=== PATIENT | male | born 1995 | race Caucasian/White ===

== ENCOUNTER 2021-09-09 18:20 | Outpatient (CLI) | payer MEDICAID, SELFPAY | END 2021-09-09 23:59 | disposition short-term general hospital (02) | PROVIDERS: PCP Family Medicine; Visit Provider Family Medicine | DX: U07.1 COVID-19 (principal) | CPT/HCPCS: 87635; U0003; U0005 ==

== ENCOUNTER → 2024-09-19 | Outpatient (CLI) | payer OTHER, SELFPAY | END | disposition home or self-care (01) | PROVIDERS: PCP Nurse Practitioner Family; Visit Provider Nurse Practitioner Family | DX: N39.0 Urinary tract infection, site not specified (principal) | CPT/HCPCS: 87086 ==

== ENCOUNTER 2024-09-24 14:42 | Inpatient (IN) | payer OTHER, SELFPAY ==
[2024-09-24 14:43] VITALS: BP 153/104; PULSE 92; RESP 16; TEMP 36.6; O2SAT 100; BMI 43.0
--- NOTE | 2024-09-24 15:44 | EDS_ITS ---
HPI History of Present Illness Chief Complaint: General Illness [facility] Medical History (Updated 09/24/24 @ 14:54 by Ani Coleman) UTI (urinary tract infection) Home Medications ?Medication ?Instructions ?Recorded ?Last Taken ?Type ciprofloxacin HCl 500 mg tablet 500 mg PO BID 09/24/24 Unknown History Allergy/AdvReac Type Severity Reaction Status Date / Time ciprofloxacin (From Cipro) Allergy hepatitis Verified 09/24/24 20:56 Social History (Updated 09/24/24 @ 14:54 by Ani Coleman) household members: family housing: house Smoking Status: Never smoker EXAM Physical Exam Const Vital Signs: 09/24/24 14:43 09/24/24 14:54 09/24/24 16:42 Temperature 97.8 F Temperature Source Oral Pulse Rate 92 78 Respiratory Rate 16 Respiratory Effort Normal Non-Labored Respiratory Pattern Normal Blood Pressure 153/104 H 135/93 H Blood Pressure Mean 120 107 Pulse Ox 100 96 Oxygen Delivery Method Room Air 09/24/24 18:00 09/24/24 20:00 Temperature Temperature Source Pulse Rate 87 82 Respiratory Rate Respiratory Effort Respiratory Pattern Blood Pressure 138/89 H 152/85 H Blood Pressure Mean 105 107 Pulse Ox 96 97 Oxygen Delivery Method MDM MDM MDM Narrative Medical decision making narrative: HISTORY OF PRESENT ILLNESS: 29-year-old male presents concern for discoloration of the skin. Family concern patient appears jaundiced. First noticed 2 days ago. Mother's concern is related to starting ciprofloxacin several days ago for urinary tract infection. No history of alcohol use or abuse. Denies taking Tylenol recently. Notes he is taken ibuprofen for his UTI discomfort. Denies trauma. Denies history of gallstones. Denies history of abdominal surgery. REVIEW OF SYSTEMS: Pertinent positives: Jaundice Pertinent negatives: Vomiting PHYSICAL EXAM: Nursing triage notes reviewed, Vital signs reviewed Constitutional: please see mdm HENT: MMM Eyes: Pupils equal round and reactive to light, Extraocular muscles intact Neck: No stridor, no JVD, full neck ROM Lungs: Clear to auscultation, No wheezing or rales. No increased work of breathing, no conversational dyspnea, no accessory muscle use, no nasal flaring. No respiratory distress noted Heart: Regular rate and rhythm, No murmurs, No rubs and No gallops, 2+ distal pulses (radial, femoral, posterior tibial) in all extremities Abdomen: Soft, there is no tenderness, rigidity, rebound or guarding, no obvious peritoneal signs, no palpable pulsatile abdominal masses, no auscultated abdominal bruit : No CVAT Extremities: No edema Neuro: No new focal neurological deficits, cranial nerves II through XII intact, 5/5 strength in all present extremities. Intact sensation to light touch in all present extremities, 2+ reflexes bilateral patella tendons. Skin: No rash or lesions noted MEDICAL DECISION MAKING: Chief Complaint: Jaundice External records reviewed: Reviewed prior labs, no recent CMP's note. Reviewed prior imaging. No recent advanced imaging of the abdomen Factors affecting care: UTI Social determinants of health: denies alcohol use History obtained from others: Mom Consults: none [facility] Narrative: Patient was initially hemodynamically stable, afebrile and nontoxic-appearing. Exam without abdominal tenderness. Negative Wilson sign I considered the following differential diagnosis: Obstructive hepatobiliary pathology, viral hepatitis C, Tylenol overdose, alcohol induced cirrhosis, other (drug-induced hepatitis, autoimmune hepatitis, Ferdinand's disease, PSC) I obtained a broad lab and imaging workup to further elucidate etiology of the patient's complaints ALL IMAGES (IF OBTAINED) HAVE BEEN PERSONALLY REVIEWED AND INTERPRETED BY MYSELF. CT scan of the abdomen pelvis did not show evidence of acute cholecystitis or hepatobiliary mass CBC with no leukocytosis, no anemia, noted thrombocytopenia No coagulopathy BMP without evidence of significant electrolyte abnormalities, no anion gap, no acute kidney injury. LFTs concerning for elevated bilirubin, elevated liver enzymes consistent with liver inflammation Lipase is wnl indicating no pancreatic inflammation. Serum Tylenol negative Discussed the case with GI doctor on-call (Dr. Kaur). He noted this is likely drug-induced hepatitis related to recent ciprofloxacin medication. He states the patient does need a workup including autoimmune, primary source of cholangitis, additional workup. Recommend to give the patient 1 g of Solu- Medrol. Recommended admitting the patient to receive an MRCP. Request the patient be n.p.o. at midnight tonight (09/24/2024). Discussed with Dr. Greene who accepted the patient's case. The patient and/or family, caregivers express understanding. The patient and/or family, caregivers agrees with the plan. Shared decision making: I will have a discussion with the patient and or visitors regarding risk/benefits of further testing or admission. They will be made aware of of the risk/benefits inherent in this decision they will be given the opportunity to voice understanding. Total critical care time today provided was at least 0 minutes. This excludes separately billable procedures. Critical care time (if documented) is secondary to the patient having high probability of clinically significant/life threatening deterioration in the patient's condition which required my urgent intervention. Impression: 1. Jaundice 2. Hyperbilirubinemia 3. Thrombocytopenia Dispo: Admit This note was generated with [employer] dictation software. It may contain incorrect words, spelling, and punctuation that were not noted in review of the chart prior to signing. Lab Data Labs: Laboratory Results - last 24 hr 09/24/24 09/24/24 09/24/24 14:53 18:26 18:55 WBC 4.6 RBC 5.14 Hgb 15.7 Hct 45.1 MCV 87.7 MCH 30.5 MCHC 34.8 RDW Std Deviation 39.3 RDW Coeff of Lopez 12.1 Plt Count 124 L MPV 14.5 H Immature Gran % (Auto) 0.400 Neut % (Auto) 62.4 Lymph % (Auto) 26.9 Parmer % (Auto) 7.7 Eos % (Auto) 1.5 Baso % (Auto) 1.1 H Absolute Neuts (auto) 2.9 Absolute Lymphs (auto) 1.23 Nucleated RBC % 0 PT 12.4 INR 0.9 APTT 25.6 Sodium 138 Potassium 3.6 Chloride 101 Carbon Dioxide 28.0 Anion Gap 9 BUN 13 Creatinine 1.22 Estim Creat Clear Calc 120.35 Est GFR (MDRD) Af Amer 90 Est GFR (MDRD) Non-Af 74 BUN/Creatinine Ratio 10.7 Glucose 119 H Calcium 9.5 Total Bilirubin 6.40 H Direct Bilirubin 4.99 H AST 378 H ALT 680 H Alkaline Phosphatase 268 H Total Protein 6.9 Albumin 3.2 Globulin 3.7 Lipase 41 L Acetaminophen < 2.0 L Radiography Diagnostic Testing: Clinical Impression(s) from Imaging Studies Abdomen/Pelvis CT 09/24/24 16:04 IMPRESSION: 1. No acute abdominopelvic finding. 2. Nonobstructing right renal calculus. 3. Layering sludge within the gallbladder without evidence of acute cholecystitis. One or more dose reduction techniques were used (e.g., Automated exposure control, adjustment of the mA and/or kV according to patient size, use of iterative reconstruction technique). Reading Location: [facility] Discharge Plan Triage Chief Complaint: General Illness ED Provider: Prem Vogel Dx/Rx/DC Orders Prescriptions: No Action ciprofloxacin HCl 500 mg tablet 500 mg PO BID Primary Care Provider: Zunilda Mar Referrals: Zunilda Mar, [employer] [Primary Care Provider] - Print Language: French
--- NOTE | 2024-09-24 16:04 | CT_ITS ---
PROCEDURE: ABDOMEN/PELVIS W IV CONT ONLY REASON FOR EXAM: 29-year-old male, painless jaundice. Currently taking Cipro for urinary tract infection. TECHNIQUE: Abdomen and pelvis CT with intravenous contrast. IV CONTRAST: Administered. COMPARISON: None. FINDINGS: Lung bases: Unremarkable. Liver: The liver is normal in size without focal hepatic mass. The major portal veins are patent. No biliary ductal dilation. Gallbladder: Layering sludge within the gallbladder without gallbladder wall thickening or pericholecystic fluid. Spleen: Unremarkable. Pancreas: Unremarkable. Adrenals: Unremarkable. Kidneys: Punctate nonobstructing right upper pole renal calculus. Left renal cyst. No hydronephrosis. Bladder: Mildly distended and unremarkable. Reproductive Organs: Unremarkable. Bowel: The bowel loops are normal in caliber. No ascites or pneumoperitoneum. Normal appendix. Lymph nodes: No suspicious lymph node enlargement. Vasculature: Major vascular structures are unremarkable. Bones: Mild thoracolumbar spondylosis. CT/Abdomen/Pelvis W IV Cont ONLY IMPRESSION: 1. No acute abdominopelvic finding. 2. Nonobstructing right renal calculus. 3. Layering sludge within the gallbladder without evidence of acute cholecystit is. One or more dose reduction techniques were used (e.g., Automated exposure contr ol, adjustment of the mA and/or kV according to patient size, use of iterative reconstruction technique). Reading Location: [id number]
[2024-09-24 16:42] VITALS: BP 135/93; PULSE 78; O2SAT 96
[2024-09-24 16:48] LABS: Absolute Lymphocyte Count 1.23 X10^3/uL (0.83-4.51); Absolute Neutrophil Count 2.9 X10^3/uL (2.0-7.7); Basophil# 0.05 X10^3/uL; Basophil% 1.1 % (0-1); Eosinophil# 0.07 X10^3/uL; Eosinophils% 1.5 % (0-5); Hematocrit 45.1 % (40-54); Hemoglobin 15.7 g/dL (13.0-16.5); Lymphocyte # 1.23 X10^3/ul (0.83-4.51); Lymphocyte % 26.9 % (19-41); Mean Corp Hgb Conc 34.8 g/dL (32-36); Mean Corpuscular Hgb 30.5 pg (27.0-32.0); Mean Corpuscular Volume 87.7 fL (80-94); Mean Platelet Vol. 14.5 fl (6.2-12.0); Monocyte# 0.35 X10^3/uL; Monocyte% 7.7 % (0-10); NRBC Flagged by Analyzer 0 % (0-5); Neutrophil # 2.85 X10^3/uL (2.7-7.7); Neutrophil % 62.4 % (47-70); Platelet Count 124 K/mm3 (150-450); RBC Distribution Width CV 12.1 % (11.6-14.6); RBC Distribution Width SD 39.3 fl (35.1-43.9); Red Blood Count 5.14 M/mm3 (4.6-6.2); White Blood Count 4.6 K/mm3 (4.4-11.0)
[2024-09-24 17:08] LABS: AST(SGOT) 378 U/L (15-37); Alanine Aminotransfer ALT/SGPT 680 U/L (16-61); Albumin, Serum 3.2 g/dL (3.2-5.0); Alkaline Phosphatase 268 U/L (45-117); Anion Gap 9 (5-15); BUN 13 mg/dL (7-18); BUN/Creat Ratio 10.7 RATIO (10-20); Bilirubin, Direct 4.99 mg/dL (0.00-0.30); Calcium,Total 9.5 mg/dL (8.5-10.1); Chloride 101 mmol/L (98-107); Creatinine, Serum 1.22 mg/dL (0.70-1.30); EST Glomerular Filtration Rate 74 mL/min (>60); Est Glom Filt Rate - Afr Amer 90 mL/min (>60); Estimated Creatinine Clearance 120.35 ml/min; Globulin 3.7 g/dL (2.2-4.2); Glucose 119 mg/dL (74-106); Lipase 41 U/L (73-393); Potassium 3.6 mmol/L (3.5-5.1); Protein, Total 6.9 g/dL (6.4-8.2); Sodium Level 138 mmol/L (136-145)
[2024-09-24 18:00] VITALS: BP 138/89; PULSE 87; O2SAT 96
[2024-09-24 18:48] LABS: International Normalized Ratio 0.9; Prothrombin Time (Protime)PT. 12.4 SECONDS (11.7-14.9)
[2024-09-24 18:49] LABS: Partial Thromboplast Time 25.6 Seconds (24.1-36.2)
[2024-09-24 19:46] LABS: Acetaminophen (Tylenol) Level < 2.0 ug/mL (10.0-30.0)
[2024-09-24 20:00] VITALS: BP 152/85; PULSE 82; O2SAT 97
[2024-09-24] MEDS: MethylPREDNISolone 1,000 MG in 0.9% Normal Saline (100mL Bag) 100 ML 100 MG IV (20:44)
[2024-09-24 20:46] VITALS: BP 137/89; PULSE 89; RESP 19; TEMP 36.7; O2SAT 98
--- NOTE | 2024-09-24 20:47 | ED.RN ---
med rec completed to best of pt ability
--- NOTE | 2024-09-24 20:53 | HP.PCM.HOS_ITS ---
[facility] - General General Date of Admission: 09/24/24 Date of Service: 09/24/24 Chief Complaint: Painless Jaundice after Cipro for UTI. HPI Narrative JOJO BARRETT, is a 29 M with a past medical history of morbid obesity; with BMI of 43 this admission and recently diagnosed UTI; that was subsequently treated with oral ciprofloxacin who presents to [facility] ER complaining of painless jaundice after ciprofloxacin for treatment of a UTI. Mr. Gonzalez reports his symptoms began approximately 5 days ago when he was diagnosed with a UTI and then started on oral ciprofloxacin with subsequent severe pain in his abdomen and back he initially attributed to the UTI and the pain resolved he began to notice yellowing of his skin. His mother was concerned he was having an allergic reaction to his recently started ciprofloxacin so he stopped taking it today and they then decided to come in for further evaluation and treatment. He admits to intermittent ibuprofen use but he denies acetaminophen use, EtOH abuse, history of gallstones, history of abdominal surgery or similar previous episodes. There was no report of fever, chills, nausea, vomiting, diarrhea, constipation, chest pain, SOB or headache. In the ER he was noted to have markedly abnormal LFT's consisting of: Hyperbilirubinemia of 6.4 mg/dL, Direct Bilirubin 4.99 mg/dL, AST 378 U/L, ALT 680 U/L and Alkaline Phosphatase of 268 U/L present on admission with CT of the abdomen and pelvis revealing no acute abdominal finding with a non-obstructing Right renal calculus and layering sludge in the gallbladder without acute cholecystitis and he was then diagnosed with Acute Drug-induced Hepatitis due to Adverse Drug Reaction to recently started Ciprofloxacin causing Jaundice with sponsorship coordinator recommending patient be treated with Solu-Medrol 1g IV once in addition to ERCP with possible biopsy planned for tomorrow causing patient to be made strict NPO to prepare for procedure. He was then admitted to the general medical floor for ongoing care for a stay that is expected to extend beyond 2 midnights. [facility] Medical History UTI (urinary tract infection) Home Medications ?Medication ?Instructions ?Recorded ?Last Taken ?Type ciprofloxacin HCl 500 mg tablet 500 mg PO BID UTI 09/1309/23/24 History Allergy/AdvReac Type Severity Reaction Status Date / Time ciprofloxacin (From Cipro) Allergy hepatitis Verified 09/24/24 20:56 Social History household members: family housing: house Smoking Status: Never smoker ROS ROS Narrative Review of Systems: Constitutional: Patient denies fever or chills. Eyes: Patient denies changes in vision or discharge from eyes. ENT: Patient denies runny nose, sore throat or ear pain. Resp: Patient denies SOB or cough. CV: Patient denies chest pain, palpitations, heart racing or lower extremity edema. GI: Patient initially had severe abdominal pain but he currently denies abdominal pain, nausea, vomiting, diarrhea or constipation. : Patient denies dysuria, hematuria or urinary frequency. MSK: Patient had back pain after initially starting the ciprofloxacin but he currently denies arthralgias or myalgias. Skin: Patient admits to progressively jaundice. Psych: Patient denies symptoms of uncontrolled depression or anxiety. Allergy: Patient denies lip swelling, tongue swelling or urticaria. Hematology: Patient denies easy bleeding or easy bruisability. Endocrinology: Patient denies polyuria, polydipsia or polyphagia. 14 point ROS otherwise negative except for positives noted above in HPI. Vital Signs Vital Signs Vital Signs: 09/24/24 14:43 09/24/24 14:54 09/24/24 16:42 Temperature 97.8 F Temperature Source Oral Pulse Rate 92 78 Respiratory Rate 16 Respiratory Effort Normal Non-Labored Respiratory Pattern Normal Blood Pressure 153/104 H 135/93 H Blood Pressure Mean 120 107 Pulse Ox 100 96 Oxygen Delivery Method Room Air 09/24/24 18:00 09/24/24 20:00 09/24/24 20:46 Temperature 98.1 F Temperature Source Pulse Rate 87 82 89 Respiratory Rate 19 H Respiratory Effort Respiratory Pattern Blood Pressure 138/89 H 152/85 H 137/89 H Blood Pressure Mean 105 107 105 Pulse Ox 96 97 98 Oxygen Delivery Method Weight Weight: 291 lb 2 oz Body Mass Index (BMI) 43.0 Results Medical Records Data Attestation: I reviewed the patient's medical records Lab / Micro Data Attestation: I reviewed the patient's lab results. 09/24/24 14:53 09/24/24 14:53 Labs: Laboratory Results - last 24 hr 09/24/24 14:53: WBC 4.6, RBC 5.14, Hgb 15.7, Hct 45.1, MCV 87.7, MCH 30.5, MCHC 34.8, RDW Std Deviation 39.3, RDW Coeff of Lopez 12.1, Plt Count 124 L, MPV 14.5 H , Immature Gran % (Auto) 0.400, Neut % (Auto) 62.4, Lymph % (Auto) 26.9, Davison % (Auto) 7.7, Eos % (Auto) 1.5, Baso % (Auto) 1.1 H, Absolute Neuts (auto) 2.9, Absolute Lymphs (auto) 1.23, Nucleated RBC % 0, Sodium 138, Potassium 3.6, Chloride 101, Carbon Dioxide 28.0, Anion Gap 9, BUN 13, Creatinine 1.22, Estim Creat Clear Calc 120.35, Est GFR (MDRD) Af Amer 90, Est GFR (MDRD) Non-Af 74, BUN/Creatinine Ratio 10.7, Glucose 119 H, Calcium 9.5, Total Bilirubin 6.40 H, D irect Bilirubin 4.99 H, AST 378 H, ALT 680 H, Alkaline Phosphatase 268 H, Total Protein 6.9, Albumin 3.2, Globulin 3.7, Lipase 41 L 09/24/24 18:26: PT 12.4, INR 0.9, APTT 25.6 09/24/24 18:55: Acetaminophen < 2.0 L Imaging Radiology Impression Abdomen/Pelvis CT 09/24/24 16:04 IMPRESSION: 1. No acute abdominopelvic finding. 2. Nonobstructing right renal calculus. 3. Layering sludge within the gallbladder without evidence of acute cholecystitis. One or more dose reduction techniques were used (e.g., Automated exposure control, adjustment of the mA and/or kV according to patient size, use of iterative reconstruction technique). Reading Location: [facility] Assessment & Plan Assessment/Plan (1) Drug-induced hepatitis: (2) Hyperbilirubinemia: (3) Transaminitis: (4) Adverse drug reaction: QUALIFIERS: Encounter type: initial encounter Qualified Code(s): T50.905A - Adverse effect of unspecified drugs, medicaments and biological substances, initial encounter (5) Morbid obesity with BMI of 40.0-44.9, adult: (6) Abdominal obesity and metabolic syndrome: (7) Acute cystitis without hematuria: PLAN: Plan 1. Acute Drug-induced Hepatitis with markedly abnormal LFT's consisting of: Hyperbilirubinemia of 6.4 mg/dL, Direct Bilirubin 4.99 mg/dL, AST 378 U/L, ALT 680 U/L and Alkaline Phosphatase of 268 U/L present on admission with CT of the abdomen and pelvis revealing no acute abdominal finding with a non-obstructing Right renal calculus and layering sludge in the gallbladder without acute cholecystitis - Admit to general medical floor. Proceed with Solu-Medrol 1g IV once recommended by gastroenterology. Patient to be strict NPO for ERCP in AM. Start pantoprazole IV for GI prophylaxis. Give ondansetron prn for nausea and vomiting. We will avoid acetaminophen or other potentially hepatotoxic agents. Give low-dose ibuprofen prn for [id number] (level 1-5/10) pain or fever. Give morphine IV prn for severe (level 6-10/10) pain. Finally, gastroenterology help is greatly appreciated. 2. Adverse Drug Reaction to recently started Ciprofloxacin causing Jaundice directly causing #1 - Add ciprofloxacin to list of allergies to minimize risk of similar issues in the future. 3. Recently diagnosed UTI; that was subsequently treated with oral ciprofloxacin complicating #1 & #2 - Rechecked UA this admission with evidence of ongoing Acute Cystitis; without hematuria with patient then ordered IV ceftriaxone with culture and sensitivity data pending at this time. 4. Morbid Obesity; with BMI of 43 this admission adding to the burden of disease outlined from #1 - #3 - Weight loss will be recommended. Check TSH. Check HgbA1c with elevated blood glucose noted on admission to screen for underlying DM-2. Check Lipid Profile to screen for dyslipidemia with suspected underlying metabolic syndrome. This complicates his case and may hamper recovery. 5. DVT/GI prophylaxis - SCD's only with impending ERCP. Start pantoprazole 40 mg IV daily. Total time: Approximately (but not less than) 75 minutes. Charges/Coding Visit Charges Inpatient E&M: 97483 Init Hosp L3
[2024-09-24 21:37] VITALS: BMI 39.6
[2024-09-24 21:55] VITALS: BP 133/92; PULSE 71; RESP 16; TEMP 37.2; O2SAT 98
[2024-09-24] MEDS: Pantoprazole Sodium 40 MG in 0.9% Normal Saline (100mL MB+) 100 ML 330 MG IV (22:24)
[2024-09-24] MEDS: 0.9% Normal Saline (1000mL) 1,000 ML 150 ML IV (22:24)
[2024-09-24 22:37] LABS: Alcohol, Blood (Medical)-Serum < 3.0 mg/dL
[2024-09-24 22:46] LABS: Cholesterol 203 mg/dL (200); High Density Lipoprotein 30 mg/dL; Thyroid Stim Hormone (TSH) 0.735 uIU/mL (0.358-3.740); Triglycerides 146 mg/dL; Very Low Density Lipoprotein 29 mg/dL (5-40)
[2024-09-24 23:54] LABS: Squamous Epithelial Cells - UA 0 SEEN /hpf (0-5)
[2024-09-24 23:58] LABS: Color, Urine Yellow (Yellow); Glucose, Dipstick Normal (Normal); Ketone-Dipstick Negative (Negative); Leukocyte Esterase-Dipstick 25 /ul (Negative); Nitrite-Dipstick Negative (Negative); Occult Blood-Urine Negative /ul (Negative); Protein-Dipstick 15 mg/dl (Negative); Specific Gravity, Urine 1.015 (1.002-1.030); Urine Clarity Clear (Clear); Urine Urobilinogen 1 mg/dl (Normal); Urine pH 6.5 (5.0 - 8.0)
[2024-09-25] VITALS (17 sets, daily range): BP systolic 104–165; BP diastolic 58–92; PULSE 70–103; RESP 14–24; TEMP 36.6–37.2; O2SAT 93–98; BMI 39.6
--- NOTE | 2024-09-25 | LIVB_PTH ---
PATIENT: JOJO BARRETT LOC: [facility] U#:[id number] AGE/SX: 29/M ROOM: [facility] RE09/24/[address]: Dr. Mani Emanuel MD : 1995 BED: 1 DIS: 09/27/2024 SPEC #: [id number] RECD: 09/25/24 14:44 STATUS: MACIE SUE #: [id number] NELLY: 09/25/24 00:[address]: Mani Emanuel DEPT: SURGICAL PATHOLOGY RECD BY: Jessi Banuelos ENTERED: 09/26/24 08:21 SP TYPE: LIVER BX OTHR DR: Dr. Karson Agudelo, DO Zunilda Mar, [employer] Tissues: Liver, NOS Procedures: PAS with Diastase (control) Trichrome (control) Special Stain Group I PAS Stain (control) Surgery Specimen Level V Retic (control) Iron Stain (control) HEADER OPERATION: Liver biopsy PRE-OP DIAGNOSIS: Liver failure TISSUE SUBMITTED: 18 gauge x 4 cores MICROSCOPIC DIAGNOSIS Liver, CT guided core biopsy: Liver parenchymal tissue with macro- and microvesicular steatosis. Increased portal, periportal fibrosis and focal bridging fibrosis. Mild portal chronic inflammation. See microscopic description and comment. 09/29/2024 COMMENT Correlation with clinical, laboratory, radiologic findings and appropriate follow-up are necessary. This case has been reviewed in consultation with Dr. House who concurs with the above diagnosis. IDC:PW MICROSCOPIC DESCRIPTION Slides are reviewed. The specimen shows liver parenchymal tissue with preserved lobular architecture. Hepatocytes show mild to moderate atypia and focal bile stasis. Significant lobular inflammation is not seen. Portal areas show mild chronic inflammation. Interface inflammation is not seen. Iron stain shows absent iron. Reticulin stain shows preserved lobular architecture. Trichrome stain shows increased portal, periportal fibrosis and focal bridging fibrosis. Obvious cirrhosis is not seen. PAS stain with and without diastase do not show any abnormal accumulation of protein. All stains are performed with appropriate matched controls. GROSS DESCRIPTION Received is one container labeled with the patient's name and not further designated. The specimen consists of multiple elongated fragments of pantoja soft tissue that in aggregate measure 2 x 0.5 x 0.1 cm. The specimen is totally submitted in one cassette. 09/26/2024 TC:5 CPT:74697,85841w2
[2024-09-25 00:11] LABS: Urine Bilirubin Dipstick 1 mg/dL (Negative)
[2024-09-25 00:15] LABS: Amphetamine Urine NEGATIVE (<1000 ng/mL); Barbiturate Urine VISTA NEGATIVE (< 200 ng/mL); Benzodiazepine Urine VISTA NEGATIVE (< 200 ng/mL); Cocaine Urine VISTA NEGATIVE (< 300 ng/mL); Ecstacy Urine VISTA NEGATIVE (< 500 ng/mL); Methadone Urine VISTA NEGATIVE (< 300 ng/mL); Opiates Urine NEGATIVE (< 300 ng/mL); PCP Urine NEGATIVE (< 25 ng/mL); THC Urine VISTA NEGATIVE (< 50 ng/mL); Vista UDS pH Range 5
[2024-09-25 00:24] LABS: Red Blood Cells-Urine 0 SEEN /hpf (0-5)
[2024-09-25 00:25] LABS: Amorphous Sediment 1+; Bacteria 2+ /hpf (None Seen); Mucous, Urine RARE /hpf (<or=2+); White Blood Cells 10-25 SEEN /hpf (0-5)
[2024-09-25] MEDS: 0.9% Normal Saline (1000mL) 1,000 ML 150 ML IV (05:02)
[2024-09-25] MEDS: Ceftriaxone 1 GM/50 ML BAG IV (05:59)
[2024-09-25 07:26] LABS: Absolute Lymphocyte Count 0.47 X10^3/uL (0.83-4.51); Absolute Neutrophil Count 2.9 X10^3/uL (2.0-7.7); Basophil# 0.01 X10^3/uL; Basophil% 0.3 % (0-1); Eosinophil# 0.01 X10^3/uL; Eosinophils% 0.3 % (0-5); Hematocrit 45.1 % (40-54); Hemoglobin 15.9 g/dL (13.0-16.5); Lymphocyte # 0.47 X10^3/ul (0.83-4.51); Lymphocyte % 13.7 % (19-41); Mean Corp Hgb Conc 35.3 g/dL (32-36); Mean Corpuscular Hgb 30.9 pg (27.0-32.0); Mean Corpuscular Volume 87.7 fL (80-94); Monocyte# 0.02 X10^3/uL; Monocyte% 0.6 % (0-10); NRBC Flagged by Analyzer 0 % (0-5); Neutrophil # 2.92 X10^3/uL (2.7-7.7); Neutrophil % 84.8 % (47-70); POSITIVE DIFFERENTIAL YES; Platelet Count 122 K/mm3 (150-450); RBC Distribution Width CV 12.1 % (11.6-14.6); RBC Distribution Width SD 39.1 fl (35.1-43.9); Red Blood Count 5.14 M/mm3 (4.6-6.2); White Blood Count 3.4 K/mm3 (4.4-11.0)
--- NOTE | 2024-09-25 07:28 | CT_ITS ---
EXAM: BIOPSY/INJ OR NEEDLE PLACEMENT CLINICAL HISTORY: Acute liver failure. COMPARISON: None. TECHNIQUE: The procedure as well as the benefits and possible complications including bleeding and infection were explained to the patient and the patient's mother. Informed consent was obtained. Under CT guidance, an appropriate biopsy site in the right lobe of the liver was obtained. The overlying skin was prepped and draped in the usual sterile fashion. Conscious sedation was performed. The patient received 2 mg of Versed and 50 mcg of fentanyl intravenously. Conscious sedation was started at 2:18 p.m. and terminated at 2:33 p.m.. The patient was independently monitored by the department nurse. For core biopsies utilizing an 18 gauge core biopsy needle system was performed of the right lobe of the liver. No immediate complication occurred. The patient tolerated the procedure well FINDINGS: Successful 18 gauge core biopsies of the right lobe of the liver. CT/Biopsy/Inj or Needle Placement IMPRESSION: Successful 418 gauge core biopsies of the right lobe of the liver performed. The patient tolerated the procedure well. Conscious sedation was performed. Reading Location: [place] [id number]
--- NOTE | 2024-09-25 07:50 | MRI_ITS ---
EXAM: MRCP ABDOMEN WITHOUT CONTRAST CLINICAL HISTORY: Jaundice elevated liver enzymes COMPARISON: 09/24/2024. TECHNIQUE: MRI of the abdomen was performed without intravenous contrast. MRCP images were obtained with 3D reconstruction. FINDINGS: Lung bases: Unremarkable. Liver: Unremarkable. Gallbladder and bile ducts: There is a 2-3 mm stone in the distal common bile duct. The common bile duct is mildly dilated measuring 7.3 mm. The gallbladder is partially distended. The gallbladder wall is mildly thickened measuring 3.8 mm. Numerous tiny gallstones are present in the gallbladder lumen. A small filling defect may also be present in the cystic duct, seen on image 10 of series 12 Spleen: The spleen is mildly enlarged measuring 16.8 cm.. Pancreas: Unremarkable. Adrenals: Unremarkable. Kidneys and ureters: Unremarkable. Bowel: Unremarkable. Lymph nodes: Unremarkable. Peritoneum: Unremarkable. Vessels: Unremarkable. Retroperitoneum: Unremarkable. Abdominal wall: Unremarkable. Bones: Mild multilevel degenerative changes are present in the visualized spine. MRI/MRCP Abdomen without Contrast IMPRESSION: 1. 2-3 mm stone in the distal common bile duct with mild dilatation of the comm on bile duct measuring 7.3 mm suggesting possible obstructive cholangiopathy. 2. Cholelithiasis with a partially distended and thick-walled gallbladder. The re is a questionable stone in the cystic duct. Acute cholecystitis is possible. 3. Splenomegaly. Reading [facility]
[2024-09-25 08:28] LABS: ALB/GLOB Ratio 0.8 RATIO (0.9-2.4); AST(SGOT) 366 U/L (15-37); Alanine Aminotransfer ALT/SGPT 710 U/L (16-61); Albumin, Serum 3.1 g/dL (3.2-5.0); Alkaline Phosphatase 260 U/L (45-117); Anion Gap 7 (5-15); BUN 11 mg/dL (7-18); BUN/Creat Ratio 10.4 RATIO (10-20); Calcium,Total 9.3 mg/dL (8.5-10.1); Chloride 107 mmol/L (98-107); Creatinine, Serum 1.06 mg/dL (0.70-1.30); EST Glomerular Filtration Rate 87 mL/min (>60); Est Glom Filt Rate - Afr Amer 106 mL/min (>60); Estimated Creatinine Clearance 132.61 ml/min; Globulin 3.8 g/dL (2.2-4.2); Glucose 164 mg/dL (74-106); Magnesium 2.5 mg/dL (1.6-2.6); Phosphorus 3.5 mg/dL (2.5-4.9); Potassium 4.2 mmol/L (3.5-5.1); Protein, Total 6.9 g/dL (6.4-8.2); Sodium Level 138 mmol/L (136-145)
--- NOTE | 2024-09-25 09:03 | CON.PCM.GI_ITS ---
HPI Consult Data Date of Consult: 09/25/24 HPI Narrative Reason for Consultation: jaundice HPI Narrative: JOJO BARRETT, is a 29 M who presents to the ED. He was recently diagnosed UTI; that was subsequently treated with oral ciprofloxacin who presents to [facility] ER complaining of painless jaundice after ciprofloxacin for treatment of a UTI. His symptoms began approximately 5 days ago when he was diagnosed with a UTI and then started on oral ciprofloxacin. He did develop severe pain in his abdomen and back he initially attributed to the UTI and the pain resolved he began to notice yellowing of his skin. His mother was concerned he was having an allergic reaction to his recently started ciprofloxacin so he stopped taking it today and they then decided to come in for further evaluation and treatment. He admits to intermittent ibuprofen use but he denies acetaminophen use, EtOH abuse, history of gallstones, history of abdominal surgery or similar previous episodes. There was no report of fever, chills, nausea, vomiting, diarrhea, constipation, chest pain, SOB or headache. In the ER he was noted to have markedly abnormal LFT's consisting of: Hyperbilirubinemia of 6.4 mg/dL, Direct Bilirubin 4.99 mg/dL, AST 378 U/L, ALT 680 U/L and Alkaline Phosphatase of 268 U/L present on admission with CT of the abdomen and pelvis revealing no acute abdominal finding with a non-obstructing Right renal calculus and layering sludge in the gallbladder without acute cholecystitis. I suspected that he had acute Drug-induced Hepatitis due to Adverse Drug Reaction to recently started Ciprofloxacin causing Jaundice with jump roll operator recommending patient be treated with Solu-Medrol 1g IV once in addition to MRCP with possible biopsy. [facility] Medical History UTI (urinary tract infection) Home Medications ?Medication ?Instructions ?Recorded ?Last Taken ?Type ciprofloxacin HCl 500 mg tablet 500 mg PO BID UTI 09/1309/23/24 History Allergy/AdvReac Type Severity Reaction Status Date / Time ciprofloxacin (From Cipro) Allergy hepatitis Verified 09/24/24 20:56 Social History household members: family housing: house Smoking Status: Never smoker ROS Constitutional Constitutional: Denies fatigue, fever(s), poor appetite, weight gain or weight loss Gastrointestinal Gastrointestinal: Denies belching, bloating, change in bowel habits, change in stool character, chewing difficulty, coffee ground emesis, constipation, cramping, diarrhea, dyspepsia, dysphagia, early satiety, excessive flatus, fecal incontinence, heartburn, hematemesis, hematochezia, hemorrhoids, loose stools, melena, nausea, odynophagia, rectal bleeding, tenesmus, vomiting or weight changes Physical Exam Const alert, oriented x3, no apparent distress and healthy appearing General Appearance: cooperative GI normal to inspection, nondistended, normoactive bowel sounds, soft to palpation, non-tender and non-distended Percussion: normal to percussion Rectal Exam: deferred Lab / Micro Data 09/25/24 07:07 09/25/24 07:07 Labs: Laboratory Results - last 24 hr 09/24/24 14:53: WBC 4.6, RBC 5.14, Hgb 15.7, Hct 45.1, MCV 87.7, MCH 30.5, MCHC 34.8, RDW Std Deviation 39.3, RDW Coeff of Lopez 12.1, Plt Count 124 L, MPV 14.5 H , Immature Gran % (Auto) 0.400, Neut % (Auto) 62.4, Lymph % (Auto) 26.9, [place] % (Auto) 7.7, Eos % (Auto) 1.5, Baso % (Auto) 1.1 H, Absolute Neuts (auto) 2.9, Absolute Lymphs (auto) 1.23, Nucleated RBC % 0, Sodium 138, Potassium 3.6, Chloride 101, Carbon Dioxide 28.0, Anion Gap 9, BUN 13, Creatinine 1.22, Estim Creat Clear Calc 120.35, Est GFR (MDRD) Af Amer 90, Est GFR (MDRD) Non-Af 74, BUN/Creatinine Ratio 10.7, Glucose 119 H, Hemoglobin A1c 5.0, Calcium 9.5, Total Bilirubin 6.40 H, Direct Bilirubin 4.99 H, AST 378 H, ALT 680 H, Alkaline Phosphatase 268 H, Total Protein 6.9, Albumin 3.2, Globulin 3.7, Triglycerides 146, Cholesterol 203 H, LDL Cholesterol 144 H, VLDL Cholesterol 29, HDL Cholesterol 30 L, Lipase 41 L, TSH 0.735 09/24/24 18:26: PT 12.4, INR 0.9, APTT 25.6 09/24/24 18:55: Acetaminophen < 2.0 L, Ethyl Alcohol < 3.0 09/24/24 23:47: Urine Color Yellow, Urine Clarity Clear, Urine pH 6.5, Ur Specific [place] 1.015, Urine Protein 15 H, Urine Glucose (UA) Normal, Urine Ketones Negative, Urine Occult Blood Negative, Urine Nitrite Negative, Urine Bilirubin 1 H, Urine Urobilinogen 1 H, Ur Leukocyte Esterase 25 H, Urine RBC 0 SEEN, Urine WBC 10-25 SEEN, Ur Squamous Epith Cells 0 SEEN, Amorphous Sediment 1+, Urine Bacteria 2+, Urine Mucus RARE, Urine Opiates Screen NEGATIVE, Urine Methadone Screen NEGATIVE, Ur Barbiturates Screen NEGATIVE, Ur Phencyclidine Scrn NEGATIVE, Ur Amphetamines Screen NEGATIVE, MDMA (Ecstasy) Screen NEGATIVE, U Benzodiazepines Scrn NEGATIVE, Urine Cocaine Screen NEGATIVE, U Cannabinoids Screen NEGATIVE, Ur Drug Screen Comment 09/25/24 07:07: WBC 3.4 L, RBC 5.14, Hgb 15.9, Hct 45.1, MCV 87.7, MCH 30.9, MCHC 35.3, RDW Std Deviation 39.1, RDW Coeff of Lopez 12.1, Plt Count 122 L, MPV 14.0 H, Immature Gran % (Auto) 0.300, Neut % (Auto) 84.8 H, Lymph % (Auto) 13.7 L, [place] % (Auto) 0.6, Eos % (Auto) 0.3, Baso % (Auto) 0.3, Absolute Neuts (auto) 2.9, Absolute Lymphs (auto) 0.47 L, Nucleated RBC % 0, Sodium 138, Potassium 4.2, Chloride 107, Carbon Dioxide 24.0, Anion Gap 7, BUN 11, Creatinine 1.06, Estim Creat Clear Calc 132.61, Est GFR (MDRD) Af Amer 106, Est GFR (MDRD) Non-Af 87, BUN/Creatinine Ratio 10.4, Glucose 164 H, Calcium 9.3, Phosphorus 3.5, Magnesium 2.5, Total Bilirubin 5.10 H, AST 366 H, ALT 710 H, Alkaline Phosphatase 260 H, Total Protein 6.9, Albumin 3.1 L, Globulin 3.8, A lbumin/Globulin Ratio 0.8 L 09/25/24 07:56: MIGUEL-1 Antibody TNP, SS-A/Ro IgG Antibody TNP, SS-B/La IgG Antibody TNP, Sm (Vela) Antibody TNP, FACTORY HAND Antibody TNP, Antichromatin Antibodies TNP, Centromere B Antibody TNP Imaging Radiology Impression Abdomen/Pelvis CT 09/24/24 16:04 IMPRESSION: 1. No acute abdominopelvic finding. 2. Nonobstructing right renal calculus. 3. Layering sludge within the gallbladder without evidence of acute cholecystitis. One or more dose reduction techniques were used (e.g., Automated exposure control, adjustment of the mA and/or kV according to patient size, use of iterative reconstruction technique). Reading Location: [facility] Assessment & Plan Assessment/Plan (1) Drug-induced hepatitis: (2) Hyperbilirubinemia: (3) Transaminitis: (4) Morbid obesity with BMI of 40.0-44.9, adult: PLAN: Plan Antibiotics are among the most common causes of drug-induced liver injury worldwide. Amoxicillin/clavulanic acid and nitrofurantoin are the most common culprits while tetracyclines are a rare cause of liver injury. Antibiotics are among the most common causes of drug-induced liver injury worldwide. Amoxicillin/clavulanic acid and nitrofurantoin are the most common culprits while tetracyclines are a rare cause of liver injury. This is a relatively healthy 29-year-old with past medical history of obesity medications significant ciprofloxacin for urinary tract infection. After five days of therapy, he developed nausea, vomiting, fatigue, and significant transaminitis consistent with a hepatocellular pattern of liver injury. He will have a thorough workup to rule out other causes such as infection, autoimmune diseases, liver malignancy, and vascular, structural, and metabolic disorders, his liver injury was attributed to ciprofloxacin. I think we will be able to reach a prescription diagnosis a consistent temporal association between the Cipro and liver injury. I suspect that hr will have a completely resolution from DILI very well with Solu-Medrol.. We will wait biopsies along and continue steroid therapy.
[2024-09-25 09:46] LABS: International Normalized Ratio 0.9; Prothrombin Time (Protime)PT. 12.5 SECONDS (11.7-14.9)
[2024-09-25 09:51] LABS: Partial Thromboplast Time 24.1 Seconds (24.1-36.2)
[2024-09-25 10:39] LABS: Ferritin 716 ng/mL (26-388)
[2024-09-25] MEDS: Pantoprazole Sodium 40 MG in 0.9% Normal Saline (100mL MB+) 100 ML 330 MG IV (10:54)
[2024-09-25] MEDS: MethylPREDNISolone 1,000 MG in 0.9% Normal Saline (100mL Bag) 100 ML 100 MG IV (11:22)
--- NOTE | 2024-09-25 12:10 | CASEMGMT ---
RN CM Face to Face with patient for initial transition planning/care coordination assessment. RN CM introduced self and role at [facility]. Patient lying in bed, alert and oriented. Patient willing to participate in assessment and is able to answer all questions appropriately. Care providers, pharmacy, and demographics verified. PCP: Zaid Specialists: none Preferred Pharmacy: [facility] Insurance: [facility] Prescription Benefit: yes Living Will/HPOA: none LNOK: mother, sister Living Arrangements: Patient lives with mother and sister in a bilevel home with 7 steps and railing between levels. Patient is independent and able to ambulate stairs. Transportation: self, family DME/HHC: Patient denies DME in the home. No previous HHC Or SNF Patient wishes to discharge home, denies need for home health at this time. Patient states he has no further needs or concerns at this time. CM to follow for discharge planning needs that may arise. Disposition Plan: Patient to discharge home with family support and follow-up plans in place. Alondra JOE, RN, CM
[2024-09-25] MEDS: Midazolam 2 MG/2 ML Syringe IV (14:18)
[2024-09-25] MEDS: fentaNYL 100 MCG/2 ML Ampul IV (14:18)
[2024-09-25] MEDS: Ketorolac 30 MG/ML Syringe IV (14:51)
[2024-09-25] MEDS: Lidocaine 2% (20 ml mdv) 20 ML Vial INFILT (14:55)
--- NOTE | 2024-09-25 17:36 | PN.HOSP_ITS ---
Subjective Subjective Doing well, no issues overnight, feels a little bit better today Objective Data Objective Data Vital Signs: Vital Signs Temp Pulse Resp BP Pulse Ox O2 Del Method 98.2 F 83 16 111/67 93 Room Air 09/25/24 15:20 09/25/24 15:20 09/25/24 15:20 09/25/24 15:20 09/25/24 15:20 09/25/24 15:20 Oxygen Delivery Method Room Air Weight: 268 lb 11.896 oz Body Mass Index (BMI) 39.6 Intake & Output: Intake and Output for Last 24 Hours 09/24/24 09/25/24 09/26/24 03:59 03:59 03:59 Intake Total 226 / 226 2268.5 / 2268.5 Balance 226 / 226 2268.5 / 2268.5 Lab / Micro Data 09/25/24 07:07 09/25/24 07:07 Labs: Laboratory Results - last 24 hr 09/24/24 14:53: Hemoglobin A1c 5.0, Triglycerides 146, Cholesterol 203 H, LDL Cholesterol 144 H, VLDL Cholesterol 29, HDL Cholesterol 30 L, TSH 0.735 09/24/24 18:26: PT 12.4, INR 0.9, APTT 25.6 09/24/24 18:55: Acetaminophen < 2.0 L, Ethyl Alcohol < 3.0 09/24/24 23:47: Urine Color Yellow, Urine Clarity Clear, Urine pH 6.5, Ur Specific [place] 1.015, Urine Protein 15 H, Urine Glucose (UA) Normal, Urine Ketones Negative, Urine Occult Blood Negative, Urine Nitrite Negative, Urine Bilirubin 1 H, Urine Urobilinogen 1 H, Ur Leukocyte Esterase 25 H, Urine RBC 0 SEEN, Urine WBC 10-25 SEEN, Ur Squamous Epith Cells 0 SEEN, Amorphous Sediment 1+, Urine Bacteria 2+, Urine Mucus RARE, Urine Opiates Screen NEGATIVE, Urine Methadone Screen NEGATIVE, Ur Barbiturates Screen NEGATIVE, Ur Phencyclidine Scrn NEGATIVE, Ur Amphetamines Screen NEGATIVE, MDMA (Ecstasy) Screen NEGATIVE, U Benzodiazepines Scrn NEGATIVE, Urine Cocaine Screen NEGATIVE, U Cannabinoids Screen NEGATIVE, Ur Drug Screen Comment 09/25/24 07:07: WBC 3.4 L, RBC 5.14, Hgb 15.9, Hct 45.1, MCV 87.7, MCH 30.9, MCHC 35.3, RDW Std Deviation 39.1, RDW Coeff of Lopez 12.1, Plt Count 122 L, MPV 14.0 H, Immature Gran % (Auto) 0.300, Neut % (Auto) 84.8 H, Lymph % (Auto) 13.7 L, [place] % (Auto) 0.6, Eos % (Auto) 0.3, Baso % (Auto) 0.3, Absolute Neuts (auto) 2.9, Absolute Lymphs (auto) 0.47 L, Nucleated RBC % 0, Sodium 138, Potassium 4.2, Chloride 107, Carbon Dioxide 24.0, Anion Gap 7, BUN 11, Creatinine 1.06, Estim Creat Clear Calc 132.61, Est GFR (MDRD) Af Amer 106, Est GFR (MDRD) Non-Af 87, BUN/Creatinine Ratio 10.4, Glucose 164 H, Calcium 9.3, Phosphorus 3.5, Magnesium 2.5, Total Bilirubin 5.10 H, AST 366 H, ALT 710 H, Alkaline Phosphatase 260 H, Total Protein 6.9, Albumin 3.1 L, Globulin 3.8, A lbumin/Globulin Ratio 0.8 L 09/25/24 07:56: Ferritin 716 H, MIGUEL-1 Antibody TNP, SS-A/Ro IgG Antibody TNP, SS- B/La IgG Antibody TNP, Sm (Vela) Antibody TNP, CYTOLOGY TEACHER Antibody TNP, Antichromatin Antibodies TNP, Centromere B Antibody TNP 09/25/24 09:02: PT 12.5, INR 0.9, APTT 24.1 Radiography Diagnostic Testing: Radiology Impression Abdomen/Pelvis CT 09/24/24 16:04 IMPRESSION: 1. No acute abdominopelvic finding. 2. Nonobstructing right renal calculus. 3. Layering sludge within the gallbladder without evidence of acute cholecystitis. One or more dose reduction techniques were used (e.g., Automated exposure control, adjustment of the mA and/or kV according to patient size, use of iterative reconstruction technique). Reading Location: [facility] Biopsy CT 09/25/24 07:28 IMPRESSION: Successful 418 gauge core biopsies of the right lobe of the liver performed. The patient tolerated the procedure well. Conscious sedation was performed. Reading Location: [facility] MRCP 09/25/24 07:50 IMPRESSION: 1. 2-3 mm stone in the distal common bile duct with mild dilatation of the common bile duct measuring 7.3 mm suggesting possible obstructive cholangiopathy. 2. Cholelithiasis with a partially distended and thick-walled gallbladder. There is a questionable stone in the cystic duct. Acute cholecystitis is possible. 3. Splenomegaly. Reading Location: [facility] Physical Exam Narrative General: Alert, Oriented x3, Cooperative, No apparent distress HEENT: Atraumatic, PERRLA, EOMI, Normocephalic Oral: Moist Mucosa Neck: Supple, No JVD Lungs: Clear to auscultation, Normal air movement, No rhonchi, No wheeze, No rales Cardiovascular: Regular rate, Regular Rhythm, Normal S1, Normal S2, No murmurs Abdomen: Soft, Non Tender, Non-Distended, No Hepato-splenomegaly Extremities: No edema, Capillary Refill Less than 3 Seconds Skin: Jaundiced Musculoskeletal: No Tenderness to Palpation of Joints or Extremities Neurological: No focal neurological deficits, Motor Exam 5/5 strength throughout, Sensory exam intact to light touch and pain Psych/Mental Status: Normal Affect, Appropriate Assessment & Plan Assessment/Plan (1) Drug-induced hepatitis: (2) Acute cystitis without hematuria: PLAN: Plan 1. Acute drug-induced hepatitis with choledocholithiasis ? He is receiving IV steroids for his drug-induced hepatitis ? MRCP shows choledocholithiasis plan for ERCP tomorrow morning ? Continue with a repeat dose of 1 g of Solu-Medrol tomorrow ? Repeat CMP in the morning ? There is improvement in all of his indices with the steroids 2. UTI ? He had been on approximately 4 days of ciprofloxacin so we will be able to complete treatment with Rocephin while here in the hospital will likely not need anything on discharge, though culture from 09/19/2024 was negative for growth DVT: SCDs Charges/Coding Visit Charges Inpatient E&M: 24717 Subs Hosp L2
--- NOTE | 2024-09-25 17:52 | PN_ITS ---
Progress Note Patient is not have any abdominal pain. He did has a little bit right upper quadrant discomfort but no pain. He went and got his liver biopsy today and underwent MRCP. Physical Exam Const alert, oriented x3, no apparent distress and healthy appearing General Appearance: cooperative GI normal to inspection, nondistended, normoactive bowel sounds, soft to palpation, non-tender and non-distended Percussion: normal to percussion Rectal Exam: deferred Assessment & Plan Assessment/Plan (1) Drug-induced hepatitis: (2) Hyperbilirubinemia: (3) Transaminitis: (4) Morbid obesity with BMI of 40.0-44.9, adult: PLAN: Plan Antibiotics are among the most common causes of drug-induced liver injury worl dwide. Amoxicillin/clavulanic acid and nitrofurantoin are the most common culprits while tetracyclines are a rare cause of liver injury. Antibiotics are among the most common causes of drug-induced liver injury worldwide. Amoxicillin/clavulanic acid and nitrofurantoin are the most common culprits while tetracyclines are a rare cause of liver injury. This is a relatively healthy 29-year-old with past medical history of obesity medications significant ciprofloxacin for urinary tract infection. After five days of therapy, he developed nausea, vomiting, fatigue, and significant transaminitis consistent with a hepatocellular pattern of liver injury. He will have a thorough workup to rule out other causes such as infection, autoimmune diseases, liver malignancy, and vascular, structural, and metabolic disorders, his liver injury was attributed to ciprofloxacin. I think we will be able to reach a prescription diagnosis a consistent temporal association between the Cipro and liver injury. I suspect that hr will have a completely resolution from DILI very well with Solu-Medrol.. We will wait biopsies along and continue steroid therapy. 09/25/2024-he was given another gram of Solu-Medrol today. His INR is normal at 0.9 and his LFTs are decreasing accordingly. However findings from his MRCP revealed: 1. 2-3 mm stone in the distal common bile duct with mild dilatation of the common bile duct measuring 7.3 mm suggesting possible obstructive cholangiopathy. 2. Cholelithiasis with a partially distended and thick-walled gallbladder. There is a questionable stone in the cystic duct. Acute cholecystitis is possible. 3. Splenomegaly. We will schedule him for ERCP tomorrow. Visit Charges Inpatient E&M: 02227 Subs Hosp L3
[2024-09-26] VITALS (15 sets, daily range): BP systolic 112–155; BP diastolic 67–89; PULSE 60–113; RESP 14–18; TEMP 36.4–37.2; O2SAT 94–100; BMI 39.6
--- NOTE | 2024-09-26 05:55 | EKG12_ITS ---
Test Reason : AM EKG Blood Pressure : */* mmHG Vent. Rate : 57 BPM Atrial Rate : 57 BPM P-R Int : 108 ms QRS Dur : 84 ms QT Int : 438 ms P-R-T Axes : 30 24 19 degrees QTcB Int : 426 ms Sinus bradycardia with short [place] Otherwise normal ECG No previous ECGs available Confirmed by CURT BROWN, BURTON ([id number]), image editor ROBBIN CHAVEZ ([id number]) on 09/26/2024 1:08:06 PM Referred By: Confirmed By: BURTON ELIAS MD
[2024-09-26 06:05] LABS: Absolute Lymphocyte Count 0.61 X10^3/uL (0.83-4.51); Absolute Neutrophil Count 5.2 X10^3/uL (2.0-7.7); Hematocrit 44.6 % (40-54); Hemoglobin 14.6 g/dL (13.0-16.5); Lymphocyte # 0.61 X10^3/ul (0.83-4.51); Mean Corp Hgb Conc 32.7 g/dL (32-36); Mean Corpuscular Hgb 29.7 pg (27.0-32.0); Mean Corpuscular Volume 90.7 fL (80-94); Mean Platelet Vol. 14.5 fl (6.2-12.0); Monocyte# 0.26 X10^3/uL; Monocyte% 4.2 % (0-10); NRBC Flagged by Analyzer 0 % (0-5); Neutrophil # 5.23 X10^3/uL (2.7-7.7); Neutrophil % 85.3 % (47-70); Platelet Count 108 K/mm3 (150-450); RBC Distribution Width CV 12.1 % (11.6-14.6); RBC Distribution Width SD 40.5 fl (35.1-43.9); Red Blood Count 4.92 M/mm3 (4.6-6.2); White Blood Count 6.1 K/mm3 (4.4-11.0)
[2024-09-26 06:24] LABS: ALB/GLOB Ratio 0.8 RATIO (0.9-2.4); AST(SGOT) 313 U/L (15-37); Alanine Aminotransfer ALT/SGPT 754 U/L (16-61); Alkaline Phosphatase 215 U/L (45-117); Anion Gap 5 (5-15); BUN 19 mg/dL (7-18); BUN/Creat Ratio 16.5 RATIO (10-20); Calcium,Total 9.1 mg/dL (8.5-10.1); Chloride 108 mmol/L (98-107); Creatinine, Serum 1.15 mg/dL (0.70-1.30); EST Glomerular Filtration Rate 80 mL/min (>60); Est Glom Filt Rate - Afr Amer 96 mL/min (>60); Estimated Creatinine Clearance 122.23 ml/min; Globulin 3.6 g/dL (2.2-4.2); Glucose 160 mg/dL (74-106); Magnesium 2.6 mg/dL (1.6-2.6); Phosphorus 3.7 mg/dL (2.5-4.9); Potassium 4.4 mmol/L (3.5-5.1); Protein, Total 6.6 g/dL (6.4-8.2); Sodium Level 139 mmol/L (136-145)
[2024-09-26] MEDS: Pantoprazole Sodium 40 MG in 0.9% Normal Saline (100mL MB+) 100 ML 330 MG IV (08:57)
[2024-09-26] MEDS: 0.9% Saline Lock 10 ML Syringe IV (08:57)
[2024-09-26] MEDS: Ceftriaxone 1 GM/50 ML BAG IV (09:54)
[2024-09-26 14:08] LABS: Anti-Centromere B Ab <0.2 AI (0.0-0.9); Anti-Chromatin <0.2 AI (0.0-0.9); Anti-Jo <0.2 AI (0.0-0.9); Anti-Mitochondrial AB <20.0 Units (0.0-20.0); Anti-Scleroderma-70 AB <0.2 AI (0.0-0.9); Anti-dsDNA Ab <1 IU/mL (0-9); RNP Ab <0.2 AI (0.0-0.9); SJOGREN'S Anti-SS-A test < 0.2 AI (0.0-0.9); SJOGREN'S Anti-SS-B test < 0.2 AI (0.0-0.9); Smith Ab <0.2 AI (0.0-0.9)
--- NOTE | 2024-09-26 15:52 | PCM.PN.BLA ---
Progress Note Patient is for ERCP. He underwent MRCP and discovered to have multiple stones in his distal common bile duct. Physical Exam Narrative General: Alert, Oriented x3, Cooperative, No apparent distress HEENT: Atraumatic, PERRLA, EOMI, Normocephalic Oral: Moist Mucosa Neck: Supple, No JVD Lungs: Clear to auscultation, Normal air movement, No rhonchi, No wheeze, No rales Cardiovascular: Regular rate, Regular Rhythm, Normal S1, Normal S2, No murmurs Abdomen: Soft, Non Tender, Non-Distended, No Hepato-splenomegaly Extremities: No edema, Capillary Refill Less than 3 Seconds Skin: Jaundiced, improving Musculoskeletal: No Tenderness to Palpation of Joints or Extremities Neurological: No focal neurological deficits, Motor Exam 5/5 strength throughout, Sensory exam intact to light touch and pain Psych/Mental Status: Normal Affect, Appropriate Assessment & Plan Assessment/Plan (1) Drug-induced hepatitis: (2) Acute cystitis without hematuria: PLAN: Plan Acute drug-induced hepatitis with choledocholithiasis ? He is receiving IV steroids for his drug-induced hepatitis ? MRCP shows choledocholithiasis plan for ERCP this evening at around 1630 ? Continue with a repeat dose of 1 g of Solu-Medrol today ? There is improvement in all of his indices with the steroids Visit Charges Inpatient E&M: 35163 Subs Hosp L2
--- NOTE | 2024-09-26 16:09 | PN.HOSP_ITS ---
Subjective Subjective Doing well, no issues overnight Objective Data Objective Data Vital Signs: Vital Signs Temp Pulse Resp BP Pulse Ox O2 Del Method 98.4 F 71 14 128/69 H 95 Room Air 09/26/24 14:35 09/26/24 14:35 09/26/24 14:35 09/26/24 14:35 09/26/24 14:35 09/26/24 14:35 Oxygen Delivery Method Room Air Weight: 268 lb 11.896 oz Body Mass Index (BMI) 39.6 Intake & Output: Intake and Output for Last 24 Hours 09/25/24 09/26/24 09/27/24 03:59 03:59 03:59 Intake Total 226 / 226 2268.5 / 2268.5 160 / 160 Balance 226 / 226 2268.5 / 2268.5 160 / 160 Lab / Micro Data 09/26/24 05:12 09/26/24 05:12 Labs: Laboratory Results - last 24 hr 09/25/24 07:56: MIGUEL-1 Antibody <0.2, SS-A/Ro IgG Antibody < 0.2, SS-B/La IgG Antibody < 0.2, Sm (Vela) Antibody <0.2, BUTTON MAKER Antibody <0.2, Scl-70 Scleroderma Ab <0.2, Double Strand DNA Ab <1, Antichromatin Antibodies <0.2, Centromere B Antibody <0.2, Anti-Mitochondrial Ab <20.0 09/26/24 05:12: WBC 6.1, RBC 4.92, Hgb 14.6, Hct 44.6, MCV 90.7, MCH 29.7, MCHC 32.7 D, RDW Std Deviation 40.5, RDW Coeff of Lopez 12.1, Plt Count 108 L, MPV 14.5 H, Immature Gran % (Auto) 0.500, Neut % (Auto) 85.3 H, Lymph % (Auto) 10.0 L, [place] % (Auto) 4.2, Eos % (Auto) 0.0, Baso % (Auto) 0.0, Absolute Neuts (auto) 5.2, Absolute Lymphs (auto) 0.61 L, Nucleated RBC % 0, Sodium 139, Potassium 4.4, Chloride 108 H, Carbon Dioxide 26.0, Anion Gap 5, BUN 19 H, Creatinine 1.15, Estim Creat Clear Calc 122.23, Est GFR (MDRD) Af Amer 96, Est GFR (MDRD) Non-Af 80, BUN/Creatinine Ratio 16.5, Glucose 160 H, Calcium 9.1, Phosphorus 3.7, Magnesium 2.6, Total Bilirubin 3.10 H, AST 313 H, ALT 754 H, Alkaline Phosphatase 215 H, Total Protein 6.6, Albumin 3.0 L, Globulin 3.6, A lbumin/Globulin Ratio 0.8 L Micro: Microbiology 09/24/24 23:47 Urine, Clean Catch Urine Culture - Preliminary Culture exhibits no growth. Physical Exam Narrative General: Alert, Oriented x3, Cooperative, No apparent distress HEENT: Atraumatic, PERRLA, EOMI, Normocephalic Oral: Moist Mucosa Neck: Supple, No JVD Lungs: Clear to auscultation, Normal air movement, No rhonchi, No wheeze, No rales Cardiovascular: Regular rate, Regular Rhythm, Normal S1, Normal S2, No murmurs Abdomen: Soft, Non Tender, Non-Distended, No Hepato-splenomegaly Extremities: No edema, Capillary Refill Less than 3 Seconds Skin: Jaundiced, improving Musculoskeletal: No Tenderness to Palpation of Joints or Extremities Neurological: No focal neurological deficits, Motor Exam 5/5 strength throughout, Sensory exam intact to light touch and pain Psych/Mental Status: Normal Affect, Appropriate Assessment & Plan Assessment/Plan (1) Drug-induced hepatitis: (2) Acute cystitis without hematuria: PLAN: Plan 1. Acute drug-induced hepatitis with choledocholithiasis ? He is receiving IV steroids for his drug-induced hepatitis ? MRCP shows choledocholithiasis plan for ERCP this evening at around 1630 ? Continue with a repeat dose of 1 g of Solu-Medrol today ? There is improvement in all of his indices with the steroids 2. UTI ? He had been on approximately 4 days of ciprofloxacin so we will be able to complete treatment with Rocephin while here in the hospital will likely not need anything on discharge, though culture from 09/19/2024 was negative for growth DVT: SCDs Charges/Coding Visit Charges Inpatient E&M: 73840 Subs Hosp L2
--- NOTE | 2024-09-26 17:30 | RAD_ITS ---
PROCEDURE: ERCP BILIARY/PANCREAS REASON FOR EXAM: ERCP TECHNIQUE: Multiple intra procedural fluoroscopic spot views obtained. COMPARISON: 09/25/2024 FINDINGS: ERCP images demonstrate cannulation of the common bile duct with contrast injection and a balloon sweep. Multiple filling defects within the common bile duct may represent gas bubbles versus stones. No significant biliary dilatation identified. RAD/ERCP Biliary/Pancreas IMPRESSION: Images obtained for the purpose of intra procedural ERCP. Please reference the ERCP report for additional details. Reading Location: [facility]
--- NOTE | 2024-09-26 17:30 | PCM.PRE.AN2 ---
ASA Classification* ASA Classification ASA Classification: 3 and E Assessment & Plan Anesthesia* Anesthesia Assessment Anesthesia Assessment: Discussed sedation and/or anesthesia options, risks, benefits, and alternatives with patient/parents/legal guardian/POA. Questions invited. The patient/parents/legal guardian/POA seems to understand and agrees to proceed with anesthesia plan. Reviewed the physical assessment, medical history, allergy history and patient home medications list prior to surgery/procedure/anesthetic and documented any changes. Performed airway and anesthesia risk assessments. Anesthesia Type Anesthesia Type: General (Patient will require a GlideScope intubation.) History Source History Obtained from:: Patient and Chart Anesthesia Focused Assessment* Temperature: 98.4 F Pulse Rate: 71 Blood Pressure: 128/69 Respiratory Rate: 14 Pulse Ox: 95 Oxygen Delivery Method: Room Air Airway Assessment Mouth opens: 2 cm Mallampati Score: IV Teeth Condition: Intact Neck Range of motion (ROM): Limited ROM (Slight decreased extension) Focused Labs Anesthesia Preop lab: CBC WBC 6.1 K/mm3 (4.4-11.0) 09/26/24 05:12 09/26/24 RBC 4.92 M/mm3 (4.6-6.2) 09/26/24 05:12 09/26/24 Hgb 14.6 g/dL (13.0-16.5) 09/26/24 05:12 09/26/24 Hct 44.6 % (40-54) 09/26/24 05:12 09/26/24 Plt Count 108 K/mm3 (150-450) L 09/26/24 05:12 09/26/24 CHEMISTRY Potassium 4.4 mmol/L (3.5-5.1) 09/26/24 05:12 09/26/24 Sodium 139 mmol/L (136-145) 09/26/24 05:12 09/26/24 Magnesium 2.6 mg/dL (1.6-2.6) 09/26/24 05:12 09/26/24 Phosphorus 3.7 mg/dL (2.5-4.9) 09/26/24 05:12 09/26/24 BUN 19 mg/dL (7-18) H 09/26/24 05:12 09/26/24 Creatinine 1.15 mg/dL (0.70-1.30) 09/26/24 05:12 09/26/24 Glucose 160 mg/dL (74-106) H 09/26/24 05:12 09/26/24 TSH 0.735 uIU/mL (0.358-3.740) 09/24/24 14:53 09/24/24 COAG PT 12.5 SECONDS (11.7-14.9) 09/25/24 09:02 09/25/24 Pre-Assessment Diagnosis/Proposed Procedure Planned Operative Procedure(s): ERCP. Anesthesia History Anesthesia History - nurse healthcare manager: Anesthesia History - nurse healthcare manager Hx Hospitalization Any Problems With Anesthesia No 09/26/24 08:56 Cholinesterase deficiency No 09/26/24 08:56 You/Your Family Experience No 09/26/24 08:56 fever (hyperthermia) with Relationship Recent Exposure to Contagious No 09/26/24 08:56 Disease Does patient have nerve No 09/26/24 08:56 stimulator Patient instructed to have device shut off --Does patient have Pacemaker No 09/26/24 06:41 or ICD? When Was Last Pacemaker Check QUESTION #4 FULL TEXT: You/Your Family Experience fever (hyperthermia) with Anesthesia Last Oral Intake Last Oral intake: Last Oral Intake NPO since 00:00 09/26/24 06:41 Meds taken in AM with sips of No 09/26/24 06:41 water? Meds patient instructed to take am of surgery PONV PONV - nurse healthcare manager: PONV - nurse healthcare manager Female HX of Motion Sickness HX of N/V After Surgery Non-Smoker Duration of Surgery greater than 60 minutes Number of Risk Factors PONV Score Height & Weight Height & Weight: Anesthesia: Height & Weight Height 5 ft 9 in 09/26/24 06:41 Weight: 121.9 kg 09/26/24 06:41 Body Mass Index (BMI) 39.6 09/26/24 06:41 Respiratory Assessment Respiratory Assessment - nurse healthcare manager: Respiratory Tract Infection Hx - nurse healthcare manager Hx Respiratory Tract Infection No 09/26/24 08:56 STOP Sleep Apnea STOP Sleep Apnea - nurse healthcare manager: STOP Sleep Apnea - nurse healthcare manager Hx Hypertension No 09/24/24 21:37 Hx Sleep Apnea No 09/24/24 21:37 CPAP BIPAP Do you snore loudly (louder No 09/24/24 21:37 than talking or can be heard Do you often feel tired/ No 09/24/24 21:37 fatigued/ sleepy during daytime? Has anyone observed you stop No 09/24/24 21:37 breathing during sleep? STOP Results Negative 09/24/24 21:37 QUESTION #5 FULL TEXT : Do you snore loudly (louder than talking or can be heard through closed doors)? Tobacco Use History Tobacco Use History - nurse healthcare manager: Tobacco Use History - nurse healthcare manager Tobacco Use Smoking Status Never smoker 09/24/24 21:37 Hx Tobacco Use No 09/24/24 21:37 Years Smoking Packs Smoked per Day Smoking Cessation Date was within the last 15 years Hx Smoking Cessation Date Hx Smoking Cessation Counseling Hematologic Medial History Hematologic Hx - nurse healthcare manager: Hematologic Medical Hx - [employer] b[employer] consultant Hx of Blood Transfusion No 09/24/24 21:37 Hx of Transfusion in last 3 No 09/24/24 21:37 Months Date of Last Transfusion (if within last 3 months) Ever experience any problems No 09/24/24 21:37 with transfusion(s)? Specify any problems Hx of Preganancy in last 3 N/A 09/24/24 21:37 Months Nurse Filling Out Transfusion [facility]GR[facility] 09/24/24 21:37 & Questions: Date: 09/24/24 09/24/24 21:37 Time: 21:42 09/24/24 21:37 Patient unable to answer at this time (ie. confused, unrespo /Reproduction History /Reproductive History - nurse healthcare manager: /Reproductive Hx- nurse healthcare manager Hx Now No 09/26/24 08:56 Gestational Age (in weeks): EDC: Hx Hx Para Hx Section SAB No 09/26/24 08:56 Active Medications Active Medications: Current Medications Generic Name Dose Route Start Last Admin Trade Name Freq PRN Reason Stop Dose Admin Pantoprazole Sodium 40 mg/ 110 mls @ 330 mls/hr 09/24/24 21:26 09/26/24 09:19 Sodium Chloride IV Infused Q24 NETO Infusion Sodium Chloride 100 mls @ 15 mls/hr 09/24/24 22:05 IV .Q6H40M PRN Saline Flush Sodium Chloride 100 mls @ 15 mls/hr 09/24/24 22:05 IV .Q6H40M PRN Additional IVPB Infusion Ceftriaxone Sodium 1 gm in 50 mls @ 100 mls/hr 09/25/24 05:45 09/26/24 10:38 Rocephin IV Infused Q24 NETO Infusion Ibuprofen 200 mg 09/24/24 21:37 Ibuprofen 200 Mg Tablet PO Q6H PRN PRN Pain 1-5/10 or Fever Morphine Sulfate 2 mg 09/24/24 21:37 Morphine 2 Mg/Ml Syringe IV Q4H PRN PRN Pain Score 6-10 Ondansetron HCl 4 mg 09/24/24 21:37 Ondansetron 4 Mg/2 Ml Vial IV Q6H PRN PRN NAUSEA/VOMITING Sodium Chloride 10 - 40 ml 09/24/24 22:05 09/26/24 08:57 0.9% Saline Lock 10 Ml Syringe IV 10 ml UD PRN Administration SALINE FLUSH [facility] Medical History UTI (urinary tract infection) Home Medications ?Medication ?Instructions ?Recorded ?Last Taken ?Type ciprofloxacin HCl 500 mg tablet 500 mg PO BID UTI 09/24/24 09/23/24 History Allergy/AdvReac Type Severity Reaction Status Date / Time ciprofloxacin (From Cipro) Allergy hepatitis Verified 09/24/24 20:56 Social History household members: family housing: house Smoking Status: Never smoker Review of Systems (Anesthesia) ROS Narrative System reviewed and no additional complaints, except as documented.
--- NOTE | 2024-09-26 18:19 | OP.ERCP_ITS ---
Patient Name: Jono Mckeon Procedure Date: 09/26/2024 5:26 PM Date of : 1995 Age: 29 Procedure: ERCP Indications: Bile duct stone(s), Jaundice, Elevated liver enzymes Providers: Adelso Kaur DO Medicines: Monitored Anesthesia Care Patient Profile: This is a 29 year old male. Refer to note in patient chart for documentation of history and physical. Patient has symptoms of acute right upper quadrant abdominal pain and acute jaundice. This patient has no history of previous ERCP. This patient has no history of surgical alteration of the upper digestive tract anatomy. Complications: No immediate complications. Procedure: Pre-Anesthesia Assessment: - Prior to the procedure, a History and Physical was performed, and patient medications and allergies were reviewed. The patient is competent. The risks and benefits of the procedure and the sedation options and risks were discussed with the patient. All questions were answered and informed consent was obtained. Patient identification and proposed procedure were verified by the physician in the pre-procedure area. Mental Status Examination: alert and oriented. Airway Examination: normal oropharyngeal airway and neck mobility. Respiratory Examination: clear to auscultation. CV Examination: normal. Prophylactic Antibiotics: The patient does not require prophylactic antibiotics. Prior Anticoagulants: The patient has taken no anticoagulant or antiplatelet agents except for NSAID medication. ASA Grade Assessment: III - A patient with severe systemic disease. After reviewing the risks and benefits, the patient was deemed in satisfactory condition to undergo the procedure. The anesthesia plan was to use general anesthesia. Immediately prior to administration of medications, the patient was re-assessed for adequacy to receive sedatives. The heart rate, respiratory rate, oxygen saturations, blood pressure, adequacy of pulmonary ventilation, and response to care were monitored throughout the procedure. The physical status of the patient was re-assessed after the procedure. After obtaining informed consent, the scope was passed under direct vision. Throughout the procedure, the patient's blood pressure, pulse, and oxygen saturations were monitored continuously. The Duodenoscope was introduced through the mouth, and advanced to the duodenum and used to inject contrast into the bile duct and ventral pancreatic duct. The ERCP was accomplished without difficulty. The patient tolerated the procedure well. Scope In: 6:03:26 PM Scope Out: 6:12:45 PM Total Procedure Duration Time 0 hours 9 minutes 19 seconds Findings: The clinical quality assurance specialist film was normal. The esophagus was successfully intubated under direct vision. The scope was advanced to a normal major papilla in the descending duodenum without detailed examination of the pharynx, larynx and associated structures, and upper GI tract. The upper GI tract was grossly normal. The ventral pancreatic duct was deeply cannulated with the traction (standard) sphincterotome. Contrast was injected. I personally interpreted the bile duct and pancreatic duct images. There was brisk flow of contrast through the ducts. Image quality was adequate. Contrast extended to the pancreatic duct. Opacification of the entire pancreatic ductal system was successful. The maximum diameter of the ducts was 3 mm. The entire opacified area was normal. A long 0.025 inch Jagwire was passed into the ventral pancreatic duct. A 5 mm ventral pancreatic sphincterotomy was made with a braided traction (standard) sphincterotome using ERBE electrocautery. There was no post-sphincterotomy bleeding. To find object(s) the ventral pancreatic duct was swept with a 6 mm balloon starting at the pancreatic duct in the tail of the pancreas. All stones were removed. A long 0.025 inch Jagwire was passed into the biliary tree. The traction (standard) sphincterotome was passed over the guidewire and the bile duct was then deeply cannulated. Contrast was injected. Opacification of the entire biliary tree except for the cystic duct and gallbladder, entire biliary tree except for the gallbladder, left and right hepatic ducts and all intrahepatic branches and entire biliary tree was successful. The maximum diameter of the ducts was 9 mm. The lower third of the main bile duct, hepatic duct bifurcation and left and right hepatic ducts and all intrahepatic branches contained multiple stones, the largest of which was 6 mm in diameter. The entire biliary tree was diffusely dilated, with a stone causing an obstruction. The largest diameter was 10 mm. A 5 mm biliary sphincterotomy was made with a braided traction (standard) sphincterotome using ERBE electrocautery. There was no post-sphincterotomy bleeding. The biliary tree was swept with a 12 mm balloon starting at the upper third of the main bile duct, middle third of the main bile duct, lower third of the main duct, bifurcation, left intrahepatic duct(s) and right intrahepatic duct(s). Sludge was swept from the duct. All stones were removed. One 10 Fr by 5 cm temporary stent with a single external flap and a single internal flap was placed 5 cm into the common bile duct. Bile flowed through the stent. The stent was in good position. Impression: - The entire biliary tree was dilated, with a stone causing an obstruction. - Choledocholithiasis was found. Complete removal was accomplished by biliary sphincterotomy and balloon extraction. - Pancreatic stones were found. Complete removal was accomplished. - A pancreatic sphincterotomy was performed. - The ventral pancreatic duct was swept. - A biliary sphincterotomy was performed. - The biliary tree was swept. - One temporary stent was placed into the common bile duct. Procedure Code(s): --- Professional --- 77315, Endoscopic retrograde cholangiopancreatography (ERCP); with placement of endoscopic stent into biliary or pancreatic duct, including pre- and post-dilation and guide wire passage, when performed, including sphincterotomy, when performed, each stent [id number], 51, Endoscopic retrograde cholangiopancreatography (ERCP); with removal of calculi/debris from biliary/pancreatic duct(s) 42698, 59, Endoscopic retrograde cholangiopancreatography (ERCP); with sphincterotomy/papillotomy 60030, 26, Combined endoscopic catheterization of the biliary and pancreatic ductal systems, radiological supervision and interpretation CPT copyright 2021 [employer] [place] [employer]. All rights reserved. The codes documented in this report are preliminary and upon acid patroller review may be revised to meet current compliance requirements. Adelso Kaur DO 09/26/2024 6:19:00 PM This report has been signed electronically. Number of Addenda: 0 Note Initiated On: 09/26/2024 5:26 PM
--- NOTE | 2024-09-26 18:19 | OP.CCLET_ITS ---
09/26/2024 Victor Hugo Leonard Re : ERCP procedure for Jono Kauffmanr Zaid This procedure was performed on Thursday, September 26, 2024. My impressions and recommendations are as follows: Impressions : - The entire biliary tree was dilated, with a stone causing an obstruction. - Choledocholithiasis was found. Complete removal was accomplished by biliary sphincterotomy and balloon extraction. - Pancreatic stones were found. Complete removal was accomplished. - A pancreatic sphincterotomy was performed. - The ventral pancreatic duct was swept. - A biliary sphincterotomy was performed. - The biliary tree was swept. - One temporary stent was placed into the common bile duct. Recommendations : My findings are described in the full procedure note, which is enclosed. If I can be of further assistance, please feel free to contact me at . Sincerely, Adelso Kaur, 09/26/2024 6:19:00 PM This report has been signed electronically.
--- NOTE | 2024-09-26 18:37 | PCM.POST.ANE ---
Anesthesia: Postop Eval I Current Vital Signs Temperature: 98.9 F Pulse Rate: 108 Blood Pressure: 124/74 Respiratory Rate: 16 Pulse Ox: 94 Oxygen Delivery Method: Room Air Assessment Airway patent: Yes Spontaneous unlabored respirations: Yes Mental status: Awake and Calm nausea: No Vomiting: No Anesthesia Complication: No Fluid Hydration Crystalloid volume administer (ml): 700 Total IV fluid infused: 700 Progress Note Anesthesia document: Postop Eval 1 completed: Yes
[2024-09-26 19:01] LABS: Bedside Glucose 116 mg/dL (74-106)
--- NOTE | 2024-09-26 20:59 | PCM.POSTANE2 ---
Anesthesia Postop Eval I Sum Postop Eval Completion status Anesthesia document: Postop Eval 1 completed: Yes Anesthesia Postop Eval I Summary Anesthesia Postop Eval I Summary: Anesthesia Postop Eval I: Assessment Summary Airway patent Yes 09/26/24 18:41 Spontaneous unlabored Yes 09/26/24 18:41 respirations Mental status Awake,Calm 09/26/24 18:41 nausea No 09/26/24 18:41 Vomiting No 09/26/24 18:41 Anesthesia Postop Eval I: Fluid Summary Crystalloid volume administer 700 09/26/24 18:41 (ml) Colloids volume administered ( ml) Blood Product volume administered (ml) Total IV fluid infused 700 09/26/24 18:41 Anesthesia Postop Eval I: Summary Notes Anesthesia Complication No 09/26/24 18:41 Anesthesia Complication Comment: Post-operative progress note Anesthesia: Postop Eval II Evaluation Mental status: Awake and Calm Pain Level: 1 nausea: No Vomiting: No Complications Anesthesia Complication: No
[2024-09-27] VITALS: BP 110/57; PULSE 97; RESP 16; TEMP 36.9; O2SAT 94
[2024-09-27 04:00] VITALS: BP 105/66; PULSE 78; RESP 16; TEMP 36.8; O2SAT 94
[2024-09-27 04:36] VITALS: BMI 42.7
[2024-09-27 07:40] LABS: ALB/GLOB Ratio 0.8 RATIO (0.9-2.4); AST(SGOT) 278 U/L (15-37); Alanine Aminotransfer ALT/SGPT 763 U/L (16-61); Albumin, Serum 2.7 g/dL (3.2-5.0); Alkaline Phosphatase 169 U/L (45-117); Anion Gap 5 (5-15); BUN 22 mg/dL (7-18); BUN/Creat Ratio 21.8 RATIO (10-20); Chloride 108 mmol/L (98-107); Creatinine, Serum 1.01 mg/dL (0.70-1.30); EST Glomerular Filtration Rate 92 mL/min (>60); Est Glom Filt Rate - Afr Amer 112 mL/min (>60); Estimated Creatinine Clearance 145.04 ml/min; Globulin 3.2 g/dL (2.2-4.2); Glucose 109 mg/dL (74-106); Potassium 4.4 mmol/L (3.5-5.1); Protein, Total 5.9 g/dL (6.4-8.2); Sodium Level 139 mmol/L (136-145)
--- NOTE | 2024-09-27 08:08 | DCINST_ITS ---
Discharge Instructions Diet Discharge Diet: No restrictions DC O2, CPAP, BIPAP needs Home O2 Discharge instructions: No Dressing / Incision Discharge Activity: Return to Normal Activity Dressing / Incision Call your doctor if you observe: Fever of 101 or Higher, Shortness of breath, Dizziness, Fainting spells, Swelling in the ankles, Chest pain and Increased palpitations (irregular heartbeat) Follow Up Care Test Results: Test results from this visit will be discussed in further detail at your follow- up appointment, if applicable. Discharge Plan Admission Admit Date/Time: 09/24/24 21:20 Attending Provider: Mani Emanuel Primary Care Provider: Zunilda Mar Consulting Providers: Karson Agudelo Discharge Orders/Prescriptions Prescriptions: New prednisone 20 mg tablet 20 mg PO DAILY Qty: 30 0RF Discontinued ciprofloxacin HCl 500 mg tablet 500 mg PO BID Referrals / Follow Up: Adelso Kaur DO [Med Staff - Active Staff] - Within 1 Month Zunilda Mar, TELEGRAPHIC TYPEWRITER OPERATOR-C [Primary Care Provider] - Within 1 Week Disposition Disposition (needs filled in before D/C Order can be placed): Home, Self Care
[2024-09-27 09:01] VITALS: BP 126/76; PULSE 86; RESP 16; TEMP 36.7; O2SAT 96
--- NOTE | 2024-09-27 15:22 | PCM.DC.SUM ---
Providers Date of Admission: 09/24/24 Primary Care Physician: ROMEO Leonard Reason For Visit: ACUTE DRUG-INDUCED HEPATITIS DUE TO CIPRO WITH Diagnosis Discharge Diagnosis (1) Drug-induced hepatitis: Status: Acute Code(s): K71.6 - Toxic liver disease with hepatitis, not elsewhere classified; T50.905A - Adverse effect of unspecified drugs, medicaments and biological substances, initial encounter (2) Acute cystitis without hematuria: Status: Acute Code(s): N30.00 - Acute cystitis without hematuria Medications at Discharge Home Medications prednisone 20 mg tablet 20 mg PO DAILY #30 tabs 09/27/24 Hospital Course Operations ERCP Procedures None and - (Liver biopsy) Summary of Care Provided Minutes Spent on Discharge: 38 Hospital Course: Per HPI: JOJO BARRETT, is a 29 M with a past medical history of morbid obesity; with BMI of 43 this admission and recently diagnosed UTI; that was subsequently treated with oral ciprofloxacin who presents to [facility] ER complaining of painless jaundice after ciprofloxacin for treatment of a UTI. Mr. Gonzalez reports his symptoms began approximately 5 days ago when he was diagnosed with a UTI and then started on oral ciprofloxacin with subsequent severe pain in his abdomen and back he initially attributed to the UTI and the pain resolved he began to notice yellowing of his skin. His mother was concerned he was having an allergic reaction to his recently started ciprofloxacin so he stopped taking it today and they then decided to come in for further evaluation and treatment. He admits to intermittent ibuprofen use but he denies acetaminophen use, EtOH abuse, history of gallstones, history of abdominal surgery or similar previous episodes. There was no report of fever, chills, nausea, vomiting, diarrhea, constipation, chest pain, SOB or headache. In the ER he was noted to have markedly abnormal LFT's consisting of: Hyperbilirubinemia of 6.4 mg/dL, Direct Bilirubin 4.99 mg/dL, AST 378 U/L, ALT 680 U/L and Alkaline Phosphatase of 268 U/L present on admission with CT of the abdomen and pelvis revealing no acute abdominal finding with a non-obstructing Right renal calculus and layering sludge in the gallbladder without acute cholecystitis and he was then diagnosed with Acute Drug-induced Hepatitis due to Adverse Drug Reaction to recently started Ciprofloxacin causing Jaundice with data center solutions architect recommending patient be treated with Solu-Medrol 1g IV once in addition to ERCP with possible biopsy planned for tomorrow causing patient to be made strict NPO to prepare for procedure. He was then admitted to the general medical floor for ongoing care for a stay that is expected to extend beyond 2 midnights. Hospital Course: 1. Acute drug-induced hepatitis with choledocholithiasis?29-year-old male presented to the hospital with jaundice. He was found to have hyperbilirubinemia drug-induced hepatitis from ciprofloxacin. Started on high-dose steroids and had subsequent improvement in his bilirubin however an MRCP also demonstrated choledocholithiasis for he underwent an ERCP with stone removal and temporary stent placement. He continued to have improvement in all of his liver numbers and I discussed the case with gastroenterology who recommended 20 mg of prednisone p.o. daily for a month on discharge. He will need to follow-up with his PCP in 3 to 5 days as well as gastroenterology within the next 2 weeks. They are also to schedule an outpatient appointment for stent retrieval. The ciprofloxacin was started because of believe that he had a UTI however cultures from 09/19/2024 were negative for any growth and he was prescribed 14 days of Cipro onto the concern that he could potentially have pyelonephritis because he was also having some back pain however this was likely the choledocholithiasis therefore his antibiotics were completely discontinued on discharge. Physical Exam Narrative General: Alert, Oriented x3, Cooperative, No apparent distress HEENT: Atraumatic, PERRLA, EOMI, Normocephalic Oral: Moist Mucosa Neck: Supple, No JVD Lungs: Clear to auscultation, Normal air movement, No rhonchi, No wheeze, No rales Cardiovascular: Regular rate, Regular Rhythm, Normal S1, Normal S2, No murmurs Abdomen: Soft, Non Tender, Non-Distended, No Hepato-splenomegaly Extremities: No edema, Capillary Refill Less than 3 Seconds Skin: Jaundiced, improving Musculoskeletal: No Tenderness to Palpation of Joints or Extremities Neurological: No focal neurological deficits, Motor Exam 5/5 strength throughout, Sensory exam intact to light touch and pain Psych/Mental Status: Normal Affect, Appropriate Weight / BMI Weight Weight: 289 lb 14.526 oz Body Mass Index (BMI) 42.7 ABG / Lab / Microbiology Data 09/26/24 05:12 09/27/24 06:22 Laboratory: Laboratory Results - last 24 hr 09/26/24 18:43: POC Glucose 116 H 09/27/24 06:22: Sodium 139, Potassium 4.4, Chloride 108 H, Carbon Dioxide 26.0, Anion Gap 5, BUN 22 H, Creatinine 1.01, Estim Creat Clear Calc 145.04, Est GFR (MDRD) Af Amer 112, Est GFR (MDRD) Non-Af 92, BUN/Creatinine Ratio 21.8 H, Glucose 109 H, Calcium 9.0, Total Bilirubin 2.30 H, AST 278 H, ALT 763 H, Alkaline Phosphatase 169 H, Total Protein 5.9 L, Albumin 2.7 L, Globulin 3.2, Albumin/Globulin Ratio 0.8 L Microbiology: Microbiology 09/24/24 23:47 Urine, Clean Catch Urine Culture - Preliminary Culture exhibits no growth. Radiography Diagnostic Testing: Radiology Impression Endo Retro Cholangiopancreatogram 09/26/24 17:30 IMPRESSION: Images obtained for the purpose of intra procedural ERCP. Please reference the ERCP report for additional details. Reading Location: [facility] Instructions Discharge Diet: No restrictions Call your doctor if you observe: Fever of 101 or Higher, Shortness of breath, Dizziness, Fainting spells, Swelling in the ankles, Chest pain and Increased palpitations (irregular heartbeat) DC O2, CPAP, BIPAP Needs Home O2 Discharge instructions: No Meaningful Use Info Meaningful Use Meaningful Use Diagnoses (Choose all that apply): None applicable Ischemic Stroke Statin Dosing Therapy Reference: STATIN DOSE THERAPY REFERENCE: * Patients > 75 years receive moderate or high dose statin therapy. * Patients 75 years or YOUNGER should receive HIGH intensity statin dose unless contraindicated. You will be required to document reason for non-treatment if statin daily dose does not meet guidelines. HIGH DOSE STATIN THERAPY DAILY Atorvastatin > than or = to 40 mg Rosuvastatin > than or = to 20 mg Amlodipine + Atorvastatin > than or = to 2.5/40 mg Ezetimibe + Simvastatin 10/80 mg Simvastatin 80mg Discharge Plan Admission Admit Date/Time: 09/24/24 21:20 Attending Provider: Mani Emanuel Primary Care Provider: Zunilda Mar Consulting Providers: Karson Agudelo Discharge Orders/Prescriptions Prescriptions: New prednisone 20 mg tablet 20 mg PO DAILY Qty: 30 0RF Discontinued ciprofloxacin HCl 500 mg tablet 500 mg PO BID Referrals / Follow Up: Adelso Kaur DO [Med Staff - Active Staff] - Within 1 Month Zunilda Mar NP-C [Primary Care Provider] - Within 1 Week Disposition Disposition (needs filled in before D/C Order can be placed): Home, Self Care Charges/Coding Visit Charges Inpatient E&M: 58621 Disch Hosp >30min
[2024-09-29 16:09] LABS: Albumin 3.4 g/dL (2.9-4.4); Alpha-1-Globulins 0.3 g/dL (0.0-0.4); Alpha-2-Globulins 0.7 g/dL (0.4-1.0); Ceruloplasmin 30.1 mg/dL (16.0-31.0); Deamidated Gliadin IgA 4 units (0-19); Deamidated Gliadin IgG 3 units (0-19); EBV Acute VCA IgM < 36.0 U/mL (0.0-35.9); EBV Nuclear Antigen IgG < 18.0 U/mL (0.0-17.9); EBV-VCA IgG > 600.0 U/mL (0.0-17.9); Endomysial Antibody IgA Negative (Negative); Gamma Globulin 0.8 g/dL (0.4-1.8); HEPATITIS B SURFACE AG Negative (Negative); Hep C Antibodies Non Reactive (Non Reactive); Hepatitis A IgM Antibody Negative (Negative); Hepatitis B Core AB IgM Negative (Negative); Immunoglobulin A 83 mg/dL (90-386); Immunoglobulin G 768 mg/dL (603-1613); Immunoglobulin M 193 mg/dL (20-172); PROEL- TOTAL PROTEIN 6.2 g/dL (6.0-8.5); t-Transglutaminase IgA <2 U/mL (0-3)
[2024-09-30 14:42] LABS: HIV - WCH Non-Reactive (Nonreactive)
[2024-10-01 13:08] LABS: Anti-Smooth Muscle ABS 4 Units (0-19); Copper, Serum or Plasma 128 ug/dL (63-121); Cytoplasmic Ab (C-ANCA) <1:20 titer (Neg:<1:20); HEPATITIS B SURFACE AG Negative (Negative); Haptoglobin 111 mg/dL (17-317); Hep C Antibodies Non Reactive (Non Reactive); Hepatitis A IgM Antibody Negative (Negative); Hepatitis B Core AB IgM Negative (Negative); IgG, Quant 761 mg/dL (603-1613); Immunoglobulin G, Subclass 1 365 mg/dL (248-810); Immunoglobulin G, Subclass 2 262 mg/dL (130-555); Immunoglobulin G, Subclass 3 33 mg/dL (15-102); Immunoglobulin G, Subclass 4 11 mg/dL (2-96); Perinuclear Ab (P-ANCA) <1:20 titer (Neg:<1:20)
== END 2024-09-27 10:33 | disposition home or self-care (01) | DRG 406 ==
LOC: ED 16:44 → PCU 09-25 01:43
PROVIDERS: Internal Medicine Gastroenterology; Admitting Provider Internal Medicine; Emergency Provider Emergency Medicine; PCP Nurse Practitioner Family; Visit Provider Family Medicine
PROC: 0F7D8ZZ Dilation of Pancreatic Duct, Via Natural or Artificial Opening Endoscopic (ICD-10-PCS; CPT 43260; principal; 2024-09-26 16:15)
DX: K75.89 Other specified inflammatory liver diseases (principal); Z68.41 Body mass index [BMI] 40.0-44.9, adult; N30.00 Acute cystitis without hematuria; D69.6 Thrombocytopenia, unspecified; E66.01 Morbid (severe) obesity due to excess calories; K74.00 Hepatic fibrosis, unspecified; F10.10 Alcohol abuse, uncomplicated; K71.6 Toxic liver disease with hepatitis, not elsewhere classified; K80.70 Calculus of gallbladder and bile duct without cholecystitis without obstruction; K83.8 Other specified diseases of biliary tract; K76.0 Fatty (change of) liver, not elsewhere classified; E80.7 Disorder of bilirubin metabolism, unspecified; T36.8X5A Adverse effect of other systemic antibiotics, initial encounter; N20.0 Calculus of kidney; E88.810 Metabolic syndrome; R74.01 Elevation of levels of liver transaminase levels
CPT/HCPCS: 36415; 74177; 74181; 74330; 76000; 77012; 80048; 80053; 80061; 80074; 80076; 80143; 80307; 81001; 82077; 82390; 82525; 82728; 82784; 82787; 82962; 83010; 83036; 83516; 83690; 83735; 84100; 84165; 84443; 85025; 85610; 85730; 86037; 86225; 86235; 86255; 86334; 86664; 86665; 86703; 87086; 88307; 88312; 93005; 94640; 94668; 99156; 99284; Q9967; A4216; J2405; J2919

== ENCOUNTER 2024-12-22 15:02 | Outpatient (RCR) | payer OTHER, SELFPAY | END 2025-01-10 23:59 | LOC: NS 15:02 | PROVIDERS: PCP Nurse Practitioner Family; Referring Provider Internal Medicine Gastroenterology; Visit Provider Internal Medicine Gastroenterology | DX: Z71.3 Dietary counseling and surveillance (principal); E88.810 Metabolic syndrome; E66.01 Morbid (severe) obesity due to excess calories; E80.6 Other disorders of bilirubin metabolism; K71.6 Toxic liver disease with hepatitis, not elsewhere classified | CPT/HCPCS: 97802 ==

== ENCOUNTER 2025-01-15 09:06 | Day surgery (SDC) | payer OTHER, SELFPAY ==
[2025-01-15] VITALS (8 sets, daily range): BP systolic 111–136; BP diastolic 71–88; PULSE 70–94; RESP 16–18; TEMP 36.2–37.3; O2SAT 94–100; BMI 38.9
--- NOTE | 2025-01-15 | FLU_PTH ---
PATIENT: JOJO BARRETT LOC: EN U#:[id number] AGE/SX: 29/M ROOM: RE01/15/[address]: Dr. Adelso Kaur DO : 1995 BED: DIS: 01/15/2025 SPEC #: [id number] RECD: 01/15/25 13:30 STATUS: MACIE REDimple #: [id number] NELLY: 01/15/25 00:[address]: Adelso Kaur DEPT: CYTOLOGY RECD BY: Dalton Mata ENTERED: 01/15/25 13:30 SP TYPE: Fluid OTHR DR: Zunilda Mar, DIESEL INSPECTOR-C Tissues: Biliary tract, NOS Procedures: Special Stain Group II Surgery Specimen Level IV Cytospin Fluid HEADER OPERATION: ERCP and stent removal PRE-OP DIAGNOSIS: Post stent placement and hyperbilirubinemia TISSUE SUBMITTED: A- Biliary stent fluid for cytology DIAGNOSIS CYTOLOGY A. Biliary stent fluid: * No malignant cells are identified CYTOLOGY STUDY Slides are reviewed. CYTOLOGY GROSS A. Received is 8cm black stent labeled with the patient's name and and designated per the requisition as Biliary stent. Submitted for cytology and cell block preparation. Mr 01/15/2025 CPT: 04351
--- NOTE | 2025-01-15 09:15 | EKG12_ITS ---
Test Reason : PREOP Blood Pressure : */* mmHG Vent. Rate : 71 BPM Atrial Rate : 71 BPM P-R Int : 130 ms QRS Dur : 82 ms QT Int : 398 ms P-R-T Axes : 12 8 35 degrees QTcB Int : 432 ms Normal sinus rhythm with sinus arrhythmia Normal ECG When compared with ECG of 26-Sep-2024 05:41, No significant change was found Confirmed by Frederick Canseco ([id number]), fashion editor LIZ SOW ([id number]) on 01/19/2025 9:14:32 AM Referred By: Zunilda Mar Confirmed By: Frederick Canseco
--- NOTE | 2025-01-15 09:41 | PCM.PRE.AN2 ---
ASA Classification* ASA Classification ASA Classification: 3 Assessment & Plan Anesthesia* Anesthesia Assessment Anesthesia Assessment: Discussed sedation and/or anesthesia options, risks, benefits, and alternatives with patient/parents/legal guardian/POA. Questions invited. The patient/parents/legal guardian/POA seems to understand and agrees to proceed with anesthesia plan. Reviewed the physical assessment, medical history, allergy history and patient home medications list prior to surgery/procedure/anesthetic and documented any changes. Performed airway and anesthesia risk assessments. Anesthesia Type Anesthesia Type: MAC History Source History Obtained from:: Patient, Chart and Parent/ Guardian Anesthesia Focused Assessment* Temperature: 97.1 F Pulse Rate: 76 Blood Pressure: 129/88 Respiratory Rate: 16 Pulse Ox: 100 Oxygen Delivery Method: Room Air Airway Assessment Mouth opens: >3 cm Mallampati Score: III Teeth Condition: Intact Neck Range of motion (ROM): Full ROM Focused Labs Anesthesia Preop lab: CBC WBC 6.1 K/mm3 (4.4-11.0) 09/26/24 05:12 09/26/24 RBC 4.92 M/mm3 (4.6-6.2) 09/26/24 05:12 09/26/24 Hgb 14.6 g/dL (13.0-16.5) 09/26/24 05:12 09/26/24 Hct 44.6 % (40-54) 09/26/24 05:12 09/26/24 Plt Count 108 K/mm3 (150-450) L 09/26/24 05:12 09/26/24 CHEMISTRY Potassium 4.4 mmol/L (3.5-5.1) 09/27/24 06:22 09/27/24 Sodium 139 mmol/L (136-145) 09/27/24 06:22 09/27/24 Magnesium 2.6 mg/dL (1.6-2.6) 09/26/24 05:12 09/26/24 Phosphorus 3.7 mg/dL (2.5-4.9) 09/26/24 05:12 09/26/24 BUN 22 mg/dL (7-18) H 09/27/24 06:22 09/27/24 Creatinine 1.01 mg/dL (0.70-1.30) 09/27/24 06:22 09/27/24 Glucose 109 mg/dL (74-106) H 09/27/24 06:22 09/27/24 POC Glucose 116 mg/dL (74-106) H 09/26/24 18:43 09/26/24 TSH 0.735 uIU/mL (0.358-3.740) 09/24/24 14:53 09/24/24 COAG PT 12.5 SECONDS (11.7-14.9) 09/25/24 09:02 09/25/24 Pre-Assessment Diagnosis/Proposed Procedure Planned Operative Procedure(s): ERCP Anesthesia History 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 When Was Last Pacemaker Check QUESTION #4 FULL TEXT: You/Your Family Experience fever (hyperthermia) with Anesthesia Last Oral Intake Last Oral intake: Last Oral Intake NPO since 00:01 01/15/25 09:22 Meds taken in AM with sips of No 01/15/25 09:22 water? Meds patient instructed to take am of surgery PONV PONV - entertainment lawyer: PONV - entertainment lawyer Female No 01/13/25 13:42 HX of Motion Sickness No 01/13/25 13:42 HX of N/V After Surgery No 01/13/25 13:42 Non-Smoker Yes 01/13/25 13:42 Duration of Surgery greater No 01/13/25 13:42 than 60 minutes Number of Risk Factors 1 01/13/25 13:42 PONV Score Low Risk 01/13/25 13:42 Height & Weight Height & Weight: Anesthesia: Height & Weight Height 5 ft 9 in 01/15/25 09:22 Weight: 119.5 kg 01/15/25 09:22 Body Mass Index (BMI) 38.9 06/05/25 09:22 Respiratory Assessment Respiratory Assessment - entertainment lawyer: Respiratory Tract Infection Hx - entertainment lawyer Hx Respiratory Tract Infection No 01/13/25 13:42 STOP Sleep Apnea STOP Sleep Apnea - entertainment lawyer: STOP Sleep Apnea - entertainment lawyer Hx Hypertension No 01/13/25 13:42 Hx Sleep Apnea No 01/13/25 13:42 CPAP BIPAP Do you snore loudly (louder No 01/13/25 13:42 than talking or can be heard Do you often feel tired/ No 01/13/25 13:42 fatigued/ sleepy during daytime? Has anyone observed you stop No 01/13/25 13:42 breathing during sleep? STOP Results Negative 01/13/25 13:42 QUESTION #5 FULL TEXT : Do you snore loudly (louder than talking or can be heard through closed doors)? Tobacco Use History Tobacco Use History - entertainment lawyer: Tobacco Use History - entertainment lawyer Tobacco Use Smoking Status Never smoker 01/13/25 13:42 Hx Tobacco Use No 01/13/25 13:42 Years Smoking Packs Smoked per Day Smoking Cessation Date was within the last 15 years Hx Smoking Cessation Date Hx Smoking Cessation Counseling Hematologic Medial History Hematologic Hx - entertainment lawyer: Hematologic Medical Hx - exploration manager Hx of Blood Transfusion No 01/13/25 13:42 Hx of Transfusion in last 3 No 01/13/25 13:42 Months Date of Last Transfusion (if within last 3 months) Ever experience any problems No 01/13/25 13:42 with transfusion(s)? Specify any problems Hx of Preganancy in last 3 N/A 01/13/25 13:42 Months Nurse Filling Out Transfusion [email or web address] 01/13/25 13:42 & Questions: Date: 01/13/25 01/13/25 13:42 Time: 13:44 01/13/25 13:42 Patient unable to answer at this time (ie. confused, unrespo /Reproduction History /Reproductive History - entertainment lawyer: /Reproductive Hx- entertainment lawyer Hx Now No 01/13/25 13:42 Gestational Age (in weeks): EDC: Hx Hx Para Hx Section SAB No 09/26/24 08:56 Active Medications Active Medications: Current Medications Generic Name Dose Route Start Last Admin Trade Name Freq PRN Reason Stop Dose Admin Lactated Ringer's 1,000 mls @ 15 mls/hr 01/15/25 09:15 IV .Q48H NETO PFSH Medical History AUGUSTE (nonalcoholic steatohepatitis) Wears glasses History of biliary stent insertion UTI (urinary tract infection) Home Medications ?Medication ?Instructions ?Recorded ?Last Taken ?Type resmetirom 100 mg tablet 100 mg PO DAILY 01/13/25 01/14/25 History (Janak) Allergy/AdvReac Type Severity Reaction Status Date / Time ciprofloxacin (From Cipro) Allergy hepatitis Verified 01/15/25 09:21 Social History household members: family housing: house Smoking Status: Never smoker Review of Systems (Anesthesia) ROS Narrative System reviewed and no additional complaints, except as documented.
--- NOTE | 2025-01-15 10:08 | HP.PCM_ITS ---
HPI - General General Date of Admission: 01/15/25 Date of Service: 01/15/25 Chief Complaint: Choledocholithiasis and jaundice HPI Narrative JOJO BARRETT, is a 29 M who presents for ERCP. [facility] 09.24.24 - 09.27.24 general illness --- GI consulted for jaundice appearance abd/pelvis CT 09.24.24 1. No acute abdominopelvic finding. 2. Nonobstructing right renal calculus. 3. Layering sludge within the gallbladder without evidence of acute cholecystitis. MRCP 09.25.24 1. 2-3 mm stone in the distal common bile duct with mild dilatation of the common bile duct measuring 7.3 mm suggesting possible obstructive cholangiopathy. 2. Cholelithiasis with a partially distended and thick-walled gallbladder. There is a questionable stone in the cystic duct. Acute cholecystitis is possible. 3. Splenomegaly. Liver Biopsy 09.25.24 ERCP 09.26.24 The entire biliary tree was dilated, with a stone causing an obstruction. Choledocholithiasis was found. Complete removal was accomplished by biliary sphincterotomy and balloon extraction. Pancreatic stones were found. Complete removal was accomplished. A pancreatic sphincterotomy was performed. The ventral pancreatic duct was swept. A biliary sphincterotomy was performed. The biliary tree was swept. One temporary stent was placed into the common bile duct. OV 11.06.24 pt reports that he is feeling well since hospitalization. States that yesterday he started having some abdominal discomfort on his left side when he moves. Denies other GI symptoms of concern at this time. [facility] Medical History AUGUSTE (nonalcoholic steatohepatitis) Wears glasses History of biliary stent insertion UTI (urinary tract infection) Home Medications ?Medication ?Instructions ?Recorded ?Last Taken ?Type resmetirom 100 mg tablet 100 mg PO DAILY 01/13/2512/05 History (Janak) Allergy/AdvReac Type Severity Reaction Status Date / Time ciprofloxacin (From Cipro) Allergy hepatitis Verified 01/15/25 09:21 Social History household members: family housing: house Smoking Status: Never smoker ROS Constitutional Constitutional: Denies fatigue, fever(s), poor appetite, weight gain or weight loss Gastrointestinal Gastrointestinal: Denies belching, bloating, change in bowel habits, change in stool character, chewing difficulty, coffee ground emesis, constipation, cramping, diarrhea, dyspepsia, dysphagia, early satiety, excessive flatus, fecal incontinence, heartburn, hematemesis, hematochezia, hemorrhoids, loose stools, melena, nausea, odynophagia, rectal bleeding, tenesmus, vomiting or weight changes Vital Signs Vital Signs Vital Signs: 01/15/25 09:22 01/15/25 09:22 01/15/25 09:44 Temperature 97.1 F L 97.1 F L Temperature Source Temporal Pulse Rate 76 76 Respiratory Rate 16 16 Respiratory Pattern Normal Blood Pressure 129/88 H 129/88 H Blood Pressure Mean 101 Blood Pressure Source Monitor Blood Pressure Position Semi-Fowlers Blood Pressure Location Left Arm Pulse Ox 100 100 Oxygen Delivery Method Room Air Room Air Weight Weight: 263 lb 7.238 oz Body Mass Index (BMI) 38.9 Physical Exam Const alert, oriented x3, no apparent distress and healthy appearing General Appearance: cooperative GI normal to inspection, nondistended, normoactive bowel sounds, soft to palpation, non-tender and non-distended Percussion: normal to percussion Rectal Exam: deferred Assessment & Plan Assessment/Plan (1) Hyperbilirubinemia: (2) Transaminitis: PLAN: Assessment and Plan Assessment and Plan (1) Hyperbilirubinemia: Status: Acute (2) Transaminitis: Status: Acute Plan: JOJO BARRETT, is a 29 M with a past medical history of morbid obesity; with BMI of 43 this admission and recently diagnosed UTI; that was subsequently treated with oral ciprofloxacin who presents to [facility] ER complaining of painless jaundice after ciprofloxacin for treatment of a UTI. Mr. Gonzalez reportedhis symptoms began approximately 5 days ago when he was diagnosed with a UTI and then started on oral ciprofloxacin with subsequent severe pain in his abdomen and back he initially attributed to the UTI and the pain resolved he began to notice yellowing of his skin. His mother was concerned he was having an allergic reaction to his recently started ciprofloxacin so he stopped taking it today and they then decided to come in for further evaluation and treatment. He admits to intermittent ibuprofen use but he denies acetaminophen use, EtOH abuse, history of gallstones, history of abdominal surgery or similar previous episodes. There was no report of fever, chills, nausea, vomiting, diarrhea, constipation, chest pain, SOB or headache. In the ER he was noted to have markedly abnormal LFT's consisting of: Hyperbilirubinemia of 6.4 mg/dL, Direct Bilirubin 4.99 mg/dL, AST 378 U/L, ALT 680 U/L and Alkaline Phosphatase of 268 U/L present on admission with CT of the abdomen and pelvis revealing no acute abdominal finding with a non-obstructing Right renal calculus and layering sludge in the gallbladder without acute cholecystitis and he was then diagnosed with Acute Drug-induced Hepatitis due to Adverse Drug Reaction to recently started Ciprofloxacin causing Jaundice. I recommended patient be treated with Solu-Medrol 1g IV once in addition to ERCP with possible biopsy. He was found to have hyperbilirubinemia drug-induced hepatitis from ciprofloxacin. Started on high-dose steroids and had subsequent improvement in his bilirubin however an MRCP also demonstrated choledocholithiasis for he underwent an ERCP with stone removal and temporary stent placement. He continued to have improvement in all of his liver numbers. We also ordered a liver biopsy. Liver, CT guided core biopsy: Liver parenchymal tissue with macro- and microvesicular steatosis. Increased portal, periportal fibrosis and focal bridging fibrosis. Mild portal chronic inflammation. See microscopic description and comment Grade 3 liver disease likely secondary to nonalcoholic fatty liver disease. I had a long talk with him and his mom regarding weight loss and possible other treatments. I told him that he is at a [facility] and he will really need to lose weight. We will wait autoimmune labs for further recommendations. For now he is okay. All questions answered. Medications: Discontinued prednisone Discontinued Reason: Pt no longer taking 20 mg PO DAILY 30 tabs 0RF Coding
--- NOTE | 2025-01-15 10:25 | RAD_ITS ---
PROCEDURE: ERCP BILIARY/PANCREAS; O.R. FLUORO FOR C-ARM 01/15/2025 REASON FOR EXAM: ERCP TECHNIQUE: Intraoperative fluoroscopy was performed for ERCP. 8 fluoroscopic images were also obtained. RAD/ERCP Biliary/Pancreas IMPRESSION: Intraoperative fluoroscopy was performed for ERCP. 8 fluoroscopic images were a lso obtained. Reading Location: [id number]
--- NOTE | 2025-01-15 10:25 | RAD_ITS ---
PROCEDURE: ERCP BILIARY/PANCREAS; O.R. FLUORO FOR C-ARM 01/15/2025 REASON FOR EXAM: ERCP TECHNIQUE: Intraoperative fluoroscopy was performed for ERCP. 8 fluoroscopic images were also obtained. RAD/O.R. Fluoro for C-Arm IMPRESSION: Intraoperative fluoroscopy was performed for ERCP. 8 fluoroscopic images were a lso obtained. Reading Location: [id number]
--- NOTE | 2025-01-15 10:50 | OP.ERCP_ITS ---
Patient Name: Jono Mckeon Procedure Date: 01/15/2025 10:17 AM Date of : 1995 Age: 29 Procedure: ERCP Indications: Abdominal pain of suspected biliary origin, Follow-up of ascending cholangitis, Elevated liver enzymes, Biliary stent removal Providers: Adelso Kaur DO Referring MD: Victor Hugo Leonard Medicines: Monitored Anesthesia Care Patient Profile: This is a 29 year old male. Refer to note in patient chart for documentation of history and physical. Patient has symptoms of acute right upper quadrant abdominal pain, acute dyspepsia and acute jaundice. Complications: No immediate complications. Procedure: Pre-Anesthesia Assessment: - Prior to the procedure, a History and Physical was performed, and patient medications and allergies were reviewed. The patient is competent. The risks and benefits of the procedure and the sedation options and risks were discussed with the patient. All questions were answered and informed consent was obtained. Patient identification and proposed procedure were verified by the physician in the pre-procedure area. Mental Status Examination: alert and oriented. Airway Examination: normal oropharyngeal airway and neck mobility. Respiratory Examination: clear to auscultation. CV Examination: normal. Prophylactic Antibiotics: The patient does not require prophylactic antibiotics. Prior Anticoagulants: The patient has taken no anticoagulant or antiplatelet agents except for NSAID medication. ASA Grade Assessment: II - A patient with mild systemic disease. After reviewing the risks and benefits, the patient was deemed in satisfactory condition to undergo the procedure. The anesthesia plan was to use monitored anesthesia care (MAC). Immediately prior to administration of medications, the patient was re-assessed for adequacy to receive sedatives. The heart rate, respiratory rate, oxygen saturations, blood pressure, adequacy of pulmonary ventilation, and response to care were monitored throughout the procedure. The physical status of the patient was re-assessed after the procedure. After obtaining informed consent, the scope was passed under direct vision. Throughout the procedure, the patient's blood pressure, pulse, and oxygen saturations were monitored continuously. The Duodenoscope was introduced through the mouth, and advanced to the duodenum and used to inject contrast into the bile duct. The ERCP was accomplished without difficulty. The patient tolerated the procedure well. Scope In: 10:33:47 AM Scope Out: 10:43:18 AM Total Procedure Duration Time 0 hours 9 minutes 31 seconds Findings: The supervisor alteration workroom film was normal. The esophagus was successfully intubated under direct vision. The scope was advanced to a normal major papilla in the descending duodenum without detailed examination of the pharynx, larynx and associated structures, and upper GI tract. The upper GI tract was grossly normal. The bile duct was deeply cannulated with the short-nosed traction sphincterotome. Contrast was injected. I personally interpreted the bile duct images. There was brisk flow of contrast through the ducts. Image quality was excellent. Contrast extended to the entire biliary tree. Opacification of the entire biliary tree was successful. The maximum diameter of the ducts was 10 mm. The lower third of the main bile duct contained one stone, which was 6 mm in diameter. The entire opacified area was segmentally dilated, with a stone causing an obstruction. The largest diameter was 10 mm. A long 0.021 inch Jagwire was passed into the biliary tree. A 5 mm biliary sphincterotomy was made with a traction (standard) sphincterotome using ERBE electrocautery. There was no post-sphincterotomy bleeding. The biliary tree was swept with a 12 mm balloon starting at the bifurcation, left intrahepatic duct(s) and right intrahepatic duct(s). Sludge was swept from the duct. All stones were removed. One stent was removed from the biliary tree using a snare and sent for cytology. Impression: - The biliary system were dilated, with a stone causing an obstruction. - Choledocholithiasis was found. Complete removal was accomplished by biliary sphincterotomy and balloon extraction. - A biliary sphincterotomy was performed. - The biliary tree was swept. - One stent was removed from the biliary tree. Procedure Code(s): --- Professional --- 37803, Endoscopic retrograde cholangiopancreatography (ERCP); with removal of foreign body(s) or stent(s) from biliary/pancreatic duct(s) 50201, Endoscopic retrograde cholangiopancreatography (ERCP); with removal of calculi/debris from biliary/pancreatic duct(s) 67717, Endoscopic retrograde cholangiopancreatography (ERCP); with sphincterotomy/papillotomy 23358, 26, Endoscopic catheterization of the biliary ductal system, radiological supervision and interpretation CPT copyright 2021 [employer]. All rights reserved. The codes documented in this report are preliminary and upon talent acquisition partner review may be revised to meet current compliance requirements. DO Orestes Molina/5/2025 10:50:17 AM This report has been signed electronically. Number of Addenda: 0 Note Initiated On: 01/15/2025 10:17 AM
--- NOTE | 2025-01-15 10:50 | OP.CCLET_ITS ---
01/15/2025 Victor Hugo Leonard Re : ERCP procedure for Jono Mckeon Dear Zaid This procedure was performed on January. My impressions and recommendations are as follows: Impressions : - The biliary system were dilated, with a stone causing an obstruction. - Choledocholithiasis was found. Complete removal was accomplished by biliary sphincterotomy and balloon extraction. - A biliary sphincterotomy was performed. - The biliary tree was swept. - One stent was removed from the biliary tree. Recommendations : My findings are described in the full procedure note, which is enclosed. If I can be of further assistance, please feel free to contact me at . Sincerely, Adelso Kaur, 01/15/2025 10:50:17 AM This report has been signed electronically.
--- NOTE | 2025-01-15 10:56 | PCM.POST.ANE ---
Anesthesia: Postop Eval I Current Vital Signs Temperature: 99 F Pulse Rate: 94 Blood Pressure: 130/72 Respiratory Rate: 18 Pulse Ox: 94 Assessment Airway patent: Yes Spontaneous unlabored respirations: Yes nausea: No Vomiting: No Anesthesia Complication: No Fluid Hydration Crystalloid volume administer (ml): 300 Total IV fluid infused: 300 Progress Note Anesthesia document: Postop Eval 1 completed: Yes
--- NOTE | 2025-01-15 18:58 | POSTOPAN2_ITS ---
Anesthesia Postop Eval I Sum Postop Eval Completion status Anesthesia document: Postop Eval 1 completed: Yes Anesthesia Postop Eval I Summary Anesthesia Postop Eval I Summary: Anesthesia Postop Eval I: Assessment Summary Airway patent Yes 01/15/25 10:57 ELECTRICIAN THIRD.[email or web address] Spontaneous unlabored Yes 01/15/25 10:57 ELECTRICIAN THIRD.CSIR respirations Mental status nausea No 01/15/25 10:57 ELECTRICIAN THIRD.CSIR Vomiting No 01/15/25 10:57 ELECTRICIAN THIRD.CSIR Anesthesia Postop Eval I: Fluid Summary Crystalloid volume administer 300 01/15/25 10:57 ELECTRICIAN THIRD.CSIR (ml) Colloids volume administered ( ml) Blood Product volume administered (ml) Total IV fluid infused 300 01/15/25 10:57 ELECTRICIAN THIRD.CSIR Anesthesia Postop Eval I: Summary Notes Anesthesia Complication No 01/15/25 10:57 ELECTRICIAN THIRD.CSIR Anesthesia Complication Comment: Post-operative progress note Anesthesia: Postop Eval II Evaluation Mental status: Awake and Calm Pain Level: 1 nausea: No Vomiting: No Complications Anesthesia Complication: No
--- NOTE | 2025-01-15 18:58 | PCM.POSTANE2 ---
Anesthesia Postop Eval I Sum Postop Eval Completion status Anesthesia document: Postop Eval 1 completed: Yes Anesthesia Postop Eval I Summary Anesthesia Postop Eval I Summary: Anesthesia Postop Eval I: Assessment Summary Airway patent Yes 01/15/25 10:57 DREDGE [email or web address] Spontaneous unlabored Yes 01/15/25 10:57 DREDGE OPERATOR.CSIR respirations Mental status nausea No 01/15/25 10:57 DREDGE OPERATOR.CSIR Vomiting No 01/15/25 10:57 DREDGE [email or web address].CSIR Anesthesia Postop Eval I: Fluid Summary Crystalloid volume administer 300 01/15/25 10:57 DREDGE OPERATOR.CSIR (ml) Colloids volume administered ( ml) Blood Product volume administered (ml) Total IV fluid infused 300 01/15/25 10:57 DREDGE OPERATOR.CSIR Anesthesia Postop Eval I: Summary Notes Anesthesia Complication No 01/15/25 10:57 DREDGE OPERATOR.CSIR Anesthesia Complication Comment: Post-operative progress note Anesthesia: Postop Eval II Evaluation Mental status: Awake and Calm Pain Level: 1 nausea: No Vomiting: No Complications Anesthesia Complication: No
== END 2025-01-15 11:47 | disposition home or self-care (01) ==
LOC: EN 09:07 → AC 09:11
PROVIDERS: PCP Nurse Practitioner Family; Referring Provider Nurse Practitioner Family; Visit Provider Internal Medicine Gastroenterology
PROC: (CPT 43260; principal; 2025-01-15 10:10)
DX: K80.70 Calculus of gallbladder and bile duct without cholecystitis without obstruction (principal); R74.01 Elevation of levels of liver transaminase levels
CPT/HCPCS: 43275; 43264; 43262; 74330; 76000; 88108; 88305; 88313; 93005; J2405

== ENCOUNTER 2025-01-15 21:55 | Inpatient (IN) | payer OTHER, SELFPAY ==
[2025-01-15 21:55] VITALS: BP 135/96; PULSE 100; RESP 20; TEMP 39.4; O2SAT 98; BMI 38.9
--- NOTE | 2025-01-15 22:18 | CT_ITS ---
PROCEDURE: ABDOMEN/PELVIS W IV CONT ONLY 01/15/2025 REASON FOR EXAM: FEVER S/P SENT REMOVAL TECHNIQUE: Abdomen and pelvis CT with intravenous contrast. Coronal and Sagittal reconstruction series were provided. PATIENT PREPARATION: Per protocol CONTRAST: 95 mL Isovue 370 One or more dose reduction techniques were used (e.g., Automated exposure control, adjustment of the mA and/or kV according to patient size, use of iterative reconstruction technique. RADIATION DOSE SUMMARY: CTDlvol: 24.2 mGy DLP: 1357 mGycm COMPARISON: ERCP on 01/15/2025, MRCP on 09/25/2024, CT abdomen and pelvis 09/24/2024 FINDINGS: Lung bases: There are tiny scattered nodules in the right lung base measuring up to 2 mm in size, likely infectious or inflammatory in a patient of this age. Liver: Unremarkable Gallbladder: No radiodense stones or wall thickening. The common bile duct measures 4 mm in diameter. Spleen: Enlarged measuring 17 cm in AP diameter Pancreas: Normal size without evidence of mass surrounding inflammation or ductal dilation. Adrenals: Unremarkable Kidneys: Punctate stone measuring 2 mm in the interpolar region of the right kidney, unchanged from 09/24/2024. No hydronephrosis. Partially exophytic subcentimeter left renal hypodense lesion is unchanged. Bladder: Mild circumferential wall thickening Reproductive Organs: Unremarkable Bowel: No obstruction. Mild wall thickening of the ascending colon near the hepatic flexure, without significant surrounding inflammatory stranding. Normal appendix. Lymph nodes: No lymphadenopathy. Vasculature: Unremarkable Bones: Transitional lumbosacral anatomy with sacralization of L5 CT/Abdomen/Pelvis W IV Cont ONLY IMPRESSION: 1. No definite evidence for an acute intra-abdominal abnormality. Normal job tanika common bile duct. 2. Mild wall thickening of the ascending colon, which may be result of underdi stention. Colitis is possible but less likely given absence of inflammatory stranding. 3. Mild urinary bladder wall thickening may also be related to underdistention or cystitis. Correlate with urinalysis. 4. Punctate nonobstructing stone measuring 2 mm in the right kidney, unchanged . 5. Splenomegaly. Reading Location: [id number]
--- OUTSIDE RECORDS SUMMARY | 2025-01-15 22:35 | XMS RPT_ITS | CCD ---
Author Organization [facility] CliniSymt Care Team Providers Care Manager Sales Training Name Role Phone Zaid MIXED CROP FARMER-C, Zunilda Primary Care Provider Zaid MIXED CROP FARMER-C, Zunilda Attending Provider Jaspreet LANGSTON, Dr. Amaro Emergency Provider Agudelo DO, Dr. Ty Admit Provider Unavail able Agudelo DO, Dr. Ty Other Provider Unavail able Adelfo BROWN, Dr. Mani Lima Attending Provider Adelfo BROWN, Dr. Mani Lima Referring Provider Adelfo BROWN, Dr. Mani Lima Other Provider [phone] Natasha LANGSTON, Dr. Darden Attending Provider Deidre BROWN, Dr. Hernandez Attending Provider Deidre BROWN, Dr. Hernandez Referring Provider Zaid MIXED CROP FARMER-C, Zunilda Referring Provider Dr. Adelso Kaur DO Referring Provider Mani Emanuel Attending Unavailable Zaid, Zunilda Primary Care Unavailable Karson Agudelo Admitting Unavailable Karson Agudelo Consulting Unavailable Mani Emanuel Consulting Unavailable FriendAdelso Attending Unavailable FriendAdelso Referring Unavailable FriendAdelso Attending Unavailable Zaid, Zunilda Primary Care Unavailable FriendAdelso Attending Unavailable FriendAdelso Referring Unavailable Zaid, Zunilda Primary Care Unavailable Zaid, Zunilda Attending Unavailable Zaid, Zunilda Primary Care Unavailable Friend, Adelso Attending Unavailable Zaid, Zunilda Primary Care Unavailable Zaid, Zunilda Referring Unavailable Kotsonis, Mani F Attending Unavailable Karson Agudelo Consulting Unavailable Karson Agudelo Admitting Unavailable Zunilda Mar Primary Care Unavailable Zaid, Zunilda Primary Care Unavailable Mary Jiang Referring Unavailyoni e Mary Jiang Attending Unavailabl e Adelso Kaur Attending Unavailable Zunilda Mar Primary Care Unavailable Zunilda Mar Referring Unavailable Karson Agudelo Attending Unavailable Mani Emanuel Referring Unavailable Allergies Allergy Classification Reported Allergen(s) Allergy Type Date of Onset Reaction(s) Facility (1 source) Ciprofloxacin Drug Allergy 09-24-2024 hepatitis [facility] (1 source) Ciprofloxacin Drug Allergy 01-13-2025 [facility] Repository Medications Completed/Discontinued Medications Medication Drug Class(es) Dates Sig (Normalized) Sig (Original) ciprofloxacin 500 mg oral tablet (1 source) Quinolone Antimicrobial Start: 09-24-2024 End: 09-27-2024 take 1 tablet by mouth twice daily Ciprofloxacin Hcl 500 mg tablet Discontinued 500 mg PO TWICE A DAY September 24, 2024 1:00am September 27, 2024 9:10am predniSONE 20 mg oral tablet (1 source) Start: 09-27-2024 End: 11-06-2024 take 1 tablet by mouth once daily Prednisone 20 mg tablet Discontinued 20 mg PO DAILY September 27, 2024 1:00am November 06, 2024 3:43pm Problems Active Problems Problem Classification Problem Date Documented Da te Episodic/Chronic Hepatitis (3 sources) Drug-induced hepatitis; 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, not elsewhere classified] Onset: 09-29-2024 09-24-2024 Chronic Other liver diseases (3 sources) Enzyme level - finding; Translations: [Elevated transaminase measurement] 09-24-2024 Episodic Other nutritional; endocrine; and metabolic disorders (3 sources) Hyperbilirubinemia; Translations: [Other disorders of bilirubin metabolism] 09-24-2024 Chronic Other nutritional; endocrine; and metabolic disorders (2 sources) Body mass index 40+ - severely obese; Translations: [Morbid (severe) obesity due to excess calories] 09-24-2024 Chronic Other nutritional; endocrine; and metabolic disorders (2 sources) Metabolic disease; Translations: [Abdominal obesity and metabolic syndrome] 09-24-2024 Chronic Other nutritional; endocrine; and metabolic disorders (1 source) Other disorders of bilirubin metabolism; Translations: [Other disorders of bilirubin metabolism] Onset: 09-29-2024 Chronic Other nutritional; endocrine; and metabolic disorders (1 source) Morbid (severe) obesity due to excess calories; Translations: [Morbid (severe) obesity due to excess calories] Onset: 09-29-2024 Chronic Other nutritional; endocrine; and metabolic disorders (1 source) Body mass index (BMI) 40.0-44.9, adult; Translations: [Body mass index [BMI] 40.0-44.9, adult] Onset: 09-29-2024 Chronic Other nutritional; endocrine; and metabolic disorders (1 source) Metabolic syndrome; Translations: [Metabolic syndrome] Onset: 09-29-2024 Chronic Other nutritional; endocrine; and metabolic disorders (1 source) Obesity, unspecified; Translations: [Obesity, unspecified] Onset: 09-29-2024 Chronic Unclassified (1 source) Elevation of levels of liver transaminase levels; Translations: [Elevation of levels of liver transaminase levels] Onset: 09-29-2024 Past or Other Problems Problem Classification Problem Date Documented Da te Episodic/Chronic E Codes: Adverse effects of medical drugs (3 sources) Adverse reaction to drug; Translations: [Adverse effect of unspecified drugs, medicaments and biological substances, initial encounter] Onset: 09-29-2024 09-24-2024 Episodic Other liver diseases (1 source) Unspecified jaundice; Translations: [Unspecified jaundice] Onset: 10-08-2024 Episodic Urinary tract infections (4 sources) Acute cystitis; Translations: [Acute cystitis without hematuria] Onset: 09-29-2024 09-25-2024 Episodic Results Test Name Value Interpretation Reference Range Facility Gastroenterology Visit Repor ton 11-06-2024 Gastroenterology Visit Report [facility] [address] [place] [address] OFFICE VISIT Date of Service: 11/06/24 MR#: [id number] Acct: [id number] Name: JOJO MCKEON Rep #: [id number] : 1995 Provider: Adelso Kaur DO Age/Sex: 29/M Location: [facility] Status: Signed Intake Vital Signs 09/26/24 06:41 11/06/24 15:48 Height 5 ft 9 in 5 ft 9 in Weight: 299 lb 4 oz BMI 44.1 Intake Visit Reasons: Follow Up Allergies ciprofloxacin (From Cipro) Allergy (Verified 09/24/24 20:56) hepatitis [facility] Medical History UTI (urinary tract infection) Social History household members: family housing: house Smoking Status: Never smoker HPI HPI Details: JOJO MCKEON, is a 29 M who presents to the office today for hospital follow up. [facility] 09.24.24 - 09.27.24 general illness --- GI consulted for jaundice appearance abd/pelvis CT 09.24.24 1. No acute abdominopelvic finding. 2. Nonobstructing right renal calculus. 3. Layering sludge within the gallbladder without evidence of acute cholecystitis. MRCP 09.25.24 1. 2-3 mm stone in the distal common bile duct with mild dilatation of the common bile duct measuring 7.3 mm suggesting possible obstructive cholangiopathy. 2. Cholelithiasis with a partially distended and thick-walled gallbladder. There is a questionable stone in the cystic duct. Acute cholecystitis is possible. 3. Splenomegaly. Liver Biopsy 09.25.24 ERCP 09.26.24 The entire biliary tree was dilated, with a stone causing an obstruction. Choledocholithiasis was found. Complete removal was accomplished by biliary sphincterotomy and balloon extraction. Pancreatic stones were found. Complete removal was accomplished. A pancreatic sphincterotomy was performed. The ventral pancreatic duct was swept. A biliary sphincterotomy was performed. The biliary tree was swept. One temporary stent was placed into the common bile duct. OV 11.06.24 pt reports that he is feeling well since hospitalization. States that yesterday he started having some abdominal discomfort on his left side when he moves. Denies other GI symptoms of concern at this time. ROS Const Constitutional: No fatigue, fever(s) or weight change ENT ENT: No difficulty swallowing Gastro GI: No abdominal pain, belching, bloating, change in bowel habits, change in stool character, coffee ground emesis, constipation, cramping, diarrhea, heartburn, difficulty swallowing, feeling full early, excessive flatus, incontinent of stools, Vomiting blood/hematemesis, Blood in stool, loose stools, Black,tarry stools, nausea/dyspepsia, pain with swallowing, vomiting or other Musc Musculoskeletal: No joint pain Skin Skin: No yellowing of the eye or itchy eyes Psych Psychiatric: No anxiety and No depression Endo Endocrine: No fatigue or weight change Aller/Imm Allergy/Immunologic: No itchy eyes Candelario/Lymp Hematologic/Lymphatic: No easy bleeding or easy bruising Exam Const General: cooperative, healthy appearing, comfortable and no acute distress Nutritional Appearance: average body habitus and overweight Orientation: alert and awake [facility] Head: normal to inspection and no palpable skull fracture Ears: hearing grossly normal bilaterally Nose: external nose normal Face and sinus: normal facial exam Eyes General: appearance normal, both eyes and all related structures Eyelids: eyelids normal Sclera: sclerae normal Neck Neck mass: No Thyroid: thyroid normal Chest Chest palpation inspection: normal inspection of the chest, deferred, pacemaker, rash and other Resp Effort Inspection: normal respiratory effort Auscultation: Bilateral: Clear to Auscultation Cardio Rate: regular rate Rhythm: regular rhythm GI Inspection: normal to inspection Auscultation: normal bowel sounds Percussion: normal to percussion Palpation: hepatosplenomegaly Rectal Exam: visual inspection normal Assessment and Plan Assessment and Plan (1) Hyperbilirubinemia: Status: Acute (2) Transaminitis: Status: Acute Plan: JOJO MCKEON, is a 29 M with a past medical history of morbid obesity; with BMI of 43 this admission and recently diagnosed UTI; that was subsequently treated with oral ciprofloxacin who presents to [facility] ER complaining of painless jaundice after ciprofloxacin for treatment of a UTI. Mr. Gonzalez reportedhis symptoms began approximately 5 days ago when he was diagnosed with a UTI and then started on oral ciprofloxacin with subsequent severe pain in his abdomen and back he initially attributed to the UTI and the pain resolved he began to notice yellowing of his skin. His mother was concerned he was having an allergic reaction to his recently st (more content not included)... Normal [facility] ANCAon 10-01-2024 Atypical pANCA <1:20 Normal Neg:<1:20 [facility] Comment on above: Order Comment: Test( s) [id number]-[id number], Serum or Plasmawas developed and its performance characteristicsdetermined by [employer] It has not been cleared or approvedby the Food and Drug Administration. Result Comment: Note : Specimen is icteric. The atypical pANCA pattern has been observed in a significant percentage of patients with ulcerative colitis, primary sclerosing cholangitis and autoimmune hepatitis. Performed By: #### L 501.2300, L501.5200, L500.4050 #### [facility] [address] [place], [address] Cytoplasmic Ab <1:20 Normal Neg:<1:20 [facility] Comment on above: Order Comment: Test( s) 138763-Pqhghf, Serum or Plasmawas developed and its performance characteristicsdetermined by [employer] It has not been cleared or approvedby the Food and Drug Administration. Result Comment: Note : Specimen is icteric. Performed By: #### L 501.2300, L501.5200, L500.4050 #### [facility] [address] [place], [address] Perinuclear Ab. <1:20 Normal Neg:<1:20 [facility] Comment on above: Order Comment: Test( s) [id number]-Jwrhns, Serum or Plasmawas developed and its performance characteristicsdetermined by [employer] It has not been cleared or approvedby the Food and Drug Administration. Result Comment: Note : Specimen is icteric. The presence of positive fluorescence exhibiting P-ANCA or C-ANCA patterns alone is not specific for the diagnosis of Merna's Granulomatosis (WG) or microscopic polyangiitis. Decisions about treatment should not be based solely on ANCA IFA results. The [employer] ANCA [employer] Consensus recommends follow up testing of positive sera with both TN- 3 and MPO-ANCA enzyme immunoassays. As many as 5% serum samples are positive only by EIA. Ref. AM J Clin Pathol 1999;111:507-513. Performed By: #### L 501.2300, L501.5200, L500.4050 #### [facility] [address] [place], [address] Anti-Smooth Muscle ABSon ANTISMOOTH MUSC 4 Units Normal 0-19 [facility] Comment on above: Order Comment: Test( s) [id number]-Qvklkj, Serum or Plasmawas developed and its performance characteristicsdetermined by [employer]. It has not been cleared or approvedby the Food and Drug Administration. Result Comment: Nega tive 0 - 19 Weak positive 20 - 30 Moderate to strong positive >30 Actin Antibodies are found in 52-85% of patients with autoimmune hepatitis or chronic active hepatitis and in 22% of patients with primary biliary cirrhosis. Performed By: #### L 501.080 #### [facility] [address] [place], [place], [id number] Copper, Serum or Plasmaon COPPER, SERUM 128 ug/dL High 63-121 [facility] Comment on above: Order Comment: Test( s) [id number]-Afmqtx, Serum or Plasmawas developed and its performance characteristicsdetermined by [employer] It has not been cleared or approvedby the Food and Drug Administration. Result Comment: Dete ction Limit = 5 Performed By: #### L 501.2300, L501.5200, L500.4050 #### [facility] [address] [place], [place], [address] Haptoglobinon 10-01-2024 HAPTOGLOBIN 111 mg/dL Normal 17-317 [facility] Comment on above: Order Comment: Test( s) 331886-Vcotyp, Serum or Plasmawas developed and its performance characteristicsdetermined by [employer] It has not been cleared or approvedby the Food and Drug Administration. Result Comment: Perf ormed at: [address] [id number] [employer] Automatic: Massimo Gonzalez PhD, Phone: [phone] Performed at: [facility] [id number] [employer] Operator Automatic: Antonella Ricardo MD, Phone: [phone] Performed By: #### L 501.2300, L501.5200, L500.4050 #### [facility] [address] [place], [address] Hepatitis Panel Acuteon - COMMENT Comment Normal . [facility] Comment on above: Order Comment: Test( s) [id number]-Vubpro, Serum or Plasmawas developed and its performance characteristicsdetermined by [facility]. It has not been cleared or approvedby the Food and Drug Administration. Result Comment: Not infected with HCV unless early or acute infection is suspected (which may be delayed in an immunocompromised individual), or other evidence exists to indicate HCV infection. Performed By: #### L 501.2300, L501.5200, L500.4050 #### [facility] [address] [place], [address] HEP B CORE,IgM Negative Normal Negative [facility] Comment on above: Order Comment: Test( s) 250249-Iprdfz, Serum or Plasmawas developed and its performance characteristicsdetermined by [facility]. It has not been cleared or approvedby the Food and Drug Administration. Performed By: #### L 501.2300, L501.5200, L500.4050 #### [facility] [address] [place], [address] HEP B SURF AG Negative Normal Negative [facility] Comment on above: Order Comment: Test( s) 490893-Ebmpcf, Serum or Plasmawas developed and its performance characteristicsdetermined by [facility]. It has not been cleared or approvedby the Food and Drug Administration. Performed By: #### L 501.2300, L501.5200, L500.4050 #### [facility] [address] [place], [address] HEP C VIRUS AB Non-Reactive Normal Non Reactive [facility] Comment on above: Order Comment: Test( s) 454163-Fdmlvl, Serum or Plasmawas developed and its performance characteristicsdetermined by [employer]. It has not been cleared or approvedby the Food and Drug Administration. Performed By: #### L 501.2300, L501.5200, L500.4050 #### [facility] [address] [place], [address] HEPATITIS A-IgM Negative Normal Negative [facility] Comment on above: Order Comment: Test( s) 737136-Spzwdi, Serum or Plasmawas developed and its performance characteristicsdetermined by [employer] It has not been cleared or approvedby the Food and Drug Administration. Result Comment: A ne gative anti-HAV IgM result suggests no recent or current HAV infection. Performed By: #### L 501.2300, L501.5200, L500.4050 #### [facility] [address] [place], [address] IgG Subclasseson 10-01-2024 IgG, SUBCLASS 1 365 mg/dL Normal 248-810 [facility] Comment on above: Order Comment: Test( s) [id number]-Gxarjl, Serum or Plasmawas developed and its performance characteristicsdetermined by [employer] It has not been cleared or approvedby the Food and Drug Administration. Performed By: #### L 501.2300, L501.5200, L500.4050 #### [facility] [address] [place], [address] IgG, SUBCLASS 2 262 mg/dL Normal 130-555 [facility] Comment on above: Order Comment: Test( s) 489549-Ioeopl, Serum or Plasmawas developed and its performance characteristicsdetermined by [employer] It has not been cleared or approvedby the Food and Drug Administration. Performed By: #### L 501.2300, L501.5200, L500.4050 #### [facility] [address] [place], [address] IgG, SUBCLASS 3 33 mg/dL Normal 15-102 [facility] Comment on above: Order Comment: Test( s) 346982-Oaxypf, Serum or Plasmawas developed and its performance characteristicsdetermined by [employer] It has not been cleared or approvedby the Food and Drug Administration. Performed By: #### L 501.2300, L501.5200, L500.4050 #### [facility] [address] [place], [address] IgG, SUBCLASS 4 11 mg/dL Normal 2-96 [facility] Comment on above: Order Comment: Test( s) [id number]-Gpvnjr, Serum or Plasmawas developed and its performance characteristicsdetermined by [employer] It has not been cleared or approvedby the Food and Drug Administration. Performed By: #### L 501.2300, L501.5200, L500.4050 #### [facility] [address] [place], [address] IGG,QUANT 761 mg/dL Normal 603-1613 [facility] Comment on above: Order Comment: Test( s) [id number]-Ixmmeh, Serum or Plasmawas developed and its performance characteristicsdetermined by [employer] It has not been cleared or approvedby the Food and Drug Administration. Performed By: #### L 501.2300, L501.5200, L500.4050 #### [facility] [address] [place], [address] HIV - WCHon 09-30-2024 HIV Non-Reactive Normal Nonreactive [facility] Comment on above: Performed By: #### L 501.080 #### [facility] [address] [place], [address] Celiac AB,Comprehensiveon ANTIGLIADIN IGA 4 units Normal 0-19 [facility] Comment on above: Result Comment: Nega tive 0 - 19 Weak Positive 20 - 30 Moderate to Strong Positive >30 Performed By: #### L 501.080 #### [facility] [address] [place], [address] ANTIGLIADIN IGG 3 units Normal 0-19 [facility] Comment on above: Result Comment: Nega tive 0 - 19 Weak Positive 20 - 30 Moderate to Strong Positive >30 Performed By: #### L 501.080 #### [facility] [address] [place], [place], [id number] ENDOMYSIAL IGA Negative Normal Negative [facility] Comment on above: Result Comment: Note : Specimen is icteric. Performed By: #### L 501.080 #### [facility] [address] [place], [place], [id number] tTG IGA <2 Normal 0-3 [facility] Comment on above: Result Comment: Nega tive 0 - 3 Weak Positive 4 - 10 Positive >10 Tissue Transglutaminase (tTG) has been identified as the endomysial antigen. Studies have demonstr- ated that endomysial IgA antibodies have over 99% specificity for gluten sensitive enteropathy. Performed By: #### L 501.080 #### [facility] [address] [place], [address] tTG IGG 5 U/mL Normal 0-5 [facility] Comment on above: Result Comment: Nega tive 0 - 5 Weak Positive 6 - 9 Positive >9 Performed By: #### L 501.080 #### [facility] [address] [place], [address] Ceruloplasminon 09-29-2024 CERULOPLASMIN 30.1 mg/dL Normal 16.0-31.0 [facility] Comment on above: Result Comment: Perf ormed at: - [facility] [id number] [employer] Operator Automatic: Massimo Gonzalez PhD, Phone: [phone] Performed By: #### L 518.6175 #### [facility] [address] [place], [place], [address] EBV Acute Prof IgG / IgMon 0 09-29-2024 EB Ab VCA, IgG > 600.0 High 0.0-17.9 [facility] Comment on above: Result Comment: Nega tive <18.0 Equivocal 18.0 - 21.9 Positive >21.9 Performed By: #### L 846.2595 #### [facility] [address] [place], [place], [id number] EBV Ab VCA, IgM < 36.0 Normal 0.0-35.9 [facility] Comment on above: Result Comment: Nega tive <36.0 Equivocal 36.0 - 43.9 Positive >43.9 Performed By: #### L 500.4050 #### [facility] [address] [place], [place], [id number] EBV NuAg Ab,IgG < 18.0 Normal 0.0-17.9 [facility] Comment on above: Result Comment: Nega tive <18.0 Equivocal 18.0 - 21.9 Positive >21.9 Performed By: #### L 500.4050 #### [facility] [address] [place], [place], [id number] INTERPRETATION Comment Normal . [facility] Comment on above: Result Comment: EBV Interpretation Chart Interiano: Antibody Present + Antibody Absent - Interpretation VCA-IgM VCA-IgG EBNA-IgG No previous infection/ - - - Susceptible Primary infection (new + + - or recent) Past Infection +or- + + See comment below* + - - *Results indicate infection with EBV at some time however cannot predict the timing of the infection since antibodies to EBNA usually develop after primary infection or, alternatively, approximately 5-10% of patients with EBV never develop antibodies to EBNA. Performed By: #### L 500.4050 #### [facility] [address] [place], [place], [address] Hepatitis Panel Acuteon - COMMENT Comment Normal . [facility] Comment on above: Result Comment: Not infected with HCV unless early or acute infection is suspected (which may be delayed in an immunocompromised individual), or other evidence exists to indicate HCV infection. Performed By: #### L 500.4050 #### [facility] [address] [place], [place], [id number] HEP B CORE,IgM Negative Normal Negative [facility] Comment on above: Performed By: #### L 500.4050 #### [facility] [address] [place], [address] HEP B SURF AG Negative Normal Negative [facility] Comment on above: Performed By: #### L 500.4050 #### [facility] [address] [place], [address] HEP C VIRUS AB Non-Reactive Normal Non Reactive [facility] Comment on above: Performed By: #### L 500.4050 #### [facility] [address] [place], [address] HEPATITIS A-IgM Negative Normal Negative [facility] Comment on above: Result Comment: A ne gative anti-HAV IgM result suggests no recent or current HAV infection. Performed By: #### L 500.4050 #### [facility] [address] [place], [address] OSKAR + Protein Elect, Serumon 09-29-2024 Albumin [Mass/Vol] 3.4 g/dL Normal 2.9-4.[address] [facility] Comment on above: Performed By: #### L 500.4050 #### [facility] [address] [place], [address] Albumin/Globulin [Mass ratio] 1.3 {ratio} Normal 0.7-1.7 [facility] Comment on above: Performed By: #### L 500.4050 #### [facility] [address] [place], [address] TXZUC-0-QUML 0.3 g/dL Normal 0.0-0.4 [facility] Comment on above: Performed By: #### L 500.4050 #### [facility] [address] [place], [address] PXNTZ-5-BSUH 0.7 g/dL Normal 0.4-1.0 [facility] Comment on above: Performed By: #### L 500.4050 #### [facility] [address] [place], [address] BETA GLOBULIN 1.0 g/dL Normal 0.7-1.3 [facility] Comment on above: Performed By: #### L 500.4050 #### [facility] [address] [place], [address] GAMMA GLOBULIN 0.8 g/dL Normal 0.4-1.8 [facility] Comment on above: Performed By: #### L 500.4050 #### [facility] [address] [place], [address] Globulin (S) [Mass/Vol] 2.8 g/dL Normal 2.2-3.9 [facility] Comment on above: Performed By: #### L 500.4050 #### [facility] [address] [place], [address] OSKAR RESULT,S Comment Normal . [facility] Comment on above: Result Comment: No m onoclonality detected. Performed By: #### L 500.4050 #### [facility] [address] [place], [address] IMMUNOGLOB A QN 83 mg/dL Low 90-386 [facility] Comment on above: Performed By: #### L 500.4050 #### [facility] [address] [place], [address] IMMUNOGLOB G QN 768 mg/dL Normal 603-1613 [facility] Comment on above: Performed By: #### L 500.4050 #### [facility] [address] [place], [address] IMMUNOGLOB M QN 193 mg/dL High 20-172 [facility] Comment on above: Performed By: #### L 500.4050 #### [facility] [address] [place], [address] M-Juan Not Observed Normal Not Observed [facility] Comment on above: Performed By: #### L 500.4050 #### [facility] [address] [place], [place], [address] NOTE: Comment Normal . [facility] Comment on above: Result Comment: Prot ein electrophoresis scan will follow via computer, mail, or tire bladder maker delivery. Performed By: #### L 500.4050 #### [facility] [address] [place], [place], [address] Protein [Mass/Vol] 6.2 g/dL Normal 6.0-8.[address] [facility] Comment on above: Performed By: #### L 500.4050 #### [facility] [address] [place], [place], [address] Albumin to globulin ratioOrd ered By: Mani Emanuel on 09-27-2024 Albumin/Globulin [Mass ratio] 0.8 {ratio} Low 0.9-2.4 [facility] Bilirubin, totalOrdered By: Mani Emanuel on 09-27-2024 Bilirubin [Mass/Vol] 2.30 mg/dL High 0.20-1.00 [facility] Comment on above: For patients on eltr ombopag therapy, use of Dimension Dauphin TBIL is not recommended. Blood urea nitrogen (BUN)/cr eatinine ratioOrdered By: Mani Emanuel on 09-27-2024 Urea nitrogen/Creatinine [Mass ratio] 21.8 mg/mg High 10-20 [facility] Carbon dioxide measurementOr dered By: Mani Emanuel on 09-27-2024 CO2 [Moles/Vol] 26.0 mmol/L 21.0-32.0 [facility] Chloride measurementOrdered By: Mani Emanuel on 09-27-2024 Chloride [Moles/Vol] 108 mmol/L High 98-107 [facility] Comprehensive Metabolic Prof ilon 09-27-2024 Albumin [Mass/Vol] 2.7 g/dL Low 3.2-5.[address] [facility] Comment on above: Performed By: #### L 500.4050 #### [facility] [address] [place], [address] Albumin/Globulin [Mass ratio] 0.8 {ratio} Low 0.9-2.4 [facility] Comment on above: Performed By: #### L 500.4050 #### [facility] [address] [place], [address] ALK P 169 U/L High 45-117 [facility] Comment on above: Performed By: #### L 500.4050 #### [facility] [address] [place], [address] ALT [Catalytic activity/Vol] 763 U/L High 16-61 [facility] Comment on above: Performed By: #### L 500.4050 #### [facility] [address] [place], [address] AST [Catalytic activity/Vol] 278 U/L High 15-37 [facility] Comment on above: Performed By: #### L 500.4050 #### [facility] [address] [place], [address] Bilirubin [Mass/Vol] 2.30 mg/dL High 0.20-1.00 [facility] Comment on above: Result Comment: For patients on eltrombopag therapy, use of Dimension Dauphin TBIL is not recommended. Performed By: #### L 500.4050 #### [facility] [address] [place], [address] BUN/CRE 21.8 RATIO High 10-20 [facility] Comment on above: Performed By: #### L 500.4050 #### [facility] [address] [place], [address] CA,Total 9.0 mg/dL Normal 8.5-10.1 [facility] Comment on above: Performed By: #### L 500.4050 #### [facility] [address] [place], [address] Chloride [Moles/Vol] 108 mmol/L High 98-107 [facility] Comment on above: Performed By: #### L 500.4050 #### [facility] [address] [place], [address] CO2 [Moles/Vol] 26.0 mmol/L Normal 21.0-32.0 [facility] Comment on above: Performed By: #### L 500.4050 #### [facility] [address] [place], [address] Creatinine [Mass/Vol] 1.01 mg/dL Normal 0.70-1.30 [facility] Comment on above: Result Comment: The validity of the calculated GFR GFRAA in patients over 70 years has not been determined. Clinical correlation is essential. Performed By: #### L 500.4050 #### [facility] [address] [place], [address] ECRCL 145.04 ml/min Normal [facility] Comment on above: Performed By: #### L 500.4050 #### [facility] [address] [place], [address] EST GFR - AA 112 mL/min Normal >60 [facility] Comment on above: Result Comment: Afri can Kitt[place] GFR Calc Performed By: #### L 500.4050 #### [facility] [address] [place], [address] GAP 5 Normal 5-15 [facility] Comment on above: Performed By: #### L 500.4050 #### [facility] [address] [place], [address] GFR/1.73 sq M.predicted among non-blacks MDRD (S/P/Bld) [Vol rate/Area] 92 mL/min/{1.73_m2} Normal >60 [facility] Comment on above: Result Comment: Non- GFR Calc Performed By: #### L 500.4050 #### [facility] [address] [place], [address] Globulin (S) [Mass/Vol] 3.2 g/dL Normal 2.2-4.2 [facility] Comment on above: Performed By: #### L 500.4050 #### [facility] [address] [place], [address] Glucose [Mass/Vol] 109 mg/dL High 74-[address] [facility] Comment on above: Result Comment: Fast ing Glucose result from 100 to 125 mg/dL suggests IMPAIRED HOMEOSTASIS per A.D.A. criteria. Performed By: #### L 500.4050 #### [facility] [address] [place], [address] Potassium [Moles/Vol] 4.4 mmol/L Normal 3.5-5.1 [facility] Comment on above: Performed By: #### L 500.4050 #### [facility] [address] [place], [address] Sodium [Moles/Vol] 139 mmol/L Normal 136-[address] [facility] Comment on above: Performed By: #### L 500.4050 #### [facility] [address] [place], [address] T PROT 5.9 g/dL Low 6.4-8.2 [facility] Comment on above: Performed By: #### L 500.4050 #### [facility] [address] [place], [address] Urea nitrogen [Mass/Vol] 22 mg/dL High 7-18 [facility] Comment on above: Performed By: #### L 500.4050 #### [facility] [address] [place], [address] Discharge Instructionon 09-13 Discharge Instruction [facility] Medical Records Department [address] [place] [address] Instructions for Home/Discharge Instructions 09/27/24 0808 MR#: [id number] Acct: [id number] Name: JOJO MCKEON Rep #: [id number] : 1995 29 From: Mani Emanuel MD PCP: ROMEO Leonard Status:ADM IN Discharge Instructions Diet Discharge Diet: No restrictions DC O2, CPAP, BIPAP needs Home O2 Discharge instructions: No Dressing / Incision Discharge Activity: Return to Normal Activity Dressing / Incision Call your doctor if you observe: Fever of 101 or Higher, Shortness of breath, Dizziness, Fainting spells, Swelling in the ankles, Chest pain and Increased palpitations (irregular heartbeat) Follow Up Care Test Results: Test results from this visit will be discussed in further detail at your follow-up appointment, if applicable. Discharge Plan Admission Admit Date/Time: 09/24/24 21:20 Attending Provider: Mani Emanuel Primary Care Provider: Zunilda Mar Consulting Providers: Karson Agudelo Discharge Orders/Prescriptions Prescriptions: New prednisone 20 mg tablet 20 mg PO DAILY Qty: 30 0RF Discontinued ciprofloxacin HCl 500 mg tablet 500 mg PO BID Referrals / Follow Up: Adelso Kaur DO [Med Staff - Active Staff] - Within 1 Month Zunilda Mar NP-C [Primary Care Provider] - Within 1 Week Disposition Disposition (needs filled in before D/C Order can be placed): Home, Self Care 09/27/24 0821 Mani Emanuel MD CC: ROMEO Mar; Dr. Karson Agudelo DO Signed Normal [facility] Glomerular filtration rate ( GFR) estimationOrdered By: Mani Emanuel on 09-27-2024 GFR/1.73 sq M.predicted among non-blacks MDRD (S/P/Bld) [Vol rate/Area] 92 mL/min/{1.73_m2} >60 [facility] Comment on above: Non- GFR Calc Glucose measurementOrdered B y: Mani Emanuel on 09-27-2024 Glucose [Mass/Vol] 109 mg/dL High 74-[address] [facility] Comment on above: Fasting Glucose resu lt from 100 to 125 mg/dL suggests IMPAIRED HOMEOSTASIS per A.D.A. criteria. Laboratory - Chemistry and C hemistry - challengeOrdered By: Mani Emanuel on 09-27-2024 AST [Catalytic activity/Vol] 278 U/L High 15-37 [facility] Potassium measurementOrdered By: Mani Emanuel on 09-27-2024 Potassium [Moles/Vol] 4.4 mmol/L 3.5-5.1 [facility] Serum anion gap measurementO rdered By: Mani Emanuel on 09-27-2024 Anion gap [Moles/Vol] 5 mmol/L 5-15 [facility] Serum globulin measurementOr dered By: Mani Emanuel on 09-27-2024 Globulin (S) [Mass/Vol] 3.2 g/dL 2.2-4.2 [facility] Serum or plasma alanine martinez otransferase (ALT) measurementOrdered By: Mani Emanuel on 09-27-2024 ALT [Catalytic activity/Vol] 763 U/L High 16-61 [facility] Serum or plasma albumin bobby urement (mass/volume)Ordered By: Mani Emanuel on 09-27-2024 Albumin [Mass/Vol] 2.7 g/dL Low 3.2-5.[address] [facility] Serum or plasma alkaline elizabeth sphatase measurementOrdered By: Mani Emanuel on 09-27-2024 ALP [Catalytic activity/Vol] 169 U/L High 45-117 [facility] Serum or plasma calcium bobby urement (mass/volume)Ordered By: Mani Emanuel on 09-27-2024 Calcium [Mass/Vol] 9.0 mg/dL 8.5-10.[address] [facility] Serum or plasma creatinine m easurement (mass/volume)Ordered By: Mani Emanuel on 09-27-2024 Creatinine [Mass/Vol] 1.01 mg/dL 0.70-1.30 [facility] Comment on above: The validity of the calculated GFR & GFRAA in patients over 70 years has not been determined. Clinical correlation is essential. Serum or plasma urea nitroge n measurement (mass/volume)Ordered By: Mani Emanuel on 09-27-2024 Urea nitrogen [Mass/Vol] 22 mg/dL High 7-18 [facility] Sodium levelOrdered By: To Emanuel on 09-27-2024 Sodium [Moles/Vol] 139 mmol/L 136-[address] [facility] Total proteinOrdered By: Usman Emanuel on 09-27-2024 Protein [Mass/Vol] 5.9 g/dL Low 6.4-8.[address] [facility] 12 Lead EKGon 09-26-2024 12 Lead E[address] [facility] [address] [place] [address] 12 Lead EKG 09/26/24 0541 MR#: [id number] Acct: [id number] Name: JOJO MCKEON Rep #: [id number] : 1995 29 From: Mary Jiang MD Attending Dr: Dr. Mani Emanuel MD Status : ADM IN Ordering Dr: Isac Landaverde MD Date: 09/26/24 Location: [facility] Sex: M C Admitted: 09/24/24 Test Reason : AM EKG Blood Pressure : */* mmHG Vent. Rate : 57 BPM Atrial Rate : 57 BPM P-R Int : 108 ms QRS Dur : 84 ms QT Int : 438 ms P-R-T Axes : 30 24 19 degrees QTcB Int : 426 ms Sinus bradycardia with short TN Otherwise normal ECG No previous ECGs available Confirmed by DEIDRE BROWN, BURTON ([id number]), editor managing director ROBBIN CHAVEZ ([id number]) on 09/26/2024 1:08:06 PM Referred By: Confirmed By: BURTON JIANG MD 09/26/24 1308 Date Mary Jiang MD CC: ROMEO Mar; Dr. Isac Landaverde MD; Dr. Mani Emanuel MD Signed Normal [facility] KERA Comprehensive Panelon ANTI-DNA (DS)AB <1 Normal 0-9 [facility] Comment on above: Result Comment: Nega tive <5 Equivocal 5 - 9 Positive >9 Performed By: #### L 501.080 #### [facility] [address] [place], [place], [address] ANTISCLERODERM <0.2 Normal 0.0-0.9 [facility] Comment on above: Performed By: #### L 501.080 #### [facility] [address] [place], [address] Absolute lymphocyte countOrd ered By: Mani Emanuel on 09-26-2024 Lymphocytes Auto (Unsp spec) [#/Vol] 0.61 10*3/uL Low 0.83-4.51 [facility] Absolute neutrophil countOrd ered By: Mani Emanuel on 09-26-2024 Neutrophils (Bld) [#/Vol] 5.2 10*3/uL 2.0-7.7 [facility] Anti-Mitochondrial ABon 09-13 ANTIMITOCHON AB <20.0 Normal 0.0-20.0 [facility] Comment on above: Result Comment: Nega tive 0.0 - 20.0 Equivocal 20.1 - 24.9 Positive >24.9 Mitochondrial (M2) Antibodies are found in 90-96% of patients with primary biliary cirrhosis. Performed at: [facility] [id number] Packer Operator Automatic: Massimo Gonzalez PhD, Phone: [phone] Performed By: #### L 501.080 #### [facility] [address] [place], [place], [address] Automated lymphocyte count a s percentage of total leukocytesOrdered By: Mani Emanuel on 09-26-2024 Lymphocytes/100 WBC Auto (Unsp spec) 10.0 % Low 19-41 [facility] Basic Metabolic Profile (BMP )on 09-26-2024 BUN Normal 7-18 [facility] Comment on above: Result Comment: CMP ORDERED BY SEE SPECIMEN 0214:C43 Performed By: #### L 500.2500 #### [facility] [address] [place], [address] BUN/CRE Normal 10-20 [facility] Comment on above: Result Comment: CMP ORDERED BY SEE SPECIMEN 0214:C43 Performed By: #### L 500.2500 #### [facility] [address] [place], [address] CA,Total Normal 8.5-10.1 [facility] Comment on above: Result Comment: CMP ORDERED BY SEE SPECIMEN 0214:C43 Performed By: #### L 500.2500 #### [facility] [address] [place], [address] CL Normal 98-107 [facility] Comment on above: Result Comment: CMP ORDERED BY SEE SPECIMEN 0214:C43 Performed By: #### L 500.2500 #### [facility] [address] [place], [address] CO2 Normal 21.0-32.0 [facility] Comment on above: Result Comment: CMP ORDERED BY SEE SPECIMEN 0214:C43 Performed By: #### L 500.2500 #### [facility] [address] [place], [address] CREAT,SERUM Normal 0.70-1.30 [facility] Comment on above: Result Comment: CMP ORDERED BY SEE SPECIMEN 0214:C43 Performed By: #### L 500.2500 #### [facility] [address] [place], [address] EST GFR Normal >60 [facility] Comment on above: Result Comment: CMP ORDERED BY SEE SPECIMEN 0214:C43 Performed By: #### L 500.2500 #### [facility] [address] [place], [address] EST GFR - AA Normal >60 [facility] Comment on above: Result Comment: CMP ORDERED BY SEE SPECIMEN 0214:C43 Performed By: #### L 500.2500 #### [facility] [address] [place], [address] GAP Normal 5-15 [facility] Comment on above: Result Comment: CMP ORDERED BY SEE SPECIMEN 0214:C43 Performed By: #### L 500.2500 #### [facility] [address] [place], [address] GLU Normal 74-106 [facility] Comment on above: Result Comment: CMP ORDERED BY SEE SPECIMEN 0214:C43 Performed By: #### L 500.2500 #### [facility] [address] [place], [address] Potassium Normal 3.5-5.1 [facility] Comment on above: Result Comment: CMP ORDERED BY SEE SPECIMEN 0214:C43 Performed By: #### L 500.2500 #### [facility] [address] [place], [address] Basic Metabolic Profile (BMP) Normal 136-145 [facility] Comment on above: Result Comment: CMP ORDERED BY SEE SPECIMEN 0214:C43 Performed By: #### L 500.2500 #### [facility] [address] [place], [address] Basophil percentageOrdered B y: Mani Emanuel on 09-26-2024 Basophils/100 WBC (Bld) 0.0 % 0-1 [facility] Bedside Glucoseon 09-26-2024 FINGERSTICK GLU 116 mg/dL High 74-106 [facility] Comment on above: Result Comment: MARION AVILA OF PATIENT CARE PER NURSING PROTOCOL Performed By: #### L 501.080 #### [facility] [address] [place], [address] CBC W/Diff, Automatedon - Absolute Lymph 0.61 X10 3/uL Low 0.83-4.51 [facility] Comment on above: Performed By: #### L 100.0100 #### [facility] [address] [place], [address] Absolute Neut 5.2 X10 3/uL Normal 2.0-7.7 [facility] Comment on above: Performed By: #### L 100.0100 #### [facility] [address] [place], [address] Basophils/100 WBC (Bld) 0.0 % Normal 0-1 [facility] Comment on above: Performed By: #### L 100.0100 #### [facility] [address] [place], [address] Eosinophils/100 WBC (Bld) 0.0 % Normal 0-5 [facility] Comment on above: Performed By: #### L 100.0100 #### [facility] [address] [place], [address] Erythrocyte distribution width (RBC) [Ratio] 12.1 % Normal 11.6-14.6 [facility] Comment on above: Performed By: #### L 100.0100 #### [facility] [address] [place], [address] Hematocrit (Bld) [Volume fraction] 44.6 % Normal 40-54 [facility] Comment on above: Performed By: #### L 100.0100 #### [facility] [address] [place], [address] Hemoglobin (Bld) [Mass/Vol] 14.6 g/dL Normal 13.0-16.5 [facility] Comment on above: Performed By: #### L 100.0100 #### [facility] [address] [place], [address] IG% 0.500 Normal 0.0-0.9 [facility] Comment on above: Result Comment: IG% - Immature Granulocytes (promyelocytes, myelocytes and metamyelocytes) > 1% indicates that a LEFT SHIFT is Present. Performed By: #### L 100.0100 #### [facility] [address] [place], [address] Lymphocytes/100 WBC (Bld) 10.0 % Low 19-41 [facility] Comment on above: Performed By: #### L 100.0100 #### [facility] [address] [place], [address] MCH (RBC) [Entitic mass] 29.7 pg Normal 27.0-32.0 [facility] Comment on above: Performed By: #### L 100.0100 #### [facility] [address] [place], [address] MCHC (RBC) [Mass/Vol] 32.7 g/dL Normal 32-36 [facility] Comment on above: Performed By: #### L 100.0100 #### [facility] [address] [place], [address] MCV (RBC) [Entitic vol] 90.7 fL Normal 80-94 [facility] Comment on above: Performed By: #### L 100.0100 #### [facility] [address] [place], [address] Monocytes/100 WBC (Bld) 4.2 % Normal 0-10 [facility] Comment on above: Performed By: #### L 100.0100 #### [facility] [address] [place], [address] Neutrophils/100 WBC (Bld) 85.3 % High 47-70 [facility] Comment on above: Performed By: #### L 100.0100 #### [facility] [address] [place], [address] Nucleated RBC (Bld) [#/Vol] 0 10*3/uL Normal 0-5 [facility] Comment on above: Performed By: #### L 100.0100 #### [facility] [address] [place], [address] Platelet mean volume (Bld) [Entitic vol] 14.5 fL High 6.2-12.0 [facility] Comment on above: Performed By: #### L 100.0100 #### [facility] [address] [place], [address] Platelets (Bld) [#/Vol] 108 10*3/uL Low 150-450 [facility] Comment on above: Performed By: #### L 100.0100 #### [facility] [address] [place], [address] RBC (Bld) [#/Vol] 4.92 10*6/uL Normal 4.6-6.2 [facility] Comment on above: Performed By: #### L 100.0100 #### [facility] [address] [place], [address] RDW SD 40.5 fl Normal 35.1-43.9 [facility] Comment on above: Performed By: #### L 100.0100 #### [facility] [address] [place], [address] WBC (Bld) [#/Vol] 6.1 10*3/uL Normal 4.4-11.[address] [facility] Comment on above: Performed By: #### L 100.0100 #### [facility] [address] [place], [address] Comprehensive Metabolic Prof ilon 09-26-2024 Albumin [Mass/Vol] 3.0 g/dL Low 3.2-5.[address] [facility] Comment on above: Performed By: #### L 501.2300, L501.5200, L500.4050 #### [facility] [address] [place], [address] Albumin/Globulin [Mass ratio] 0.8 {ratio} Low 0.9-2.4 [facility] Comment on above: Performed By: #### L 501.2300, L501.5200, L500.4050 #### [facility] [address] [place], [address] ALK P 215 U/L High 45-117 [facility] Comment on above: Performed By: #### L 501.2300, L501.5200, L500.4050 #### [facility] [address] [place], [address] ALT [Catalytic activity/Vol] 754 U/L High 16-61 [facility] Comment on above: Performed By: #### L 501.2300, L501.5200, L500.4050 #### [facility] [address] [place], [address] AST [Catalytic activity/Vol] 313 U/L High 15-37 [facility] Comment on above: Performed By: #### L 501.2300, L501.5200, L500.4050 #### [facility] [address] [place], [address] Bilirubin [Mass/Vol] 3.10 mg/dL High 0.20-1.00 [facility] Comment on above: Result Comment: For patients on eltrombopag therapy, use of Dimension Dauphin TBIL is not recommended. Performed By: #### L 501.2300, L501.5200, L500.4050 #### [facility] [address] [place], [address] BUN/CRE 16.5 RATIO Normal 10-20 [facility] Comment on above: Performed By: #### L 501.2300, L501.5200, L500.4050 #### [facility] [address] [place], [address] CA,Total 9.1 mg/dL Normal 8.5-10.1 [facility] Comment on above: Performed By: #### L 501.2300, L501.5200, L500.4050 #### [facility] [address] [place], [address] Chloride [Moles/Vol] 108 mmol/L High 98-107 [facility] Comment on above: Performed By: #### L 501.2300, L501.5200, L500.4050 #### [facility] [address] [place], [address] CO2 [Moles/Vol] 26.0 mmol/L Normal 21.0-32.0 [facility] Comment on above: Performed By: #### L 501.2300, L501.5200, L500.4050 #### [facility] [address] [place], [address] Creatinine [Mass/Vol] 1.15 mg/dL Normal 0.70-1.30 [facility] Comment on above: Result Comment: The validity of the calculated GFR GFRAA in patients over 70 years has not been determined. Clinical correlation is essential. Performed By: #### L 501.2300, L501.5200, L500.4050 #### [facility] [address] [place], [address] ECRCL 122.23 ml/min Normal [facility] Comment on above: Performed By: #### L 501.2300, L501.5200, L500.4050 #### [facility] [address] [place], [address] EST GFR - AA 96 mL/min Normal >60 [facility] Comment on above: Result Comment: Afri can Kitt[place] GFR Calc Performed By: #### L 501.2300, L501.5200, L500.4050 #### [facility] [address] [place], [address] GAP 5 Normal 5-15 [facility] Comment on above: Performed By: #### L 501.2300, L501.5200, L500.4050 #### [facility] [address] [place], [address] GFR/1.73 sq M.predicted among non-blacks MDRD (S/P/Bld) [Vol rate/Area] 80 mL/min/{1.73_m2} Normal >60 [facility] Comment on above: Result Comment: Non- GFR Calc Performed By: #### L 501.2300, L501.5200, L500.4050 #### [facility] [address] [place], [address] Globulin (S) [Mass/Vol] 3.6 g/dL Normal 2.2-4.2 [facility] Comment on above: Performed By: #### L 501.2300, L501.5200, L500.4050 #### [facility] [address] [place], [address] Glucose [Mass/Vol] 160 mg/dL High 74-[address] [facility] Comment on above: Result Comment: Fast ing Glucose result greater than or equal to 126 mg/dL suggests DIABETES MELLITUS per A.D.A. criteria. Performed By: #### L 501.2300, L501.5200, L500.4050 #### [facility] [address] [place], [address] Potassium [Moles/Vol] 4.4 mmol/L Normal 3.5-5.1 [facility] Comment on above: Performed By: #### L 501.2300, L501.5200, L500.4050 #### [facility] [address] [place], [address] Sodium [Moles/Vol] 139 mmol/L Normal 136-[address] [facility] Comment on above: Performed By: #### L 501.2300, L501.5200, L500.4050 #### [facility] [address] [place], [address] T PROT 6.6 g/dL Normal 6.4-8.2 [facility] Comment on above: Performed By: #### L 501.2300, L501.5200, L500.4050 #### [facility] [address] [place], [address] Urea nitrogen [Mass/Vol] 19 mg/dL High 7-18 [facility] Comment on above: Performed By: #### L 501.2300, L501.5200, L500.4050 #### [facility] [address] [place], [address] ERCP Biliary/Pancreason - ERCP Biliary/Pancreas [facility] Imaging Services [address] [place] [address] ERCP Biliary/Pancreas MR#: [id number] Acct: [id number] Name: JOJO MCKEON Rep #: [id number] : 1995 M 29 From: Aislinn Giang MD PCP: ROMEO Leonard Status: ADM IN Study: ERCP Biliary/Pancreas Date of Exam: 09/26/24 Exam# [id number] Ordering Dr: Adelso Kaur DO PROCEDURE: ERCP BILIARY/PANCREAS REASON FOR EXAM: ERCP TECHNIQUE: Multiple intra procedural fluoroscopic spot views obtained. COMPARISON: 09/25/2024 FINDINGS: ERCP images demonstrate cannulation of the common bile duct with contrast injection and a balloon sweep. Multiple filling defects within the common bile duct may represent gas bubbles versus stones. No significant biliary dilatation identified. RAD/ERCP Biliary/Pancreas IMPRESSION: Images obtained for the purpose of intra procedural ERCP. Please reference the ERCP report for additional details. Reading Location: [facility] CC: MIXED CROP FARMER-C Zunilda Mar; Adelso Kaur DO Mold Checker: Signed Normal [facility] ERCP Reporton 09-26-2024 ERCP Report [facility] Medical Records Department [address] [place] [address] ERCP Report MR#: [id number] Acct: [id number] Name: JOJO MCKEON Rep #: [id number] : 1995 29 From: Adelso Kaur DO PCP: ROMEO Leonard Status:ADM IN Patient Name: Jojo Mckeon Procedure Date: 09/26/2024 5:26 PM Date of : 1995 Age: 29 Procedure: ERCP Indications: Bile duct stone(s), Jaundice, Elevated liver enzymes Providers: Adelso Kaur DO Medicines: Monitored Anesthesia Care Patient Profile: This is a 29 year old male. Refer to note in patient chart for documentation of history and physical. Patient has symptoms of acute right upper quadrant abdominal pain and acute jaundice. This patient has no history of previous ERCP. This patient has no history of surgical alteration of the upper digestive tract anatomy. Complications: No immediate complications. Procedure: Pre-Anesthesia Assessment: - Prior to the procedure, a History and Physical was performed, and patient medications and allergies were reviewed. The patient is competent. The risks and benefits of the procedure and the sedation options and risks were discussed with the patient. All questions were answered and informed consent was obtained. Patient identification and proposed procedure were verified by the physician in the pre-procedure area. Mental Status Examination: alert and oriented. Airway Examination: normal oropharyngeal airway and neck mobility. Respiratory Examination: clear to auscultation. CV Examination: normal. Prophylactic Antibiotics: The patient does not require prophylactic antibiotics. Prior Anticoagulants: The patient has taken no anticoagulant or antiplatelet agents except for NSAID medication. ASA Grade Assessment: III - A patient with severe systemic disease. After reviewing the risks and benefits, the patient was deemed in satisfactory condition to undergo the procedure. The anesthesia plan was to use general anesthesia. Immediately prior to administration of medications, the patient was re-assessed for adequacy to receive sedatives. The heart rate, respiratory rate, oxygen saturations, blood pressure, adequacy of pulmonary ventilation, and response to care were monitored throughout the procedure. The physical status of the patient was re-assessed after the procedure. After obtaining informed consent, the scope was passed under direct vision. Throughout the procedure, the patient's blood pressure, pulse, and oxygen saturations were monitored continuously. The Duodenoscope was introduced through the mouth, and advanced to the duodenum and used to inject contrast into the bile duct and ventral pancreatic duct. The ERCP was accomplished without difficulty. The patient tolerated the procedure well. Scope In: 6:03:26 PM Scope Out: 6:12:45 PM Total Procedure Duration Time 0 hours 9 minutes 19 seconds Findings: The auto parts salesperson film was normal. The esophagus was successfully intubated under direct vision. The scope was advanced to a normal major papilla in the descending duodenum without detailed examination of the pharynx, larynx and associated structures, and upper GI tract. The upper GI tract was grossly normal. The ventral pancreatic duct was deeply cannulated with the traction (standard) sphincterotome. Contrast was injected. I personally interpreted the bile duct and pancreatic duct images. There was brisk flow of contrast through the ducts. Image quality was adequate. Contrast extended to the pancreatic duct. Opacification of the entire pancreatic ductal system was successful. The maximum diameter of the ducts was 3 mm. The entire opacified area was normal. A long 0.025 inch Jagwire was passed into the ventral pancreatic duct. A 5 mm ventral pancreatic sphincterotomy was made with a braided traction (standard) sphincterotome using ERBE electrocautery. There was no post-sphincterotomy bleeding. To find object(s) the ventral pancreatic duct was swept with a 6 mm balloon starting at the pancreatic duct in the tail of the pancreas. All stones were removed. A long 0.025 inch Jagwire was passed into the biliary tree. The traction (standard) sphincterotome was passed over the guidewire and the bile duct was then deeply cannulated. Contrast was injected. Opacification of the entire biliary tree except for the cystic duct and gallbladder, entire biliary tree except for the gallbladder, left and right hepatic ducts and all intrahepatic branches and entire biliary tree was successful. The maximum diameter of the ducts was 9 mm. The lower third of the main bile duct, hepatic duct bifurcation and left and right hepatic ducts and all intrahepatic branches contained multiple stones, the largest of which was 6 mm in diameter. The entire biliary tree was diffusely dila (more content not included)... Normal [facility] Eosinophil percentageOrdered By: Mani Emanuel on 09-26-2024 Eosinophils/100 WBC (Bld) 0.0 % 0-5 [facility] Erythrocyte distribution wid th ratioOrdered By: Mani Emanuel on 09-26-2024 Erythrocyte distribution width (RBC) [Ratio] 12.1 % 11.6-14.6 [facility] Erythrocyte distribution wid th standard deviationOrdered By: Mani Emanuel on 09-26-2024 Erythrocyte distribution width (RBC) [Ratio] 40.5 fl 35.1-43.9 [facility] Gl[facility] at [facility] deOrdered By: Mani Emanuel on 09-26-2024 Glucose [Mass/Vol] 116 mg/dL High 74-[address] [facility] Comment on above: MANAGEMENT OF PATIEN T CARE PER NURSING PROTOCOL Hematocrit Auto (Bld) [Volum e fraction]Ordered By: Mani Emanuel on 09-26-2024 Hematocrit (Bld) [Volume fraction] 44.6 % 40-54 [facility] Hemoglobin measurementOrdere d By: Mani Emanuel on 09-26-2024 Hemoglobin (Bld) [Mass/Vol] 14.6 g/dL 13.0-16.5 [facility] Immature granulocytes/100 WB C Auto (Bld)Ordered By: Mani Emanuel on 09-26-2024 Immature granulocytes/100 WBC (Bld) 0.500 % 0.0-0.9 [facility] Comment on above: IG% - Immature Granu locytes (promyelocytes, myelocytes and metamyelocytes) > 1% indicates that a LEFT SHIFT is Present. MCV (mean corpuscular volume ) determinationOrdered By: Mani Emanuel on 09-26-2024 MCV (RBC) [Entitic vol] 90.7 fL 80-94 [facility] MR/POSTOP.ANEon 09-26-2024 MR/POSTOP.ANE [facility] Medical Records Department [address] [place] [address] Anesthesia Postop Eval I 09/26/24 1837 MR#: [id number] Acct: [id number] Name: JOJO MCKEON Rep #: [id number] : 1995 29 From: Isac Landaverde MD PCP: REY LeonardC Status:ADM IN Y Race: C Location: [place] [address] Anesthesia: Postop Eval I Current Vital Signs Temperature: 98.9 F Pulse Rate: 108 Blood Pressure: 124/74 Respiratory Rate: 16 Pulse Ox: 94 Oxygen Delivery Method: Room Air Assessment Airway patent: Yes Spontaneous unlabored respirations: Yes Mental status: Awake and Calm nausea: No Vomiting: No Anesthesia Complication: No Fluid Hydration Crystalloid volume administer (ml): 700 Total IV fluid infused: 700 Progress Note Anesthesia document: Postop Eval 1 completed: Yes 09/26/24 1841 Date Isac Landaverde MD Cosigner Signature: Date CC: Signed Normal [facility] [id number] 09-26-2024 MR/POSTOPAN2 [facility] Medical Records Department [address] [place] [address] Anesthesia Postop Eval II 09/26/24 205 MR#: [id number] Acct: [id number] Name: JOJO MCKEON Rep #: [id number] : 1995 29 From: Isac Landaverde MD PCP: ROMEO Leonard Status:ADM IN Y Race: C Location: [place] [address] Anesthesia Postop Eval I Sum Postop Eval Completion status Anesthesia document: Postop Eval 1 completed: Yes Anesthesia Postop Eval I Summary Anesthesia Postop Eval I Summary: Anesthesia Postop Eval I: Assessment Summary Airway patent Yes 09/26/24 18:41 Spontaneous unlabored Yes 09/26/24 18:41 respirations Mental status Awake,Calm 09/26/24 18:41 nausea No 09/26/24 18:41 Vomiting No 09/26/24 18:41 Anesthesia Postop Eval I: Fluid Summary Crystalloid volume administer 700 09/26/24 18:41 (ml) Colloids volume administered ( ml) Blood Product volume administered (ml) Total IV fluid infused 700 09/26/24 18:41 Anesthesia Postop Eval I: Summary Notes Anesthesia Complication No 09/26/24 18:41 Anesthesia Complication Comment: Post-operative progress note Anesthesia: Postop Eval II Evaluation Mental status: Awake and Calm Pain Level: 1 nausea: No Vomiting: No Complications Anesthesia Complication: No 09/26/242058 Date Isac Goetzignsuresh Signature: Date CC: Signed Normal [facility] Magnesiumon 09-26-2024 Magnesium [Mass/Vol] 2.6 mg/dL Normal 1.6-2.6 [facility] Comment on above: Performed By: #### L 501.2300, L501.5200, L500.4050 #### [facility] [address] [place] [address]. [place], [address] Magnesium measurementOrdered By: Karson Castillo on 09-26-2024 Magnesium [Mass/Vol] 2.6 mg/dL 1.6-2.6 [facility] Mean corpuscular hemoglobin (MCH) determinationOrdered By: Mani Emanuel on 09-26-2024 MCH (RBC) [Entitic mass] 29.7 pg 27.0-32.0 [facility] Mean corpuscular hemoglobin concentration (MCHC) determinationOrdered By: Mani Emanuel on 09-26-2024 MCHC (RBC) [Mass/Vol] 32.7 g/dL 32-36 [facility] Comment on above: Delta: 35.3 on 09/25 Mean platelet volume determi nationOrdered By: Mani Emanuel on 09-26-2024 Platelet mean volume (Bld) [Entitic vol] 14.5 fL High 6.2-12.0 [facility] Monocyte percentageOrdered B y: Mani Emanuel on 09-26-2024 Monocytes/100 WBC (Bld) 4.2 % 0-10 [facility] Neutrophil percentageOrdered By: Mani Emanuel on 09-26-2024 Neutrophils/100 WBC (Bld) 85.3 % High 47-70 [facility] Nucleated red blood cell per centageOrdered By: Mani Emanuel on 09-26-2024 Nucleated RBC/100 WBC (Bld) [Ratio] 0 % 0-5 [facility] Phosphoruson 09-26-2024 Phosphate [Mass/Vol] 3.7 mg/dL Normal 2.5-4.9 [facility] Comment on above: Performed By: #### L 501.2300, L501.5200, L500.4050 #### [facility] [address] [place], [address] Platelet countOrdered By: Cheyanne Emanuel on 09-26-2024 Platelets (Bld) [#/Vol] 108 10*3/uL Low 150-450 [facility] RBC Auto (Bld) [#/Vol]Ordere d By: Mani Emanuel on 09-26-2024 RBC (Bld) [#/Vol] 4.92 10*6/uL 4.6-6.2 [facility] Urine Cultureon 09-26-2024 URC Culture exhibits no growth. Normal [facility] Comment on above: Performed By: #### L 501.2300, L501.5200, L500.4050 #### [facility] [address] [place], [address] White blood cell (WBC) count Ordered By: Mani Emanuel on 09-26-2024 WBC (Bld) [#/Vol] 6.1 10*3/uL 4.4-11.[address] [facility] Activated partial thrombopla stin time (aPTT) in platelet poor plasma by coagulation aOrdered By: Adelso Kaur on 09-25-2024 aPTT Coag (PPP) [Time] 24.1 s 24.1-36.2 [facility] Albumin Elph [Mass/Vol]Order ed By: Adelso Kaur on 09-25-2024 Albumin [Mass/Vol] 3.4 g/dL 2.9-4.[address] [facility] Biopsy/Inj or Needle Placeme nton 09-25-2024 Biopsy/Inj or Needle Placement [facility] Imaging Services [address] [place], [place] [address] Biopsy/Inj or Needle Placement MR#: [id number] Acct: [id number] Name: JOJO MCKEON Rep #: [id number] : 1995 M 29 From: Harsha mcdonnell MD PCP: ROMEO Leonard Status: ADM IN Study: Biopsy/Inj or Needle Placement Date of Exam: 0 09/25/24 Exam# [id number] Ordering Dr: Adelso Kaur DO EXAM: BIOPSY/INJ OR NEEDLE PLACEMENT CLINICAL HISTORY: Acute liver failure. COMPARISON: None. TECHNIQUE: The procedure as well as the benefits and possible complications including bleeding and infection were explained to the patient and the patient's mother. Informed consent was obtained. Under CT guidance, an appropriate biopsy site in the right lobe of the liver was obtained. The overlying skin was prepped and draped in the usual sterile fashion. Conscious sedation was performed. The patient received 2 mg of Versed and 50 mcg of fentanyl intravenously. Conscious sedation was started at 2:18 p.m. and terminated at 2:33 p.m.. The patient was independently monitored by the department nurse. For core biopsies utilizing an 18 gauge core biopsy needle system was performed of the right lobe of the liver. No immediate complication occurred. The patient tolerated the procedure well FINDINGS: Successful 18 gauge core biopsies of the right lobe of the liver. CT/Biopsy/Inj or Needle Placement IMPRESSION: Successful 418 gauge core biopsies of the right lobe of the liver performed. The patient tolerated the procedure well. Conscious sedation was performed. Reading Location: [place] [address] CC: ROMEO Mar; Adelso Kaur, Mold Checker: Signed Normal [facility] CBC W/Diff, Automatedon 09-13 Absolute Lymph 0.47 X10 3/uL Low 0.83-4.51 [facility] Comment on above: Performed By: #### L 501.5200, L500.4050, L501.2300, L100.0100 #### [facility] [address] [place], [address] Absolute Neut 2.9 X10 3/uL Normal 2.0-7.7 [facility] Comment on above: Performed By: #### L 501.5200, L500.4050, L501.2300, L100.0100 #### [facility] [address] [place], [address] Basophils/100 WBC (Bld) 0.3 % Normal 0-1 [facility] Comment on above: Performed By: #### L 501.5200, L500.4050, L501.2300, L100.0100 #### [facility] [address] [place], [address] Eosinophils/100 WBC (Bld) 0.3 % Normal 0-5 [facility] Comment on above: Performed By: #### L 501.5200, L500.4050, L501.2300, L100.0100 #### [facility] [address] [place], [address] Erythrocyte distribution width (RBC) [Ratio] 12.1 % Normal 11.6-14.6 [facility] Comment on above: Performed By: #### L 501.5200, L500.4050, L501.2300, L100.0100 #### [facility] [address] [place], [address] Hematocrit (Bld) [Volume fraction] 45.1 % Normal 40-54 [facility] Comment on above: Performed By: #### L 501.5200, L500.4050, L501.2300, L100.0100 #### [facility] [address] [place], [address] Hemoglobin (Bld) [Mass/Vol] 15.9 g/dL Normal 13.0-16.5 [facility] Comment on above: Performed By: #### L 501.5200, L500.4050, L501.2300, L100.0100 #### [facility] [address] [place], [address] IG% 0.300 Normal 0.0-0.9 [facility] Comment on above: Result Comment: IG% - Immature Granulocytes (promyelocytes, myelocytes and metamyelocytes) > 1% indicates that a LEFT SHIFT is Present. Performed By: #### L 501.5200, L500.4050, L501.2300, L100.0100 #### [facility] [address] [place], [address] Lymphocytes/100 WBC (Bld) 13.7 % Low 19-41 [facility] Comment on above: Performed By: #### L 501.5200, L500.4050, L501.2300, L100.0100 #### [facility] [address] [place], [address] MCH (RBC) [Entitic mass] 30.9 pg Normal 27.0-32.0 [facility] Comment on above: Performed By: #### L 501.5200, L500.4050, L501.2300, L100.0100 #### [facility] [address] [place], [address] MCHC (RBC) [Mass/Vol] 35.3 g/dL Normal 32-36 [facility] Comment on above: Performed By: #### L 501.5200, L500.4050, L501.2300, L100.0100 #### [facility] [address] [place], [address] MCV (RBC) [Entitic vol] 87.7 fL Normal 80-94 [facility] Comment on above: Performed By: #### L 501.5200, L500.4050, L501.2300, L100.0100 #### [facility] [address] [place], [address] Monocytes/100 WBC (Bld) 0.6 % Normal 0-10 [facility] Comment on above: Performed By: #### L 501.5200, L500.4050, L501.2300, L100.0100 #### [facility] [address] [place], [address] Neutrophils/100 WBC (Bld) 84.8 % High 47-70 [facility] Comment on above: Performed By: #### L 501.5200, L500.4050, L501.2300, L100.0100 #### [facility] [address] [place], [address] Nucleated RBC (Bld) [#/Vol] 0 10*3/uL Normal 0-5 [facility] Comment on above: Performed By: #### L 501.5200, L500.4050, L501.2300, L100.0100 #### [facility] [address] [place], [address] Platelet mean volume (Bld) [Entitic vol] 14.0 fL High 6.2-12.0 [facility] Comment on above: Performed By: #### L 501.5200, L500.4050, L501.2300, L100.0100 #### [facility] [address] [place], [address] Platelets (Bld) [#/Vol] 122 10*3/uL Low 150-450 [facility] Comment on above: Performed By: #### L 501.5200, L500.4050, L501.2300, L100.0100 #### [facility] [address] [place], [address] RBC (Bld) [#/Vol] 5.14 10*6/uL Normal 4.6-6.2 [facility] Comment on above: Performed By: #### L 501.5200, L500.4050, L501.2300, L100.0100 #### [facility] [address] [place], [address] RDW SD 39.1 fl Normal 35.1-43.9 [facility] Comment on above: Performed By: #### L 501.5200, L500.4050, L501.2300, L100.0100 #### [facility] [address] [place], [address] WBC (Bld) [#/Vol] 3.4 10*3/uL Low 4.4-11.[address] [facility] Comment on above: Performed By: #### L 501.5200, L500.4050, L501.2300, L100.0100 #### [facility] [address] [place], [address] Comprehensive Metabolic Prof il 09-25-2024 Albumin [Mass/Vol] 3.1 g/dL Low 3.2-5.[address] [facility] Comment on above: Performed By: #### L 500.4050 #### [facility] [address] [place], [address] Albumin/Globulin [Mass ratio] 0.8 {ratio} Low 0.9-2.4 [facility] Comment on above: Performed By: #### L 500.4050 #### [facility] [address] [place], [address] ALK P 260 U/L High 45-117 [facility] Comment on above: Performed By: #### L 500.4050 #### [facility] [address] [place], [address] ALT [Catalytic activity/Vol] 710 U/L High 16-61 [facility] Comment on above: Performed By: #### L 500.4050 #### [facility] [address] [place], [address] AST [Catalytic activity/Vol] 366 U/L High 15-37 [facility] Comment on above: Performed By: #### L 500.4050 #### [facility] [address] [place], [address] Bilirubin [Mass/Vol] 5.10 mg/dL High 0.20-1.00 [facility] Comment on above: Result Comment: For patients on eltrombopag therapy, use of Dimension [place] TBIL is not recommended. Performed By: #### L 500.4050 #### [facility] [address] [place], [address] BUN/CRE 10.4 RATIO Normal 10-20 [facility] Comment on above: Performed By: #### L 500.4050 #### [facility] [address] [place], [address] CA,Total 9.3 mg/dL Normal 8.5-10.1 [facility] Comment on above: Performed By: #### L 500.4050 #### [facility] [address] [place], [address] Chloride [Moles/Vol] 107 mmol/L Normal 98-107 [facility] Comment on above: Performed By: #### L 500.4050 #### [facility] [address] [place], [address] CO2 [Moles/Vol] 24.0 mmol/L Normal 21.0-32.0 [facility] Comment on above: Performed By: #### L 500.4050 #### [facility] [address] [place], [address] Creatinine [Mass/Vol] 1.06 mg/dL Normal 0.70-1.30 [facility] Comment on above: Result Comment: The validity of the calculated GFR GFRAA in patients over 70 years has not been determined. Clinical correlation is essential. Performed By: #### L 500.4050 #### [facility] [address] [place], [address] ECRCL 132.61 ml/min Normal [facility] Comment on above: Performed By: #### L 500.4050 #### [facility] [address] [place], [address] EST GFR - AA 106 mL/min Normal >60 [facility] Comment on above: Result Comment: Afri can Kitt[place] GFR Calc Performed By: #### L 500.4050 #### [facility] [address] [place], [address] GAP 7 Normal 5-15 [facility] Comment on above: Performed By: #### L 500.4050 #### [facility] [address] [place], [address] GFR/1.73 sq M.predicted among non-blacks MDRD (S/P/Bld) [Vol rate/Area] 87 mL/min/{1.73_m2} Normal >60 [facility] Comment on above: Result Comment: Non- GFR Calc Performed By: #### L 500.4050 #### [facility] [address] [place], [address] Globulin (S) [Mass/Vol] 3.8 g/dL Normal 2.2-4.2 [facility] Comment on above: Performed By: #### L 500.4050 #### [facility] [address] [place], [address] Glucose [Mass/Vol] 164 mg/dL High 74-[address] [facility] Comment on above: Result Comment: Fast ing Glucose result greater than or equal to 126 mg/dL suggests DIABETES MELLITUS per A.D.A. criteria. Performed By: #### L 500.4050 #### [facility] [address] [place], [address] Potassium [Moles/Vol] 4.2 mmol/L Normal 3.5-5.1 [facility] Comment on above: Performed By: #### L 500.4050 #### [facility] [address] [place], [address] Sodium [Moles/Vol] 138 mmol/L Normal 136-[address] [facility] Comment on above: Performed By: #### L 500.4050 #### [facility] [address] [place], [address] T PROT 6.9 g/dL Normal 6.4-8.2 [facility] Comment on above: Performed By: #### L 500.4050 #### [facility] [address] [place], [address] Urea nitrogen [Mass/Vol] 11 mg/dL Normal 7-18 [place] [facility] Comment on above: Performed By: #### L 500.4050 #### [facility] [address] [place], [place], [address] Ferritinon 09-25-2024 Ferritin [Mass/Vol] 716 ng/mL High 26-388 [facility] Comment on above: Performed By: #### L 501.080 #### [facility] [address] [place], [place], [address] Ferritin measurementOrdered By: Adelso Kaur on 09-25-2024 Ferritin [Mass/Vol] 716 ng/mL High 26-388 [facility] HIV 1 and HIV-2 antibody ass ay with HIV-1 p24 antigen detectionOrdered By: Adelso Kaur on 09-25-2024 HIV 1+2 Ab+HIV1 p24 Ag IA Ql Non-Reactive Nonreactive [facility] International normalized rat io (INR) calculationOrdered By: Adelso Kaur on 09-25-2024 INR Coag (Bld) [Relative time] 0.9 {INR} [facility] Interpretation of serum or p lasma protein pattern by immunofixation (narrative resultOrdered By: Adelso Kaur on 09-25-2024 Protein Fractions Immunofixation Juan [Interp] Not Observed g/dL Not Observed [facility] MR/CON.PCM.GIon 09-25-2024 MR/CON.PCM.GI [facility] Medical Records Department [address] [place] [address] Consultation - GI 09/25/24 0903 MR#: [id number] Acct: [id number] Name: JOJO MCKEON Rep #: [id number] : 1995 29 From: Adelso Kaur DO PCP: ROMEO Leonard Status:ADM IN Location: [facility] [id number] ADDENDUM by Adelso Kaur DO on 09/25/24 at 0917 Multi Select Codes Visit Charges Visit Charges: 13358 Init Hosp L3 09/25/24 0908 Cosigner Signature (if applicable): cc: ROMEO Mar * Signed HPI Consult Data Date of Consult: 09/25/24 HPI Narrative Reason for Consultation: jaundice HPI Narrative: JOJO MCKEON, is a 29 M who presents to the ED. He was recently diagnosed UTI; that was subsequently treated with oral ciprofloxacin who presents to [facility] ER complaining of painless jaundice after ciprofloxacin for treatment of a UTI. His symptoms began approximately 5 days ago when he was diagnosed with a UTI and then started on oral ciprofloxacin. He did develop severe pain in his abdomen and back he initially attributed to the UTI and the pain resolved he began to notice yellowing of his skin. His mother was concerned he was having an allergic reaction to his recently started ciprofloxacin so he stopped taking it today and they then decided to come in for further evaluation and treatment. He admits to intermittent ibuprofen use but he denies acetaminophen use, EtOH abuse, history of gallstones, history of abdominal surgery or similar previous episodes. There was no report of fever, chills, nausea, vomiting, diarrhea, constipation, chest pain, SOB or headache. In the ER he was noted to have markedly abnormal LFT's consisting of: Hyperbilirubinemia of 6.4 mg/dL, Direct Bilirubin 4.99 mg/dL, AST 378 U/L, ALT 680 U/L and Alkaline Phosphatase of 268 U/L present on admission with CT of the abdomen and pelvis revealing no acute abdominal finding with a non-obstructing Right renal calculus and layering sludge in the gallbladder without acute cholecystitis. I suspected that he had acute Drug-induced Hepatitis due to Adverse Drug Reaction to recently started Ciprofloxacin causing Jaundice with finish patcher recommending patient be treated with Solu-Medrol 1g IV once in addition to MRCP with possible biopsy. [facility] Medical History UTI (urinary tract infection) Home Medications ???Medication ???Instructions ???Recorded ???Last Taken ???Type ciprofloxacin HCl 500 mg tablet 500 mg PO BID UTI 09/24/24 5 History Allergy/AdvReac Type Severity Reaction Status Date / Time ciprofloxacin (From Cipro) Allergy hepatitis Verified 09/24/24 20:56 Social History household members: family housing: house Smoking Status: Never smoker ROS Constitutional Constitutional: Denies fatigue, fever(s), poor appetite, weight gain or weight loss Gastrointestinal Gastrointestinal: Denies belching, bloating, change in bowel habits, change in stool character, chewing difficulty, coffee ground emesis, constipation, cramping, diarrhea, dyspepsia, dysphagia, early satiety, excessive flatus, fecal incontinence, heartburn, hematemesis, hematochezia, hemorrhoids, loose stools, melena, nausea, odynophagia, rectal bleeding, tenesmus, vomiting or weight changes Physical Exam Const alert, oriented x3, no apparent distress and healthy appearing General Appearance: cooperative GI normal to inspection, nondistended, normoactive bowel sounds, soft to palpation, non-tender and non- distended Percussion: normal to percussion Rectal Exam: deferred Lab / Micro Data 09/25/24 07:07 09/25/24 07:07 Labs: Laboratory Results - last 24 hr 09/24/24 14:53: WBC 4.6, RBC 5.14, Hgb 15.7, Hct 45.1, MCV 87.7, MCH 30.5, MCHC 34.8, RDW Std Deviation 39.3, RDW Coeff of Lopez 12.1, Plt Count 124 L, MPV 14.5 H, Immature Gran % (Auto) 0.400, Neut % (Auto) 62.4, Lymph % (Auto) 26.9, Boyd % (Auto) 7.7, Eos % (Auto) 1.5, Baso % (Auto) 1.1 H, Absolute Neuts (auto) 2.9, Absolute Lymphs (auto) 1.23, Nucleated RBC % 0, Sodium 138, Potassium 3.6, Chloride 101, Carbon Dioxide 28.0, Anion Gap 9, BUN 13, Creatinine 1.22, Estim Creat Clear Calc 120.35, Est GFR (MDRD) Af Amer 90, Est GFR (MDRD) Non-Af 74, BUN/Creatinine Ratio 10.7, Glucose 119 H, Hemoglobin A1c 5.0, Calcium 9.5, Total Bilirubin 6.40 H, Direct Bilirubin 4.99 H, AST 378 H, ALT 680 H, Alkaline Phosphatase 268 H, Total Protein 6.9, Albumin 3.2, Globulin 3.7, Triglycerides 146, Cholesterol 203 H, LDL Cholesterol 144 H, VLDL Cholesterol 29, HDL Cholesterol 30 L, Lipase 41 L, TSH 0.735 09/24/24 18:26: PT 12.4, INR 0.9, APTT 25.6 09/24/24 18:55: Acetaminophen < 2.0 L, Ethyl Alcohol < 3.0 09/24/24 23:47: Ur (more content not included)... Normal [facility] MRCP Abdomen without Contras ton 09-25-2024 MRCP Abdomen without Contrast [facility] Imaging Services [address] [place] [address] MRCP Abdomen without Contrast MR#: [id number] Acct: [id number] Name: JOJO MCKEON Rep #: [id number] : 1995 M 29 From: Aislinn Giang MD PCP: ROMEO Leonard Status: ADM IN Study: MRCP Abdomen without Contrast Date of Exam: Exam# [id number] Ordering Dr: Adelso Kaur DO EXAM: MRCP ABDOMEN WITHOUT CONTRAST CLINICAL HISTORY: Jaundice elevated liver enzymes COMPARISON: 09/24/2024. TECHNIQUE: MRI of the abdomen was performed without intravenous contrast. MRCP images were obtained with 3D reconstruction. FINDINGS: Lung bases: Unremarkable. Liver: Unremarkable. Gallbladder and bile ducts: There is a 2-3 mm stone in the distal common bile duct. The common bile duct is mildly dilated measuring 7.3 mm. The gallbladder is partially distended. The gallbladder wall is mildly thickened measuring 3.8 mm. Numerous tiny gallstones are present in the gallbladder lumen. A small filling defect may also be present in the cystic duct, seen on image 10 of series 12 Spleen: The spleen is mildly enlarged measuring 16.8 cm.. Pancreas: Unremarkable. Adrenals: Unremarkable. Kidneys and ureters: Unremarkable. Bowel: Unremarkable. Lymph nodes: Unremarkable. Peritoneum: Unremarkable. Vessels: Unremarkable. Retroperitoneum: Unremarkable. Abdominal wall: Unremarkable. Bones: Mild multilevel degenerative changes are present in the visualized spine. MRI/MRCP Abdomen without Contrast IMPRESSION: 1. 2-3 mm stone in the distal common bile duct with mild dilatation of the common bile duct measuring 7.3 mm suggesting possible obstructive cholangiopathy. 2. Cholelithiasis with a partially distended and thick-walled gallbladder. There is a questionable stone in the cystic duct. Acute cholecystitis is possible. 3. Splenomegaly. Reading Location: [facility] CC: ROMEO Mar; Adelso Kaur DO Mold Checker: Signed Normal [facility] Magnesiumon 09-25-2024 Magnesium [Mass/Vol] 2.5 mg/dL Normal 1.6-2.6 [facility] Comment on above: Performed By: #### L 500.4050 #### [facility] [address] [place], [place], [id number] No Panel InformationOrdered By: Adelso Kaur on 09-25-2024 Addendum Document Comment . [facility] Comment on above: Protein electrophore sis scan will follow via computer,mail, or tire bladder maker delivery. Hepatitis C Antibody Comment Comment . [facility] Comment on above: Not infected with HC V unless early or acute infection issuspected (which may be delayed in an immunocompromisedindividual), or other evidence exists to indicate HCVinfection. Tissue Transglutaminase IgG Ab 5 U/mL 0-5 [facility] Comment on above: Negative 0 - 5 Weak Positive 6 - 9 Positive >9 Partial Thromboplast Timeon 09-25-2024 aPTT Coag (Bld) [Time] 24.1 s Normal 24.1-36.2 [facility] Comment on above: Performed By: #### L 300.3900, L300.4310 #### [facility] [address] [place], [address] Phosphoruson 09-25-2024 Phosphate [Mass/Vol] 3.5 mg/dL Normal 2.5-4.9 [facility] Comment on above: Performed By: #### L 500.4050 #### [facility] [address] [place], [address] Prothrombin Time w/INRon INR Coag (PPP) [Relative time] 0.9 {INR} Normal [facility] Comment on above: Performed By: #### L 300.3900, L300.4310 #### [facility] [address] [place], [address] PT Coag (PPP) [Time] 12.5 s Normal 11.7-14.9 [facility] Comment on above: Performed By: #### L 300.3900, L300.4310 #### [facility] [address] [place], [address] Prothrombin timeOrdered By: Adelso Kaur on 09-25-2024 PT Coag (PPP) [Time] 12.5 s 11.7-14.9 [facility] Serum DNA double strand anti body assay (units/volume)Ordered By: Adelso Kaur on 09-25-2024 DNA double strand Ab Qn (S) [IU]/mL 0-9 [facility] Comment on above: Negative <5 Equivoca l 5 - 9 Positive >9 Serum Helen Daugherty virus cap mirna IgM antibody assay (units/volume)Ordered By: Adelso Kaur on 09-25-2024 EBV capsid IgM Qn (S) [arb'U]/mL 0.0-35.9 [facility] Comment on above: Negative <36.0 Equiv ocal 36.0 - 43.9 Positive >43.9 Serum Helen Daugherty virus nuc lear IgG antibody assay (units/volume)Ordered By: Adelso Kaur on 09-25-2024 EBV nuclear IgG Qn (S) < 18.0 U/mL 0.0-17.9 [facility] Comment on above: Negative <18.0 Equiv ocal 18.0 - 21.9 Positive >21.9 Serum IgG subclass 1 measure ment (mass/volume)Ordered By: Adelso Kaur on 09-25-2024 IgG subclass 1 (S) [Mass/Vol] 365 mg/dL 248-810 [facility] Serum IgG subclass 2 measure ment (mass/volume)Ordered By: Adelso Kaur on 09-25-2024 IgG subclass 2 (S) [Mass/Vol] 262 mg/dL 130-555 [facility] Serum IgG subclass 3 measure ment (mass/volume)Ordered By: Adelso Kaur on 09-25-2024 IgG subclass 3 (S) [Mass/Vol] 33 mg/dL 15-102 [facility] Serum Scl-70 antibody assay (units/volume)Ordered By: Adelso Kaur on 09-25-2024 SCL-70 extractable nuclear Ab Qn (S) <0.2 AI 0.0-0.9 [facility] Serum classic neutrophil cyt oplasmic antibody assay (units/volume)Ordered By: Adelso Kaur on 09-25-2024 Neutrophil cytoplasmic Ab.classic Qn (S) <1:20 titer Neg:<1:20 [facility] Comment on above: Note: Specimen is ic teric. Serum mitochondria antibody detectionOrdered By: Adelso Kaur on 09-25-2024 Mitochondria Ab Ql (S) <20.0 Units 0.0-20.0 [facility] Comment on above: Negative 0.0 - 20.0 Equivocal 20.1 - 24.9 Positive >24.9Mitochondrial (M2) Antibodies are found in 90-96% ofpatients with primary biliary cirrhosis.Performed at: [facility] [id number] Director: Massimo Gonzalez PhD, Phone: [phone] Serum or plasma IgA measurem ent (mass/volume)Ordered By: Adelso Kaur on 09-25-2024 IgA [Mass/Vol] 83 mg/dL Low 90-386 [facility] Serum or plasma IgG measurem ent (mass/volume)Ordered By: Adelso Kaur on 09-25-2024 IgG [Mass/Vol] 761 mg/dL 603-1613 [facility] IgG [Mass/Vol] 768 mg/dL 603-1613 [facility] Serum or plasma actin IgG an tibody assay (units/volume)Ordered By: Adelso Kaur on 09-25-2024 Actin IgG Qn 4 Units 0-19 [facility] Comment on above: Negative 0 - 19 Weak positive 20 - 30 Moderate to strong positive >30 Actin Antibodies are found in 52-85% of patients with autoimmune hepatitis or chronic active hepatitis and in 22% of patients with primary biliary cirrhosis. Serum or plasma alpha 1 glob ulin measurement by electrophoresis (mass/volume)Ordered By: Adelso Kaur on 09-25-2024 Alpha 1 globulin Elph [Mass/Vol] 0.3 g/dL 0.0-0.4 [facility] Alpha 1 globulin Elph [Mass/Vol] 0.7 g/dL 0.4-1.0 [facility] Serum or plasma beta globuli n measurement by electrophoresis (mass/volume)Ordered By: Adelso Kaur on 09-25-2024 Beta globulin Elph [Mass/Vol] 1.0 g/dL 0.7-1.3 [facility] Serum or plasma gamma globul in measurement by electrophoresis (mass/volume)Ordered By: Adelso Kaur on 09-25-2024 Gamma globulin Elph [Mass/Vol] 0.8 g/dL 0.4-1.8 [facility] Serum or plasma hepatitis B virus surface antigen detection by immunoassayOrdered By: Adelso Kaur on 09-25-2024 HBV surface Ag IA Ql Negative Negative [facility] Serum or plasma immunoelectr ophoresis interpretation (nominal result)Ordered By: Adelso Kaur on 09-25-2024 Interpretation IEP [Interp] Comment . [facility] Comment on above: No monoclonality det ected. Serum or plasma protein bobby urement (mass/volume)Ordered By: Adelso Kaur on 09-25-2024 Protein [Mass/Vol] 6.2 g/dL 6.0-8.[address] [facility] Serum perinuclear neutrophil cytoplasmic antibody titer by immunofluorescenceOrdered By: Adelso Kaur on 09-25-2024 Neutrophil cytoplasmic Ab.perinuclear IF (S) [Titer] <1:20 titer Neg:<1:20 [facility] Comment on above: Note: Specimen is ic teric.The presence of positive fluorescence exhibiting P-ANCA orC-ANCA patterns alone is not specific for the diagnosis ofWegener's Granulomatosis (WG) or microscopic polyangiitis.Decisions about treatment should not be based solely onANCA IFA results. The International ANCA Group Consensusrecommends follow up testing of positive sera with both TN-3 and MPO-ANCA enzyme immunoassays. As many as 5% serumsamples are positive only by EIA. Ref. AM J Clin [id number];111:507-513. Serum tissue transglutaminas e (tTG) IgA antibody assay (units/volume)Ordered By: Adelso Kaur on 09-25-2024 tTG IgA Qn (S) <2 U/mL 0-3 [facility] Comment on above: Negative 0 - 3 Weak Positive 4 - 10 Positive >10 Tissue Transglutaminase (tTG) has been identified as the endomysial antigen. Studies have demonstr- ated that endomysial IgA antibodies have over 99% specificity for gluten sensitive enteropathy. Trichrome (control)on 2024 Trichrome (control) ---- Patient Age/Sex Location Account Attending Physician JOJO MCKEON 29/M [facility] [id number] Dr. Mani Emanuel MD Specimen: [id number] Received: 09/25/24 Status: MACIE [place] Num: [id number] Spec Type: LIVER BX Subm Dr: Dr. Mani Emanuel MD HEADER OPERATION: Liver biopsy PRE-OP DIAGNOSIS: Liver failure TISSUE SUBMITTED: 18 gauge x 4 cores MICROSCOPIC DIAGNOSIS Liver, CT guided core biopsy: Liver parenchymal tissue with macro- and microvesicular steatosis. Increased portal, periportal fibrosis and focal bridging fibrosis. Mild portal chronic inflammation. See microscopic description and comment. 09/29/2024 COMMENT Correlation with clinical, laboratory, radiologic findings and appropriate follow-up are necessary. This case has been reviewed in consultation with Dr. House who concurs with the above diagnosis. IDC:[id number] MICROSCOPIC DESCRIPTION Slides are reviewed. The specimen shows liver parenchymal tissue with preserved lobular architecture. Hepatocytes show mild to moderate atypia and focal bile stasis. Significant lobular inflammation is not seen. Portal areas show mild chronic inflammation. Interface inflammation is not seen. Iron stain shows absent iron. Reticulin stain shows preserved lobular architecture. Trichrome stain shows increased portal, periportal fibrosis and focal bridging fibrosis. Obvious cirrhosis is not seen. PAS stain with and without diastase do not show any abnormal accumulation of protein. All stains are performed with appropriate matched controls. GROSS DESCRIPTION Received is one container labeled with the patient's name and not further designated. The specimen consists of multiple elongated fragments of pantoja soft tissue that in aggregate measure 2 x 0.5 x 0.1 cm. The specimen is totally submitted in one cassette. SAURAV. 09/26/2024 TC:5 [facility]:[id number] Patient Age/Sex Location Account Attending Physician JOJO MCKEON 29/M [facility] [id number] Dr. Mani Emanuel MD Signed (signature on file) Dr. Memo Winters MD 09/29/24 1221 Normal [facility] Comment on above: Performed By: #### L 501.080 #### [facility] [address] [place], [place], [address] Urinalysis, Completeon 09-25 AMORPHOUS 1+ Normal [facility] Comment on above: Order Comment: CLEAN CATCH Performed By: #### L 501.2300, L501.5200, L500.4050 #### [facility] [address] [place], [place], [address] BACTERIA 2+ /hpf Normal None Seen [facility] Comment on above: Order Comment: CLEAN CATCH Performed By: #### L 501.2300, L501.5200, L500.4050 #### [facility] [address] [place], [address] Mucus Ql (Urine sed) RARE Normal [facility] Comment on above: Order Comment: CLEAN CATCH Performed By: #### L 501.2300, L501.5200, L500.4050 #### [facility] [address] [place], [address] WBC 10-25 SEEN Normal 0-5 [facility] Comment on above: Order Comment: CLEAN CATCH Performed By: #### L 501.2300, L501.5200, L500.4050 #### [facility] [address] [place], [address] RBC 0 SEEN Normal 0-5 [facility] Comment on above: Order Comment: CLEAN CATCH Performed By: #### L 501.2300, L501.5200, L500.4050 #### [facility] [address] [place], [address] BILIRUBIN URINE 1 mg/dL Abnormal Negative [facility] Comment on above: Order Comment: CLEAN CATCH Result Comment: COLO R OF URINE MAY AFFECT DIPSTICK RESULTS. Performed By: #### L 501.2300, L501.5200, L500.4050 #### [facility] [address] [place], [address] Urine Drug Screen (VISTA)on 09-25-2024 AMPHETAMINES Negative Normal <1000 ng/mL [facility] Comment on above: Performed By: #### L 501.2300, L501.5200, L500.4050 #### [facility] [address] [place], [address] BARBITIURATES Negative Normal < 200 ng/mL [facility] Comment on above: Performed By: #### L 501.2300, L501.5200, L500.4050 #### [facility] [address] [place], [address] BENZODIAZIPINE Negative Normal < 200 ng/mL [facility] Comment on above: Performed By: #### L 501.2300, L501.5200, L500.4050 #### [facility] [address] [place], [address] COCAINE Negative Normal < 300 ng/mL [facility] Comment on above: Performed By: #### L 501.2300, L501.5200, L500.4050 #### [facility] [address] [place], [address] ECSTACY Negative Normal < 500 ng/mL [facility] Comment on above: Performed By: #### L 501.2300, L501.5200, L500.4050 #### [facility] [address] [place], [address] METHADONE Negative Normal < 300 ng/mL [facility] Comment on above: Performed By: #### L 501.2300, L501.5200, L500.4050 #### [facility] [address] [place], [address] OPIATES Negative Normal < 300 ng/mL [facility] Comment on above: Performed By: #### L 501.2300, L501.5200, L500.4050 #### [facility] [address] [place], [address] PCP Negative Normal < 25 ng/mL [facility] Comment on above: Performed By: #### L 501.2300, L501.5200, L500.4050 #### [facility] [address] [place], [address] THC Negative Normal < 50 ng/mL [facility] Comment on above: Performed By: #### L 501.2300, L501.5200, L500.4050 #### [facility] [address] [place], [address] VISTA UDS PH 5 Normal [facility] Comment on above: Performed By: #### L 501.2300, L501.5200, L500.4050 #### [facility] [address] [place], [place], [address] Abdomen/Pelvis W IV Cont ONL Yon 09-24-2024 Abdomen/Pelvis W IV Cont ONLY [facility] Imaging Services [address] [place], [place] [address] Abdomen/Pelvis W IV Cont ONLY MR#: [id number] Acct: [id number] Name: JOJO MCKEON Rep #: [id number] : 1995 M 29 From: Emely Duncan nd, MD PCP: ROMEO Leonard Status: REG ER Study: Abdomen/Pelvis W IV Cont ONLY Date of Exam: Exam# [id number] Ordering Dr: Prem Vogel DO PROCEDURE: ABDOMEN/PELVIS W IV CONT ONLY REASON FOR EXAM: 29-year-old male, painless jaundice. Currently taking Cipro for urinary tract infection. TECHNIQUE: Abdomen and pelvis CT with intravenous contrast. IV CONTRAST: Administered. COMPARISON: None. FINDINGS: Lung bases: Unremarkable. Liver: The liver is normal in size without focal hepatic mass. The major portal veins are patent. No biliary ductal dilation. Gallbladder: Layering sludge within the gallbladder without gallbladder wall thickening or pericholecystic fluid. Spleen: Unremarkable. Pancreas: Unremarkable. Adrenals: Unremarkable. Kidneys: Punctate nonobstructing right upper pole renal calculus. Left renal cyst. No hydronephrosis. Bladder: Mildly distended and unremarkable. Reproductive Organs: Unremarkable. Bowel: The bowel loops are normal in caliber. No ascites or pneumoperitoneum. Normal appendix. Lymph nodes: No suspicious lymph node enlargement. Vasculature: Major vascular structures are unremarkable. Bones: Mild thoracolumbar spondylosis. CT/Abdomen/Pelvis W IV Cont ONLY IMPRESSION: 1. No acute abdominopelvic finding. 2. Nonobstructing right renal calculus. 3. Layering sludge within the gallbladder without evidence of acute cholecystitis. One or more dose reduction techniques were used (e.g., Automated exposure control, adjustment of the mA and/or kV according to patient size, use of iterative reconstruction technique). Reading Location: [facility] CC: ROMEO Mar; Dr. Prem Vogel DO Mold Checker: Signed Normal [facility] Acetaminophen (Tylenol) Leve moy 09-24-2024 Acetaminophen [Mass/Vol] ug/mL Low 10.0-30.0 [facility] Comment on above: Performed By: #### L 500.4050 #### [facility] [address] [place], [address] Alcohol, Blood (Medical)-Ser umon 09-24-2024 SERUM ETOH < 3.0 Normal [facility] Comment on above: Result Comment: The serum:whole blood ethanol ratio is approximately 1.14 and varies slightly with hematocrit. Medical Alcohol reference interval and critical value in non-tolerant individuals; 50 - 100 Impairment 100 Intoxication 100 - 250 Severe Poisoning 250 - 400 Deep/possible fatal coma Performed By: #### L 501.2300, L501.5200, L500.4050 #### [facility] [address] [place], [address] Amorphous sediment detection in urine sediment by light microscopyOrdered By: Karson Castillo on 09-24-2024 Amorphous sediment LM Ql (Urine sed) 1+ [facility] Basic Metabolic Profile (BMP )on 09-24-2024 BUN/CRE 10.7 RATIO Normal 10-20 [facility] Comment on above: Performed By: #### L 501.2300, L501.5200, L500.4050 #### [facility] [address] [place], [address] CA,Total 9.5 mg/dL Normal 8.5-10.1 [facility] Comment on above: Performed By: #### L 501.2300, L501.5200, L500.4050 #### [facility] [address] [place], [address] Chloride [Moles/Vol] 101 mmol/L Normal 98-107 [facility] Comment on above: Performed By: #### L 501.2300, L501.5200, L500.4050 #### [facility] [address] [place], [address] CO2 [Moles/Vol] 28.0 mmol/L Normal 21.0-32.0 [facility] Comment on above: Performed By: #### L 501.2300, L501.5200, L500.4050 #### [facility] [address] [place], [address] Creatinine [Mass/Vol] 1.22 mg/dL Normal 0.70-1.30 [facility] Comment on above: Result Comment: The validity of the calculated GFR GFRAA in patients over 70 years has not been determined. Clinical correlation is essential. Performed By: #### L 501.2300, L501.5200, L500.4050 #### [facility] [address] [place], [address] ECRCL 120.35 ml/min Normal [facility] Comment on above: Performed By: #### L 501.2300, L501.5200, L500.4050 #### [facility] [address] [place], [address] EST GFR - AA 90 mL/min Normal >60 [facility] Comment on above: Result Comment: Afri can Kitt[place] GFR Calc Performed By: #### L 501.2300, L501.5200, L500.4050 #### [facility] [address] [place], [address] GAP 9 Normal 5-15 [facility] Comment on above: Performed By: #### L 501.2300, L501.5200, L500.4050 #### [facility] [address] [place], [address] GFR/1.73 sq M.predicted among non-blacks MDRD (S/P/Bld) [Vol rate/Area] 74 mL/min/{1.73_m2} Normal >60 [facility] Comment on above: Result Comment: Non- GFR Calc Performed By: #### L 501.2300, L501.5200, L500.4050 #### [facility] [address] [place], [address] Glucose [Mass/Vol] 119 mg/dL High 74-[address] [facility] Comment on above: Result Comment: Fast ing Glucose result from 100 to 125 mg/dL suggests IMPAIRED HOMEOSTASIS per A.D.A. criteria. Performed By: #### L 501.2300, L501.5200, L500.4050 #### [facility] [address] [place], [address] Potassium [Moles/Vol] 3.6 mmol/L Normal 3.5-5.1 [facility] Comment on above: Performed By: #### L 501.2300, L501.5200, L500.4050 #### [facility] [address] [place], [address] Sodium [Moles/Vol] 138 mmol/L Normal 136-[address] [facility] Comment on above: Performed By: #### L 501.2300, L501.5200, L500.4050 #### [facility] [address] [place], [address] Urea nitrogen [Mass/Vol] 13 mg/dL Normal 7-18 [facility] Comment on above: Performed By: #### L 501.2300, L501.5200, L500.4050 #### [facility] [address] [place], [address] Bilirubin Test strip Ql (U)O rdered By: Karson Castillo on 09-24-2024 Bilirubin Ql (U) 1 mg/dL High Negative [facility] Comment on above: COLOR OF URINE MAY A FFECT DIPSTICK RESULTS. Bilirubin directOrdered By: Prem Vogel on 09-24-2024 Bilirubin.direct [Mass/Vol] 4.99 mg/dL High 0.00-0.30 [facility] CBC W/Diff, Automatedon 09-13 Absolute Lymph 1.23 X10 3/uL Normal 0.83-4.51 [facility] Comment on above: Performed By: #### L 501.2300, L501.5200, L500.4050 #### [facility] [address] [place], [address] Absolute Neut 2.9 X10 3/uL Normal 2.0-7.7 [facility] Comment on above: Performed By: #### L 501.2300, L501.5200, L500.4050 #### [facility] [address] [place], [address] Basophils/100 WBC (Bld) 1.1 % High 0-1 [facility] Comment on above: Performed By: #### L 501.2300, L501.5200, L500.4050 #### [facility] [address] [place], [address] Eosinophils/100 WBC (Bld) 1.5 % Normal 0-5 [facility] Comment on above: Performed By: #### L 501.2300, L501.5200, L500.4050 #### [facility] [address] [place], [address] Erythrocyte distribution width (RBC) [Ratio] 12.1 % Normal 11.6-14.6 [facility] Comment on above: Performed By: #### L 501.2300, L501.5200, L500.4050 #### [facility] [address] [place], [address] Hematocrit (Bld) [Volume fraction] 45.1 % Normal 40-54 [facility] Comment on above: Performed By: #### L 501.2300, L501.5200, L500.4050 #### [facility] [address] [place], [address] Hemoglobin (Bld) [Mass/Vol] 15.7 g/dL Normal 13.0-16.5 [facility] Comment on above: Performed By: #### L 501.2300, L501.5200, L500.4050 #### [facility] [address] [place], [address] IG% 0.400 Normal 0.0-0.9 [facility] Comment on above: Result Comment: IG% - Immature Granulocytes (promyelocytes, myelocytes and metamyelocytes) > 1% indicates that a LEFT SHIFT is Present. Performed By: #### L 501.2300, L501.5200, L500.4050 #### [facility] [address] [place], [address] Lymphocytes/100 WBC (Bld) 26.9 % Normal 19-41 [facility] Comment on above: Performed By: #### L 501.2300, L501.5200, L500.4050 #### [facility] [address] [place], [address] MCH (RBC) [Entitic mass] 30.5 pg Normal 27.0-32.0 [facility] Comment on above: Performed By: #### L 501.2300, L501.5200, L500.4050 #### [facility] [address] [place], [address] MCHC (RBC) [Mass/Vol] 34.8 g/dL Normal 32-36 [facility] Comment on above: Performed By: #### L 501.2300, L501.5200, L500.4050 #### [facility] [address] [place], [address] MCV (RBC) [Entitic vol] 87.7 fL Normal 80-94 [facility] Comment on above: Performed By: #### L 501.2300, L501.5200, L500.4050 #### [facility] [address] [place], [address] Monocytes/100 WBC (Bld) 7.7 % Normal 0-10 [facility] Comment on above: Performed By: #### L 501.2300, L501.5200, L500.4050 #### [facility] [address] [place], [address] Neutrophils/100 WBC (Bld) 62.4 % Normal 47-70 [facility] Comment on above: Performed By: #### L 501.2300, L501.5200, L500.4050 #### [facility] [address] [place], [address] Nucleated RBC (Bld) [#/Vol] 0 10*3/uL Normal 0-5 [facility] Comment on above: Performed By: #### L 501.2300, L501.5200, L500.4050 #### [facility] [address] [place], [address] Platelet mean volume (Bld) [Entitic vol] 14.5 fL High 6.2-12.0 [facility] Comment on above: Performed By: #### L 501.2300, L501.5200, L500.4050 #### [facility] [address] [place], [address] Platelets (Bld) [#/Vol] 124 10*3/uL Low 150-450 [facility] Comment on above: Performed By: #### L 501.2300, L501.5200, L500.4050 #### [facility] [address] [place], [address] RBC (Bld) [#/Vol] 5.14 10*6/uL Normal 4.6-6.2 [facility] Comment on above: Performed By: #### L 501.2300, L501.5200, L500.4050 #### [facility] [address] [place], [address] RDW SD 39.3 fl Normal 35.1-43.9 [facility] Comment on above: Performed By: #### L 501.2300, L501.5200, L500.4050 #### [facility] [address] [place], [address] WBC (Bld) [#/Vol] 4.6 10*3/uL Normal 4.4-11.[address] [facility] Comment on above: Performed By: #### L 501.2300, L501.5200, L500.4050 #### [facility] [address] [place], [address] Emergency Department Summary on 09-24-2024 Emergency Department Summary [facility] Medical Records Department [address] [place] [address] Emergency Department Summary 09/24/24 MR#: [id number] Acct: [id number] Name: JOJO MCKEON Rep #: [id number] : 1995 29 From: Prem Vogel DO PCP: ROMEO Leonard Status:ADM IN Location: [place] [address] HPI History of Present Illness Chief Complaint: [facility] Medical History (Updated 09/24/24 @ 14:54 by Ani Coleman) UTI (urinary tract infection) Home Medications ???Medication ???Instructions ???Recorded ???Last Taken ???Type ciprofloxacin HCl 500 mg tablet 500 mg PO BID 09/24/24 Unknown His tory Allergy/AdvReac Type Severity Reaction Status Date / Time ciprofloxacin (From Cipro) Allergy hepatitis Verified 09/24/24 20:56 Social History (Updated 09/24/24 @ 14:54 by Ani Coleman) household members: family housing: house Smoking Status: Never smoker EXAM Physical Exam Const Vital Signs: 09/24/24 14:43 09/24/24 14:54 09/24/24 16:42 Temperature 97.8 F Temperature Source Oral Pulse Rate 92 78 Respiratory Rate 16 Respiratory Effort Normal Non-Labored Respiratory Pattern Normal Blood Pressure 153/104 H 135/93 H Blood Pressure Mean 120 107 Pulse Ox 100 96 Oxygen Delivery Method Room Air 09/24/24 18:00 09/24/24 20:00 Temperature Temperature Source Pulse Rate 87 82 Respiratory Rate Respiratory Effort Respiratory Pattern Blood Pressure 138/89 H 152/85 H Blood Pressure Mean 105 107 Pulse Ox 96 97 Oxygen Delivery Method MDM MDM MDM Narrative Medical decision making narrative: HISTORY OF PRESENT ILLNESS: 29-year-old male presents concern for discoloration of the skin. Family concern patient appears jaundiced. First noticed 2 days ago. Mother's concern is related to starting ciprofloxacin several days ago for urinary tract infection. No history of alcohol use or abuse. Denies taking Tylenol recently. Notes he is taken ibuprofen for his UTI discomfort. Denies trauma. Denies history of gallstones. Denies history of abdominal surgery. REVIEW OF SYSTEMS: Pertinent positives: Jaundice Pertinent negatives: Vomiting PHYSICAL EXAM: Nursing triage notes reviewed, Vital signs reviewed Constitutional: please see mdm HENT: MMM Eyes: Scleral icterus noted Neck: No stridor, no JVD, full neck ROM Lungs: Clear to auscultation, No wheezing or rales. No increased work of breathing, no conversational dyspnea, no accessory muscle use, no nasal flaring. No respiratory distress noted Heart: Regular rate and rhythm, No murmurs, No rubs and No gallops, 2+ distal pulses (radial, femoral, posterior tibial) in all extremities Abdomen: Soft, there is no tenderness, rigidity, rebound or guarding, no obvious peritoneal signs, no palpable pulsatile abdominal masses, no auscultated abdominal bruit : No CVAT Extremities: No edema Neuro: No new focal neurological deficits, cranial nerves II through XII intact, 5/5 strength in all present extremities. Intact sensation to light touch in all present extremities, 2+ reflexes bilateral patella tendons. Skin: Jaundice noted MEDICAL DECISION MAKING: Chief Complaint: Jaundice External records reviewed: Reviewed prior labs, no recent CMP's note. Reviewed prior imaging. No recent advanced imaging of the abdomen Factors affecting care: UTI Social determinants of health: denies alcohol use History obtained from others: Mom Consults: none [facility] Narrative: Patient was initially hemodynamically stable, afebrile and nontoxic-appearing. Exam without abdominal tenderness. Negative Wilson sign I considered the following differential diagnosis: Obstructive hepatobiliary pathology, viral hepatitis C, Tylenol overdose, alcohol induced cirrhosis, other (drug-induced hepatitis, autoimmune hepatitis, Ferdinand's disease, PSC) I obtained a broad lab and imaging workup to further elucidate etiology of the patient's complaints ALL IMAGES (IF OBTAINED) HAVE BEEN PERSONALLY REVIEWED AND INTERPRETED BY MYSELF. CT scan of the abdomen pelvis did not show evidence of acute cholecystitis or hepatobiliary mass CBC with no leukocytosis, no anemia, noted thrombocytopenia No coagulopathy BMP without evidence of significant electrolyte abnormalities, no anion gap, no acute kidney injury. LFTs concerning for elevated bilirubin, elevated liver enzymes consistent with liver inflammation Lipase is wnl indicating no pancreatic inflammation. Serum Tylenol negative Discussed the case with GI doctor on-call (Dr. Kaur). He noted this is likely drug-induced hepatitis related to recent ciprofloxacin medication. He states the patient does need a workup including autoimmune, primary sclerosing cholangitis, amongst others. Agreed lamar (more content not included)... Normal [facility] H AND P Exam - Hospitaliston 09-24-2024 H&P Exam - Hospitalist [facility] Medical Records Department [address] [place] [address] H P Exam - Hospitalist 09/24/242052 MR#: [id number] Acct: [id number] Name: JOJO MCKEON Rep #: [id number] : 1995 29 From: Karson Agudelo DO PCP: ROMEO Leonard Status:ADM IN Location: [facility] [id number] HPI - General General Date of Admission: 09/24/24 Date of Service: 09/24/24 Chief Complaint: Painless Jaundice after Cipro for UTI. HPI Narrative JOJO MCKEON, is a 29 M with a past medical history of morbid obesity; with BMI of 43 this admission and recently diagnosed UTI; that was subsequently treated with oral ciprofloxacin who presents to [facility] ER complaining of painless jaundice after ciprofloxacin for treatment of a UTI. Mr. Gonzalez reports his symptoms began approximately 5 days ago when he was diagnosed with a UTI and then started on oral ciprofloxacin with subsequent severe pain in his abdomen and back he initially attributed to the UTI and the pain resolved he began to notice yellowing of his skin. His mother was concerned he was having an allergic reaction to his recently started ciprofloxacin so he stopped taking it today and they then decided to come in for further evaluation and treatment. He admits to intermittent ibuprofen use but he denies acetaminophen use, EtOH abuse, history of gallstones, history of abdominal surgery or similar previous episodes. There was no report of fever, chills, nausea, vomiting, diarrhea, constipation, chest pain, SOB or headache. In the ER he was noted to have markedly abnormal LFT's consisting of: Hyperbilirubinemia of 6.4 mg/dL, Direct Bilirubin 4.99 mg/dL, AST 378 U/L, ALT 680 U/L and Alkaline Phosphatase of 268 U/L present on admission with CT of the abdomen and pelvis revealing no acute abdominal finding with a non-obstructing Right renal calculus and layering sludge in the gallbladder without acute cholecystitis and he was then diagnosed with Acute Drug-induced Hepatitis due to Adverse Drug Reaction to recently started Ciprofloxacin causing Jaundice with finish patcher recommending patient be treated with Solu-Medrol 1g IV once in addition to ERCP with possible biopsy planned for tomorrow causing patient to be made strict NPO to prepare for procedure. He was then admitted to the general medical floor for ongoing care for a stay that is expected to extend beyond 2 midnights. [facility] Medical History UTI (urinary tract infection) Home Medications ???Medication ???Instructions ???Recorded ???Last Taken ???Type ciprofloxacin HCl 500 mg tablet 500 mg PO BID UTI 09/24/24 5 History Allergy/AdvReac Type Severity Reaction Status Date / Time ciprofloxacin (From Cipro) Allergy hepatitis Verified 09/24/24 20:56 Social History household members: family housing: house Smoking Status: Never smoker ROS ROS Narrative Review of Systems: Constitutional: Patient denies fever or chills. Eyes: Patient denies changes in vision or discharge from eyes. ENT: Patient denies runny nose, sore throat or ear pain. Resp: Patient denies SOB or cough. CV: Patient denies chest pain, palpitations, heart racing or lower extremity edema. GI: Patient initially had severe abdominal pain but he currently denies abdominal pain, nausea, vomiting, diarrhea or constipation. : Patient denies dysuria, hematuria or urinary frequency. MSK: Patient had back pain after initially starting the ciprofloxacin but he currently denies arthralgias or myalgias. Skin: Patient admits to progressively jaundice. Psych: Patient denies symptoms of uncontrolled depression or anxiety. Allergy: Patient denies lip swelling, tongue swelling or urticaria. Hematology: Patient denies easy bleeding or easy bruisability. Endocrinology: Patient denies polyuria, polydipsia or polyphagia. 14 point ROS otherwise negative except for positives noted above in HPI. Vital Signs Vital Signs Vital Signs: 09/24/24 14:43 09/24/24 14:54 09/24/24 16:42 Temperature 97.8 F Temperature Source Oral Pulse Rate 92 78 Respiratory Rate 16 Respiratory Effort Normal Non-Labored Respiratory Pattern Normal Blood Pressure 153/104 H 135/93 H Blood Pressure Mean 120 107 Pulse Ox 100 96 Oxygen Delivery Method Room Air 09/24/24 18:00 09/24/24 20:00 09/24/24 20:46 Temperature 98.1 F Temperature Source Pulse Rate 87 82 89 Respiratory Rate 19 H Respiratory Effort Respiratory Pattern Blood Pressure 138/89 H 152/85 H 137/89 H Blood Pressure Mean 105 107 105 Pulse Ox 96 97 98 Oxygen Delivery Method Weight Weight: 291 lb 2 oz Body Mass Index (BMI) 43.0 Result (more content not included)... Normal [facility] Hemoglobin A1con 09-24-2024 HbA1c (Bld) [Mass fraction] 5.0 % Normal 3.8-5.6 [facility] Comment on above: Result Comment: Norm al < 5.7 % Prediabetic 5.7 - 6.4 % Diabetic >or= 6.5 % Please note range changes. Performed By: #### L 501.7940, L501.5200, L500.6580 #### [facility] [address] [place], [place], [id number] Hemoglobin A1c percentageOrd ered By: Karson Castillo on 09-24-2024 HbA1c (Bld) [Mass fraction] 5.0 % 3.8-5.6 [facility] Comment on above: Normal < 5.7 % Predi abetic 5.7 - 6.4 % Diabetic >or= 6.5 % Please note range changes. High density lipoprotein (HD L) measurementOrdered By: Karson Castillo on 09-24-2024 Cholesterol in HDL [Mass/Vol] 30 mg/dL Low >40 [facility] Comment on above: The drugs N-Acetylcy steine and Metamizole may falsely depress this assay. Reference Range HDL <40 mg/dL Low HDL Cholesterol HDL >or= 60 mg/dL High HDL Cholesterol Ketones Test strip Ql (U)Ord ered By: Karson Castillo on 09-24-2024 Ketones Ql (U) Negative Negative [facility] Lipaseon 09-24-2024 Lipase [Catalytic activity/Vol] 41 U/L Low 73-393 [facility] Comment on above: Performed By: #### L 501.2300, L501.5200, L500.4050 #### [facility] [address] [place], [address] Lipase measurementOrdered By : Prem Vogel on 09-24-2024 Lipase [Catalytic activity/Vol] 41 U/L Low 73-393 [facility] Lipid Profileon 09-24-2024 Cholesterol [Mass/Vol] 203 mg/dL High 200 [facility] Comment on above: Result Comment: Slig ht Icterus, Result may be falsely decreased. <200 mg/dL Desirable 200-240 mg/dL Borderline >240 mg/dL High Risk Performed By: #### L 501.2300, L501.5200, L500.4050 #### [facility] [address] [place], [address] Cholesterol in HDL [Mass/Vol] 30 mg/dL Low [facility] Comment on above: Result Comment: The drugs N-Acetylcysteine and Metamizole may falsely depress this assay. Reference Range HDL <40 mg/dL Low HDL Cholesterol HDL >or= 60 mg/dL High HDL Cholesterol Performed By: #### L 501.2300, L501.5200, L500.4050 #### [facility] [address] [place], [address] Cholesterol in LDL [Mass/Vol] 144 mg/dL High 0-130 [facility] Comment on above: Performed By: #### L 501.2300, L501.5200, L500.4050 #### [facility] [address] [place], [address] Cholesterol in VLDL [Mass/Vol] 29 mg/dL Normal 5-40 [facility] Comment on above: Performed By: #### L 501.2300, L501.5200, L500.4050 #### [facility] [address] [place], [address] Triglyceride [Mass/Vol] 146 mg/dL Normal [facility] Comment on above: Result Comment: The drugs N-Acetylcysteine and Metamizole may falsely depress this assay. Slight Icterus, Result may be falsely increased. Serum Triglycerides Reference Interval Normal <150 mg/dL Borderline high 150 - 199 mg/dL High 200 - 499 mg/dL Very High > or = 500 mg/dL Performed By: #### L 501.2300, L501.5200, L500.4050 #### [facility] [address] [place], [address] Liver Profileon 09-24-2024 Albumin [Mass/Vol] 3.2 g/dL Normal 3.2-5.[address] [facility] Comment on above: Performed By: #### L 501.2300, L501.5200, L500.4050 #### [facility] [address] [place], [address] ALK P 268 U/L High 45-117 [facility] Comment on above: Performed By: #### L 501.2300, L501.5200, L500.4050 #### [facility] [address] [place], [address] ALT [Catalytic activity/Vol] 680 U/L High 16-61 [facility] Comment on above: Performed By: #### L 501.2300, L501.5200, L500.4050 #### [facility] [address] [place], [address] AST [Catalytic activity/Vol] 378 U/L High 15-37 [facility] Comment on above: Performed By: #### L 501.2300, L501.5200, L500.4050 #### [facility] [address] [place], [address] Bilirubin [Mass/Vol] 6.40 mg/dL High 0.20-1.00 [facility] Comment on above: Result Comment: For patients on eltrombopag therapy, use of Dimension [place]hin TBIL is not recommended. Performed By: #### L 501.2300, L501.5200, L500.4050 #### [facility] [address] [place], [address] Bilirubin.direct [Mass/Vol] 4.99 mg/dL High 0.00-0.30 [facility] Comment on above: Performed By: #### L 501.2300, L501.5200, L500.4050 #### [facility] [address] [place], [address] Globulin (S) [Mass/Vol] 3.7 g/dL Normal 2.2-4.2 [facility] Comment on above: Performed By: #### L 501.2300, L501.5200, L500.4050 #### [facility] [address] [place], [address] T PROT 6.9 g/dL Normal 6.4-8.2 [facility] Comment on above: Performed By: #### L 501.2300, L501.5200, L500.4050 #### [facility] [address] [place], [place], [id number] Low density lipoprotein (LDL ) cholesterol measurementOrdered By: Karson Castillo on 09-24-2024 Cholesterol in LDL [Mass/Vol] 144 mg/dL High 0-130 [facility] Microscopic analysis of urin e for red blood cells (RBC)Ordered By: Karson Castillo on 09-24-2024 Microscopic analysis of urine for red blood cells (RBC) 0 SEEN /hpf 0-5 [facility] Mucus LM Ql (Urine sed)Order ed By: Karson Castillo on 09-24-2024 Mucus Ql (Urine sed) RARE /hpf [facility] Nitrite Test strip Ql (U)Ord ered By: Karson Castillo on 09-24-2024 Nitrite Ql (U) Negative Negative [facility] No Panel InformationOrdered By: Karson Castillo on 09-24-2024 Urine Drug Screen Comment [facility] Comment on above: CONFIRMATORY TESTING FOR ALL POSITIVE URINE DRUG SCREENRESULTS WILL ONLY BE SENT OUT UPON PHYSICIAN ORDER. VISTA Urine Drug Screen methods provide only preliminaryanalytical test results. A more specific alternate chemicalmethod must be used in order to obtain a confirmedanalytical result. Gas chromatography/mass spectrometery(GC/MS) is the preferred confirmatory method. Clinicalconsideration and professional judgement should be appliedto any drug of abuse test result, particularly whenpreliminary positive results are used. URINE TCA TESTING MUST BE ORDERED SEPARATELY. USE TESTMNEMONIC: UTCA Partial Thromboplast Timeon 09-24-2024 aPTT Coag (Bld) [Time] 25.6 s Normal 24.1-36.2 [facility] Comment on above: Performed By: #### L 500.4050 #### [facility] [address] [place], [place], [id number] Protein Test strip Ql (U)Ord ered By: Karson Castillo on 09-24-2024 Protein Ql (U) 15 mg/dl High Negative [facility] Prothrombin Time w/INRon INR Coag (PPP) [Relative time] 0.9 {INR} Normal [facility] Comment on above: Performed By: #### L 500.4050 #### [facility] [address] [place], [address] PT Coag (PPP) [Time] 12.4 s Normal 11.7-14.9 [facility] Comment on above: Performed By: #### L 500.4050 #### [facility] [address] [place], [address] Quantitative urine opiates m easurementOrdered By: Karson Castillo on 09-24-2024 Opiates Ql (U) Negative < 300 ng/mL [facility] Serum or plasma acetaminophe n measurement (mass/volume)Ordered By: Prem Vogel on 09-24-2024 Acetaminophen [Mass/Vol] ug/mL Low 10.0-30.0 [facility] Serum or plasma cholesterol measurement (mass/volume)Ordered By: Karson Castillo on 09-24-2024 Cholesterol [Mass/Vol] 203 mg/dL High <200 [facility] Comment on above: Slight Icterus, Resu lt may be falsely decreased. <200 mg/dL Desirable 200-240 mg/dL Borderline >240 mg/dL High Risk Serum or plasma thyroid stim ulating hormone (TSH) measurement (units/volume)Ordered By: Karson Castillo on 09-24-2024 TSH Qn 0.735 uIU/mL 0.358-3.740 [facility] Squamous epithelial cells de tection in urine sediment by light microscopyOrdered By: Karson Castillo on 09-24-2024 Epithelial cells.squamous LM Ql (Urine sed) 0 SEEN /hpf 0-5 [facility] Thyroid Stim Hormone (TSH)on 09-24-2024 TSH 0.735 uIU/mL Normal 0.358-3.740 [facility] Comment on above: Performed By: #### L 501.2300, L501.5200, L500.4050 #### [facility] [address] [place], [address] Triglycerides measurementOrd ered By: Karson Castillo on 09-24-2024 Triglyceride [Mass/Vol] 146 mg/dL <199 [facility] Comment on above: The drugs N-Acetylcy steine and Metamizole may falsely depress this assay. Slight Icterus, Result may be falsely increased.Serum Triglycerides Reference Interval Normal <150 mg/dL Borderline high 150 - 199 mg/dL High 200 - 499 mg/dL Very High > or = 500 mg/dL Urinalysis, Completeon 09-24 Clarity (U) Clear Normal Clear [facility] Comment on above: Order Comment: CLEAN CATCH Performed By: #### L 501.2300, L501.5200, L500.4050 #### [facility] [address] [place], [address] Color (U) Yellow Normal Yellow [facility] Comment on above: Order Comment: CLEAN CATCH Performed By: #### L 501.2300, L501.5200, L500.4050 #### [facility] [address] [place], [address] GLUCOSE, UR Normal Normal Normal [facility] Comment on above: Order Comment: CLEAN CATCH Performed By: #### L 501.2300, L501.5200, L500.4050 #### [facility] [address] [place], [address] KETONE UR Negative Normal Negative [facility] Comment on above: Order Comment: CLEAN CATCH Performed By: #### L 501.2300, L501.5200, L500.4050 #### [facility] [address] [place], [address] LEUK ESTERASE 25 /ul Abnormal Negative [facility] Comment on above: Order Comment: CLEAN CATCH Performed By: #### L 501.2300, L501.5200, L500.4050 #### [facility] [address] [place], [address] Nitrite Ql (U) Negative Normal Negative [facility] Comment on above: Order Comment: CLEAN CATCH Performed By: #### L 501.2300, L501.5200, L500.4050 #### [facility] [address] [place], [address] OCCULT BLOOD-UR Negative Normal Negative [facility] Comment on above: Order Comment: CLEAN CATCH Performed By: #### L 501.2300, L501.5200, L500.4050 #### [facility] [address] [place], [address] pH UR 6.5 Normal 5.0 - 8.0 [facility] Comment on above: Order Comment: CLEAN CATCH Performed By: #### L 501.2300, L501.5200, L500.4050 #### [facility] [address] [place], [address] PROT DIPSTX 15 mg/dl Abnormal Negative [facility] Comment on above: Order Comment: CLEAN CATCH Performed By: #### L 501.2300, L501.5200, L500.4050 #### [facility] [address] [place], [address] SP.GR. DIPSTX 1.015 Normal 1.002-1.030 [facility] Comment on above: Order Comment: CLEAN CATCH Performed By: #### L 501.2300, L501.5200, L500.4050 #### [facility] [address] [place], [address] UROBILI 1 mg/dl Abnormal Normal [facility] Comment on above: Order Comment: CLEAN CATCH Performed By: #### L 501.2300, L501.5200, L500.4050 #### [facility] [address] [place], [address] EPI,SQUAMOUS 0 SEEN Normal 0-5 [facility] Comment on above: Order Comment: CLEAN CATCH Performed By: #### L 501.2300, L501.5200, L500.4050 #### [facility] [place], [address] Urine amphetamine measuremen tOrdered By: Karson Castillo on 09-24-2024 Amphetamines Ql (U) Negative <1000 ng/mL [facility] Urine benzodiazepine levelOr dered By: Karson Castillo on 09-24-2024 Benzodiazepines Ql (U) Negative < 200 ng/mL [facility] Urine clarityOrdered By: Ryan Castillo on 09-24-2024 Clarity (U) Clear Clear [facility] Urine cocaine levelOrdered B y: Karson Castillo on 09-24-2024 Cocaine Ql (U) Negative < 300 ng/mL [facility] Urine color determinationOrd ered By: Karson Castillo on 09-24-2024 Color (U) Yellow Yellow [facility] Urine cultureOrdered By: Ryan Castillo on 09-24-2024 Bacteria identified Cx Nom (U) Culture exhibits no growth. [facility] Urine dmqbt-8-qdnhulorkkavsh abinol (THC) measurementOrdered By: Karson Castillo on 09-24-2024 Cannabinoids Screen Ql (U) Negative < 50 ng/mL [facility] Urine glucose detectionOrder ed By: Karson Castillo on 09-24-2024 Glucose Ql (U) Normal mg/dl Normal [facility] Urine leukocyte esterase det ection by dipstickOrdered By: Karson Castillo on 09-24-2024 Leukocyte esterase Test strip Ql (U) 25 /ul High Negative [facility] Urine pHOrdered By: Karson calderon on 09-24-2024 pH (U) 6.5 [pH] 5.0 - 8.0 [facility] Urine phencyclidine (PCP) de tectionOrdered By: Karson Castillo on 09-24-2024 Phencyclidine Ql (U) Negative < 25 ng/mL [facility] Urine sediment bacteria coun t by microscopy (number/high power field)Ordered By: Karson Castillo on 09-24-2024 Bacteria LM.HPF (Urine sed) [#/Area] 2 /[HPF] None Seen [facility] Urine specific gravity measu rementOrdered By: Karson Castillo on 09-24-2024 Specific gravity (U) [Rel density] 1.015 1.002-1.030 [facility] Urine urobilinogen measureme ntOrdered By: Karson Castillo on 09-24-2024 Urobilinogen Ql (U) 1 mg/dl High Normal [facility] Very low density lipoprotein (VLDL) cholesterol measurementOrdered By: Karson Castillo on 09-24-2024 Very low density lipoprotein (VLDL) cholesterol measurement 29 mg/dL 5-40 [facility] White blood cell countOrdere d By: Karson Castillo on 09-24-2024 White blood cell count 10-25 SEEN /hpf 0-5 [facility] Urine Cultureon 09-20-2024 URC Culture exhibits no growth. Normal [facility] Comment on above: Performed By: #### L 501.080 #### [facility] [address] [place], [place] [address], [address] Urine cultureOrdered By: Colt Mar on 09-19-2024 Bacteria identified Cx Nom (U) Culture exhibits no growth. [facility] Vital Signs Date Time Vital Sign Value Performing Clinician Hailey henriquez 12-22-2024 15:12-0400 Body height 175.26 cm Zunilda WALTERS Work Phone: [facility] 12-22-2024 15:12-0400 Body weight 124.73 kg Zunilda Mar NP-C Work Phone: [facility] 11-06-2024 15:48-0400 Body mass index (BMI) [Ratio] 44.1 kg/m2 Zunilda Mar NP-C Work Phone: [facility] 11-06-2024 15:48-0400 Body weight 135.73 kg Zunilda Mar NP-C Work Phone: [facility] 09-27-2024 09:01-0500 Body temperature 98 [degF] Zunilda Mar NP-C Work Phone: [facility] 09-27-2024 09:01-0500 Diastolic blood pressure 76 mm[Hg] Zunilda Mar [employer] Work Phone: [facility] 09-27-2024 09:01-0500 Heart rate 86 /min Zunilda Mar [employer] Work Phone: [facility] 09-27-2024 09:01-0500 Respiratory rate 16 /min Zunilda Mar [employer] Work Phone: [facility] 09-27-2024 09:01-0500 SaO2% (BldA) [Mass fraction] 96 % Zunilda Mar [employer] Work Phone: [facility] 09-27-2024 09:01-0500 Systolic blood pressure 126 mm[Hg] Zunilda Mar [employer] Work Phone: [facility] 09-27-2024 04:36-0500 Body mass index (BMI) [Ratio] 42.7 kg/m2 Zunilda Mar [employer] Work Phone: [facility] 09-27-2024 04:36-0500 [facility] Work Phone: [facility] Encounters Encounter Date Encounter Type Care Provider Facility Start: 01-26-2025 ambulatory Adelso [place] Facility :[facility] Start: 01-15-2025 ambulatory Adelso [place] Facility :[facility] Start: 12-22-2024 End: 01-10-2025 Discharged Recurring Adelso Kaur DO -[facility] Work Phone: Start: 12-22-2024 End: 01-10-2025 ambulatory Zunilda Mar [employer] Work Phone: [facility] Work Phone: Start: 11-06-2024 End: 11-06-2024 Patient encounter procedure Adelso Kaur DO -[facility] Work Phone: Start: 11-06-2024 End: 11-06-2024 ambulatory Adelso Kaur Facility:[facility] Start: 09-27-2024 Non-patient / Non-visit Dr. Mani Emanuel [facility] Work Phone: Start: 09-26-2024 Non-patient / Non-visit Dr. Mani Emanuel [facility] Work Phone: Start: 09-26-2024 End: 09-26-2024 ambulatory Zunilda Zaid Facility:[facility] [place] [place] Start: 09-26-2024 End: 09-26-2024 Non-patient / Non-visit Dr. Mary Jiang [facility] Work Phone: Start: 09-25-2024 Non-patient / Non-visit Dr. Mani Emanuel [facility] Work Phone: Start: 09-25-2024 Non-patient / Non-visit Adelso Kaur -[facility] Start: 09-24-2024 ambulatory Mani Emanuel Fac ility:[facility] Start: 09-24-2024 End: 09-27-2024 Evaluation and management of inpatient Dr. Mani Emanuel MD -[facility] Work Phone: Start: 09-19-2024 End: 09-19-2024 Patient encounter procedure Zunilda Mar [employer] -Laboratory Specimen Work Phone: Start: 09-19-2024 End: 09-19-2024 ambulatory Zunilda Floresgar Facility:[facility] Procedures Date Procedure Procedure Detail Performing Clinician Start: 09-27-2024 Estimated creatinine clearance Zunilda Flores gar [employer] Work Phone: Start: 09-27-2024 Measurement of renal function Zunilda Mayen ar [employer] Work Phone: Comment on above: GFR Calc Start: 09-26-2024 End: 09-26-2024 Endoscopic retrograde cholangiopancreatography Zunilda Mar [employer] Work Phone: Start: 09-26-2024 Fluoroscopic guidance Zunilda Mar [employer] Work Phone: Start: 09-26-2024 Assay of phosphorus inorganic Zunilda Mayen ar [employer] Work Phone: Start: 09-25-2024 Albumin/Globulin ratio Zunilda Mar [employer] Work Phone: Start: 09-25-2024 Antibody measurement Zunilda Mar [employer] Work Phone: Comment on above: Note: Specimen is icteric.The atypical p ANCA pattern has been observed in asignificant percentage of patients with ulcerative colitis,primary sclerosing cholangitis and autoimmune hepatitis. Start: 09-25-2024 Antibody to centromere measurement Zunilda Mar [employer] Work Phone: Comment on above: Previous reported result: TNP AIEdited b y: INFCE on 09/26/24:1408 AMENDED REPORT 09/26/24 1408 ANTI-CENT B previously reported as: Test not performed Start: 09-25-2024 Antibody to extractable nuclear antigen measurement Zunilda Mar [employer] Work Phone: Comment on above: Previous reported result: TNP AIEdited b y: INFCE on 09/26/24:1408 AMENDED REPORT 09/26/24 1408 VELARDE Ab previously reported as: Test not performed Start: 09-25-2024 Antibody to MIGUEL-1 measurement Zunilda Duff r [employer] Work Phone: Comment on above: Previous reported result: TNP AIEdited b y: INFCE on 09/26/24:1408 AMENDED REPORT 09/26/24 1408 ANTI-MIGUEL previously reported as: Test not performed Start: 09-25-2024 Antibody to lupus La protein measurement Zunilda Mar [employer] Work Phone: Comment on above: Previous reported result: TNP AIEdited b y: INFCE on 09/26/24:1408 AMENDED REPORT 09/26/24 1408 Anti-SS-B previously reported as: Test not performed Start: 09-25-2024 Antibody to SS-A measurement Zunilda Duff r [employer] Work Phone: Comment on above: Previous reported result: TNP AIEdited b y: INFCE on 09/26/24:1408 AMENDED REPORT 09/26/24 1408 Anti-SS-A previously reported as: Test not performed Start: 09-25-2024 Autoantibody measurement Zunilda Mar [employer] Work Phone: Comment on above: Previous reported result: TNP AIEdited b y: INFCE on 09/26/24:1408 AMENDED REPORT 09/26/24 1408 ANTICHROMATIN previously reported as: Test not performed Start: 09-25-2024 Ceruloplasmin measurement Zunilda Mar N P-C Work Phone: Comment on above: Performed at: [facility] [place] [id number] Director: Massimo Gonzalez PhD, Phone: [phone] Start: 09-25-2024 Copper measurement, serum Zunilda Mar N P-C Work Phone: Comment on above: Detection Limit = 5 Start: 09-25-2024 Endomysial antibody IgA level Zunilda Mayen ar [employer] Work Phone: Comment on above: Note: Specimen is icteric. Start: 09-25-2024 Helen-Daugherty virus capsid IgG measurement Zunilda Mar [employer] Work Phone: Comment on above: Negative <18.0 Equivocal 18.0 - 21.9 Pos itive >21.9 Start: 09-25-2024 Helen-Daugherty virus serologic test Zunilda Mar [employer] Work Phone: Comment on above: EBV Interpretation ChartKey: Antibody Pr esent + Antibody Absent -Interpretation VCA-IgM VCA-IgG EBNA-IgGNo previous infection/ - - -SusceptiblePrimary infection (new + + -or recent)Past Infection +or- + +See comment below* + - -*Results indicate infection with EBV at some time however cannot predict the timing of the infection since antibodies to EBNA usually develop after primary infection or, alternatively, approximately 5-10% of patients with EBV never develop antibodies to EBNA. Start: 09-25-2024 Gliadin antibody, IgA measurement Zunilda Zaid [employer] Work Phone: Comment on above: Negative 0 - 19 Weak Positive 20 - 30 Mo derate to Strong Positive >30 Start: 09-25-2024 Gliadin antibody, IgG measurement Zunilda Zaid [employer] Work Phone: Comment on above: Negative 0 - 19 Weak Positive 20 - 30 Mo derate to Strong Positive >30 Start: 09-25-2024 Hepatitis A virus antibody, IgM type Zunilda Zaid [employer] Work Phone: Comment on above: A negative anti-HAV IgM result suggests no recent orcurrent HAV infection. Start: 09-25-2024 Hepatitis B core antibody measurement, IgM type Zunilda Zaid [employer] Work Phone: Start: 09-25-2024 Hepatitis C antibody measurement Zunilda Zaid [employer] Work Phone: Start: 09-25-2024 Immunoglobulin G subclass, G4 measurement Zunilda Zaid [employer] Work Phone: Start: 09-25-2024 Immunoglobulin M measurement Zunilda Edga r [employer] Work Phone: Start: 09-25-2024 Measurement of haptoglobin Zunilda Zaid [employer] Work Phone: Comment on above: Performed at: [facility] [place] [id number] [place], [place] [id number] Director: Massimo Gonzalez PhD, Phone: [phone] at: [facility] [id number] Director: Antonella Ricardo MD, Phone: [phone] Start: 09-25-2024 SURFACE GRINDER antibody measurement Zunilda Zaid [employer] Work Phone: Comment on above: Previous reported result: TNP AIEdited b y: INFCE on 09/26/24:1408 AMENDED REPORT 09/26/24 1408 SURFACE GRINDER Ab previously reported as: Test not performed Start: 09-25-2024 Magnetic resonance cholangiopancreatography Zunilda Mar [employer] Work Phone: Start: 09-25-2024 Biopsy/Inj or Needle Placement Zunilda thakkar [employer] Work Phone: Start: 09-24-2024 Measurement of 3,4-methylenedioxymethamphetamine in urine Zunilda Mar [employer] Work Phone: Start: 09-24-2024 Methadone measurement, urine Zunilda Floresga r [employer] Work Phone: Start: 09-24-2024 Urine barbiturate measurement Zunilda Floresg ar [employer] Work Phone: Start: 09-24-2024 Urnls dip stick/tablet reagent auto microscopy Zunilda Mar [employer] Work Phone: Start: 09-24-2024 Serum ethanol measurement Zunilda Mar N P-C Work Phone: Comment on above: The serum:whole blood ethanol ratio is a pproximately 1.14and varies slightly with hematocrit. Medical Alcohol reference interval and critical value innon-tolerant individuals; 50 - 100 Impairment 100 Intoxication 100 - 250 Severe Poisoning 250 - 400 Deep/possible fatal coma Start: 09-24-2024 Computed tomography of abdomen and pelvis with intravenous contrast Zunilda Mar [employer] Work Phone: Start: 09-24-2024 Urine culture Zunilda Mar [employer] Work Phone: Start: 09-19-2024 Urine culture Zunilda Mar [employer] Work Phone: Plan of Treatment Date Care Activity Detail Author Start: 09-27-2024 Patient discharge [facility] Start: 09-26-2024 Provision of activity privileges [facility] Start: 09-25-2024 Catheterization of vein [facility] Start: 09-25-2024 Vital signs measurements [facility] Start: 09-24-2024 Following clinical p athway protocol [facility] Start: 09-24-2024 Application of inter mittent pneumatic compression device [facility] Start: 09-24-2024 Ambulation without limitation [facility] Start: 09-24-2024 Assessment of risk o f venous thromboembolism [facility] Start: 09-24-2024 Insertion of cathete r into peripheral vein [facility] Start: 09-24-2024 Measuring intake and output [facility] Start: 09-24-2024 Providing care accor ding to standard [facility] Start: 09-24-2024 Referral to service [facility] Start: 09-24-2024 [facility] Start: 09-24-2024 Admission procedure [facility] Patient referral [facility] Work Phone: Payers Date Payer Category Payer Private Health Insurance [id number] 2024 Private Health Insurance [id number] 2024 Self-pay Unknown ALLIED [employer] [id number] Unknown [id number] Unknown [id number] Unknown [id number] Unknown [id number] Unknown [id number] Unknown [id number] Unknown [id number] Unknown [id number] 2..[id number] Unknown [id number] Unknown [id number] [id number] Unknown [id number] [id number] Unknown [id number] [id number] Unknown [id number] Social History Date Type Detail Facility [facility]: [facility] Start: 1995 Sex Assigned At Male [facility] Medical Equipment Procedure Code Equipment Code Equipment Origin al Text Equipment Identifier Dates ERCP (endoscopic retrograde cholangiopancreatog rebekah) ([id number]) Polymeric biliary stent, non-bioabsorbable ([id number] FDA Start: 09-26-2024 Goals Date Patient Goal Desired Activity /State Functional Status Date Assessment Result Facility 09-27-2024 Functional status Ambulates;Up ad nitza [facility] Work Phone: Mental Status Date Assessment Result Facility 09-27-2024 Cognitive function Voice/Name [facility] Work Phone: Discharge summary note 09-27-2024 Note Date & Type Note Facility 09-27-2024 Note [place] [facility] Medical Records Department [address] [place] [id number] Discharge Summary 09/27/24 1522 MR#: [id number] Acct: [id number] Name: JOJO MCKEON Rep #: [id number] : 1995 29 From: Mani Emanuel MD PCP: ROMEO Leonard Status:DIS IN Location: [facility] [id number] Providers Date of Admission: 09/24/24 Primary Care Physician: ROMEO Leonard Reason For Visit: ACUTE DRUG-INDUCED HEPATITIS DUE TO CIPRO WITH Diagnosis Discharge Diagnosis (1) Drug-induced hepatitis: Status: Acute Code(s): K71.6 - Toxic liver disease with hepatitis, not elsewhere classified; T50.905A - Adverse effect of unspecified drugs, medicaments and biological substances, initial encounter (2) Acute cystitis without hematuria: Status: Acute Code(s): N30.00 - Acute cystitis without hematuria Medications at Discharge Home Medications prednisone 20 mg tablet 20 mg PO DAILY #30 tabs 09/27/24 Hospital Course Operations ERCP Procedures None and - (Liver biopsy) Summary of Care Provided Minutes Spent on Discharge: 38 Hospital Course: Per HPI: JOJO MCKEON, is a 29 M with a past medical history of morbid obesity; with BMI of 43 this admission and recently diagnosed UTI; that was subsequently treated with oral ciprofloxacin who presents to [facility] ER complaining of painless jaundice after ciprofloxacin for treatment of a UTI. Mr. Gonzalez reports his symptoms began approximately 5 days ago when he was diagnosed with a UTI and then started on oral ciprofloxacin with subsequent severe pain in his abdomen and back he initially attributed to the UTI and the pain resolved he began to notice yellowing of his skin. His mother was concerned he was having an allergic reaction to his recently started ciprofloxacin so he stopped taking it today and they then decided to come in for further evaluation and treatment. He admits to intermittent ibuprofen use but he denies acetaminophen use, EtOH abuse, history of gallstones, history of abdominal surgery or similar previous episodes. There was no report of fever, chills, nausea, vomiting, diarrhea, constipation, chest pain, SOB or headache. In the ER he was noted to have markedly abnormal LFT's consisting of: Hyperbilirubinemia of 6.4 mg/dL, Direct Bilirubin 4.99 mg/dL, AST 378 U/L, ALT 680 U/L and Alkaline Phosphatase of 268 U/L present on admission with CT of the abdomen and pelvis revealing no acute abdominal finding with a non-obstructing Right renal calculus and layering sludge in the gallbladder without acute cholecystitis and he was then diagnosed with Acute Drug-induced Hepatitis due to Adverse Drug Reaction to recently started Ciprofloxacin causing Jaundice with finish patcher recommending patient be treated with Solu-Medrol 1g IV once in addition to ERCP with possible biopsy planned for tomorrow causing patient to be made strict NPO to prepare for procedure. He was then admitted to the general medical floor for ongoing care for a stay that is expected to extend beyond 2 midnights. Hospital Course: 1. Acute drug-induced hepatitis with choledocholithiasis???29-year-old male presented to the hospital with jaundice. He was found to have hyperbilirubinemia drug-induced hepatitis from ciprofloxacin. Started on high-dose steroids and had subsequent improvement in his bilirubin however an MRCP also demonstrated choledocholithiasis for he underwent an ERCP with stone removal and temporary stent placement. He continued to have improvement in all of his liver numbers and I discussed the case with gastroenterology who recommended 20 mg of prednisone p.o. daily for a month on discharge. He will need to follow-up with his PCP in 3 to 5 days as well as gastroenterology within the next 2 weeks. They are also to schedule an outpatient appointment for stent retrieval. The ciprofloxacin was started because of believe that he had a UTI however cultures from 09/19/2024 were negative for any growth and he was prescribed 14 days of Cipro onto the concern that he could potentially have pyelonephritis because he was also having some back pain however this was likely the choledocholithiasis therefore his antibiotics were completely discontinued on discharge. Physical Exam Narrative General: Alert, Oriented x3, Cooperative, No apparent distress HEENT: Atraumatic, PERRLA, EOMI, Normocephalic Oral: Moist Mucosa Neck: Supple, No JVD Lungs: Clear to auscultation, Normal air movement, No rhonchi, No wheeze, No rales Cardiovascular: Regular rate, Regular Rhythm, Normal S1, Normal S2, No murmurs Abdomen: Soft, Non Tender, Non-Distended, No Hepato-splenomegaly Extremities: No edema, Capillary Refill Less than 3 Seconds Skin: Jaundiced, improving Musculoskeletal: No Tenderness to Palpation of Joints or Extremities Neurological: No focal neurological deficits, Mot (more content not included)... [facility] Evaluation note 09-24-2024 Note Date & Type Note Facility 09-24-2024 Evaluation note Diagnosis Onset Date Resolution Abdominal obesity and metabolic syndrome acute September 9:20pm Acute cystitis without hematuria acute September 24, 2024 9:20pm Adverse drug reaction acute Feb ruary 2024 9:20pm Drug-induced hepatitis acute Fe bruary 2024 9:20pm Hyperbilirubinemia acute Februa ry 2024 9:20pm Morbid obesity with BMI of 40.0-44.9, adult acute September 24, 2024 9:20pm Transaminitis acute September 242024 9:20pm Hyperbilirubinemia acute November 06, 2024 3:27pm Transaminitis acute November 06, 2024 3:27pm [facility] Work Phone: Reason for referral (narrative) Note Date & Type Note Facility Reason for referral (narrative) No reason for referral information available [facility] Work Phone: Chief Complaint and Reason for Visit Chief Complaint Admit Date ACUTE DRUG-INDUCED HEPATITIS DUE TO CIPR O WITH September 24, 2024 9:20pm ACUTE DRUG-INDUCED HEPATITIS DUE TO CIPR O WITH September 25, 2024 9:03am ACUTE DRUG-INDUCED HEPATITIS DUE TO CIPR O WITH September 25, 2024 5:36pm AM EKG September 26, 2024 5:41am ACUTE DRUG-INDUCED HEPATITIS DUE TO CIPR O WITH September 26, 2024 3:52pm ACUTE DRUG-INDUCED HEPATITIS DUE TO CIPR O WITH September 26, 2024 4:09pm ACUTE DRUG-INDUCED HEPATITIS DUE TO CIPR O WITH September 27, 2024 3:22pm Follow Up November 06, 2024 3:2 7pm MNT December 22, 2024 3:02p m Reason for Visit Admit Date Abdominal obesity and metabolic syndrome September 24, 2024 9:20pm Acute cystitis without hematuria Februar 2024 9:20pm Adverse drug reaction September 24 9:20pm Drug-induced hepatitis September 24 9:20pm Hyperbilirubinemia September 24, 2024 9:20pm Morbid obesity with BMI of 40.0-44.9, ad ult September 24, 2024 9:20pm Transaminitis September 24, 2024 9:20pm Hyperbilirubinemia November 06, 2024 3:2 7pm Transaminitis November 06, 2024 3:2 7pm Advance Directives No Advanced Directives Records Found Advance Directive Response Recorded Date/ Time Living Will No September 24 10:37pm Do you have a Healthcare Power of Analog Circuit Designer? No September 24, 2024 10:37pm Summary Purpose Family History No Family History Records Found Additional Source Comments Care Teams (unrecognized sec tion and content) Team Status: Active Member Role Status Dates Zunilda Zaid , [employer] Primary Care Provider Active Team Status: Inactive Member Role Status Dates Zunilda Zaid , [employer] Primary Care Provider Active Start: September 19, 2024 End: September 19, 2024 Zunildavirgil Mar , [employer]C Attending Provider Active St art: September 19, 2024 End: September 19, 2024 Team Status: Inactive Member Role Status Dates Zunilda Zaid , [employer] Primary Care Provider Active Start: September 24, 2024 End: September 27, 2024 Dr. Prem Vogel DO Emergency Provider Active Start: September 24, 2024 End: September 27, 2024 Dr. Karson Agudelo DO Admit Provider Active Start: September 24, 2024 End: September 27, 2024 Dr. Karson Agudelo DO Other Provider Active Start: September 24, 2024 End: September 27, 2024 Dr. Mani Emanuel MD Attending Provider Active Start: September 24, 2024 End: September 27, 2024 Team Status: Active Member Role Status Dates Zunildavirgil Mar , [employer] Primary Care Provider Active Start: September 25, 2024 Dr. Prem Vogel DO Emergency Provider Active Start: September 25, 2024 Dr. Karson Agudelo DO Admit Provider Active Start: September 25, 2024 Dr. Karson Agudelo DO Other Provider Active Start: September 25, 2024 Dr. Mani Emanuel MD Referring Provider Active Start: September 25, 2024 Dr. Mani Emanuel MD Other Provider Active Start: September 25, 2024 Dr. Adelso Kaur DO Attending Provider Active Start: September 25, 2024 Team Status: Active Member Role Status Dates Zunildavirgil Mar , [employer] Primary Care Provider Active Start: September 25, 2024 Dr. Prem Vogel DO Emergency Provider Active Start: September 25, 2024 Dr. Karson Agudelo DO Admit Provider Active Start: September 25, 2024 Dr. Karson Agudelo DO Other Provider Active Start: September 25, 2024 Dr. Mani Emanuel MD Attending Provider Active Start: September 25, 2024 DrChava Emanuel MD Other Provider Active Start: September 25, 2024 Team Status: Active Member Role Status Dates Zunilda Mar , [employer] Primary Care Provider Active Start: September 26, 2024 End: September 26, 2024 Dr. Mary Jiang MD Attending Provider Activ e Start: September 26, 2024 End: September 26, 2024 Dr. Mary Jiang MD Referring Provider Activ e Start: September 26, 2024 End: September 26, 2024 Team Status: Active Member Role Status Dates Zunilda Mar , [employer] Primary Care Provider Active Start: September 26, 2024 Dr. Prem Vogel DO Emergency Provider Active Start: September 26, 2024 Dr. Karson Agudelo , Admit Provider Active Start: September 26, 2024 Dr. Karson Agudelo DO Other Provider Active Start: September 26, 2024 Dr. Mani Emanuel MD Other Provider Active Start: September 26, 2024 Dr. Adelso Kaur , Attending Provider Active Start: September 26, 2024 Team Status: Active Member Role Status Dates Zunilda Mar , [employer] Primary Care Provider Active Start: September 26, 2024 Dr. Prem Vogel DO Emergency Provider Active Start: September 26, 2024 Dr. Karson Agudelo DO Admit Provider Active Start: September 26, 2024 Dr. Karson Agudelo DO Other Provider Active Start: September 26, 2024 Dr. Mani Emanuel MD Attending Provider Active Start: September 26, 2024 Dr. Mani Emanuel MD Other Provider Active Start: September 26, 2024 Team Status: Active Member Role Status Dates Zunilda Mar , [employer] Primary Care Provider Active Start: September 27, 2024 Dr. Prem Vogel DO Emergency Provider Active Start: September 27, 2024 Dr. Karson Agudelo DO Admit Provider Active Start: September 27, 2024 Dr. Karson Agudelo DO Other Provider Active Start: September 27, 2024 Dr. Mani Emanuel MD Attending Provider Active Start: September 27, 2024 Dr. Mani Emanuel MD Other Provider Active Start: September 27, 2024 Team Status: Inactive Member Role Status Dates ROMEO Leonard Primary Care Provider Active Start: November 06, 2024 End: November 06, 2024 ROMEO Leonard Referring Provider Active St art: November 06, 2024 End: November 06, 2024 Dr. Adelso Kaur DO Attending Provider Active Start: November 06, 2024 End: November 06, 2024 Team Status: Inactive Member Role Status Dates ROMEO Leonard Primary Care Provider Active Start: December 22, 2024 End: January 10, 2025 Dr. Adelso Kaur DO Attending Provider Active Start: December 22, 2024 End: January 10, 2025 Dr. Adelso Kaur DO Referring Provider Active Start: December 22, 2024 End: January 10, 2025 (unrecognized sect ion and content) No Status Records Found INFORMATION SOURCE (unrecogn ized section and content) DATE CREATED AUTHOR 01/14/2025 [facility] FOR RECORDS PERTAINING TO PATIENTS WHO ARE OR HAVE BEEN ENROLLED IN A CHEMICAL DEPENDENCY/SUBSTANCEABUSE PROGRAM, SOME INFORMATION MAY BE OMITTED. This clinical summary was aggregated from multiple sources. Caution should be exercised in using it in the provision of clinical care. This summary normalizes information from multiple sources, and as a consequence, information in this document may materially change the coding, format and clinical context of patient data. In addition, data may be omitted in some cases. CLINICAL DECISIONS SHOULD BE BASED ON THE PRIMARY CLINICAL RECORDS. [employer] provides no warranty or guarantee of the accuracy or completeness of information in this document.
[2025-01-15 22:42] LABS: Mucous, Urine 0 SEEN /hpf (<or=2+); Squamous Epithelial Cells - UA 0 SEEN /hpf (0-5)
[2025-01-15 22:50] LABS: Color, Urine Yellow (Yellow); Glucose, Dipstick Normal (Normal); Ketone-Dipstick Negative (Negative); Leukocyte Esterase-Dipstick Negative /ul (Negative); Nitrite-Dipstick Negative (Negative); Occult Blood-Urine Negative /ul (Negative); Protein-Dipstick 15 mg/dl (Negative); Specific Gravity, Urine 1.015 (1.002-1.030); Urine Bilirubin Dipstick Negative (Negative); Urine Clarity Clear (Clear); Urine Urobilinogen 1 mg/dl (Normal)
[2025-01-15] MEDS: 0.9% Normal Saline (1000mL) 1,000 ML 999 ML IV (22:54)
[2025-01-15 22:57] VITALS: BP 136/90; PULSE 96; RESP 18; TEMP 39.4; O2SAT 100
[2025-01-15 23:03] LABS: Absolute Lymphocyte Count 0.44 X10^3/uL (0.83-4.51); Absolute Neutrophil Count 5.9 X10^3/uL (2.0-7.7); Basophil# 0.03 X10^3/uL; Basophil% 0.4 % (0-1); Eosinophil# 0.01 X10^3/uL; Eosinophils% 0.1 % (0-5); Hematocrit 46.7 % (40-54); Lymphocyte # 0.44 X10^3/ul (0.83-4.51); Lymphocyte % 6.4 % (19-41); Mean Corp Hgb Conc 36.4 g/dL (32-36); Mean Corpuscular Hgb 30.7 pg (27.0-32.0); Mean Corpuscular Volume 84.3 fL (80-94); Mean Platelet Vol. 13.4 fl (6.2-12.0); Monocyte# 0.46 X10^3/uL; Monocyte% 6.7 % (0-10); NRBC Flagged by Analyzer 0 % (0-5); Neutrophil # 5.94 X10^3/uL (2.7-7.7); Neutrophil % 86.1 % (47-70); POSITIVE DIFFERENTIAL YES; Platelet Count 112 K/mm3 (150-450); RBC Distribution Width CV 11.8 % (11.6-14.6); RBC Distribution Width SD 35.7 fl (35.1-43.9); Red Blood Count 5.54 M/mm3 (4.6-6.2); White Blood Count 6.9 K/mm3 (4.4-11.0)
--- NOTE | 2025-01-15 23:21 | RAD_ITS ---
PROCEDURE: CHEST PA AND LATERAL 01/15/2025 REASON FOR EXAM: FEVER TECHNIQUE: Frontal and lateral views of the chest. COMPARISON: None FINDINGS: Cardiomediastinal silhouette is within normal limits. Lungs are clear. No sizable pneumothorax. RAD/Chest PA and Lateral IMPRESSION: No acute airspace abnormality. Reading Location: [facility]
[2025-01-15 23:48] LABS: Lactic Acid 1.1 mmol/L (0.0-2.0)
[2025-01-15 23:51] LABS: Bacteria 1+ /hpf (None Seen); White Blood Cells 0-5 SEEN /hpf (0-5)
[2025-01-15 23:52] LABS: Red Blood Cells-Urine 0-5 SEEN /hpf (0-5)
[2025-01-15 23:54] LABS: Lipase 37 U/L (13-75); Procalcitonin 0.38 ng/mL (<=0.10)
[2025-01-15 23:55] VITALS: PULSE 106
[2025-01-16] VITALS (12 sets, daily range): BP systolic 106–144; BP diastolic 71–85; PULSE 77–106; RESP 16–19; TEMP 36.8–39.1; O2SAT 97–100; BMI 38.9; BMI 39.0
[2025-01-16 00:04] LABS: AST(SGOT) 70 U/L (<=37); Alanine Aminotransfer ALT/SGPT 72 U/L (<=46); Albumin, Serum 4.3 g/dL (3.5-5.0); Alkaline Phosphatase 104 U/L (40-129); Anion Gap 12 (5-15); BUN 4 mg/dL (4-19); Bilirubin, Direct 0.75 mg/dL (0.00-0.30); Calcium,Total 9.7 mg/dL (7.6-11.0); Carbon Dioxide 24.9 mmol/L (21.0-32.0); Chloride 101 mmol/L (98-108); Creatinine, Serum 1.09 mg/dL (0.70-1.20); EST Glomerular Filtration Rate 94 (>60); Estimated Creatinine Clearance 127.64 ml/min (50-250); Globulin 2.5 g/dL (2.2-4.2); Glucose 98 mg/dL (70-99); Potassium 3.7 mmol/L (3.3-5.1); Protein, Total 6.8 g/dL (5.9-8.4); Sodium Level 138 mmol/L (133-145); Total Bilirubin 0.17 mg/dL (0.00-1.30)
[2025-01-16] MEDS: Acetaminophen 500 MG Tablet 1000 MG PO (00:12)
--- NOTE | 2025-01-16 00:45 | HP.PCM.HOS_ITS ---
HPI - General General Date of Admission: 01/16/25 Date of Service: 01/16/25 Chief Complaint: Fever, chills, recent ERCP with stent removal. HPI Narrative The patient is a 29 y/o M w/ PMHx: Obesity, AUGUSTE, Choledocholithiasis in addition to History of drug-induced hepatitis with associated mild hyperbilirubinemia/transaminitis felt secondary to oral ciprofloxacin following treatment for urinary tract infection status post ERCP with stone removal and temporary stent placement 09/26/2024 who now presents to the [facility] ED on 01/16/2025 with the day prior reassessment by gastroenterology with a ERCP with biliary system dilated with noted stone causing obstruction with choledocholithiasis again evident with removal by biliary sphincterotomy and balloon extraction with biliary tree swept and 1 stent removed from the biliary tree with onset significant chills and fever starting approximately 30 minutes to an hour prior to ED arrival with no specific associated abdominal pain, nausea or emesis. Workup in the ED included initial T99.1, heart rate 77, BP 122/76, respiratory rate 16, 100% on room air however Tmax in the ED noted to be 103 with most recent repeat current vitals T102.4, heart rate 104, BP 115/75, respiratory rate 18, 100% on room air, CBC with WBC 6.9, he 1 17, platelet 112 with lymphopenia, CMP with T. bili 0.17, T. bili 0.75, AST/ALT 70/72, procalcitonin mildly elevated 0.38, urinalysis not marked appearing, urine culture pending per ED, blood culture x 2 pending per ED, chest x-ray with no acute cardiopulmonary findings, CT abdomen and pelvis with no definitive evidence of acute intra-abdominal abnormality with normal caliber common bile duct, mild wall thickening of the ascending colon possibly underdistention, mild urinary bladder wall thickening also possibly in retention, punctate nonobstructing stone measuring 2 mm in the right kidney unchanged as well as splenomegaly. In the ED patient ministered 1 L normal saline, Tylenol 1000 mg p.o. x 1, Motrin 60 mg p.o. x 1, Zosyn 3.375 g IV x 1. ED discussed case with Dr. Kaur who recommended admission, continued IV zosyn while awaiting Bld Cx. [facility] Medical History Obesity Drug-induced hepatitis Transaminitis Hyperbilirubinemia AUGUSTE (nonalcoholic steatohepatitis) Wears glasses History of biliary stent insertion Home Medications ?Medication ?Instructions ?Recorded ?Last Taken ?Type resmetirom 100 mg tablet 100 mg PO DAILY 01/13/2512/05 History (Rezdiffra) Allergy/AdvReac Type Severity Reaction Status Date / Time ciprofloxacin (From Cipro) Allergy hepatitis Verified 01/15/25 21:56 Family History (Updated 01/16/25 @ 02:[address] Pricila Montez MD) Mother Hypertension MVP (mitral valve prolapse) Father CAD (coronary artery disease) Hypertension Heart disease Myocardial infarction Surgical History S/P ERCP Social History (Updated 01/16/25 @ 02:[address] Pricila Montez MD) household members: family housing: house Smoking Status: Never smoker alcohol intake: never substance use type: does not use ROS ROS Narrative Admission Review of Systems: CONSTITUTIONAL: No weight loss, + fever, chills, weakness or fatigue. HEENT: Eyes: No visual loss, blurred vision, double vision or yellow sclerae. Ears, Nose, Throat: No hearing loss, sneezing, congestion, runny nose or sore throat. SKIN: No rash or itching, lesions, wounds. CARDIOVASCULAR: No chest pain, chest pressure or chest discomfort, palpitations, edema, orthopnea, syncopal events. RESPIRATORY: No shortness of breath, cough or sputum, wheezing, hemoptysis. GASTROINTESTINAL: No anorexia, nausea, vomiting or diarrhea, abdominal pain, melena, BRBPR. GENITOURINARY: No dysuria, frequency, urgency or retention. NEUROLOGICAL: No headache, dizziness, syncope, paralysis, ataxia, numbness or tingling in the extremities, focal weakness, change in bowel or bladder control, seizure. MUSCULOSKELETAL: + muscle, back pain, joint pain or stiffness. HEMATOLOGIC: No anemia, bleeding or bruising. LYMPHATICS: No enlarged nodes. No history of splenectomy. PSYCHIATRIC: No history of depression or anxiety. ENDOCRINOLOGIC: + reports of sweating, cold or heat intolerance. No polyuria or polydipsia. ALLERGIES: + History of drug-induced hepatitis from ciprofloxacin. Vital Signs Vital Signs Vital Signs: 01/15/25 21:55 01/15/25 22:57 01/15/25 23:55 Temperature 102.9 F H 103.0 F H Temperature Source Oral Oral Pulse Rate 100 96 106 H Respiratory Rate 20 H 18 Blood Pressure 135/96 H 136/90 H Blood Pressure Mean 109 105 Pulse Ox 98 100 Oxygen Delivery Method Room Air Room Air 01/16/25 00:00 01/16/25 00:29 Temperature 102.4 F H 102.0 F H Temperature Source Oral Pulse Rate 104 H 101 H Respiratory Rate 18 19 H Blood Pressure 115/72 114/76 Blood Pressure Mean 86 88 Pulse Ox 100 98 Oxygen Delivery Method Room Air Weight Weight: 263 lb 9.6 oz Body Mass Index (BMI) 38.9 Physical Exam Narrative Physical Examination: General: Awake, alert, oriented x 3 and cooperative, seated upright in the ED bed in no apparent distress, extremely soft-spoken. Skin: Flushed color, normal turgor, no icterus, no cyanosis. HEENT: AT/NC, EOMI, PERRLA, MMM, no carotid bruits or JVD noted. Lungs: Diminished, greater bases, appropriate effort, no rales, ronchi or wheezing. Heart: Mildly tachycardic with regular rhythm; no gallop, rub audible. Abdomen: Soft, obese, no tenderness to palpation, no marked distention, mildly hyperactive BS, positive HM. Extremities: No cyanosis, no clubbing, no significant peripheral edema. Neurological: Patient awake, alert, oriented as noted, cognitive function intact; pupils equally reactive to light and accommodation, cranial nerves grossly normal, moving all 4 extremities, no focal deficits, strength mildly to moderately globally Huong secondary to acute presentation complaints. Psychiatric: Affect appears fatigued, no acute evidence of depressive or anxiety feelings. Results Lab / Micro Data 01/15/25 22:48 01/15/25 22:48 Labs: Laboratory Results - last 24 hr 01/15/25 22:13: Urine Color Yellow, Urine Clarity Clear, Urine pH 8.0, Ur Specific Hague 1.015, Urine Protein 15 H, Urine Glucose (UA) Normal, Urine Ketones Negative, Urine Occult Blood Negative, Urine Nitrite Negative, Urine Bilirubin Negative, Urine Urobilinogen 1 H, Ur Leukocyte Esterase Negative, Urine RBC 0-5 SEEN, Urine WBC 0-5 SEEN, Ur Squamous Epith Cells 0 SEEN, Urine Bacteria 1+, Urine Mucus 0 SEEN 01/15/25 22:48: WBC 6.9, RBC 5.54, Hgb 17.0 H, Hct 46.7, MCV 84.3, MCH 30.7, M CHC 36.4 H, RDW Std Deviation 35.7, RDW Coeff of Lopez 11.8, Plt Count 112 L, MPV 13.4 H, Immature Gran % (Auto) 0.300, Neut % (Auto) 86.1 H, Lymph % (Auto) 6.4 L , Whitman % (Auto) 6.7, Eos % (Auto) 0.1, Baso % (Auto) 0.4, Absolute Neuts (auto) 5.9, Absolute Lymphs (auto) 0.44 L, Nucleated RBC % 0, Sodium 138, Potassium 3.7, Chloride 101, Carbon Dioxide 24.9, Anion Gap 12, BUN 4, Creatinine 1.09, Estim Creat Clear Calc 127.64, Est GFR (MDRD) Non-Af 94, BUN/Creatinine Ratio 4.0 L, Glucose 98, Lactic Acid 1.1, Calcium 9.7, Total Bilirubin 0.17, Direct Bilirubin 0.75 H, AST 70 H, ALT 72 H, Alkaline Phosphatase 104, Total Protein 6.8, Albumin 4.3, Globulin 2.5, Lipase 37, Procalcitonin 0.38 H Micro: Microbiology 01/15/25 22:40 Mucosa - Nose SARS-CoV-2, Influenza & RSV (PCR) - Final Imaging Radiology Impression Abdomen/Pelvis CT 01/15/25 22:18 IMPRESSION: 1. No definite evidence for an acute intra-abdominal abnormality. Normal caliber common bile duct. 2. Mild wall thickening of the ascending colon, which may be result of underdistention. Colitis is possible but less likely given absence of inflammatory stranding. 3. Mild urinary bladder wall thickening may also be related to underdistention or cystitis. Correlate with urinalysis. 4. Punctate nonobstructing stone measuring 2 mm in the right kidney, unchanged. 5. Splenomegaly. Reading Location: [id number] Chest X-Ray 01/15/25 23:21 IMPRESSION: No acute airspace abnormality. Reading Location: [facility] Assessment & Plan Assessment/Plan (1) Fever: PLAN: Plan The patient is a 29 y/o M w/ PMHx: Obesity, AUGUSTE, Choledocholithiasis in addition to History of drug-induced hepatitis with associated mild hyperbilirubinemia/transaminitis felt secondary to oral ciprofloxacin following treatment for urinary tract infection status post ERCP with stone removal and temporary stent placement 09/26/2024 who now presents to the [facility] ED on 01/16/2025 s/p recent 01/15/25 ERCP with stent removal per Dr. Kaur with onset significant chills and fever starting approximately 30 minutes to an hour prior to ED arrival with no specific associated abdominal pain, nausea or emesis. #1. Recent evidence of recurrent choledocholithiasis with mild hyperbilirubinemia/transaminitis status post repeat ERCP with 1 stent removal with onset of fevers and chills, possibly related to recent intervention, possibly transient bacteremia: Will admit to medical surgical floor given stable vital signs, will maintain n.p.o. status on IV fluids with IV PPI pending GI involvement in case of repeat ERCP needs, will maintain on IV Zosyn therapy, continue antipyretic regimen, will have antiemetic regimen and pain regimen if needed, continue aggressive IV fluids. #2. AUGUSTE complicated by recent history of drug-induced hepatitis: Will continue patient home resmetirom regimen, will continue to trend CMP with underlying liver disease complicated by recent history of drug-induced hepatitis felt secondary to ciprofloxacin in addition to choledocholithiasis status post previous ERCP with stent placement complicated by current presentation. #3. Obesity: Weight loss and lifestyle changes encouraged. #4. DVT prophylaxis: SCDs, hold chemoprophylaxis in case further intervention by gastroenterology is necessary. Charges/Coding Visit Charges Inpatient E&M: 05256 Init Hosp L3
[2025-01-16] MEDS: Piperacil/Tazobactam 3.375 GM in 0.9% Normal Saline (50mL MB+) 50 ML IV ×4 (00:53→22:29)
--- NOTE | 2025-01-16 01:05 | EX.ED.DYSGE1 ---
HPI History of Present Illness Chief Complaint: Fever Informant: patient Narrative Narrative: Patient is a 29-year-old male with past medical history of choledocholithiasis hyperbilirubinemia and AUGUSTE. He had a biliary stent placed back in September secondary to the choledocholithiasis. It was kept in place and he underwent surgery to remove the stent roughly 12 hours ago. He states that the procedure was uneventful and he was discharged home after a few hour stay in PACU. He reports roughly 1 hour prior to arrival he developed subjective fevers and chills with his recent procedure presents to the ER for evaluation. The patient denies any known sick contacts he states there has been no cough/congestion nausea vomiting diarrhea or dysuria. He denies any history of immunosuppression [facility] Medical History (Updated 01/16/25 @ 01:[address] Charlie Marc DO) Obesity Drug-induced hepatitis Transaminitis Hyperbilirubinemia AUGUSTE (nonalcoholic steatohepatitis) Wears glasses History of biliary stent insertion Home Medications ?Medication ?Instructions ?Recorded ?Last Taken ?Type resmetirom 100 mg tablet 100 mg PO DAILY 01/13/25 01/14/25 History (Rezdiffra) Allergy/AdvReac Type Severity Reaction Status Date / Time ciprofloxacin (From Cipro) Allergy hepatitis Verified 01/15/25 21:56 Surgical History (Updated 01/16/25 @ 00:[address] Pricila Montez MD) S/P ERCP Social History household members: family housing: house Smoking Status: Never smoker ROS [facility] ED Constitutional Constitutional ED: Reports chills and fever(s) ENT ENT ED: Denies rhinorrhea or sore throat Cardiovascular Cardiovascular: Denies chest pain Respiratory/Chest Respiratory/Chest: Denies cough or dyspnea Gastrointestinal Gastrointestinal: Denies abdominal pain, diarrhea, nausea or vomiting Genitourinary Genitourinary ED: Denies dysuria Musculoskeletal Musculoskeletal: Denies myalgias Integumentary Denies rash Neurologic Neurologic: Denies headache(s) Hematologic/Lymphatic Hematologic/Lymphatic: Denies easy bleeding or easy bruising EXAM Physical Exam Const Vital Signs: 01/15/25 21:55 01/15/25 22:57 01/15/25 23:55 Temperature 102.9 F H 103.0 F H Temperature Source Oral Oral Pulse Rate 100 96 106 H Respiratory Rate 20 H 18 Blood Pressure 135/96 H 136/90 H Blood Pressure Mean 109 105 Pulse Ox 98 100 Oxygen Delivery Method Room Air Room Air 01/16/25 00:00 01/16/25 00:29 01/16/25 01:00 Temperature 102.4 F H 102.0 F H 102.0 F H Temperature Source Oral Oral Pulse Rate 104 H 101 H 100 Respiratory Rate 18 19 H 18 Blood Pressure 115/72 114/76 110/71 Blood Pressure Mean 86 88 84 Pulse Ox 100 98 99 Oxygen Delivery Method Room Air Room Air Positive well nourished, well developed and obese General Appearance ED: well developed; Negative for pallor Nutritional Appearance: obese HEENT Reports moist mucous membranes HEENT Narrative: Normocephalic atraumatic No tongue or lip swelling no oral lesions no airway edema or compromise No secondary findings in the posterior pharynx to suggest infection Eyes PERRL and EOMs intact bilaterally General Eye ED: Negative for scleral icterus Neck supple and no JVD Neck Narrative: No nuchal rigidity or meningeal signs Resp normal respiratory effort and clear to auscultation bilaterally Resp Narrative: No nasal flaring retractions tachypnea or accessory muscle use Cardio regular rhythm Rate: tachycardic and other Other Details: Slightly tachycardic rate with regular rhythm No murmurs rubs or gallop Radial and carotid pulses are equal and symmetric GI non-distended and no masses GI Narrative: Obese soft nondistended with normal active bowel sounds. There is faint pain on palpation in the midepigastric and right upper quadrant region without voluntary guarding or rigidity No pulsatile mass Auscultation: normoactive bowel sounds Palpation: soft Extremity normal to inspection Extremity Narrative: No asymmetric edema no pitting edema negative Homans' sign bilaterally Neuro oriented x3, CN's II-XII intact bilaterally and no sensory deficits noted Sensorium / Orientation: alert Motor Exam: strength 5/5 throughout Psych mental status grossly normal Skin no rashes or lesions noted General Skin Exam: Negative for jaundice or pallor MDM MDM MDM Narrative Medical decision making narrative: Patient arrived to the ER febrile but otherwise with stable vital. With his recent surgical procedure there is concern for postoperative infection such as abscess or perforation. Patient may also have atypical presentation for COVID influenza RSV versus UTI versus pneumonia. Secondary to this basic labs with urine sample and blood cultures were obtained. Labs revealed no leukocytosis or left shift or lactic acidosis. Urine sample showed +1 bacteria but no white blood cells and nitrites are negative going against infection. Chest x-ray revealed no acute lung pathology and CT of the abdomen pelvis showed no intra-abdominal abnormality either. Based on his recent surgical procedure I did discuss the case with his field instructor Dr. Kaur. He feels at this time as we do not have a source of the fever that the patient's safest option is IV antibiotics and admission to the hospital while at least the blood cultures and urine culture are trended. Therefore the case was discussed with the hospitalist who agrees to accept the patient. Plan of care was discussed with patient and family and they are agreeable to it History & Record Review Discussion w/independent historian: Patient and Family Lab Data Attestation: I reviewed the patient's lab results. Labs: Laboratory Results - last 24 hr 01/15/25 01/15/25 22:13 22:48 WBC 6.9 RBC 5.54 Hgb 17.0 H Hct 46.7 MCV 84.3 MCH 30.7 MCHC 36.4 H RDW Std Deviation 35.7 RDW Coeff of Lopez 11.8 Plt Count 112 L MPV 13.4 H Immature Gran % (Auto) 0.300 Neut % (Auto) 86.1 H Lymph % (Auto) 6.4 L Lea % (Auto) 6.7 Eos % (Auto) 0.1 Baso % (Auto) 0.4 Absolute Neuts (auto) 5.9 Absolute Lymphs (auto) 0.44 L Nucleated RBC % 0 Sodium 138 Potassium 3.7 Chloride 101 Carbon Dioxide 24.9 Anion Gap 12 BUN 4 Creatinine 1.09 Estim Creat Clear Calc 127.64 Est GFR (MDRD) Non-Af 94 BUN/Creatinine Ratio 4.0 L Glucose 98 Lactic Acid 1.1 Calcium 9.7 Total Bilirubin 0.17 Direct Bilirubin 0.75 H AST 70 H ALT 72 H Alkaline Phosphatase 104 Total Protein 6.8 Albumin 4.3 Globulin 2.5 Lipase 37 Procalcitonin 0.38 H Urine Color Yellow Urine Clarity Clear Urine pH 8.0 Ur Specific Merom 1.015 Urine Protein 15 H Urine Glucose (UA) Normal Urine Ketones Negative Urine Occult Blood Negative Urine Nitrite Negative Urine Bilirubin Negative Urine Urobilinogen 1 H Ur Leukocyte Esterase Negative Urine RBC 0-5 SEEN Urine WBC 0-5 SEEN Ur Squamous Epith Cells 0 SEEN Urine Bacteria 1+ Urine Mucus 0 SEEN Radiography Diagnostic Testing: Clinical Impression(s) from Imaging Studies Abdomen/Pelvis CT 01/15/25 22:18 IMPRESSION: 1. No definite evidence for an acute intra-abdominal abnormality. Normal caliber common bile duct. 2. Mild wall thickening of the ascending colon, which may be result of underdistention. Colitis is possible but less likely given absence of inflammatory stranding. 3. Mild urinary bladder wall thickening may also be related to underdistention or cystitis. Correlate with urinalysis. 4. Punctate nonobstructing stone measuring 2 mm in the right kidney, unchanged. 5. Splenomegaly. Reading Location: [id number] Chest X-Ray 01/15/25 23:21 IMPRESSION: No acute airspace abnormality. Reading Location: [facility] Chest x-ray as interpreted by the emergency medicine physician reveals no acute infiltrate pneumothorax or pleural effusion Management Discussion w/another healthcare provider: Hospitalist and Foot And Ankle Surgeon Discharge Plan Triage Chief Complaint: Fever ED Provider: Charlie Marc Dx/Rx/DC Orders Clinical Impression: Pyrexia, Morbid obesity with BMI of 40.0-44.9, adult, AUGUSTE (nonalcoholic steatohepatitis) Prescriptions: No Action Rezdiffra 100 mg tablet 100 mg PO DAILY Primary Care Provider: Zunilda Mar Referrals: Zunilda Mar, [employer] [Primary Care Provider] - Print Language: Romansh Disposition Disposition: Acute Care [facility]
--- OUTSIDE RECORDS SUMMARY | 2025-01-16 01:24 | XMS RPT_ITS | CCD ---
Author Organization [facility] CliniSyde Care Team Providers Care Family Member Caretaker Name Role Phone Zaid CROWN PRESSER-C, Zunilda Primary Care Provider Zaid CROWN PRESSER-C, Zunilda Attending Provider [phone] Jaspreet LANGSTON, Dr. Amaro Emergency Provider Agudelo DO, Dr. Ty Admit Provider Unavail able Agudelo DO, Dr. Ty Other Provider Unavail able Adelfo BROWN, Dr. Mani Lima Attending Provider Adelfo BROWN, Dr. Mani Lima Referring Provider Adelfo BROWN, Dr. Mani Lima Other Provider [phone] Natasha LANGSTON, Dr. Darden Attending Provider Deidre BROWN, Dr. Hernandez Attending Provider Deidre BROWN, Dr. Hernandez Referring Provider Zaid CROWN PRESSER-C, Zunilda Referring Provider [phone] Dr. Adelso Kaur DO Referring Provider Mani [...] (1 source) Ciprofloxacin Drug Allergy 09-24-2024 hepatitis [facility] (1 source) Ciprofloxacin Drug Allergy 01-13-2025 [facility] Repository Medications Completed/Discontinued Medications Medication Drug Class(es) [...] Visit Repor ton 11-06-2024 Gastroenterology Visit Report [facility] Gastroenterology [address] [place] [address] OFFICE VISIT Date of Service: 11/06/24 MR#: [id number] Acct: [id number] Name: JOJO MCKEON Rep #: [id number] : 1995 Provider: Adelso Kaur DO Age/Sex: 29/M [place] [facility] [place]: [place]igned Intake Vital Signs 09/26/24 06:41 11/06/24 15:48 Height 5 ft 9 in 5 ft 9 in Weight: 299 lb 4 oz BMI 44.1 Intake Visit Reasons: Follow Up Allergies ciprofloxacin (From Cipro) Allergy (Verified 09/24/24 20:56) hepatitis [facility] Medical History UTI (urinary tract infection) Social History household members: family housing: house Smoking Status: Never smoker HPI HPI Details: JOJO MCKEON, is a 29 M who presents to the office today for hospital follow up. [facility] 09.24.24 - 09.27.24 general illness --- GI [...] habitus and overweight Orientation: alert and awake [facility] Head: normal to inspection and no palpable [...] treated with oral ciprofloxacin who presents to [facility] ER complaining of painless jaundice after ciprofloxacin [...] recently st (more content not included)... Normal [facility] ANCAon 10-01-2024 Atypical pANCA <1:20 Normal Neg:<1:20 [facility] Comment on above: Order Comment: Test( s) 313778-Vhelqn, Serum or Plasmawas developed and its performance characteristicsdetermined by [employer]. It has not been cleared or approvedby the Food and Drug Administration. Result Comment: Note : Specimen is icteric. The atypical pANCA pattern has been observed in a significant percentage of patients with ulcerative colitis, primary sclerosing cholangitis and autoimmune hepatitis. Performed By: #### L 501.2300, L501.5200, L500.4050 #### [facility] [address] [place], [address] Cytoplasmic Ab <1:20 Normal Neg:<1:20 [facility] Comment on above: Order Comment: Test( s) 070291-Fhlvmo, Serum or Plasmawas developed and its performance characteristicsdetermined by [employer]. It has not been cleared or approvedby the Food and Drug Administration. Result Comment: Note : Specimen is icteric. Performed By: #### L 501.2300, L501.5200, L500.4050 #### [facility] [address] [place], [address] Perinuclear Ab. <1:20 Normal Neg:<1:20 [facility] Comment on above: Order Comment: Test( s) 950656-Vwpatx, Serum or Plasmawas developed and its performance characteristicsdetermined by [employer]. It has not been cleared or approvedby [...] up testing of positive sera with both NC- 3 and MPO-ANCA enzyme immunoassays. As many as 5% serum samples are positive only by EIA. Ref. AM J Clin Pathol 1999;111:507-513. Performed By: #### L 501.2300, L501.5200, L500.4050 #### [facility] [address] [place], [address] Anti-Smooth Muscle ABSon ANTISMOOTH MUSC 4 Units Normal 0-19 [facility] Comment on above: Order Comment: Test( s) 441426-Arqlxd, Serum or Plasmawas developed and its performance characteristicsdetermined by [employer]. It has not been cleared or approvedby the Food and Drug Administration. Result Comment: Nega tive 0 - 19 Weak positive 20 - 30 Moderate to strong positive >30 Actin Antibodies are found in 52-85% of patients with autoimmune hepatitis or chronic active hepatitis and in 22% of patients with primary biliary cirrhosis. Performed By: #### L 501.080 #### [facility] [address] [place], [place], [address] Copper, Serum or Plasmaon COPPER, SERUM 128 ug/dL High 63-121 [facility] Comment on above: Order Comment: Test( s) 123543-Eyngbm, Serum or Plasmawas developed and its performance characteristicsdetermined by [employer]. It has not been cleared or approvedby the Food and Drug Administration. Result Comment: Dete ction Limit = 5 Performed By: #### L 501.2300, L501.5200, L500.4050 #### [facility] [address] [place], [place], [address] Haptoglobinon 10-01-2024 HAPTOGLOBIN 111 mg/dL Normal 17-317 [facility] Comment on above: Order Comment: Test( s) 161272-Foccjf, Serum or Plasmawas developed and its performance characteristicsdetermined by [employer]. It has not been cleared or approvedby the Food and Drug Administration. Result Comment: Perf ormed at: [address] [id number] Drum Tender: Massimo Gonzalez PhD, Phone: [phone] Performed at: [facility] [id number] Drum Tender: Antonella Ricardo MD, Phone: [phone] Performed By: #### L 501.2300, L501.5200, L500.4050 #### [facility] [address] [place], [address] Hepatitis Panel Acuteon - COMMENT Comment Normal . [facility] Comment on above: Order Comment: Test( s) 441365-Ixdpkd, Serum or Plasmawas developed and its performance characteristicsdetermined by [facility]. It has not been cleared or approvedby the Food and Drug Administration. Result Comment: Not infected with HCV unless early or acute infection is suspected (which may be delayed in an immunocompromised individual), or other evidence exists to indicate HCV infection. Performed By: #### L 501.2300, L501.5200, L500.4050 #### [facility] [address] [place], [address] HEP B CORE,IgM Negative Normal Negative [facility] Comment on above: Order Comment: Test( s) 134426-Cjrunc, Serum or Plasmawas developed and its performance characteristicsdetermined by [facility]. It has not been cleared or approvedby the Food and Drug Administration. Performed By: #### L 501.2300, L501.5200, L500.4050 #### [facility] [address] [place], [address] HEP B SURF AG Negative Normal Negative [facility] Comment on above: Order Comment: Test( s) 517538-Vqqlux, Serum or Plasmawas developed and its performance characteristicsdetermined by [facility]. It has not been cleared or approvedby the Food and Drug Administration. Performed By: #### L 501.2300, L501.5200, L500.4050 #### [facility] [address] [place], [address] HEP C VIRUS AB Non-Reactive Normal Non Reactive [facility] Comment on above: Order Comment: Test( s) 038405-Xybdum, Serum or Plasmawas developed and its performance characteristicsdetermined by [employer]. It has not been cleared or approvedby the Food and Drug Administration. Performed By: #### L 501.2300, L501.5200, L500.4050 #### [facility] [address] [place], [address] HEPATITIS A-IgM Negative Normal Negative [facility] Comment on above: Order Comment: Test( s) 615321-Haxdka, Serum or Plasmawas developed and its performance characteristicsdetermined by [employer]. It has not been cleared or approvedby the Food and Drug Administration. Result Comment: A ne gative anti-HAV IgM result suggests no recent or current HAV infection. Performed By: #### L 501.2300, L501.5200, L500.4050 #### [facility] [address] [place], [address] IgG Subclasseson 10-01-2024 IgG, SUBCLASS 1 365 mg/dL Normal 248-810 [facility] Comment on above: Order Comment: Test( s) 961213-Vnkdyv, Serum or Plasmawas developed and its performance characteristicsdetermined by [employer]. It has not been cleared or approvedby the Food and Drug Administration. Performed By: #### L 501.2300, L501.5200, L500.4050 #### [facility] [address] [place], [address] IgG, SUBCLASS 2 262 mg/dL Normal 130-555 [facility] Comment on above: Order Comment: Test( s) 283980-Adqkiy, Serum or Plasmawas developed and its performance characteristicsdetermined by [employer]. It has not been cleared or approvedby the Food and Drug Administration. Performed By: #### L 501.2300, L501.5200, L500.4050 #### [facility] [address] [place], [address] IgG, SUBCLASS 3 33 mg/dL Normal 15-102 [facility] Comment on above: Order Comment: Test( s) 593429-Msorcr, Serum or Plasmawas developed and its performance characteristicsdetermined by [employer]. It has not been cleared or approvedby the Food and Drug Administration. Performed By: #### L 501.2300, L501.5200, L500.4050 #### [facility] [address] [place], [address] IgG, SUBCLASS 4 11 mg/dL Normal 2-96 [facility] Comment on above: Order Comment: Test( s) 885435-Heatpz, Serum or Plasmawas developed and its performance characteristicsdetermined by [employer]. It has not been cleared or approvedby the Food and Drug Administration. Performed By: #### L 501.2300, L501.5200, L500.4050 #### [facility] [address] [place], [address] IGG,QUANT 761 mg/dL Normal 603-1613 [facility] Comment on above: Order Comment: Test( s) 508217-Oxczma, Serum or Plasmawas developed and its performance characteristicsdetermined by [employer]. It has not been cleared or approvedby the Food and Drug Administration. Performed By: #### L 501.2300, L501.5200, L500.4050 #### [facility] [address] [place], [address] HIV - WCHon 09-30-2024 HIV Non-Reactive Normal Nonreactive [facility] Comment on above: Performed By: #### L 501.080 #### [facility] [address] [place], [address] Celiac AB,Comprehensiveon ANTIGLIADIN IGA 4 units Normal 0-19 [facility] Comment on above: Result Comment: Nega tive 0 - 19 Weak Positive 20 - 30 Moderate to Strong Positive >30 Performed By: #### L 501.080 #### [facility] [address] [place], [address] ANTIGLIADIN IGG 3 units Normal 0-19 [facility] Comment on above: Result Comment: Nega tive 0 - 19 Weak Positive 20 - 30 Moderate to Strong Positive >30 Performed By: #### L 501.080 #### [facility] [address] [place], [place], [address] ENDOMYSIAL IGA Negative Normal Negative [facility] Comment on above: Result Comment: Note : Specimen is icteric. Performed By: #### L 501.080 #### [facility] [address] [place], [place], [address] tTG IGA <2 Normal 0-3 [facility] Comment on above: Result Comment: Nega tive 0 - 3 Weak Positive 4 - 10 Positive >10 Tissue Transglutaminase (tTG) has been identified as the endomysial antigen. Studies have demonstr- ated that endomysial IgA antibodies have over 99% specificity for gluten sensitive enteropathy. Performed By: #### L 501.080 #### [facility] [address] [place], [address] tTG IGG 5 U/mL Normal 0-5 [facility] Comment on above: Result Comment: Nega tive 0 - 5 Weak Positive 6 - 9 Positive >9 Performed By: #### L 501.080 #### [facility] [address] [place], [address] Ceruloplasminon 09-29-2024 CERULOPLASMIN 30.1 mg/dL Normal 16.0-31.0 [facility] Comment on above: Result Comment: Perf ormed at: - [facility] [id number] Drum Tender: Massimo Gonzalez PhD, Phone: [phone] Performed By: #### L 909.0231 #### [facility] [address] [place], [place], [address] EBV Acute Prof IgG / IgMon 0 09-29-2024 EB Ab VCA, IgG > 600.0 High 0.0-17.9 [facility] Comment on above: Result Comment: Nega tive <18.0 Equivocal 18.0 - 21.9 Positive >21.9 Performed By: #### L 993.9181 #### [facility] [address] [place], [place], [address] EBV Ab VCA, IgM < 36.0 Normal 0.0-35.9 [facility] Comment on above: Result Comment: Nega tive <36.0 Equivocal 36.0 - 43.9 Positive >43.9 Performed By: #### L 500.4050 #### [facility] [address] [place], [place], [address] EBV NuAg Ab,IgG < 18.0 Normal 0.0-17.9 [facility] Comment on above: Result Comment: Nega tive <18.0 Equivocal 18.0 - 21.9 Positive >21.9 Performed By: #### L 500.4050 #### [facility] [address] [place], [place], [address] INTERPRETATION Comment Normal . [facility] Comment on above: Result Comment: EBV Interpretation [...] EBNA. Performed By: #### L 500.4050 #### [facility] [address] [place], [place], [address] Hepatitis Panel Acuteon - COMMENT Comment Normal . [facility] Comment on above: Result Comment: Not infected with HCV unless early or acute infection is suspected (which may be delayed in an immunocompromised individual), or other evidence exists to indicate HCV infection. Performed By: #### L 500.4050 #### [facility] [address] [place], [place], [address] HEP B CORE,IgM Negative Normal Negative [facility] Comment on above: Performed By: #### L 500.4050 #### [facility] [address] [place], [address] HEP B SURF AG Negative Normal Negative [facility] Comment on above: Performed By: #### L 500.4050 #### [facility] [address] [place], [address] HEP C VIRUS AB Non-Reactive Normal Non Reactive [facility] Comment on above: Performed By: #### L 500.4050 #### [facility] [address] [place], [address] HEPATITIS A-IgM Negative Normal Negative [facility] Comment on above: Result Comment: A ne gative anti-HAV IgM result suggests no recent or current HAV infection. Performed By: #### L 500.4050 #### [facility] [address] [place], [address] OSKAR + Protein Elect, Serumon 09-29-2024 Albumin [Mass/Vol] 3.4 g/dL Normal 2.9-4.4 [facility] Comment on above: Performed By: #### L 500.4050 #### [facility] [address] [place], [address] Albumin/Globulin [Mass ratio] 1.3 {ratio} Normal 0.7-1.7 [facility] Comment on above: Performed By: #### L 500.4050 #### [facility] [address] [place], [address] RZOBS-9-RSKU 0.3 g/dL Normal 0.0-0.4 [facility] Comment on above: Performed By: #### L 500.4050 #### [facility] [address] [place], [address] HULJS-7-YVAD 0.7 g/dL Normal 0.4-1.0 [facility] Comment on above: Performed By: #### L 500.4050 #### [facility] [address] [place], [address] BETA GLOBULIN 1.0 g/dL Normal 0.7-1.3 [facility] Comment on above: Performed By: #### L 500.4050 #### [facility] [address] [place], [address] GAMMA GLOBULIN 0.8 g/dL Normal 0.4-1.8 [facility] Comment on above: Performed By: #### L 500.4050 #### [facility] [address] [place], [address] Globulin (S) [Mass/Vol] 2.8 g/dL Normal 2.2-3.9 [facility] Comment on above: Performed By: #### L 500.4050 #### [facility] [address] [place], [address] OKSAR RESULT,S Comment Normal . [facility] Comment on above: Result Comment: No m onoclonality detected. Performed By: #### L 500.4050 #### [facility] [address] [place], [address] IMMUNOGLOB A QN 83 mg/dL Low 90-386 [facility] Comment on above: Performed By: #### L 500.4050 #### [facility] [address] [place], [address] IMMUNOGLOB G QN 768 mg/dL Normal 603-1613 [facility] Comment on above: Performed By: #### L 500.4050 #### [facility] [address] [place], [address] IMMUNOGLOB M QN 193 mg/dL High 20-172 [facility] Comment on above: Performed By: #### L 500.4050 #### [facility] [address] [place], [address] M-Juan Not Observed Normal Not Observed [facility] Comment on above: Performed By: #### L 500.4050 #### [facility] [address] [place], [place], [address] NOTE: Comment Normal . [facility] Comment on above: Result Comment: Prot ein electrophoresis scan will follow via computer, mail, or rn documentation delivery. Performed By: #### L 500.4050 #### [facility] [address] [place], [place], [address] Protein [Mass/Vol] 6.2 g/dL Normal 6.0-8.5 [facility] Comment on above: Performed By: #### L 500.4050 #### [facility] [address] [place], [place], [address] Albumin to globulin ratioOrd ered By: Mani Emanuel on 09-27-2024 Albumin/Globulin [Mass ratio] 0.8 {ratio} Low 0.9-2.4 [facility] Bilirubin, totalOrdered By: Mani Emanuel on 09-27-2024 Bilirubin [Mass/Vol] 2.30 mg/dL High 0.20-1.00 [facility] Comment on above: For patients on eltr ombopag therapy, use of Dimension Fallentimber TBIL is not recommended. Blood urea nitrogen (BUN)/cr eatinine ratioOrdered By: Mani Emanuel on 09-27-2024 Urea nitrogen/Creatinine [Mass ratio] 21.8 mg/mg High 10-20 [facility] Carbon dioxide measurementOr dered By: Mani Emanuel on 09-27-2024 CO2 [Moles/Vol] 26.0 mmol/L 21.0-32.0 [facility] Chloride measurementOrdered By: Mani Emanuel on 09-27-2024 Chloride [Moles/Vol] 108 mmol/L High 98-107 [facility] Comprehensive Metabolic Prof ilon 09-27-2024 Albumin [Mass/Vol] 2.7 g/dL Low 3.2-5.0 [facility] Comment on above: Performed By: #### L 500.4050 #### [facility] [address] [place], [address] Albumin/Globulin [Mass ratio] 0.8 {ratio} Low 0.9-2.4 [facility] Comment on above: Performed By: #### L 500.4050 #### [facility] [address] [place], [address] ALK P 169 U/L High 45-117 [facility] Comment on above: Performed By: #### L 500.4050 #### [facility] [address] [place], [address] ALT [Catalytic activity/Vol] 763 U/L High 16-61 [facility] Comment on above: Performed By: #### L 500.4050 #### [facility] [address] [place], [address] AST [Catalytic activity/Vol] 278 U/L High 15-37 [facility] Comment on above: Performed By: #### L 500.4050 #### [facility] [address] [place], [address] Bilirubin [Mass/Vol] 2.30 mg/dL High 0.20-1.00 [facility] Comment on above: Result Comment: For patients on eltrombopag therapy, use of Dimension Fallentimber TBIL is not recommended. Performed By: #### L 500.4050 #### [facility] [address] [place], [address] BUN/CRE 21.8 RATIO High 10-20 [facility] Comment on above: Performed By: #### L 500.4050 #### [facility] [address] [place], [address] CA,Total 9.0 mg/dL Normal 8.5-10.1 [facility] Comment on above: Performed By: #### L 500.4050 #### [facility] [address] [place], [address] Chloride [Moles/Vol] 108 mmol/L High 98-107 [facility] Comment on above: Performed By: #### L 500.4050 #### [facility] [address] [place], [address] CO2 [Moles/Vol] 26.0 mmol/L Normal 21.0-32.0 [facility] Comment on above: Performed By: #### L 500.4050 #### [facility] [address] [place], [address] Creatinine [Mass/Vol] 1.01 mg/dL Normal 0.70-1.30 [facility] Comment on above: Result Comment: The validity of the calculated GFR GFRAA in patients over 70 years has not been determined. Clinical correlation is essential. Performed By: #### L 500.4050 #### [facility] [address] [place], [address] ECRCL 145.04 ml/min Normal [facility] Comment on above: Performed By: #### L 500.4050 #### [facility] [address] [place], [address] EST GFR - AA 112 mL/min Normal >60 [facility] Comment on above: Result Comment: Afri can Kosovan GFR Calc Performed By: #### L 500.4050 #### [facility] [address] [place], [address] GAP 5 Normal 5-15 [facility] Comment on above: Performed By: #### L 500.4050 #### [facility] [address] [place], [address] GFR/1.73 sq M.predicted among non-blacks MDRD (S/P/Bld) [Vol rate/Area] 92 mL/min/{1.73_m2} Normal >60 [facility] Comment on above: Result Comment: Non- GFR Calc Performed By: #### L 500.4050 #### [facility] [address] [place], [address] Globulin (S) [Mass/Vol] 3.2 g/dL Normal 2.2-4.2 [facility] Comment on above: Performed By: #### L 500.4050 #### [facility] [address] [place], [address] Glucose [Mass/Vol] 109 mg/dL High 74-106 [facility] Comment on above: Result Comment: Fast ing Glucose result from 100 to 125 mg/dL suggests IMPAIRED HOMEOSTASIS per A.D.A. criteria. Performed By: #### L 500.4050 #### [facility] [address] [place], [address] Potassium [Moles/Vol] 4.4 mmol/L Normal 3.5-5.1 [facility] Comment on above: Performed By: #### L 500.4050 #### [facility] [address] [place], [address] Sodium [Moles/Vol] 139 mmol/L Normal 136-145 [facility] Comment on above: Performed By: #### L 500.4050 #### [facility] [address] [place], [address] T PROT 5.9 g/dL Low 6.4-8.2 [facility] Comment on above: Performed By: #### L 500.4050 #### [facility] [address] [place], [address] Urea nitrogen [Mass/Vol] 22 mg/dL High 7-18 [facility] Comment on above: Performed By: #### L 500.4050 #### [facility] [address] [place], [address] Discharge Instructionon 09-13 Discharge Instruction [facility] Medical Records Department [address] [place] [address] Instructions for Home/Discharge Instructions 09/27/24 0808 MR#: [id number] Acct: [id number] Name: JOJO MCKEON Rep #: [id number] : 1995 29 From: Mani Emanuel MD [...] Mar; Dr. Karson Agudelo DO Signed Normal [facility] Glomerular filtration rate ( GFR) estimationOrdered By: Mani Emanuel on 09-27-2024 GFR/1.73 sq M.predicted among non-blacks MDRD (S/P/Bld) [Vol rate/Area] 92 mL/min/{1.73_m2} >60 [facility] Comment on above: Non- GFR Calc Glucose measurementOrdered B y: Mani Emanuel on 09-27-2024 Glucose [Mass/Vol] 109 mg/dL High 74-106 [facility] Comment on above: Fasting Glucose resu lt from 100 to 125 mg/dL suggests IMPAIRED HOMEOSTASIS per A.D.A. criteria. Laboratory - Chemistry and C hemistry - challengeOrdered By: Mani Emanuel on 09-27-2024 AST [Catalytic activity/Vol] 278 U/L High 15-37 [facility] Potassium measurementOrdered By: Mani Emanuel on 09-27-2024 Potassium [Moles/Vol] 4.4 mmol/L 3.5-5.1 [facility] Serum anion gap measurementO rdered By: Mani Emanuel on 09-27-2024 Anion gap [Moles/Vol] 5 mmol/L 5-15 [facility] Serum globulin measurementOr dered By: Mani Emanuel on 09-27-2024 Globulin (S) [Mass/Vol] 3.2 g/dL 2.2-4.2 [facility] Serum or plasma alanine martinez otransferase (ALT) measurementOrdered By: Mani Emanuel on 09-27-2024 ALT [Catalytic activity/Vol] 763 U/L High 16-61 [facility] Serum or plasma albumin bobby urement (mass/volume)Ordered By: Mani Emanuel on 09-27-2024 Albumin [Mass/Vol] 2.7 g/dL Low 3.2-5.0 [facility] Serum or plasma alkaline elizabeth sphatase measurementOrdered By: Mani Emanuel on 09-27-2024 ALP [Catalytic activity/Vol] 169 U/L High 45-117 [facility] Serum or plasma calcium bobby urement (mass/volume)Ordered By: Mani Emanuel on 09-27-2024 Calcium [Mass/Vol] 9.0 mg/dL 8.5-10.1 [facility] Serum or plasma creatinine m easurement (mass/volume)Ordered By: Mani Emanuel on 09-27-2024 Creatinine [Mass/Vol] 1.01 mg/dL 0.70-1.30 [facility] Comment on above: The validity of the calculated GFR & GFRAA in patients over 70 years has not been determined. Clinical correlation is essential. Serum or plasma urea nitroge n measurement (mass/volume)Ordered By: Mani Emanuel on 09-27-2024 Urea nitrogen [Mass/Vol] 22 mg/dL High 7-18 [facility] Sodium levelOrdered By: To Emanuel on 09-27-2024 Sodium [Moles/Vol] 139 mmol/L 136-145 [facility] Total proteinOrdered By: Usman Emanuel on 09-27-2024 Protein [Mass/Vol] 5.9 g/dL Low 6.4-8.2 [facility] 12 Lead EKGon 09-26-2024 12 Lead EKG [facility] [address] [place] [address] 12 Lead EKG 09/26/24 0541 MR#: [id number] Acct: [id number] Name: JOJO MCKEON Rep #: [id number] : 1995 29 From: Mary Jiang MD Attending Dr: Dr. Mani Emanuel MD Status : ADM IN Ordering Dr: Isac Landaverde MD Date: 09/26/24 Location: [facility] Sex: M C Admitted: 09/24/24 Test Reason : AM EKG Blood Pressure : */* mmHG Vent. Rate : 57 BPM Atrial Rate : 57 BPM P-R Int : 108 ms QRS Dur : 84 ms QT Int : 438 ms P-R-T Axes : 30 24 19 degrees QTcB Int : 426 ms Sinus bradycardia with short NC Otherwise normal ECG No previous ECGs available Confirmed by DEIDRE BROWN, BURTON ([id number]), publications editor ROBBIN CHAVEZ ([id number]) on 09/26/2024 1:08:06 PM Referred By: Confirmed By: BURTON JIANG MD 09/26/24 1308 Date Mary Jiang MD CC: ROMEO Mar; Dr. Isac Landaverde MD; Dr. Mani Emanuel MD Signed Normal [facility] KERA Comprehensive Panelon ANTI-DNA (DS)AB <1 Normal 0-9 [facility] Comment on above: Result Comment: Nega tive <5 Equivocal 5 - 9 Positive >9 Performed By: #### L 501.080 #### [facility] [address] [place], [place], [address] ANTISCLERODERM <0.2 Normal 0.0-0.9 [facility] Comment on above: Performed By: #### L 501.080 #### [facility] [address] [place], [address] Absolute lymphocyte countOrd ered By: Mani Emanuel on 09-26-2024 Lymphocytes Auto (Unsp spec) [#/Vol] 0.61 10*3/uL Low 0.83-4.51 [facility] Absolute neutrophil countOrd ered By: Mani Emanuel on 09-26-2024 Neutrophils (Bld) [#/Vol] 5.2 10*3/uL 2.0-7.7 [facility] Anti-Mitochondrial ABon 09-13 ANTIMITOCHON AB <20.0 Normal 0.0-20.0 [facility] Comment on above: Result Comment: Nega tive 0.0 - 20.0 Equivocal 20.1 - 24.9 Positive >24.9 Mitochondrial (M2) Antibodies are found in 90-96% of patients with primary biliary cirrhosis. Performed at: [facility] [address] [id number] Drum Tender: Massimo Gonzalez PhD, Phone: [phone] Performed By: #### L 501.080 #### [facility] [address] [place], [place], [id number] Automated lymphocyte count a s percentage of total leukocytesOrdered By: Mani Emanuel on 09-26-2024 Lymphocytes/100 WBC Auto (Unsp spec) 10.0 % Low 19-41 [facility] Basic Metabolic Profile (BMP )on 09-26-2024 BUN Normal 7-18 [facility] Comment on above: Result Comment: CMP ORDERED BY SEE SPECIMEN 0214:C43 Performed By: #### L 500.2500 #### [facility] [address] [place], [address] BUN/CRE Normal 10-20 [facility] Comment on above: Result Comment: CMP ORDERED BY SEE SPECIMEN 0214:C43 Performed By: #### L 500.2500 #### [facility] [address] [place], [address] CA,Total Normal 8.5-10.1 [facility] Comment on above: Result Comment: CMP ORDERED BY SEE SPECIMEN 0214:C43 Performed By: #### L 500.2500 #### [facility] [address] [place], [address] CL Normal 98-107 [facility] Comment on above: Result Comment: CMP ORDERED BY SEE SPECIMEN 0214:C43 Performed By: #### L 500.2500 #### [facility] [address] [place], [address] CO2 Normal 21.0-32.0 [facility] Comment on above: Result Comment: CMP ORDERED BY SEE SPECIMEN 0214:C43 Performed By: #### L 500.2500 #### [facility] [address] [place], [address] CREAT,SERUM Normal 0.70-1.30 [facility] Comment on above: Result Comment: CMP ORDERED BY SEE SPECIMEN 0214:C43 Performed By: #### L 500.2500 #### [facility] [address] [place], [address] EST GFR Normal >60 [facility] Comment on above: Result Comment: CMP ORDERED BY SEE SPECIMEN 0214:C43 Performed By: #### L 500.2500 #### [facility] [address] [place], [address] EST GFR - AA Normal >60 [facility] Comment on above: Result Comment: CMP ORDERED BY SEE SPECIMEN 0214:C43 Performed By: #### L 500.2500 #### [facility] [address] [place], [address] GAP Normal 5-15 [facility] Comment on above: Result Comment: CMP ORDERED BY SEE SPECIMEN 0214:C43 Performed By: #### L 500.2500 #### [facility] [address] [place], [address] GLU Normal 74-106 [facility] Comment on above: Result Comment: CMP ORDERED BY SEE SPECIMEN 0214:C43 Performed By: #### L 500.2500 #### [facility] [address] [place], [address] Potassium Normal 3.5-5.1 [facility] Comment on above: Result Comment: CMP ORDERED BY SEE SPECIMEN 0214:C43 Performed By: #### L 500.2500 #### [facility] [address] [place], [address] Basic Metabolic Profile (BMP) Normal 136-145 [facility] Comment on above: Result Comment: CMP ORDERED BY SEE SPECIMEN 0214:C43 Performed By: #### L 500.2500 #### [facility] [address] [place], [address] Basophil percentageOrdered B y: Mani Emanuel on 09-26-2024 Basophils/100 WBC (Bld) 0.0 % 0-1 [facility] Bedside Glucoseon 09-26-2024 FINGERSTICK GLU 116 mg/dL High 74-106 [facility] Comment on above: Result Comment: MARION AVILA OF PATIENT CARE PER NURSING PROTOCOL Performed By: #### L 501.080 #### [facility] [address] [place], [address] CBC W/Diff, Automatedon - Absolute Lymph 0.61 X10 3/uL Low 0.83-4.51 [facility] Comment on above: Performed By: #### L 100.0100 #### [facility] [address] [place], [address] Absolute Neut 5.2 X10 3/uL Normal 2.0-7.7 [facility] Comment on above: Performed By: #### L 100.0100 #### [facility] [address] [place], [address] Basophils/100 WBC (Bld) 0.0 % Normal 0-1 [facility] Comment on above: Performed By: #### L 100.0100 #### [facility] [address] [place], [address] Eosinophils/100 WBC (Bld) 0.0 % Normal 0-5 [facility] Comment on above: Performed By: #### L 100.0100 #### [facility] [address] [place], [address] Erythrocyte distribution width (RBC) [Ratio] 12.1 % Normal 11.6-14.6 [facility] Comment on above: Performed By: #### L 100.0100 #### [facility] [address] [place], [address] Hematocrit (Bld) [Volume fraction] 44.6 % Normal 40-54 [facility] Comment on above: Performed By: #### L 100.0100 #### [facility] [address] [place], [address] Hemoglobin (Bld) [Mass/Vol] 14.6 g/dL Normal 13.0-16.5 [facility] Comment on above: Performed By: #### L 100.0100 #### [facility] [address] [place], [address] IG% 0.500 Normal 0.0-0.9 [facility] Comment on above: Result Comment: IG% - Immature Granulocytes (promyelocytes, myelocytes and metamyelocytes) > 1% indicates that a LEFT SHIFT is Present. Performed By: #### L 100.0100 #### [facility] [address] [place], [address] Lymphocytes/100 WBC (Bld) 10.0 % Low 19-41 [facility] Comment on above: Performed By: #### L 100.0100 #### [facility] [address] [place], [address] MCH (RBC) [Entitic mass] 29.7 pg Normal 27.0-32.0 [facility] Comment on above: Performed By: #### L 100.0100 #### [facility] [address] [place], [address] MCHC (RBC) [Mass/Vol] 32.7 g/dL Normal 32-36 [facility] Comment on above: Performed By: #### L 100.0100 #### [facility] [address] [place], [address] MCV (RBC) [Entitic vol] 90.7 fL Normal 80-94 [facility] Comment on above: Performed By: #### L 100.0100 #### [facility] [address] [place], [address] Monocytes/100 WBC (Bld) 4.2 % Normal 0-10 [facility] Comment on above: Performed By: #### L 100.0100 #### [facility] [address] [place], [address] Neutrophils/100 WBC (Bld) 85.3 % High 47-70 [facility] Comment on above: Performed By: #### L 100.0100 #### [facility] [address] [place], [address] Nucleated RBC (Bld) [#/Vol] 0 10*3/uL Normal 0-5 [facility] Comment on above: Performed By: #### L 100.0100 #### [facility] [address] [place], [address] Platelet mean volume (Bld) [Entitic vol] 14.5 fL High 6.2-12.0 [facility] Comment on above: Performed By: #### L 100.0100 #### [facility] [address] [place], [address] Platelets (Bld) [#/Vol] 108 10*3/uL Low 150-450 [facility] Comment on above: Performed By: #### L 100.0100 #### [facility] [address] [place], [address] RBC (Bld) [#/Vol] 4.92 10*6/uL Normal 4.6-6.2 [facility] Comment on above: Performed By: #### L 100.0100 #### [facility] [address] [place], [address] RDW SD 40.5 fl Normal 35.1-43.9 [facility] Comment on above: Performed By: #### L 100.0100 #### [facility] [address] [place], [address] WBC (Bld) [#/Vol] 6.1 10*3/uL Normal 4.4-11.0 [facility] Comment on above: Performed By: #### L 100.0100 #### [facility] [address] [place], [address] Comprehensive Metabolic Prof ilon 09-26-2024 Albumin [Mass/Vol] 3.0 g/dL Low 3.2-5.0 [facility] Comment on above: Performed By: #### L 501.2300, L501.5200, L500.4050 #### [facility] [address] [place], [address] Albumin/Globulin [Mass ratio] 0.8 {ratio} Low 0.9-2.4 [facility] Comment on above: Performed By: #### L 501.2300, L501.5200, L500.4050 #### [facility] [address] [place], [address] ALK P 215 U/L High 45-117 [facility] Comment on above: Performed By: #### L 501.2300, L501.5200, L500.4050 #### [facility] [address] [place], [address] ALT [Catalytic activity/Vol] 754 U/L High 16-61 [facility] Comment on above: Performed By: #### L 501.2300, L501.5200, L500.4050 #### [facility] [address] [place], [address] AST [Catalytic activity/Vol] 313 U/L High 15-37 [facility] Comment on above: Performed By: #### L 501.2300, L501.5200, L500.4050 #### [facility] [address] [place], [address] Bilirubin [Mass/Vol] 3.10 mg/dL High 0.20-1.00 [facility] Comment on above: Result Comment: For patients on eltrombopag therapy, use of Dimension Fallentimber TBIL is not recommended. Performed By: #### L 501.2300, L501.5200, L500.4050 #### [facility] [address] [place], [address] BUN/CRE 16.5 RATIO Normal 10-20 [facility] Comment on above: Performed By: #### L 501.2300, L501.5200, L500.4050 #### [facility] [address] [place], [address] CA,Total 9.1 mg/dL Normal 8.5-10.1 [facility] Comment on above: Performed By: #### L 501.2300, L501.5200, L500.4050 #### [facility] [address] [place], [address] Chloride [Moles/Vol] 108 mmol/L High 98-107 [facility] Comment on above: Performed By: #### L 501.2300, L501.5200, L500.4050 #### [facility] [address] [place], [address] CO2 [Moles/Vol] 26.0 mmol/L Normal 21.0-32.0 [facility] Comment on above: Performed By: #### L 501.2300, L501.5200, L500.4050 #### [facility] [address] [place], [address] Creatinine [Mass/Vol] 1.15 mg/dL Normal 0.70-1.30 [facility] Comment on above: Result Comment: The validity of the calculated GFR GFRAA in patients over 70 years has not been determined. Clinical correlation is essential. Performed By: #### L 501.2300, L501.5200, L500.4050 #### [facility] [address] [place], [address] ECRCL 122.23 ml/min Normal [facility] Comment on above: Performed By: #### L 501.2300, L501.5200, L500.4050 #### [facility] [address] [place], [address] EST GFR - AA 96 mL/min Normal >60 [facility] Comment on above: Result Comment: Afri can Kosovan GFR Calc Performed By: #### L 501.2300, L501.5200, L500.4050 #### [facility] [address] [place], [address] GAP 5 Normal 5-15 [facility] Comment on above: Performed By: #### L 501.2300, L501.5200, L500.4050 #### [facility] [address] [place], [address] GFR/1.73 sq M.predicted among non-blacks MDRD (S/P/Bld) [Vol rate/Area] 80 mL/min/{1.73_m2} Normal >60 [facility] Comment on above: Result Comment: Non- GFR Calc Performed By: #### L 501.2300, L501.5200, L500.4050 #### [facility] [address] [place], [address] Globulin (S) [Mass/Vol] 3.6 g/dL Normal 2.2-4.2 [facility] Comment on above: Performed By: #### L 501.2300, L501.5200, L500.4050 #### [facility] [address] [place], [address] Glucose [Mass/Vol] 160 mg/dL High 74-106 [facility] Comment on above: Result Comment: Fast ing Glucose result greater than or equal to 126 mg/dL suggests DIABETES MELLITUS per A.D.A. criteria. Performed By: #### L 501.2300, L501.5200, L500.4050 #### [facility] [address] [place], [address] Potassium [Moles/Vol] 4.4 mmol/L Normal 3.5-5.1 [facility] Comment on above: Performed By: #### L 501.2300, L501.5200, L500.4050 #### [facility] [address] [place], [address] Sodium [Moles/Vol] 139 mmol/L Normal 136-145 [facility] Comment on above: Performed By: #### L 501.2300, L501.5200, L500.4050 #### [facility] [address] [place], [address] T PROT 6.6 g/dL Normal 6.4-8.2 [facility] Comment on above: Performed By: #### L 501.2300, L501.5200, L500.4050 #### [facility] [address] [place], [address] Urea nitrogen [Mass/Vol] 19 mg/dL High 7-18 [facility] Comment on above: Performed By: #### L 501.2300, L501.5200, L500.4050 #### [facility] [address] [place], [address] ERCP Biliary/Pancreason - ERCP Biliary/Pancreas [facility] [address] [place] [address] ERCP Biliary/Pancreas MR#: [id number] Acct: [id number] Name: JOJO MCKEON Rep #: [id number] : 1995 M 29 From: Aislinn Giang MD PCP: ROMEO Leonard Status: ADM IN Study: ERCP Biliary/Pancreas Date of Exam: 09/26/24 Exam# [id number] Ordering Dr: Adelso Kaur DO PROCEDURE: ERCP [...] for additional details. 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 The esophagus was successfully [...] diffusely dila (more content not included)... Normal [facility] Eosinophil percentageOrdered By: Mani Emanuel on 09-26-2024 Eosinophils/100 WBC (Bld) 0.0 % 0-5 [facility] Erythrocyte distribution wid th ratioOrdered By: Mani Emanuel on 09-26-2024 Erythrocyte distribution width (RBC) [Ratio] 12.1 % 11.6-14.6 [facility] Erythrocyte distribution wid th standard deviationOrdered By: Mani Emanuel on 09-26-2024 Erythrocyte distribution width (RBC) [Ratio] 40.5 fl 35.1-43.9 [facility] Glucose measurement at [facility] deOrdered By: Mani Emanuel on 09-26-2024 Glucose [Mass/Vol] 116 mg/dL High 74-106 [facility] Comment on above: MANAGEMENT OF PATIEN T CARE PER NURSING PROTOCOL Hematocrit Auto (Bld) [Volum e fraction]Ordered By: Mani Emanuel on 09-26-2024 Hematocrit (Bld) [Volume fraction] 44.6 % 40-54 [facility] Hemoglobin measurementOrdere d By: Mani Emanuel on 09-26-2024 Hemoglobin (Bld) [Mass/Vol] 14.6 g/dL 13.0-16.5 [facility] Immature granulocytes/100 WB C Auto (Bld)Ordered By: Mani Emanuel on 09-26-2024 Immature granulocytes/100 WBC (Bld) 0.500 % 0.0-0.9 [facility] Comment on above: IG% - Immature Granu locytes (promyelocytes, myelocytes and metamyelocytes) > 1% indicates that a LEFT SHIFT is Present. MCV (mean corpuscular volume ) determinationOrdered By: Mani Emanuel on 09-26-2024 MCV (RBC) [Entitic vol] 90.7 fL 80-94 [facility] MR/POSTOP.ANEon 09-26-2024 MR/POSTOP.ANE [facility] Medical Records Department [address] [place] [address] Anesthesia Postop Eval I 09/26/24 1837 MR#: [id number] Acct: [id number] Name: JOJO MCKEON Rep #: [id number] : 1995 29 From: Isac Landaverde MD PCP: REY LeonardC Status:ADM IN Y Race: C Location: [place] [address] Anesthesia: Postop Eval I Current Vital Signs [...] MD Cosigner Signature: Date CC: Signed Normal [facility] MR/[id number] 09-26-2024 MR/POSTOPAN2 [facility] Medical Records Department [address] [place] [address] Anesthesia Postop Eval II 09/26/24 205 MR#: [id number] Acct: [id number] Name: JOJO MCKEON Rep #: [id number] : 1995 29 From: Isac Landaverde MD PCP: ROMEO Leonard Status:ADM IN Y Race: C Location: [place] [address] Anesthesia Postop Eval I Sum Postop Eval [...] Isac Goetzignsuresh Signature: Date CC: Signed Normal [facility] Magnesiumon 09-26-2024 Magnesium [Mass/Vol] 2.6 mg/dL Normal 1.6-2.6 [facility] Comment on above: Performed By: #### L 501.2300, L501.5200, L500.4050 #### [facility] Laboratory [address] [place] [address]. [place], [address] Magnesium measurementOrdered By: Karson Castillo on 09-26-2024 Magnesium [Mass/Vol] 2.6 mg/dL 1.6-2.6 [facility] Mean corpuscular hemoglobin (MCH) determinationOrdered By: Mani Emanuel on 09-26-2024 MCH (RBC) [Entitic mass] 29.7 pg 27.0-32.0 [facility] Mean corpuscular hemoglobin concentration (MCHC) determinationOrdered By: Mani Emanuel on 09-26-2024 MCHC (RBC) [Mass/Vol] 32.7 g/dL 32-36 [facility] Comment on above: Delta: 35.3 on 09/25 Mean platelet volume determi nationOrdered By: Mani Emanuel on 09-26-2024 Platelet mean volume (Bld) [Entitic vol] 14.5 fL High 6.2-12.0 [facility] Monocyte percentageOrdered B y: Mani Emanuel on 09-26-2024 Monocytes/100 WBC (Bld) 4.2 % 0-10 [facility] Neutrophil percentageOrdered By: Mani Emanuel on 09-26-2024 Neutrophils/100 WBC (Bld) 85.3 % High 47-70 [facility] Nucleated red blood cell per centageOrdered By: Mani Emanuel on 09-26-2024 Nucleated RBC/100 WBC (Bld) [Ratio] 0 % 0-5 [facility] Phosphoruson 09-26-2024 Phosphate [Mass/Vol] 3.7 mg/dL Normal 2.5-4.9 [facility] Comment on above: Performed By: #### L 501.2300, L501.5200, L500.4050 #### [facility] [address] [place], [address] Platelet countOrdered By: Cheyanne Emanuel on 09-26-2024 Platelets (Bld) [#/Vol] 108 10*3/uL Low 150-450 [facility] RBC Auto (Bld) [#/Vol]Ordere d By: Mani Emanuel on 09-26-2024 RBC (Bld) [#/Vol] 4.92 10*6/uL 4.6-6.2 [facility] Urine Cultureon 09-26-2024 URC Culture exhibits no growth. Normal [facility] Comment on above: Performed By: #### L 501.2300, L501.5200, L500.4050 #### [facility] [address] [place], [address] White blood cell (WBC) count Ordered By: Mani Emanuel on 09-26-2024 WBC (Bld) [#/Vol] 6.1 10*3/uL 4.4-11.0 [facility] Activated partial thrombopla stin time (aPTT) in platelet poor plasma by coagulation aOrdered By: Adelso Kaur on 09-25-2024 aPTT Coag (PPP) [Time] 24.1 s 24.1-36.2 [facility] Albumin Elph [Mass/Vol]Order ed By: Adelso Kaur on 09-25-2024 Albumin [Mass/Vol] 3.4 g/dL 2.9-4.4 [facility] Biopsy/Inj or Needle Placeme nton 09-25-2024 Biopsy/Inj or Needle Placement [facility] Imaging Services [address] [place], [place] [address] Biopsy/Inj or Needle Placement MR#: [id number] Acct: [id number] Name: JOJO MCKEON Rep #: [id number] : 1995 M 29 From: Harsha mcdonnell MD PCP: ROMEO Leonard Status: ADM IN Study: Biopsy/Inj or Needle Placement Date of Exam: 0 09/25/24 Exam# [id number] Ordering Dr: Adelso Kaur DO EXAM: BIOPSY/INJ [...] well. Conscious sedation was performed. Reading Location: [place] [address] CC: ROMEO Mar; Adelso Kaur, National Sales: Signed Normal [facility] CBC W/Diff, Automatedon 09-13 Absolute Lymph 0.47 X10 3/uL Low 0.83-4.51 [facility] Comment on above: Performed By: #### L 501.5200, L500.4050, L501.2300, L100.0100 #### [facility] Laboratory [address] [place], [address] Absolute Neut 2.9 X10 3/uL Normal 2.0-7.7 [facility] Comment on above: Performed By: #### L 501.5200, L500.4050, L501.2300, L100.0100 #### [facility] [address] [place], [address] Basophils/100 WBC (Bld) 0.3 % Normal 0-1 [facility] Comment on above: Performed By: #### L 501.5200, L500.4050, L501.2300, L100.0100 #### [facility] [address] [place], [address] Eosinophils/100 WBC (Bld) 0.3 % Normal 0-5 [facility] Comment on above: Performed By: #### L 501.5200, L500.4050, L501.2300, L100.0100 #### [facility] [address] [place], [address] Erythrocyte distribution width (RBC) [Ratio] 12.1 % Normal 11.6-14.6 [facility] Comment on above: Performed By: #### L 501.5200, L500.4050, L501.2300, L100.0100 #### [facility] [address] [place], [address] Hematocrit (Bld) [Volume fraction] 45.1 % Normal 40-54 [facility] Comment on above: Performed By: #### L 501.5200, L500.4050, L501.2300, L100.0100 #### [facility] Laboratory [address] [place], [address] Hemoglobin (Bld) [Mass/Vol] 15.9 g/dL Normal 13.0-16.5 [facility] Comment on above: Performed By: #### L 501.5200, L500.4050, L501.2300, L100.0100 #### [facility] [address] [place], [address] IG% 0.300 Normal 0.0-0.9 [facility] Comment on above: Result Comment: IG% - Immature Granulocytes (promyelocytes, myelocytes and metamyelocytes) > 1% indicates that a LEFT SHIFT is Present. Performed By: #### L 501.5200, L500.4050, L501.2300, L100.0100 #### [facility] [address] [place], [address] Lymphocytes/100 WBC (Bld) 13.7 % Low 19-41 [facility] Comment on above: Performed By: #### L 501.5200, L500.4050, L501.2300, L100.0100 #### [facility] [address] [place], [address] MCH (RBC) [Entitic mass] 30.9 pg Normal 27.0-32.0 [facility] Comment on above: Performed By: #### L 501.5200, L500.4050, L501.2300, L100.0100 #### [facility] [address] [place], [address] MCHC (RBC) [Mass/Vol] 35.3 g/dL Normal 32-36 [facility] Comment on above: Performed By: #### L 501.5200, L500.4050, L501.2300, L100.0100 #### [facility] [address] [place], [address] MCV (RBC) [Entitic vol] 87.7 fL Normal 80-94 [facility] Comment on above: Performed By: #### L 501.5200, L500.4050, L501.2300, L100.0100 #### [facility] [address] [place], [address] Monocytes/100 WBC (Bld) 0.6 % Normal 0-10 [facility] Comment on above: Performed By: #### L 501.5200, L500.4050, L501.2300, L100.0100 #### [facility] [address] [place], [address] Neutrophils/100 WBC (Bld) 84.8 % High 47-70 [facility] Comment on above: Performed By: #### L 501.5200, L500.4050, L501.2300, L100.0100 #### [facility] [address] [place], [address] Nucleated RBC (Bld) [#/Vol] 0 10*3/uL Normal 0-5 [facility] Comment on above: Performed By: #### L 501.5200, L500.4050, L501.2300, L100.0100 #### [facility] [address] [place], [address] Platelet mean volume (Bld) [Entitic vol] 14.0 fL High 6.2-12.0 [facility] Comment on above: Performed By: #### L 501.5200, L500.4050, L501.2300, L100.0100 #### [facility] [address] [place], [address] Platelets (Bld) [#/Vol] 122 10*3/uL Low 150-450 [facility] Comment on above: Performed By: #### L 501.5200, L500.4050, L501.2300, L100.0100 #### [facility] [address] [place], [address] RBC (Bld) [#/Vol] 5.14 10*6/uL Normal 4.6-6.2 [facility] Comment on above: Performed By: #### L 501.5200, L500.4050, L501.2300, L100.0100 #### [facility] [address] [place], [address] RDW SD 39.1 fl Normal 35.1-43.9 [facility] Comment on above: Performed By: #### L 501.5200, L500.4050, L501.2300, L100.0100 #### [facility] [address] [place], [address] WBC (Bld) [#/Vol] 3.4 10*3/uL Low 4.4-11.0 [facility] Comment on above: Performed By: #### L 501.5200, L500.4050, L501.2300, L100.0100 #### [facility] [address] [place], [address] Comprehensive Metabolic Prof il 09-25-2024 Albumin [Mass/Vol] 3.1 g/dL Low 3.2-5.0 [facility] Comment on above: Performed By: #### L 500.4050 #### [facility] [address] [place], [address] Albumin/Globulin [Mass ratio] 0.8 {ratio} Low 0.9-2.4 [facility] Comment on above: Performed By: #### L 500.4050 #### [facility] [address] [place], [address] ALK P 260 U/L High 45-117 [facility] Comment on above: Performed By: #### L 500.4050 #### [facility] [address] [place], [address] ALT [Catalytic activity/Vol] 710 U/L High 16-61 [facility] Comment on above: Performed By: #### L 500.4050 #### [facility] [address] [place], [address] AST [Catalytic activity/Vol] 366 U/L High 15-37 [facility] Comment on above: Performed By: #### L 500.4050 #### [facility] [address] [place], [address] Bilirubin [Mass/Vol] 5.10 mg/dL High 0.20-1.00 [facility] Comment on above: Result Comment: For patients on eltrombopag therapy, use of Dimension Fallentimber TBIL is not recommended. Performed By: #### L 500.4050 #### [facility] [address] [place], [address] BUN/CRE 10.4 RATIO Normal 10-20 [facility] Comment on above: Performed By: #### L 500.4050 #### [facility] [address] [place], [address] CA,Total 9.3 mg/dL Normal 8.5-10.1 [facility] Comment on above: Performed By: #### L 500.4050 #### [facility] [address] [place], [address] Chloride [Moles/Vol] 107 mmol/L Normal 98-107 [facility] Comment on above: Performed By: #### L 500.4050 #### [facility] [address] [place], [address] CO2 [Moles/Vol] 24.0 mmol/L Normal 21.0-32.0 [facility] Comment on above: Performed By: #### L 500.4050 #### [facility] [address] [place], [address] Creatinine [Mass/Vol] 1.06 mg/dL Normal 0.70-1.30 [facility] Comment on above: Result Comment: The validity of the calculated GFR GFRAA in patients over 70 years has not been determined. Clinical correlation is essential. Performed By: #### L 500.4050 #### [facility] [address] [place], [address] ECRCL 132.61 ml/min Normal [facility] Comment on above: Performed By: #### L 500.4050 #### [facility] [address] [place], [address] EST GFR - AA 106 mL/min Normal >60 [facility] Comment on above: Result Comment: Afri can Kosovan GFR Calc Performed By: #### L 500.4050 #### [facility] [address] [place], [address] GAP 7 Normal 5-15 [facility] Comment on above: Performed By: #### L 500.4050 #### [facility] [address] [place], [address] GFR/1.73 sq M.predicted among non-blacks MDRD (S/P/Bld) [Vol rate/Area] 87 mL/min/{1.73_m2} Normal >60 [facility] Comment on above: Result Comment: Non- GFR Calc Performed By: #### L 500.4050 #### [facility] [address] [place], [address] Globulin (S) [Mass/Vol] 3.8 g/dL Normal 2.2-4.2 [facility] Comment on above: Performed By: #### L 500.4050 #### [facility] [address] [place], [address] Glucose [Mass/Vol] 164 mg/dL High 74-106 [facility] Comment on above: Result Comment: Fast ing Glucose result greater than or equal to 126 mg/dL suggests DIABETES MELLITUS per A.D.A. criteria. Performed By: #### L 500.4050 #### [facility] [address] [place], [address] Potassium [Moles/Vol] 4.2 mmol/L Normal 3.5-5.1 [facility] Comment on above: Performed By: #### L 500.4050 #### [facility] [address] [place], [address] Sodium [Moles/Vol] 138 mmol/L Normal 136-145 [facility] Comment on above: Performed By: #### L 500.4050 #### [facility] [address] [place], [address] T PROT 6.9 g/dL Normal 6.4-8.2 [facility] Comment on above: Performed By: #### L 500.4050 #### [facility] [address] [place], [address] Urea nitrogen [Mass/Vol] 11 mg/dL Normal 7-18 [facility] Comment on above: Performed By: #### L 500.4050 #### [facility] [address] [place], [place], [address] Ferritinon 09-25-2024 Ferritin [Mass/Vol] 716 ng/mL High 26-388 [facility] Comment on above: Performed By: #### L 501.080 #### [facility] [address] [place], [place], [address] Ferritin measurementOrdered By: Adelso Kaur on 09-25-2024 Ferritin [Mass/Vol] 716 ng/mL High 26-388 [facility] HIV 1 and HIV-2 antibody ass ay with HIV-1 p24 antigen detectionOrdered By: Adelso Kaur on 09-25-2024 HIV 1+2 Ab+HIV1 p24 Ag IA Ql Non-Reactive Nonreactive [facility] International normalized rat io (INR) calculationOrdered By: Adelso Kaur on 09-25-2024 INR Coag (Bld) [Relative time] 0.9 {INR} [facility] Interpretation of serum or p lasma protein pattern by immunofixation (narrative resultOrdered By: Adelso Kaur on 09-25-2024 Protein Fractions Immunofixation Juan [Interp] Not Observed g/dL Not Observed [facility] MR/CON.PCM.GIon 09-25-2024 MR/CON.PCM.GI [facility] Medical Records Department [address] [place] [address] Consultation - GI 09/25/24 0903 MR#: [id number] Acct: [id number] Name: JOJO MCKEON Rep #: [id number] : 1995 29 From: Adelso Kaur DO PCP: ROMEO Leonard Status:ADM IN Location: [facility] [id number] ADDENDUM by Adelso Kaur DO on 09/25/24 at 0917 Multi Select Codes Visit Charges Visit Charges: 60749 Init Hosp L3 09/25/24 0929 Cosigner Signature (if applicable): cc: ROMEO Mar * Signed HPI Consult Data Date of Consult: 09/25/24 HPI Narrative Reason for Consultation: jaundice HPI Narrative: JOJO MCKEON, is a 29 M who presents to the ED. 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 [facility] Medical History UTI (urinary tract infection) [...] % (Auto) 62.4, Lymph % (Auto) 26.9, Foster % (Auto) 7.7, Eos % (Auto) 1.5, [...] 23:47: Ur (more content not included)... Normal [facility] MRCP Abdomen without Contras ton 09-25-2024 MRCP Abdomen without Contrast [facility] Imaging Services [address] [place] [address] MRCP Abdomen without Contrast MR#: [id number] Acct: [id number] Name: JOJO MCKEON Rep #: [id number] : 1995 M 29 From: Aislinn Giang MD PCP: ROMEO Leonard Status: ADM IN Study: MRCP Abdomen without Contrast Date of Exam: Exam# [id number] Ordering Dr: Adelso Kaur DO EXAM: MRCP [...] [place] CC: ROMEO Mar; Adelso Kaur DO National Sales: Signed Normal [facility] Magnesiumon 09-25-2024 Magnesium [Mass/Vol] 2.5 mg/dL Normal 1.6-2.6 [facility] Comment on above: Performed By: #### L 500.4050 #### [facility] [address] [place], [place], [id number] No Panel InformationOrdered By: Adelso Kaur on 09-25-2024 Addendum Document Comment . [facility] Comment on above: Protein electrophore sis scan will follow via computer,mail, or rn documentation delivery. Hepatitis C Antibody Comment Comment . [facility] Comment on above: Not infected with HC V unless early or acute infection issuspected (which may be delayed in an immunocompromisedindividual), or other evidence exists to indicate HCVinfection. Tissue Transglutaminase IgG Ab 5 U/mL 0-5 [facility] Comment on above: Negative 0 - 5 Weak Positive 6 - 9 Positive >9 Partial Thromboplast Timeon 09-25-2024 aPTT Coag (Bld) [Time] 24.1 s Normal 24.1-36.2 [facility] Comment on above: Performed By: #### L 300.3900, L300.4310 #### [facility] [address] [place], [address] Phosphoruson 09-25-2024 Phosphate [Mass/Vol] 3.5 mg/dL Normal 2.5-4.9 [facility] Comment on above: Performed By: #### L 500.4050 #### [facility] [address] [place], [address] Prothrombin Time w/INRon INR Coag (PPP) [Relative time] 0.9 {INR} Normal [facility] Comment on above: Performed By: #### L 300.3900, L300.4310 #### [facility] [address] [place], [address] PT Coag (PPP) [Time] 12.5 s Normal 11.7-14.9 [facility] Comment on above: Performed By: #### L 300.3900, L300.4310 #### [facility] [address] [place], [address] Prothrombin timeOrdered By: Adelso Kaur on 09-25-2024 PT Coag (PPP) [Time] 12.5 s 11.7-14.9 [facility] Serum DNA double strand anti body assay (units/volume)Ordered By: Adelso Kaur on 09-25-2024 DNA double strand Ab Qn (S) [IU]/mL 0-9 [facility] Comment on above: Negative <5 Equivoca l 5 - 9 Positive >9 Serum Helen Daugherty virus cap mirna IgM antibody assay (units/volume)Ordered By: Adelso Kaur on 09-25-2024 EBV capsid IgM Qn (S) [arb'U]/mL 0.0-35.9 [facility] Comment on above: Negative <36.0 Equiv ocal 36.0 - 43.9 Positive >43.9 Serum Helen Daugherty virus nuc lear IgG antibody assay (units/volume)Ordered By: Adelso Kaur on 09-25-2024 EBV nuclear IgG Qn (S) < 18.0 U/mL 0.0-17.9 [facility] Comment on above: Negative <18.0 Equiv ocal 18.0 - 21.9 Positive >21.9 Serum IgG subclass 1 measure ment (mass/volume)Ordered By: Adelso Kaur on 09-25-2024 IgG subclass 1 (S) [Mass/Vol] 365 mg/dL 248-810 [facility] Serum IgG subclass 2 measure ment (mass/volume)Ordered By: Adelso aKur on 09-25-2024 IgG subclass 2 (S) [Mass/Vol] 262 mg/dL 130-555 [facility] Serum IgG subclass 3 measure ment (mass/volume)Ordered By: Adelso Kaur on 09-25-2024 IgG subclass 3 (S) [Mass/Vol] 33 mg/dL 15-102 [facility] Serum Scl-70 antibody assay (units/volume)Ordered By: Adelso Kaur on 09-25-2024 SCL-70 extractable nuclear Ab Qn (S) <0.2 AI 0.0-0.9 [facility] Serum classic neutrophil cyt oplasmic antibody assay (units/volume)Ordered By: Adelso Kaur on 09-25-2024 Neutrophil cytoplasmic Ab.classic Qn (S) <1:20 titer Neg:<1:20 [facility] Comment on above: Note: Specimen is ic teric. Serum mitochondria antibody detectionOrdered By: Adelso Kaur on 09-25-2024 Mitochondria Ab Ql (S) <20.0 Units 0.0-20.0 [facility] Comment on above: Negative 0.0 - 20.0 Equivocal 20.1 - 24.9 Positive >24.9Mitochondrial (M2) Antibodies are found in 90-96% ofpatients with primary biliary cirrhosis.Performed at: [facility] [id number] Director: Massimo Gonzalez PhD, Phone: [phone] Serum or plasma IgA measurem ent (mass/volume)Ordered By: Adelso Kaur on 09-25-2024 IgA [Mass/Vol] 83 mg/dL Low 90-386 [facility] Serum or plasma IgG measurem ent (mass/volume)Ordered By: Adelso Kaur on 09-25-2024 IgG [Mass/Vol] 761 mg/dL 603-1613 [facility] IgG [Mass/Vol] 768 mg/dL 603-1613 [facility] Serum or plasma actin IgG an tibody assay (units/volume)Ordered By: Adelso Kaur on 09-25-2024 Actin IgG Qn 4 Units 0-19 [facility] Comment on above: Negative 0 - 19 [...] 1 globulin Elph [Mass/Vol] 0.3 g/dL 0.0-0.4 [facility] Alpha 1 globulin Elph [Mass/Vol] 0.7 g/dL 0.4-1.0 [facility] Serum or plasma beta globuli n measurement by electrophoresis (mass/volume)Ordered By: Adelso Kaur on 09-25-2024 Beta globulin Elph [Mass/Vol] 1.0 g/dL 0.7-1.3 [facility] Serum or plasma gamma globul in measurement by electrophoresis (mass/volume)Ordered By: Adelso Kaur on 09-25-2024 Gamma globulin Elph [Mass/Vol] 0.8 g/dL 0.4-1.8 [facility] Serum or plasma hepatitis B virus surface antigen detection by immunoassayOrdered By: Adelso Kaur on 09-25-2024 HBV surface Ag IA Ql Negative Negative [facility] Serum or plasma immunoelectr ophoresis interpretation (nominal result)Ordered By: Adelso Kaur on 09-25-2024 Interpretation IEP [Interp] Comment . [facility] Comment on above: No monoclonality det ected. Serum or plasma protein bobby urement (mass/volume)Ordered By: Adelso Kaur on 09-25-2024 Protein [Mass/Vol] 6.2 g/dL 6.0-8.5 [facility] Serum perinuclear neutrophil cytoplasmic antibody titer by immunofluorescenceOrdered By: Adelso Kaur on 09-25-2024 Neutrophil cytoplasmic Ab.perinuclear IF (S) [Titer] <1:20 titer Neg:<1:20 [facility] Comment on above: Note: Specimen is ic teric.The presence of positive fluorescence exhibiting P-ANCA orC-ANCA patterns alone is not specific for the diagnosis ofWegener's Granulomatosis (WG) or microscopic polyangiitis.Decisions about treatment should not be based solely onANCA IFA results. The [employer] AN[employer] Consensusrecommends follow up testing of positive sera with both NC-3 and MPO-ANCA enzyme immunoassays. As many as 5% serumsamples are positive only by EIA. Ref. AM J Clin [id number];111:507-513. Serum tissue transglutaminas e (tTG) IgA antibody assay (units/volume)Ordered By: Adelso Kaur on 09-25-2024 tTG IgA Qn (S) <2 U/mL 0-3 [facility] Comment on above: Negative 0 - 3 Weak Positive 4 - 10 Positive >10 Tissue Transglutaminase (tTG) has been identified as the endomysial antigen. Studies have demonstr- ated that endomysial IgA antibodies have over 99% specificity for gluten sensitive enteropathy. Trichrome (control)on 2024 Trichrome (control) ---- Patient Age/Sex Location Account Attending Physician JOJO MCKEON 29/M [facility] [id number] Dr. Mani Emanuel MD Specimen: [id number] Received: 09/25/24 Status: MACIE Austin Num: [id number] Spec Type: LIVER BX Subm Dr: Dr. [...] submitted in one cassette. SAURAV. 09/26/2024 TC:5 [facility]:[id number] Patient Age/Sex Location Account Attending Physician JOJO MCKEON 29/M [facility] [id number] Dr. Mani Emanuel MD Signed (signature on file) Dr. Memo Winters MD 09/29/24 1221 Normal [facility] Comment on above: Performed By: #### L 501.080 #### [facility] [address] [place], [place], [address] Urinalysis, Completeon 09-25 AMORPHOUS 1+ Normal [facility] Comment on above: Order Comment: CLEAN CATCH Performed By: #### L 501.2300, L501.5200, L500.4050 #### [facility] [address] [place], [place], [address] BACTERIA 2+ /hpf Normal None Seen [facility] Comment on above: Order Comment: CLEAN CATCH Performed By: #### L 501.2300, L501.5200, L500.4050 #### [facility] [address] [place], [address] Mucus Ql (Urine sed) RARE Normal [facility] Comment on above: Order Comment: CLEAN CATCH Performed By: #### L 501.2300, L501.5200, L500.4050 #### [facility] [address] [place], [address] WBC 10-25 SEEN Normal 0-5 [facility] Comment on above: Order Comment: CLEAN CATCH Performed By: #### L 501.2300, L501.5200, L500.4050 #### [facility] [address] [place], [address] RBC 0 SEEN Normal 0-5 [facility] Comment on above: Order Comment: CLEAN CATCH Performed By: #### L 501.2300, L501.5200, L500.4050 #### [facility] [address] [place], [address] BILIRUBIN URINE 1 mg/dL Abnormal Negative [facility] Comment on above: Order Comment: CLEAN CATCH Result Comment: COLO R OF URINE MAY AFFECT DIPSTICK RESULTS. Performed By: #### L 501.2300, L501.5200, L500.4050 #### [facility] [address] [place], [address] Urine Drug Screen (VISTA)on 09-25-2024 AMPHETAMINES Negative Normal <1000 ng/mL [facility] Comment on above: Performed By: #### L 501.2300, L501.5200, L500.4050 #### [facility] [address] [place], [address] BARBITIURATES Negative Normal < 200 ng/mL [facility] Comment on above: Performed By: #### L 501.2300, L501.5200, L500.4050 #### [facility] [address] [place], [address] BENZODIAZIPINE Negative Normal < 200 ng/mL [facility] Comment on above: Performed By: #### L 501.2300, L501.5200, L500.4050 #### [facility] [address] [place], [address] COCAINE Negative Normal < 300 ng/mL [facility] Comment on above: Performed By: #### L 501.2300, L501.5200, L500.4050 #### [facility] [address] [place], [address] ECSTACY Negative Normal < 500 ng/mL [facility] Comment on above: Performed By: #### L 501.2300, L501.5200, L500.4050 #### [facility] [address] [place], [address] METHADONE Negative Normal < 300 ng/mL [facility] Comment on above: Performed By: #### L 501.2300, L501.5200, L500.4050 #### [facility] [address] [place], [address] OPIATES Negative Normal < 300 ng/mL [facility] Comment on above: Performed By: #### L 501.2300, L501.5200, L500.4050 #### [facility] [address] [place], [address] PCP Negative Normal < 25 ng/mL [facility] Comment on above: Performed By: #### L 501.2300, L501.5200, L500.4050 #### [facility] [address] [place], [address] THC Negative Normal < 50 ng/mL [facility] Comment on above: Performed By: #### L 501.2300, L501.5200, L500.4050 #### [facility] [address] [place], [address] VISTA UDS PH 5 Normal [facility] Comment on above: Performed By: #### L 501.2300, L501.5200, L500.4050 #### [facility] [address] [place], [place], [address] Abdomen/Pelvis W IV Cont ONL Yon 09-24-2024 Abdomen/Pelvis W IV Cont ONLY [facility] [address] [place], [place] [address] Abdomen/Pelvis W IV Cont ONLY MR#: [id number] Acct: [id number] Name: JOJO MCKEON Rep #: [id number] : 1995 M 29 From: Emely Duncan nd, MD PCP: ROMEO Leonard Status: REG ER Study: Abdomen/Pelvis W IV Cont ONLY Date of Exam: Exam# [id number] Ordering Dr: Prem Vogel DO PROCEDURE: ABDOMEN/PELVIS [...] use of iterative reconstruction technique). Reading Location: [facility] CC: ROMEO Mar; Dr. Prem Vogel DO National Sales: Signed Normal [facility] Acetaminophen (Tylenol) Leve moy 09-24-2024 Acetaminophen [Mass/Vol] ug/mL Low 10.0-30.0 [facility] Comment on above: Performed By: #### L 500.4050 #### [facility] [address] [place], [address] Alcohol, Blood (Medical)-Ser umon 09-24-2024 SERUM ETOH < 3.0 Normal [facility] Comment on above: Result Comment: The serum:whole blood ethanol ratio is approximately 1.14 and varies slightly with hematocrit. Medical Alcohol reference interval and critical value in non-tolerant individuals; 50 - 100 Impairment 100 Intoxication 100 - 250 Severe Poisoning 250 - 400 Deep/possible fatal coma Performed By: #### L 501.2300, L501.5200, L500.4050 #### [facility] [address] [place], [address] Amorphous sediment detection in urine sediment by light microscopyOrdered By: Karson Castillo on 09-24-2024 Amorphous sediment LM Ql (Urine sed) 1+ [facility] Basic Metabolic Profile (BMP )on 09-24-2024 BUN/CRE 10.7 RATIO Normal 10-20 [facility] Comment on above: Performed By: #### L 501.2300, L501.5200, L500.4050 #### [facility] [address] [place], [address] CA,Total 9.5 mg/dL Normal 8.5-10.1 [facility] Comment on above: Performed By: #### L 501.2300, L501.5200, L500.4050 #### [facility] [address] [place], [address] Chloride [Moles/Vol] 101 mmol/L Normal 98-107 [facility] Comment on above: Performed By: #### L 501.2300, L501.5200, L500.4050 #### [facility] [address] [place], [address] CO2 [Moles/Vol] 28.0 mmol/L Normal 21.0-32.0 [facility] Comment on above: Performed By: #### L 501.2300, L501.5200, L500.4050 #### [facility] [address] [place], [address] Creatinine [Mass/Vol] 1.22 mg/dL Normal 0.70-1.30 [facility] Comment on above: Result Comment: The validity of the calculated GFR GFRAA in patients over 70 years has not been determined. Clinical correlation is essential. Performed By: #### L 501.2300, L501.5200, L500.4050 #### [facility] [address] [place], [address] ECRCL 120.35 ml/min Normal [facility] Comment on above: Performed By: #### L 501.2300, L501.5200, L500.4050 #### [facility] [address] [place], [address] EST GFR - AA 90 mL/min Normal >60 [facility] Comment on above: Result Comment: Afri can Kosovan GFR Calc Performed By: #### L 501.2300, L501.5200, L500.4050 #### [facility] [address] [place], [address] GAP 9 Normal 5-15 [facility] Comment on above: Performed By: #### L 501.2300, L501.5200, L500.4050 #### [facility] [address] [place], [address] GFR/1.73 sq M.predicted among non-blacks MDRD (S/P/Bld) [Vol rate/Area] 74 mL/min/{1.73_m2} Normal >60 [facility] Comment on above: Result Comment: Non- GFR Calc Performed By: #### L 501.2300, L501.5200, L500.4050 #### [facility] [address] [place], [address] Glucose [Mass/Vol] 119 mg/dL High 74-106 [facility] Comment on above: Result Comment: Fast ing Glucose result from 100 to 125 mg/dL suggests IMPAIRED HOMEOSTASIS per A.D.A. criteria. Performed By: #### L 501.2300, L501.5200, L500.4050 #### [facility] [address] [place], [address] Potassium [Moles/Vol] 3.6 mmol/L Normal 3.5-5.1 [facility] Comment on above: Performed By: #### L 501.2300, L501.5200, L500.4050 #### [facility] [address] [place], [address] Sodium [Moles/Vol] 138 mmol/L Normal 136-145 [facility] Comment on above: Performed By: #### L 501.2300, L501.5200, L500.4050 #### [facility] [address] [place], [address] Urea nitrogen [Mass/Vol] 13 mg/dL Normal 7-18 [facility] Comment on above: Performed By: #### L 501.2300, L501.5200, L500.4050 #### [facility] [address] [place], [address] Bilirubin Test strip Ql (U)O rdered By: Karson Castillo on 09-24-2024 Bilirubin Ql (U) 1 mg/dL High Negative [facility] Comment on above: COLOR OF URINE MAY A FFECT DIPSTICK RESULTS. Bilirubin directOrdered By: Prem Vogel on 09-24-2024 Bilirubin.direct [Mass/Vol] 4.99 mg/dL High 0.00-0.30 [facility] CBC W/Diff, Automatedon 09-13 Absolute Lymph 1.23 X10 3/uL Normal 0.83-4.51 [facility] Comment on above: Performed By: #### L 501.2300, L501.5200, L500.4050 #### [facility] [address] [place], [address] Absolute Neut 2.9 X10 3/uL Normal 2.0-7.7 [facility] Comment on above: Performed By: #### L 501.2300, L501.5200, L500.4050 #### [facility] [address] [place], [address] Basophils/100 WBC (Bld) 1.1 % High 0-1 [facility] Comment on above: Performed By: #### L 501.2300, L501.5200, L500.4050 #### [facility] [address] [place], [address] Eosinophils/100 WBC (Bld) 1.5 % Normal 0-5 [facility] Comment on above: Performed By: #### L 501.2300, L501.5200, L500.4050 #### [facility] [address] [place], [address] Erythrocyte distribution width (RBC) [Ratio] 12.1 % Normal 11.6-14.6 [facility] Comment on above: Performed By: #### L 501.2300, L501.5200, L500.4050 #### [facility] [address] [place], [address] Hematocrit (Bld) [Volume fraction] 45.1 % Normal 40-54 [facility] Comment on above: Performed By: #### L 501.2300, L501.5200, L500.4050 #### [facility] [address] [place], [address] Hemoglobin (Bld) [Mass/Vol] 15.7 g/dL Normal 13.0-16.5 [facility] Comment on above: Performed By: #### L 501.2300, L501.5200, L500.4050 #### [facility] [address] [place], [address] IG% 0.400 Normal 0.0-0.9 [facility] Comment on above: Result Comment: IG% - Immature Granulocytes (promyelocytes, myelocytes and metamyelocytes) > 1% indicates that a LEFT SHIFT is Present. Performed By: #### L 501.2300, L501.5200, L500.4050 #### [facility] [address] [place], [address] Lymphocytes/100 WBC (Bld) 26.9 % Normal 19-41 [facility] Comment on above: Performed By: #### L 501.2300, L501.5200, L500.4050 #### [facility] [address] [place], [address] MCH (RBC) [Entitic mass] 30.5 pg Normal 27.0-32.0 [facility] Comment on above: Performed By: #### L 501.2300, L501.5200, L500.4050 #### [facility] [address] [place], [address] MCHC (RBC) [Mass/Vol] 34.8 g/dL Normal 32-36 [facility] Comment on above: Performed By: #### L 501.2300, L501.5200, L500.4050 #### [facility] [address] [place], [address] MCV (RBC) [Entitic vol] 87.7 fL Normal 80-94 [facility] Comment on above: Performed By: #### L 501.2300, L501.5200, L500.4050 #### [facility] [address] [place], [address] Monocytes/100 WBC (Bld) 7.7 % Normal 0-10 [facility] Comment on above: Performed By: #### L 501.2300, L501.5200, L500.4050 #### [facility] [address] [place], [address] Neutrophils/100 WBC (Bld) 62.4 % Normal 47-70 [facility] Comment on above: Performed By: #### L 501.2300, L501.5200, L500.4050 #### [facility] [address] [place], [address] Nucleated RBC (Bld) [#/Vol] 0 10*3/uL Normal 0-5 [facility] Comment on above: Performed By: #### L 501.2300, L501.5200, L500.4050 #### [facility] [address] [place], [address] Platelet mean volume (Bld) [Entitic vol] 14.5 fL High 6.2-12.0 [facility] Comment on above: Performed By: #### L 501.2300, L501.5200, L500.4050 #### [facility] [address] [place], [address] Platelets (Bld) [#/Vol] 124 10*3/uL Low 150-450 [facility] Comment on above: Performed By: #### L 501.2300, L501.5200, L500.4050 #### [facility] [address] [place], [address] RBC (Bld) [#/Vol] 5.14 10*6/uL Normal 4.6-6.2 [facility] Comment on above: Performed By: #### L 501.2300, L501.5200, L500.4050 #### [facility] [address] [place], [address] RDW SD 39.3 fl Normal 35.1-43.9 [facility] Comment on above: Performed By: #### L 501.2300, L501.5200, L500.4050 #### [facility] [address] [place], [address] WBC (Bld) [#/Vol] 4.6 10*3/uL Normal 4.4-11.0 [facility] Comment on above: Performed By: #### L 501.2300, L501.5200, L500.4050 #### [facility] [address] [place], [address] Emergency Department Summary on 09-24-2024 Emergency Department Summary [facility] Medical Records Department [address] [place] [address] Emergency Department Summary 09/24/24 MR#: [id number] Acct: [id number] Name: JOJO MCKEON Rep #: [id number] : 1995 29 From: Prem Vogel DO PCP: ROMEO Leonard Status:ADM IN Location: [place] [address] HPI History of Present Illness Chief Complaint: [facility] Medical History (Updated 09/24/24 @ 14:54 [...] History obtained from others: Mom Consults: none [facility] Narrative: Patient was initially hemodynamically stable, afebrile [...] Agreed lamar (more content not included)... Normal [facility] H AND P Exam - Hospitaliston 09-24-2024 H&P Exam - Hospitalist [facility] Medical Records Department [address] [place] [address] H P Exam - Hospitalist 09/24/242052 MR#: [id number] Acct: [id number] Name: JOJO MCKEON Rep #: [id number] : 1995 29 From: Karson Agudelo DO PCP: ROMEO Leonard Status:ADM IN Location: [facility] [id number] HPI - General General Date of Admission: 09/24/24 Date of Service: 09/24/24 Chief Complaint: Painless Jaundice after Cipro for UTI. 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 He was then admitted to the general medical floor for ongoing care for a stay that is expected to extend beyond 2 midnights. [facility] Medical History UTI (urinary tract infection) [...] 43.0 Result (more content not included)... Normal [facility] Hemoglobin A1con 09-24-2024 HbA1c (Bld) [Mass fraction] 5.0 % Normal 3.8-5.6 [facility] Comment on above: Result Comment: Norm al < 5.7 % Prediabetic 5.7 - 6.4 % Diabetic >or= 6.5 % Please note range changes. Performed By: #### L 501.3820, L501.5200, L500.4470 #### [facility] [address] [place], [place], [id number] Hemoglobin A1c percentageOrd ered By: Karson Castillo on 09-24-2024 HbA1c (Bld) [Mass fraction] 5.0 % 3.8-5.6 [facility] Comment on above: Normal < 5.7 % Predi abetic 5.7 - 6.4 % Diabetic >or= 6.5 % Please note range changes. High density lipoprotein (HD L) measurementOrdered By: Karson Castillo on 09-24-2024 Cholesterol in HDL [Mass/Vol] 30 mg/dL Low >40 [facility] Comment on above: The drugs N-Acetylcy steine and Metamizole may falsely depress this assay. Reference Range HDL <40 mg/dL Low HDL Cholesterol HDL >or= 60 mg/dL High HDL Cholesterol Ketones Test strip Ql (U)Ord ered By: Karson Castillo on 09-24-2024 Ketones Ql (U) Negative Negative [facility] Lipaseon 09-24-2024 Lipase [Catalytic activity/Vol] 41 U/L Low 73-393 [facility] Comment on above: Performed By: #### L 501.2300, L501.5200, L500.4050 #### [facility] [address] [place], [address] Lipase measurementOrdered By : Prem Vogel on 09-24-2024 Lipase [Catalytic activity/Vol] 41 U/L Low 73-393 [facility] Lipid Profileon 09-24-2024 Cholesterol [Mass/Vol] 203 mg/dL High 200 [facility] Comment on above: Result Comment: Slig ht Icterus, Result may be falsely decreased. <200 mg/dL Desirable 200-240 mg/dL Borderline >240 mg/dL High Risk Performed By: #### L 501.2300, L501.5200, L500.4050 #### [facility] [address] [place], [address] Cholesterol in HDL [Mass/Vol] 30 mg/dL Low [facility] Comment on above: Result Comment: The drugs N-Acetylcysteine and Metamizole may falsely depress this assay. Reference Range HDL <40 mg/dL Low HDL Cholesterol HDL >or= 60 mg/dL High HDL Cholesterol Performed By: #### L 501.2300, L501.5200, L500.4050 #### [facility] [address] [place], [address] Cholesterol in LDL [Mass/Vol] 144 mg/dL High 0-130 [facility] Comment on above: Performed By: #### L 501.2300, L501.5200, L500.4050 #### [facility] [address] [place], [address] Cholesterol in VLDL [Mass/Vol] 29 mg/dL Normal 5-40 [facility] Comment on above: Performed By: #### L 501.2300, L501.5200, L500.4050 #### [facility] [address] [place], [address] Triglyceride [Mass/Vol] 146 mg/dL Normal [facility] Comment on above: Result Comment: The drugs N-Acetylcysteine and Metamizole may falsely depress this assay. Slight Icterus, Result may be falsely increased. Serum Triglycerides Reference Interval Normal <150 mg/dL Borderline high 150 - 199 mg/dL High 200 - 499 mg/dL Very High > or = 500 mg/dL Performed By: #### L 501.2300, L501.5200, L500.4050 #### [facility] [address] [place], [address] Liver Profileon 09-24-2024 Albumin [Mass/Vol] 3.2 g/dL Normal 3.2-5.0 [facility] Comment on above: Performed By: #### L 501.2300, L501.5200, L500.4050 #### [facility] [address] [place], [address] ALK P 268 U/L High 45-117 [facility] Comment on above: Performed By: #### L 501.2300, L501.5200, L500.4050 #### [facility] [address] [place], [address] ALT [Catalytic activity/Vol] 680 U/L High 16-61 [facility] Comment on above: Performed By: #### L 501.2300, L501.5200, L500.4050 #### [facility] [address] [place], [address] AST [Catalytic activity/Vol] 378 U/L High 15-37 [facility] Comment on above: Performed By: #### L 501.2300, L501.5200, L500.4050 #### [facility] [address] [place], [address] Bilirubin [Mass/Vol] 6.40 mg/dL High 0.20-1.00 [facility] Comment on above: Result Comment: For patients on eltrombopag therapy, use of Dimension Fallentimber TBIL is not recommended. Performed By: #### L 501.2300, L501.5200, L500.4050 #### [facility] [address] [place], [address] Bilirubin.direct [Mass/Vol] 4.99 mg/dL High 0.00-0.30 [facility] Comment on above: Performed By: #### L 501.2300, L501.5200, L500.4050 #### [facility] [address] [place], [address] Globulin (S) [Mass/Vol] 3.7 g/dL Normal 2.2-4.2 [facility] Comment on above: Performed By: #### L 501.2300, L501.5200, L500.4050 #### [facility] [address] [place], [address] T PROT 6.9 g/dL Normal 6.4-8.2 [facility] Comment on above: Performed By: #### L 501.2300, L501.5200, L500.4050 #### [facility] [address] [place], [place], [id number] Low density lipoprotein (LDL ) cholesterol measurementOrdered By: Karson Castillo on 09-24-2024 Cholesterol in LDL [Mass/Vol] 144 mg/dL High 0-130 [facility] Microscopic analysis of urin e for red blood cells (RBC)Ordered By: Karson Castillo on 09-24-2024 Microscopic analysis of urine for red blood cells (RBC) 0 SEEN /hpf 0-5 [facility] Mucus LM Ql (Urine sed)Order ed By: Karson Castillo on 09-24-2024 Mucus Ql (Urine sed) RARE /hpf [facility] Nitrite Test strip Ql (U)Ord ered By: Karson Castillo on 09-24-2024 Nitrite Ql (U) Negative Negative [facility] No Panel InformationOrdered By: Karson Castillo on 09-24-2024 Urine Drug Screen Comment [facility] Comment on above: CONFIRMATORY TESTING FOR ALL [...] Coag (Bld) [Time] 25.6 s Normal 24.1-36.2 [facility] Comment on above: Performed By: #### L 500.4050 #### [facility] [address] [place], [place], [id number] Protein Test strip Ql (U)Ord ered By: Karson Castillo on 09-24-2024 Protein Ql (U) 15 mg/dl High Negative [facility] Prothrombin Time w/INRon INR Coag (PPP) [Relative time] 0.9 {INR} Normal [facility] Comment on above: Performed By: #### L 500.4050 #### [facility] [address] [place], [address] PT Coag (PPP) [Time] 12.4 s Normal 11.7-14.9 [facility] Comment on above: Performed By: #### L 500.4050 #### [facility] [address] [place], [address] Quantitative urine opiates m easurementOrdered By: Karson Castillo on 09-24-2024 Opiates Ql (U) Negative < 300 ng/mL [facility] Serum or plasma acetaminophe n measurement (mass/volume)Ordered By: Prem Vogel on 09-24-2024 Acetaminophen [Mass/Vol] ug/mL Low 10.0-30.0 [facility] Serum or plasma cholesterol measurement (mass/volume)Ordered By: Karson Castillo on 09-24-2024 Cholesterol [Mass/Vol] 203 mg/dL High <200 [facility] Comment on above: Slight Icterus, Resu lt may be falsely decreased. <200 mg/dL Desirable 200-240 mg/dL Borderline >240 mg/dL High Risk Serum or plasma thyroid stim ulating hormone (TSH) measurement (units/volume)Ordered By: Karson Castillo on 09-24-2024 TSH Qn 0.735 uIU/mL 0.358-3.740 [facility] Squamous epithelial cells de tection in urine sediment by light microscopyOrdered By: Karson Castillo on 09-24-2024 Epithelial cells.squamous LM Ql (Urine sed) 0 SEEN /hpf 0-5 [facility] Thyroid Stim Hormone (TSH)on 09-24-2024 TSH 0.735 uIU/mL Normal 0.358-3.740 [facility] Comment on above: Performed By: #### L 501.2300, L501.5200, L500.4050 #### [facility] [address] [place], [address] Triglycerides measurementOrd ered By: Karson Castillo on 09-24-2024 Triglyceride [Mass/Vol] 146 mg/dL <199 [facility] Comment on above: The drugs N-Acetylcy steine and Metamizole may falsely depress this assay. Slight Icterus, Result may be falsely increased.Serum Triglycerides Reference Interval Normal <150 mg/dL Borderline high 150 - 199 mg/dL High 200 - 499 mg/dL Very High > or = 500 mg/dL Urinalysis, Completeon 09-24 Clarity (U) Clear Normal Clear [facility] Comment on above: Order Comment: CLEAN CATCH Performed By: #### L 501.2300, L501.5200, L500.4050 #### [facility] [address] [place], [address] Color (U) Yellow Normal Yellow [facility] Comment on above: Order Comment: CLEAN CATCH Performed By: #### L 501.2300, L501.5200, L500.4050 #### [facility] [address] [place], [address] GLUCOSE, UR Normal Normal Normal [facility] Comment on above: Order Comment: CLEAN CATCH Performed By: #### L 501.2300, L501.5200, L500.4050 #### [facility] [address] [place], [address] KETONE UR Negative Normal Negative [facility] Comment on above: Order Comment: CLEAN CATCH Performed By: #### L 501.2300, L501.5200, L500.4050 #### [facility] [address] [place], [address] LEUK ESTERASE 25 /ul Abnormal Negative [facility] Comment on above: Order Comment: CLEAN CATCH Performed By: #### L 501.2300, L501.5200, L500.4050 #### [facility] [address] [place], [address] Nitrite Ql (U) Negative Normal Negative [facility] Comment on above: Order Comment: CLEAN CATCH Performed By: #### L 501.2300, L501.5200, L500.4050 #### [facility] [address] [place], [address] OCCULT BLOOD-UR Negative Normal Negative [facility] Comment on above: Order Comment: CLEAN CATCH Performed By: #### L 501.2300, L501.5200, L500.4050 #### [facility] [address] [place], [address] pH UR 6.5 Normal 5.0 - 8.0 [facility] Comment on above: Order Comment: CLEAN CATCH Performed By: #### L 501.2300, L501.5200, L500.4050 #### [facility] [address] [place], [address] PROT DIPSTX 15 mg/dl Abnormal Negative [facility] Comment on above: Order Comment: CLEAN CATCH Performed By: #### L 501.2300, L501.5200, L500.4050 #### [facility] [address] [place], [address] SP.GR. DIPSTX 1.015 Normal 1.002-1.030 [facility] Comment on above: Order Comment: CLEAN CATCH Performed By: #### L 501.2300, L501.5200, L500.4050 #### [facility] [address] [place], [address] UROBILI 1 mg/dl Abnormal Normal [facility] Comment on above: Order Comment: CLEAN CATCH Performed By: #### L 501.2300, L501.5200, L500.4050 #### [facility] [address] [place], [address] EPI,SQUAMOUS 0 SEEN Normal 0-5 [facility] Comment on above: Order Comment: CLEAN CATCH Performed By: #### L 501.2300, L501.5200, L500.4050 #### [facility] [place] [address], [address] Urine amphetamine measuremen tOrdered By: Karson Castillo on 09-24-2024 Amphetamines Ql (U) Negative <1000 ng/mL [facility] Urine benzodiazepine levelOr dered By: Karson Castillo on 09-24-2024 Benzodiazepines Ql (U) Negative < 200 ng/mL [facility] Urine clarityOrdered By: Ryan Castillo on 09-24-2024 Clarity (U) Clear Clear [facility] Urine cocaine levelOrdered B y: Karson Castillo on 09-24-2024 Cocaine Ql (U) Negative < 300 ng/mL [facility] Urine color determinationOrd ered By: Karson Castillo on 09-24-2024 Color (U) Yellow Yellow [facility] Urine cultureOrdered By: Ryan Castillo on 09-24-2024 Bacteria identified Cx Nom (U) Culture exhibits no growth. [facility] Urine zlxjf-2-exeipznivpzois abinol (THC) measurementOrdered By: Karson Castillo on 09-24-2024 Cannabinoids Screen Ql (U) Negative < 50 ng/mL [facility] Urine glucose detectionOrder ed By: Karson Castillo on 09-24-2024 Glucose Ql (U) Normal mg/dl Normal [facility] Urine leukocyte esterase det ection by dipstickOrdered By: Karson Castillo on 09-24-2024 Leukocyte esterase Test strip Ql (U) 25 /ul High Negative [facility] Urine pHOrdered By: Karson calderon on 09-24-2024 pH (U) 6.5 [pH] 5.0 - 8.0 [facility] Urine phencyclidine (PCP) de tectionOrdered By: Karson Castillo on 09-24-2024 Phencyclidine Ql (U) Negative < 25 ng/mL [facility] Urine sediment bacteria coun t by microscopy (number/high power field)Ordered By: Karson Castillo on 09-24-2024 Bacteria LM.HPF (Urine sed) [#/Area] 2 /[HPF] None Seen [facility] Urine specific gravity measu rementOrdered By: Karson Castillo on 09-24-2024 Specific gravity (U) [Rel density] 1.015 1.002-1.030 [facility] Urine urobilinogen measureme ntOrdered By: Karson Castillo on 09-24-2024 Urobilinogen Ql (U) 1 mg/dl High Normal [facility] Very low density lipoprotein (VLDL) cholesterol measurementOrdered By: Karson Castillo on 09-24-2024 Very low density lipoprotein (VLDL) cholesterol measurement 29 mg/dL 5-40 [facility] White blood cell countOrdere d By: Karson Castillo on 09-24-2024 White blood cell count 10-25 SEEN /hpf 0-5 [facility] Urine Cultureon 09-20-2024 URC Culture exhibits no growth. Normal [facility] Comment on above: Performed By: #### L 501.080 #### [facility] [address] [place], [place] [address], [address] Urine cultureOrdered By: Colt Mar on 09-19-2024 Bacteria identified Cx Nom (U) Culture exhibits no growth. [facility] Vital Signs Date Time Vital Sign Value Performing Clinician Hailey henriquez 12-22-2024 15:12-0400 Body height 175.26 cm Zunilda WALTERS Work Phone: [facility] 12-22-2024 15:12-0400 Body weight 124.73 kg Zunilda Mar NP-C Work Phone: [facility] 11-06-2024 15:48-0400 Body mass index (BMI) [Ratio] 44.1 kg/m2 Zunilda Mar NP-C Work Phone: [facility] 11-06-2024 15:48-0400 Body weight 135.73 kg Zunilda Mar NP-C Work Phone: [facility] 09-27-2024 09:01-0500 Body temperature 98 [degF] Zunilda Mar NP-C Work Phone: [facility] 09-27-2024 09:01-0500 Diastolic blood pressure 76 mm[Hg] Zunilda Mar [employer] Work Phone: [facility] 09-27-2024 09:01-0500 Heart rate 86 /min Zunilda Mar [employer] Work Phone: [facility] 09-27-2024 09:01-0500 Respiratory rate 16 /min Zunilda Mar [employer] Work Phone: [facility] 09-27-2024 09:01-0500 SaO2% (BldA) [Mass fraction] 96 % Zunilda Mar [employer] Work Phone: [facility] 09-27-2024 09:01-0500 Systolic blood pressure 126 mm[Hg] Zunilda Mar [employer] Work Phone: [facility] 09-27-2024 04:36-0500 Body mass index (BMI) [Ratio] 42.7 kg/m2 Zunilda Mar [employer] Work Phone: [facility] 09-27-2024 04:36-0500 Body [facility] Work Phone: [facility] Encounters Encounter Date Encounter Type Care Provider Facility Start: 01-26-2025 ambulatory Adelso Nuremberg Facility :[facility] Start: 01-15-2025 ambulatory Adelso Kaur Facility :[facility] Start: 12-22-2024 End: 01-10-2025 Discharged Recurring Adelso Kaur DO -[facility] Work Phone: Start: 12-22-2024 End: 01-10-2025 ambulatory Zunilda Mar [employer] Work Phone: [facility] Work Phone: Start: 11-06-2024 End: 11-06-2024 Patient encounter procedure Adelso Kaur DO -[facility] Work Phone: Start: 11-06-2024 End: 11-06-2024 ambulatory Adelso Kaur Facility:[facility] Start: 09-27-2024 Non-patient / Non-visit Dr. Mani Emanuel MD -[facility] Work Phone: Start: 09-26-2024 Non-patient / Non-visit Dr. Mani Emaneul MD -[facility] Work Phone: Start: 09-26-2024 End: 09-26-2024 ambulatory Zunilda Zaid Facility:[facility] Start: 09-26-2024 End: 09-26-2024 Non-patient / Non-visit Dr. Mary Jiang MD -[facility] Work Phone: Start: 09-25-2024 Non-patient / Non-visit Dr. Mani Emanuel MD -[facility] Work Phone: Start: 09-25-2024 Non-patient / Non-visit Adelso Kaur -[facility] Start: 09-24-2024 ambulatory Mani Emanuel Fac ility:[facility] Start: 09-24-2024 End: 09-27-2024 Evaluation and management of inpatient Dr. aMni Emanuel MD -[facility] Work Phone: Start: 09-19-2024 End: 09-19-2024 Patient encounter procedure Zunilda Mar [employer]ESSER-C -Laboratory Specimen Work Phone: Start: 09-19-2024 End: 09-19-2024 ambulatory Zunilda Floresgar Facility:[facility] Procedures Date Procedure Procedure Detail Performing Clinician Start: 09-27-2024 Estimated creatinine clearance Zunilda Flores gar [employer] Work Phone: Start: 09-27-2024 Measurement of renal function Zunilda Mayen ar [employer] Work Phone: Comment on above: GFR Calc Start: 09-26-2024 End: 09-26-2024 Endoscopic retrograde cholangiopancreatography Zunilda Mar [employer] Work Phone: Start: 09-26-2024 Fluoroscopic guidance Zunilda Mar [employer] Work Phone: Start: 09-26-2024 Assay of phosphorus inorganic Zunilda Mayen ar [employer] Work Phone: Start: 09-25-2024 Albumin/Globulin ratio Zunilda Mar [employer] Work Phone: Start: 09-25-2024 Antibody measurement Zunilda Mar [employer] Work Phone: Comment on above: Note: Specimen is icteric.The atypical p ANCA pattern has been observed in asignificant percentage of patients with ulcerative colitis,primary sclerosing cholangitis and autoimmune hepatitis. Start: 09-25-2024 Antibody to centromere measurement Zunilda Mar [employer] Work Phone: Comment on above: Previous reported result: TNP AIEdited b y: INFCE on 09/26/24:1408 AMENDED REPORT 09/26/24 1408 ANTI-CENT B previously reported as: Test not performed Start: 09-25-2024 Antibody to extractable nuclear antigen measurement Zunilda Mar [employer] Work Phone: Comment on above: Previous reported result: TNP AIEdited b y: INFCE on 09/26/24:1408 AMENDED REPORT 09/26/24 1408 VELARDE Ab previously reported as: Test not performed Start: 09-25-2024 Antibody to MIGUEL-1 measurement Zunilda Duff r [employer] Work Phone: Comment on above: Previous reported result: TNP AIEdited b y: INFCE on 09/26/24:1408 AMENDED REPORT 09/26/24 1408 ANTI-MIGUEL previously reported as: Test not performed Start: 09-25-2024 Antibody to lupus La protein measurement Zunilda Mar [employer] Work Phone: Comment on above: Previous reported result: TNP AIEdited b y: INFCE on 09/26/24:1408 AMENDED REPORT 09/26/24 1408 Anti-SS-B previously reported as: Test not performed Start: 09-25-2024 Antibody to SS-A measurement Zunilda Duff r [employer] Work Phone: Comment on above: Previous reported result: TNP AIEdited b y: INFCE on 09/26/24:1408 AMENDED REPORT 09/26/24 1408 Anti-SS-A previously reported as: Test not performed Start: 09-25-2024 Autoantibody measurement Zunilda Mar [employer] -C Work Phone: Comment on above: Previous reported result: TNP AIEdited b y: INFCE on 09/26/24:1408 AMENDED REPORT 09/26/24 1408 ANTICHROMATIN previously reported as: Test not performed Start: 09-25-2024 Ceruloplasmin measurement Zunilda Mar N P-C Work Phone: Comment on above: Performed at: [facility] [employer] [place] [id number] Director: Massimo Gonzalez PhD, Phone: [phone] Start: 09-25-2024 Copper measurement, serum Zunilda Mar N P-C Work Phone: Comment on above: Detection Limit = 5 Start: 09-25-2024 Endomysial antibody IgA level Zunilda Mayen ar [employer] Work Phone: Comment on above: Note: Specimen is icteric. Start: 09-25-2024 Helen-Daugherty virus capsid IgG measurement Zunilda Mar [employer] Work Phone: Comment on above: Negative <18.0 Equivocal 18.0 - 21.9 Pos itive >21.9 Start: 09-25-2024 Helen-Daugherty virus serologic test Zunilda Mar [employer] Work Phone: Comment on above: EBV Interpretation [...] 09-25-2024 Gliadin antibody, IgA measurement Zunilda Zaid [employer] Work Phone: Comment on above: Negative 0 - 19 Weak Positive 20 - 30 Mo derate to Strong Positive >30 Start: 09-25-2024 Gliadin antibody, IgG measurement Zunilda Zaid [employer] Work Phone: Comment on above: Negative 0 - 19 Weak Positive 20 - 30 Mo derate to Strong Positive >30 Start: 09-25-2024 Hepatitis A virus antibody, IgM type Zunilda Zaid [employer] Work Phone: Comment on above: A negative anti-HAV IgM result suggests no recent orcurrent HAV infection. Start: 09-25-2024 Hepatitis B core antibody measurement, IgM type Zunilda Zaid [employer] Work Phone: Start: 09-25-2024 Hepatitis C antibody measurement Zunilda Zaid [employer] Work Phone: Start: 09-25-2024 Immunoglobulin G subclass, G4 measurement Zunilda Zaid [employer] Work Phone: Start: 09-25-2024 Immunoglobulin M measurement Zunilda Edga r [employer] Work Phone: Start: 09-25-2024 Measurement of haptoglobin Zunilda Zaid [employer] Work Phone: Comment on above: Performed at: [facility] [employer] [id number] [place], [place] [id number] Director: Massimo Gonzalez PhD, Phone: [phone] at: [facility] [address] [id number] Director: Antonella Ricardo MD, Phone: [id number] Start: 09-25-2024 UPHOLSTERY INSTRUCTOR antibody measurement Zunilda Zaid [employer]C Work Phone: Comment on above: Previous reported result: TNP AIEdited b y: INFCE on 09/26/24:1408 AMENDED REPORT 09/26/24 1408 UPHOLSTERY INSTRUCTOR Ab previously reported as: Test not performed Start: 09-25-2024 Magnetic resonance cholangiopancreatography Zunilda Mar [employer] Work Phone: Start: 09-25-2024 Biopsy/Inj or Needle Placement Zunilda thakkar [employer] Work Phone: Start: 09-24-2024 Measurement of 3,4-methylenedioxymethamphetamine in urine Zunilda Mar [employer] Work Phone: Start: 09-24-2024 Methadone measurement, urine Zunilda Floresga r [employer] Work Phone: Start: 09-24-2024 Urine barbiturate measurement Zunilda Floresg ar [employer] Work Phone: Start: 09-24-2024 Urnls dip stick/tablet reagent auto microscopy Zunilda Mar [employer] Work Phone: Start: 09-24-2024 Serum ethanol measurement [...] and pelvis with intravenous contrast Zunilda Mar [employer] Work Phone: Start: 09-24-2024 Urine culture Zunilda Mar [employer] Work Phone: Start: 09-19-2024 Urine culture Zunilda Mar [employer] Work Phone: Plan of Treatment Date Care Activity Detail Author Start: 09-27-2024 Patient discharge [facility] Start: 09-26-2024 Provision of activity privileges [facility] Start: 09-25-2024 Catheterization of vein [facility] Start: 09-25-2024 Vital signs measurements [facility] Start: 09-24-2024 Following clinical p athway protocol [facility] Start: 09-24-2024 Application of inter mittent pneumatic compression device [facility] Start: 09-24-2024 Ambulation without limitation [facility] Start: 09-24-2024 Assessment of risk o f venous thromboembolism [facility] Start: 09-24-2024 Insertion of cathete r into peripheral vein [facility] Start: 09-24-2024 Measuring intake and output [facility] Start: 09-24-2024 Providing care accor ding to standard [facility] Start: 09-24-2024 Referral to service [facility] Start: 09-24-2024 [facility] Start: 09-24-2024 Admission procedure [facility] Patient referral [facility] Work Phone: Payers Date Payer Category Payer Private Health Insurance [id number] 2024 Private Health Insurance [id number] 2024 Self-pay Unknown ALLIED [employer] [id number] 4b Unknown [id number] Unknown [id number] Unknown [id number] Unknown [id number] Unknown [id number] Unknown [id number] Unknown [id number] Unknown [id number] Unknown [id number] Unknown [id number] Unknown [id number] [id number] Unknown [id number] [id number] Unknown [id number] Social History Date Type Detail Facility Start: 09-24-[address] [facility] Start: 1995 Sex Assigned At Male [facility] Medical Equipment Procedure Code Equipment Code Equipment Origin al Text Equipment Identifier Dates ERCP (endoscopic retrograde cholangiopancreatog rebekah) ([id number]) Polymeric biliary stent, non-bioabsorbable ([id number] FDA Start: 09-26-2024 Goals Date Patient Goal Desired Activity /State Functional Status Date Assessment Result Facility 09-27-2024 Functional status Ambulates;Up ad nitza [facility] Work Phone: Mental Status Date Assessment Result Facility 09-27-2024 Cognitive function Voice/Name [facility] Work Phone: Discharge summary note 09-27-2024 Note Date & Type Note Facility 09-27-2024 Note [facility] Medical Records Department [address] [place] [id number] Discharge Summary 09/27/24 1522 MR#: [id number] Acct: [id number] Name: JOJO MCKEON Rep #: [id number] : 1995 29 From: Mani Emanuel MD PCP: ROMEO Leonard Status:DIS IN Location: [facility] [id number] Providers Date of Admission: 09/24/24 Primary Care [...] treated with oral ciprofloxacin who presents to [facility] ER complaining of painless jaundice after ciprofloxacin [...] to recently started Ciprofloxacin causing Jaundice 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 [facility] Evaluation note 09-24-2024 Note Date & Type [...] 3:27pm Transaminitis acute November 06, 2024 3:27pm [facility] Work Phone: Reason for referral (narrative) Note Date & Type Note Facility Reason for referral (narrative) No reason for referral information available [facility] Work Phone: Chief Complaint and Reason for [...] Do you have a Healthcare Power of Voice Engineer? No September 24, 2024 10:37pm Summary Purpose Family History No Family History Records Found Additional Source Comments Care Teams (unrecognized sec tion and content) Team Status: Active Member Role Status Dates Zunilda Zaid , [employer]ER[employer]C Primary Care Provider Active Team Status: Inactive Member Role Status Dates Zunilda Zaid , [employer]C Primary Care Provider Active Start: September 19, 2024 End: September 19, 2024 Zunildavirgil Mar , [employer]ER-C Attending Provider Active St art: September 19, 2024 End: September 19, 2024 Team Status: Inactive Member Role Status Dates Zunilda Zaid , [employer]C Primary Care Provider Active Start: September 24, [...] Member Role Status Dates Zunildavirgil Mar , [employer]ER-C Primary Care Provider Active Start: September 25, [...] Member Role Status Dates Zunildavirgil Mar , [employer]ER-C Primary Care Provider Active Start: September 25, [...] Member Role Status Dates Zunilda Mar , [employer]-C Primary Care Provider Active Start: September 26, 2024 End: September 26, 2024 Dr. Mary Jiang MD Attending Provider Activ e Start: September 26, 2024 End: September 26, 2024 Dr. Mary Jiang MD Referring Provider Activ e Start: September 26, 2024 End: September 26, 2024 Team Status: Active Member Role Status Dates Zunilda Mar , [employer]ER-C Primary Care Provider Active Start: September 26, [...] Member Role Status Dates Zunilda Mar , [employer]-C Primary Care Provider Active Start: September 26, [...] Member Role Status Dates Zunilda Mar , [employer]ER[employer]C Primary Care Provider Active Start: September 27, [...] section and content) DATE CREATED AUTHOR 01/14/2025 [facility] FOR RECORDS PERTAINING TO PATIENTS WHO ARE [...] BE BASED ON THE PRIMARY CLINICAL RECORDS. [employer] provides no warranty or guarantee of the accuracy or completeness of information in this document.
[2025-01-16] MEDS: Pantoprazole Sodium 40 MG in 0.9% Normal Saline (100mL MB+) 100 ML 330 MG IV ×3 (02:21→21:56)
[2025-01-16] MEDS: 0.9% Normal Saline (1000mL) 1,000 ML 999 ML IV (02:46)
[2025-01-16] MEDS: 0.9% Normal Saline (1000mL) 1,000 ML 100 ML IV (03:47)
[2025-01-16] MEDS: 0.9% Normal Saline (250mL Bag) 250 ML 15 ML IV (05:38)
[2025-01-16 07:51] LABS: Absolute Lymphocyte Count 0.31 X10^3/uL (0.83-4.51); Absolute Neutrophil Count 6.3 X10^3/uL (2.0-7.7); Basophil# 0.02 X10^3/uL; Basophil% 0.3 % (0-1); Eosinophil# 0.01 X10^3/uL; Eosinophils% 0.1 % (0-5); Hematocrit 40.7 % (40-54); Hemoglobin 14.9 g/dL (13.0-16.5); Lymphocyte # 0.31 X10^3/ul (0.83-4.51); Lymphocyte % 4.2 % (19-41); Mean Corp Hgb Conc 36.6 g/dL (32-36); Mean Corpuscular Hgb 30.9 pg (27.0-32.0); Mean Corpuscular Volume 84.4 fL (80-94); Mean Platelet Vol. 12.8 fl (6.2-12.0); Monocyte# 0.67 X10^3/uL; Monocyte% 9.1 % (0-10); NRBC Flagged by Analyzer 0 % (0-5); Neutrophil # 6.34 X10^3/uL (2.7-7.7); Neutrophil % 85.8 % (47-70); POSITIVE DIFFERENTIAL YES; Platelet Count 103 K/mm3 (150-450); RBC Distribution Width CV 11.9 % (11.6-14.6); RBC Distribution Width SD 36.1 fl (35.1-43.9); Red Blood Count 4.82 M/mm3 (4.6-6.2); White Blood Count 7.4 K/mm3 (4.4-11.0)
--- NOTE | 2025-01-16 08:17 | PN.HOSP_ITS ---
Reason for Visit Reason for Visit: Diagnoses Fever, unspecified (01/16/25) Objective Data Objective Data Vital Signs: Vital Signs Temp Pulse Resp BP Pulse Ox O2 Del Method 98.2 F 106 H 18 119/79 97 Room Air 01/16/25 05:27 01/16/25 02:04 01/16/25 02:04 01/16/25 02:04 01/16/25 02:04 01/16/25 02:07 Oxygen Delivery Method Room Air Weight: 119.56 kg Body Mass Index (BMI) 39.0 Intake & Output: Intake and Output for Last 24 Hours 01/14/25 01/15/25 01/16/25 23:59 23:59 23:59 Intake Total 2152.5 / 2152.5 Balance 2152.5 / 2152.5 Lab / Micro Data 01/16/25 07:30 01/15/25 22:48 Labs: Laboratory Results - last 24 hr 01/15/25 22:13: Urine Color Yellow, Urine Clarity Clear, Urine pH 8.0, Ur Specific [place] 1.015, Urine Protein 15 H, Urine Glucose (UA) Normal, Urine Ketones Negative, Urine Occult Blood Negative, Urine Nitrite Negative, Urine Bilirubin Negative, Urine Urobilinogen 1 H, Ur Leukocyte Esterase Negative, Urine RBC 0-5 SEEN, Urine WBC 0-5 SEEN, Ur Squamous Epith Cells 0 SEEN, Urine Bacteria 1+, Urine Mucus 0 SEEN 01/15/25 22:48: WBC 6.9, RBC 5.54, Hgb 17.0 H, Hct 46.7, MCV 84.3, MCH 30.7, M CHC 36.4 H, RDW Std Deviation 35.7, RDW Coeff of Lopez 11.8, Plt Count 112 L, MPV 13.4 H, Immature Gran % (Auto) 0.300, Neut % (Auto) 86.1 H, Lymph % (Auto) 6.4 L , [place] % (Auto) 6.7, Eos % (Auto) 0.1, Baso % (Auto) 0.4, Absolute Neuts (auto) 5.9, Absolute Lymphs (auto) 0.44 L, Nucleated RBC % 0, Sodium 138, Potassium 3.7, Chloride 101, Carbon Dioxide 24.9, Anion Gap 12, BUN 4, Creatinine 1.09, Estim Creat Clear Calc 127.64, Est GFR (MDRD) Non-Af 94, BUN/Creatinine Ratio 4.0 L, Glucose 98, Lactic Acid 1.1, Calcium 9.7, Total Bilirubin 0.17, Direct Bilirubin 0.75 H, AST 70 H, ALT 72 H, Alkaline Phosphatase 104, Total Protein 6.8, Albumin 4.3, Globulin 2.5, Lipase 37, Procalcitonin 0.38 H 01/16/25 07:30: WBC 7.4, RBC 4.82, Hgb 14.9, Hct 40.7, MCV 84.4, MCH 30.9, MCHC 36.6 H, RDW Std Deviation 36.1, RDW Coeff of Lopez 11.9, Plt Count 103 L, MPV 12.8 H, Immature Gran % (Auto) 0.500, Neut % (Auto) 85.8 H, Lymph % (Auto) 4.2 L, [place] % (Auto) 9.1, Eos % (Auto) 0.1, Baso % (Auto) 0.3, Absolute Neuts (auto) 6.3, Absolute Lymphs (auto) 0.31 L, Nucleated RBC % 0 Micro: Microbiology 01/15/25 22:40 Mucosa - Nose SARS-CoV-2, Influenza & RSV (PCR) - Final Radiography Diagnostic Testing: Radiology Impression Abdomen/Pelvis CT 01/15/25 22:18 IMPRESSION: 1. No definite evidence for an acute intra-abdominal abnormality. Normal caliber common bile duct. 2. Mild wall thickening of the ascending colon, which may be result of underdistention. Colitis is possible but less likely given absence of inflammatory stranding. 3. Mild urinary bladder wall thickening may also be related to underdistention or cystitis. Correlate with urinalysis. 4. Punctate nonobstructing stone measuring 2 mm in the right kidney, unchanged. 5. Splenomegaly. Reading Location: [id number] Chest X-Ray 01/15/25 23:21 IMPRESSION: No acute airspace abnormality. Reading Location: [facility] Physical Exam Narrative Physical Examination: General: Awake, alert, oriented x 3 and cooperative, seated upright in the ED bed in no apparent distress, extremely soft-spoken. Skin: Flushed color, normal turgor, no icterus, no cyanosis. HEENT: AT/NC, EOMI, PERRLA, MMM, no carotid bruits or JVD noted. Lungs: Diminished, greater bases, appropriate effort, no rales, ronchi or wheezing. Heart: Mildly tachycardic with regular rhythm; no gallop, rub audible. Abdomen: Soft, obese, no tenderness to palpation, no marked distention, mildly hyperactive BS, positive HM. Extremities: No cyanosis, no clubbing, no significant peripheral edema. Neurological: Patient awake, alert, oriented as noted, cognitive function intact; pupils equally reactive to light and accommodation, cranial nerves grossly normal, moving all 4 extremities, no focal deficits, strength mildly to moderately globally Huong secondary to acute presentation complaints. Psychiatric: Affect appears fatigued, no acute evidence of depressive or anxiety feelings. Assessment & Plan Assessment/Plan (1) Fever: PLAN: Plan The patient is a 29 y/o M w/ PMHx: Obesity, AUGUSTE, Choledocholithiasis in addition to History of drug-induced hepatitis with associated mild hyperbilirubinemia/transaminitis felt secondary to oral ciprofloxacin following treatment for urinary tract infection status post ERCP with stone removal and temporary stent placement 09/26/2024 who now presents to the [facility] ED on 01/16/2025 s/p recent 01/15/25 ERCP with stent removal per Dr. Kaur with onset significant chills and fever starting approximately 30 minutes to an hour prior to ED arrival with no specific associated abdominal pain, nausea or emesis. #1. Recent evidence of recurrent choledocholithiasis with mild hyperbilirubinemia/transaminitis status post repeat ERCP with 1 stent removal with onset of fevers and chills, possibly related to recent intervention, possibly transient bacteremia: Will admit to medical surgical floor given stable vital signs, will maintain n.p.o. status on IV fluids with IV PPI pending GI involvement in case of repeat ERCP needs, will maintain on IV Zosyn therapy, continue antipyretic regimen, will have antiemetic regimen and pain regimen if needed, continue aggressive IV fluids. #2. AUGUSTE complicated by recent history of drug-induced hepatitis: Will continue patient home resmetirom regimen, will continue to trend CMP with underlying liver disease complicated by recent history of drug-induced hepatitis felt secondary to ciprofloxacin in addition to choledocholithiasis status post previous ERCP with stent placement complicated by current presentation. #3. Obesity: Weight loss and lifestyle changes encouraged. #4. DVT prophylaxis: SCDs, hold chemoprophylaxis in case further intervention by gastroenterology is necessary.
--- NOTE | 2025-01-16 08:17 | PCM.PN.HOSP ---
Reason for Visit Reason for Visit: Diagnoses Fever, unspecified (01/16/25) Subjective Subjective 29-year-old gentleman who presented to the emergency department with fever following biliary stent removal Objective Data Objective Data Vital Signs: Vital Signs Temp Pulse Resp BP Pulse Ox O2 Del Method 98.2 F 106 H 18 119/79 97 Room Air 01/16/25 05:27 01/16/25 02:04 01/16/25 02:04 01/16/25 02:04 01/16/25 02:04 01/16/25 02:07 Oxygen Delivery Method Room Air Weight: 119.56 kg Body Mass Index (BMI) 39.0 Intake & Output: Intake and Output for Last 24 Hours 01/14/25 01/15/25 01/16/25 23:59 23:59 23:59 Intake Total 2152.5 / 2152.5 Balance 2152.5 / 2152.5 Lab / Micro Data 01/16/25 07:30 01/16/25 07:30 Labs: Laboratory Results - last 24 hr 01/15/25 22:13: Urine Color Yellow, Urine Clarity Clear, Urine pH 8.0, Ur Specific [place] 1.015, Urine Protein 15 H, Urine Glucose (UA) Normal, Urine Ketones Negative, Urine Occult Blood Negative, Urine Nitrite Negative, Urine Bilirubin Negative, Urine Urobilinogen 1 H, Ur Leukocyte Esterase Negative, Urine RBC 0-5 SEEN, Urine WBC 0-5 SEEN, Ur Squamous Epith Cells 0 SEEN, Urine Bacteria 1+, Urine Mucus 0 SEEN 01/15/25 22:48: WBC 6.9, RBC 5.54, Hgb 17.0 H, Hct 46.7, MCV 84.3, MCH 30.7, MCHC 36.4 H, RDW Std Deviation 35.7, RDW Coeff of Lopez 11.8, Plt Count 112 L, MPV 13.4 H, Immature Gran % (Auto) 0.300, Neut % (Auto) 86.1 H, Lymph % (Auto) 6.4 L, [place] % (Auto) 6.7, Eos % (Auto) 0.1, Baso % (Auto) 0.4, Absolute Neuts (auto) 5.9, Absolute Lymphs (auto) 0.44 L, Nucleated RBC % 0, Sodium 138, Potassium 3.7, Chloride 101, Carbon Dioxide 24.9, Anion Gap 12, BUN 4, Creatinine 1.09, Estim Creat Clear Calc 127.64, Est GFR (MDRD) Non-Af 94, BUN/Creatinine Ratio 4.0 L, Glucose 98, Lactic Acid 1.1, Calcium 9.7, Total Bilirubin 0.17, Direct Bilirubin 0.75 H, AST 70 H, ALT 72 H, Alkaline Phosphatase 104, Total Protein 6.8, Albumin 4.3, Globulin 2.5, Lipase 37, Procalcitonin 0.38 H 01/16/25 07:30: WBC 7.4, RBC 4.82, Hgb 14.9, Hct 40.7, MCV 84.4, MCH 30.9, MCHC 36.6 H, RDW Std Deviation 36.1, RDW Coeff of Lopez 11.9, Plt Count 103 L, MPV 12.8 H, Immature Gran % (Auto) 0.500, Neut % (Auto) 85.8 H, Lymph % (Auto) 4.2 L, [place] % (Auto) 9.1, Eos % (Auto) 0.1, Baso % (Auto) 0.3, Absolute Neuts (auto) 6.3, Absolute Lymphs (auto) 0.31 L, Nucleated RBC % 0 Micro: Microbiology 01/15/25 22:40 Mucosa - Nose SARS-CoV-2, Influenza & RSV (PCR) - Final Radiography Diagnostic Testing: Radiology Impression Abdomen/Pelvis CT 01/15/25 22:18 IMPRESSION: 1. No definite evidence for an acute intra-abdominal abnormality. Normal caliber common bile duct. 2. Mild wall thickening of the ascending colon, which may be result of underdistention. Colitis is possible but less likely given absence of inflammatory stranding. 3. Mild urinary bladder wall thickening may also be related to underdistention or cystitis. Correlate with urinalysis. 4. Punctate nonobstructing stone measuring 2 mm in the right kidney, unchanged. 5. Splenomegaly. Reading Location: [id number] Chest X-Ray 01/15/25 23:21 IMPRESSION: No acute airspace abnormality. Reading Location: [facility] Physical Exam Narrative GENERAL: cooperative HEENT: Atraumatic; normocephalic EYES; Anicteric, Normal Conjunctiva NECK; supple, normal thyroid, RESPIRATORY: Diminished to auscultation CARDIOVASCULAR: Regular S1 S2, GI: soft, normoactive bowel sounds, : No Renal angle tenderness; EXTREMITIES: No edema, no clubbing, MUSCULOSKELETAL: no muscle wasting NEURO: Awake; no lateralizing signs. SKIN: No Rash PSYCH; Flat affect Assessment & Plan Assessment/Plan (1) Fever: PLAN: Plan 29-year-old gentleman who presented to the emergency department with fever following biliary stent removal 1. Fever ? Suspected to be secondary to colitis Imaging studies obtained on admission did show mild wall thickening of the ascending colon. Admitted to regular nursing floor managed with IV fluid and broad-spectrum antibiotic therapy cultures sent 2. Choledocholithiasis ? With previous history of ERCP with temporary stent placement on 09/26/2024. Patient's stent was removed on 01/15/2025. Patient presented with fever as stated above consult placed to GI on admission 3. Class II obesity with BMI of 38.9 ? Complicating care weight loss advised 4. Nonalcoholic fatty liver disease ? Patient to follow-up with GI as outpatient 5. Splenomegaly ?. CAT scan finding patient to follow-up with PCP with serial monitoring 6. Nephrolithiasis ? Currently asymptomatic 7. DVT prophylaxis ? Low risk to encourage ambulation Time spent in the patient's overall evaluation,decision-making process, review of diagnostic data, adjustment of management, discussion with other providers, nursing nursing and ancillary staff involved in patient's care documentation, 32 minutes Charges/Coding Visit Charges Inpatient E&M: 74949 PROLNG IP/OBS E/M EA 15 MIN Multi Select Codes Visit Charges Visit Charges: 72144 PROLNG IP/OBS E/M EA 15 MIN
[2025-01-16 08:25] LABS: AST(SGOT) 68 U/L (<=37); Alanine Aminotransfer ALT/SGPT 70 U/L (<=46); Albumin, Serum 3.8 g/dL (3.5-5.0); Alkaline Phosphatase 105 U/L (40-129); Anion Gap 10 (5-15); BUN 8 mg/dL (4-19); BUN/Creat Ratio 8.6 RATIO (10-20); Bilirubin, Direct 1.16 mg/dL (0.00-0.30); Calcium,Total 8.6 mg/dL (7.6-11.0); Carbon Dioxide 21.3 mmol/L (21.0-32.0); Chloride 106 mmol/L (98-108); Creatinine, Serum 0.98 mg/dL (0.70-1.20); EST Glomerular Filtration Rate 107 (>60); Estimated Creatinine Clearance 141.97 ml/min (50-250); Globulin 2.1 g/dL (2.2-4.2); Glucose 96 mg/dL (70-99); Potassium 3.8 mmol/L (3.3-5.1); Protein, Total 5.9 g/dL (5.9-8.4); Sodium Level 138 mmol/L (133-145); Total Bilirubin 2.48 mg/dL (0.00-1.30)
[2025-01-16] MEDS: Acetaminophen 325 MG Tablet 650 MG PO ×2 (11:41→17:46)
[2025-01-16] MEDS: 0.9% Saline Lock 10 ML Syringe IV (14:34)
--- NOTE | 2025-01-16 15:21 | CASEMGMT ---
AJ MARIA Assessment Face to Face with patient for initial transition planning/care coordination assessment. AJ MARIA introduced self and role at [facility], pt voices understanding. Pt is A&Ox4 and is resting comfortably in bed and is calm. Care providers, pharmacy, and demographics verified. Admitting dx:Fever LACE Strata: 1 PCP:Zunilda Mar Specialists: Denies Preferred Pharmacy: [facility] Insurance: [facility] Prescription Benefit: Yes LNOK: Steph (Mother) Living Arrangements: Pt lives with his mother and sister in a bilevel home with 7 steps between floors with a flat entrance ADLs/IADLs: Indep Transportation: Self, family DME: Denies HHC/SNF: denies Pt?s goal: Home Plan: Home, no additional needs. Pt reports that he feels safe returning home with his family at the time of DC and denies requiring any further resources or needs at this time. Jessica Levy RN, CM
[2025-01-17 04:15] VITALS: BP 128/83; PULSE 85; RESP 16; TEMP 37.2; O2SAT 94
[2025-01-17 05:39] LABS: Absolute Lymphocyte Count 0.65 X10^3/uL (0.83-4.51); Absolute Neutrophil Count 3.1 X10^3/uL (2.0-7.7); Basophil# 0.03 X10^3/uL; Basophil% 0.7 % (0-1); Eosinophil# 0.03 X10^3/uL; Eosinophils% 0.7 % (0-5); Hematocrit 39.9 % (40-54); Hemoglobin 14.6 g/dL (13.0-16.5); Lymphocyte # 0.65 X10^3/ul (0.83-4.51); Lymphocyte % 15.4 % (19-41); Mean Corp Hgb Conc 36.6 g/dL (32-36); Mean Corpuscular Hgb 31.3 pg (27.0-32.0); Mean Corpuscular Volume 85.6 fL (80-94); Mean Platelet Vol. 13.6 fl (6.2-12.0); Monocyte# 0.42 X10^3/uL; NRBC Flagged by Analyzer 0 % (0-5); Neutrophil # 3.08 X10^3/uL (2.7-7.7); POSITIVE COUNT YES; Platelet Count 95 K/mm3 (150-450); RBC Distribution Width SD 37.2 fl (35.1-43.9); Red Blood Count 4.66 M/mm3 (4.6-6.2); White Blood Count 4.2 K/mm3 (4.4-11.0)
[2025-01-17 05:46] VITALS: BMI 39.7
[2025-01-17 06:10] LABS: Phosphorus 2.6 mg/dL (2.7-4.5)
[2025-01-17 06:19] LABS: Differential Indicated SCAN CRITERIA MET
[2025-01-17] MEDS: Piperacil/Tazobactam 3.375 GM in 0.9% Normal Saline (50mL MB+) 50 ML IV ×3 (06:26→21:27)
[2025-01-17 06:31] LABS: AST(SGOT) 44 U/L (<=37); Alanine Aminotransfer ALT/SGPT 63 U/L (<=46); Albumin, Serum 3.6 g/dL (3.5-5.0); Alkaline Phosphatase 106 U/L (40-129); Anion Gap 11 (5-15); BUN 9 mg/dL (4-19); BUN/Creat Ratio 8.4 RATIO (10-20); Bilirubin, Direct 1.12 mg/dL (0.00-0.30); Calcium,Total 8.9 mg/dL (7.6-11.0); Carbon Dioxide 20.6 mmol/L (21.0-32.0); Chloride 106 mmol/L (98-108); Creatinine, Serum 1.02 mg/dL (0.70-1.20); EST Glomerular Filtration Rate 102 (>60); Estimated Creatinine Clearance 137.69 ml/min (50-250); Globulin 2.3 g/dL (2.2-4.2); Glucose 78 mg/dL (70-99); Potassium 3.7 mmol/L (3.3-5.1); Protein, Total 5.9 g/dL (5.9-8.4); Sodium Level 138 mmol/L (133-145); Total Bilirubin 2.12 mg/dL (0.00-1.30)
[2025-01-17 06:56] LABS: Differential Comment SCANNED; Platelet Estimate SLT DEC (ADEQ)
[2025-01-17 08:06] VITALS: O2SAT 99
[2025-01-17 10:15] VITALS: BP 152/96; PULSE 82; RESP 19; TEMP 37.2; O2SAT 97
[2025-01-17] MEDS: Pantoprazole Sodium 40 MG in 0.9% Normal Saline (100mL MB+) 100 ML 330 MG IV (10:45)
[2025-01-17 14:09] VITALS: BP 131/82; PULSE 79; RESP 19; TEMP 37.3; O2SAT 99
--- NOTE | 2025-01-17 17:26 | PCM.PN.HOSP ---
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 I discussed this with gastroenterology and let them know that he is on IV antibiotics at this time, gastroenterology did not feel they had anything to offer concerning his care in the hospital at this time and so I canceled their consultation. Patient was alert and oriented today and did not appear to be in any distress, white blood cell count was 4.2, today the patient has been afebrile. Objective Data Objective Data Vital Signs: Vital Signs Temp Pulse Resp BP Pulse Ox O2 Del Method 99.1 F 79 19 H 131/82 H 99 Room Air 01/17/25 14:01/17/25 14:01/17/25 14:01/17/25 14:01/17/25 14:01/17/25 14:09 Oxygen Delivery Method Room Air Weight: 121.7 kg Body Mass Index (BMI) 39.7 Intake & Output: Intake and Output for Last 24 Hours 01/15/25 01/16/25 01/17/25 23:59 23:59 23:59 Intake Total 3802.5 / 3802.5 560 / 560 Output Total 250 / 250 Balance 3552.5 / 3552.5 560 / 560 Lab / Micro Data 01/17/25 05:05 01/17/25 05:05 Labs: Laboratory Results - last 24 hr 01/17/25 05:05: WBC 4.2 L, RBC 4.66, Hgb 14.6, Hct 39.9 L, MCV 85.6, MCH 31.3, MCHC 36.6 H, RDW Std Deviation 37.2, RDW Coeff of Lopez 12.0, Plt Count 95 L, MPV 13.6 H, Immature Gran % (Auto) 0.200, Neut % (Auto) 73.0 H, Lymph % (Auto) 15.4 L, [place] % (Auto) 10.0, Eos % (Auto) 0.7, Baso % (Auto) 0.7, Absolute Neuts (auto) 3.1, Absolute Lymphs (auto) 0.65 L, Nucleated RBC % 0, Differential Comment SCANNED, Platelet Estimate SLT DEC, Sodium 138, Potassium 3.7, Chloride 106, Carbon Dioxide 20.6 L, Anion Gap 11, BUN 9, Creatinine 1.02, Estim Creat Clear Calc 137.69, Est GFR (MDRD) Non-Af 102, BUN/Creatinine Ratio 8.4 L, Glucose 78, Calcium 8.9, Phosphorus 2.6 L, Magnesium 2.0, Total Bilirubin 2.12 H, Direct Bilirubin 1.12 H, AST 44 H, ALT 63 H, Alkaline Phosphatase 106, Total Protein 5.9, Albumin 3.6, Globulin 2.3 Micro: Microbiology 01/15/25 22:48 Blood Culture (Wb) - Anticubital Right Blood Culture - Preliminary GNR 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 01/15/25 22:40 Mucosa - Nose SARS-CoV-2, Influenza & RSV (PCR) - Final Physical Exam Const alert, oriented x3 and no apparent distress General Appearance: cooperative, well kempt and well developed Orientation / Consciousness: awake, oriented to person, oriented to place and oriented to time HEENT normocephalic, head/scalp atraumatic and moist oral mucous membranes Eyes PERRL, EOMs intact bilaterally and conjunctivae normal Neck supple, no JVD, thyroid normal and no carotid bruits General: trachea midline Resp normal respiratory effort, no retractions, no use of accessory muscles and clear to auscultation bilaterally Auscultation: Negative for rales, rhonchi or wheezes Cardio regular rate, regular rhythm, S1 normal heart sound, S2 normal heart sound, no murmurs, no rub and no gallops GI normal to inspection, nondistended, normoactive bowel sounds, soft to palpation, non-tender and non-distended Extremity no clubbing, cyanosis or edema Skin no rashes or lesions noted General Skin Exam: no breakdown Neuro oriented x3, CN's II-XII intact bilaterally, moves all extremities, no focal motor deficits and no sensory deficits noted Sensorium / Orientation: awake and alert Speech: speech normal Psych affect normal Assessment & Plan Assessment/Plan (1) Fever: PLAN: Plan 1. Bacteremia with fever-blood culture results are pending, patient will remain on IV Zosyn at this time, infectious diseases will need to see the patient on Sunday regarding length of antibiotic treatment and possible origin of the bacteremia. CBC will be repeated tomorrow, CMP will be obtained #2 MASLD (metabolic associated steatotic liver disease) complicates care, management, recovery, and prognosis Total clinical time spent by myself addressing the patient's medical issues, reviewing all of his data, and collaborating with patient's care team: 35 minutes Charges/Coding Visit Charges Inpatient E&M: 48099 Subs Hosp L2
--- NOTE | 2025-01-17 17:53 | NURSING ---
Walked in villegas at this time, x2 laps around the unit with SBA.
[2025-01-17 20:31] VITALS: BP 143/93; PULSE 86; RESP 16; TEMP 37.4; O2SAT 97
[2025-01-17] MEDS: Pantoprazole Sodium 40 MG Tablet PO (21:26)
[2025-01-17] MEDS: RESMETIROM PO (21:27)
[2025-01-18 02:20] VITALS: BP 135/75; PULSE 75; RESP 16; TEMP 37.1; O2SAT 98
[2025-01-18 03:42] VITALS: BMI 38.9
[2025-01-18] MEDS: Piperacil/Tazobactam 3.375 GM in 0.9% Normal Saline (50mL MB+) 50 ML IV ×3 (05:31→21:33)
[2025-01-18 05:50] LABS: Absolute Lymphocyte Count 0.86 X10^3/uL (0.83-4.51); Absolute Neutrophil Count 2.4 X10^3/uL (2.0-7.7); Basophil# 0.03 X10^3/uL; Basophil% 0.8 % (0-1); Eosinophil# 0.09 X10^3/uL; Eosinophils% 2.3 % (0-5); Hematocrit 40.1 % (40-54); Hemoglobin 14.6 g/dL (13.0-16.5); Lymphocyte # 0.86 X10^3/ul (0.83-4.51); Lymphocyte % 22.5 % (19-41); Mean Corp Hgb Conc 36.4 g/dL (32-36); Mean Corpuscular Hgb 30.9 pg (27.0-32.0); Mean Corpuscular Volume 84.8 fL (80-94); Mean Platelet Vol. 13.4 fl (6.2-12.0); Monocyte# 0.49 X10^3/uL; Monocyte% 12.8 % (0-10); NRBC Flagged by Analyzer 0 % (0-5); Neutrophil # 2.36 X10^3/uL (2.7-7.7); Neutrophil % 61.6 % (47-70); POSITIVE COUNT YES; Platelet Count 99 K/mm3 (150-450); RBC Distribution Width CV 12.2 % (11.6-14.6); RBC Distribution Width SD 37.6 fl (35.1-43.9); Red Blood Count 4.73 M/mm3 (4.6-6.2); White Blood Count 3.8 K/mm3 (4.4-11.0)
[2025-01-18 06:04] LABS: ALB/GLOB Ratio 1.5 RATIO (0.9-2.4); AST(SGOT) 38 U/L (<=37); Alanine Aminotransfer ALT/SGPT 56 U/L (<=46); Albumin, Serum 3.6 g/dL (3.5-5.0); Alkaline Phosphatase 108 U/L (40-129); Anion Gap 11 (5-15); BUN 9 mg/dL (4-19); BUN/Creat Ratio 9.4 RATIO (10-20); Calcium,Total 9.1 mg/dL (7.6-11.0); Chloride 105 mmol/L (98-108); Creatinine, Serum 0.97 mg/dL (0.70-1.20); EST Glomerular Filtration Rate 109 (>60); Estimated Creatinine Clearance 143.33 ml/min (50-250); Globulin 2.4 g/dL (2.2-4.2); Glucose 88 mg/dL (70-99); Potassium 3.8 mmol/L (3.3-5.1); Sodium Level 139 mmol/L (133-145); Total Bilirubin 1.37 mg/dL (0.00-1.30)
[2025-01-18 07:57] VITALS: BP 140/88; PULSE 72; RESP 18; TEMP 37.1; O2SAT 97
[2025-01-18] MEDS: Ensure Plus High Protein 120 ML LIQUID PO ×3 (08:15→14:54)
[2025-01-18] MEDS: Menthol/Lanolin/Calamine/Znox 113 GM Tube 1 APPLIC TOPICAL ×2 (08:15→21:34)
[2025-01-18] MEDS: Pantoprazole Sodium 40 MG Tablet PO ×2 (08:21→21:33)
--- NOTE | 2025-01-18 13:56 | PN.HOSP_ITS ---
Reason for Visit Reason for Visit: Diagnoses Fever, unspecified (01/16/25) Subjective Subjective Patient was seen and examined today, his blood cultures grew out Klebsiella oxytocin, I briefly discussed this by phone with gastroenterology, they requested that I obtain an ultrasound of the gallbladder. I will have the patient seen by infectious diseases tomorrow Objective Data Objective Data Vital Signs: Vital Signs Temp Pulse Resp BP Pulse Ox O2 Del Method 98.8 F 72 18 140/88 H 97 Room Air 01/18/25 07:57 01/18/25 07:57 01/18/25 07:57 01/18/25 07:57 01/18/25 07:57 01/18/25 08:01 Oxygen Delivery Method Room Air Weight: 119.4 kg Body Mass Index (BMI) 38.9 Intake & Output: Intake and Output for Last 24 Hours 01/16/25 01/17/25 01/18/25 23:59 23:59 23:59 Intake Total 3802.5 / 3802.5 1260 / 1260 400 / 400 Output Total 250 / 250 400 / 400 Balance 3552.5 / 3552.5 860 / 860 400 / 400 Lab / Micro Data 01/19/25 05:58 01/18/25 05:07 Labs: Laboratory Results - last 24 hr 01/18/25 05:07: WBC 3.8 L, RBC 4.73, Hgb 14.6, Hct 40.1, MCV 84.8, MCH 30.9, M CHC 36.4 H, RDW Std Deviation 37.6, RDW Coeff of Lopez 12.2, Plt Count 99 L, MPV 13.4 H, Immature Gran % (Auto) 0.000, Neut % (Auto) 61.6, Lymph % (Auto) 22.5, M dale % (Auto) 12.8 H, Eos % (Auto) 2.3, Baso % (Auto) 0.8, Absolute Neuts (auto) 2.4, Absolute Lymphs (auto) 0.86, Nucleated RBC % 0, Sodium 139, Potassium 3.8, Chloride 105, Carbon Dioxide 23.0, Anion Gap 11, BUN 9, Creatinine 0.97, Estim Creat Clear Calc 143.33, Est GFR (MDRD) Non-Af 109, BUN/Creatinine Ratio 9.4 L, Glucose 88, Calcium 9.1, Total Bilirubin 1.37 H, AST 38, ALT 56 H, Alkaline Phosphatase 108, Total Protein 6.0, Albumin 3.6, Globulin 2.4, Albumin/Globulin Ratio 1.5 Micro: Microbiology 01/15/25 22:13 Urine, Clean Catch Urine Culture - Preliminary Culture exhibits no growth. 01/15/25 22:48 Blood Culture (Wb) - Anticubital Right Blood Culture - Final Klebsiella oxytoca 01/15/25 23:04 Blood Culture (Wb) - Anticubital Left Blood Culture - Preliminary No growth in 48 hours. 01/15/25 22:40 Mucosa - Nose SARS-CoV-2, Influenza & RSV (PCR) - Final Physical Exam Narrative alert, oriented x3 and no apparent distress General Appearance: cooperative, well kempt and well developed Orientation / Consciousness: awake, oriented to person, oriented to place and oriented to time HEENT normocephalic, head/scalp atraumatic and moist oral mucous membranes Eyes PERRL, EOMs intact bilaterally and conjunctivae normal Neck supple, no JVD, thyroid normal and no carotid bruits General: trachea midline Resp normal respiratory effort, no retractions, no use of accessory muscles and clear to auscultation bilaterally Auscultation: Negative for rales, rhonchi or wheezes Cardio regular rate, regular rhythm, S1 normal heart sound, S2 normal heart sound, no murmurs, no rub and no gallops GI normal to inspection, nondistended, normoactive bowel sounds, soft to palpation, non-tender and non-distended Extremity no clubbing, cyanosis or edema Skin no rashes or lesions noted General Skin Exam: no breakdown Neuro oriented x3, CN's II-XII intact bilaterally, moves all extremities, no focal motor deficits and no sensory deficits noted Sensorium / Orientation: awake and alert Speech: speech normal Psych affect normal Assessment & Plan Assessment/Plan (1) Bacteremia: (2) Fever: PLAN: Plan 1. Bacteremia with fever-blood cultures grew Klebsiella oxytoca, continue antibiotics, ID will see patient #2 MASLD (metabolic associated steatotic liver disease) complicates care, management, recovery, and prognosis Total clinical time spent by myself addressing the patient's medical issues, reviewing all of his data, and collaborating with patient's care team: 35 minutes Charges/Coding Visit Charges Inpatient E&M: 44191 Subs Hosp L2
[2025-01-18 14:50] VITALS: BP 147/85; PULSE 69; RESP 17; TEMP 37.2; O2SAT 93
[2025-01-18] MEDS: 0.9% Normal Saline (250mL Bag) 250 ML 15 ML IV (14:55)
[2025-01-18 20:10] VITALS: BP 126/80; PULSE 77; RESP 16; TEMP 37.1; O2SAT 97
[2025-01-18] MEDS: RESMETIROM PO (21:33)
[2025-01-19 02:20] VITALS: BP 135/76; PULSE 70; RESP 15; TEMP 36.6; O2SAT 99
[2025-01-19 03:15] VITALS: BMI 39.5
[2025-01-19] MEDS: Piperacil/Tazobactam 3.375 GM in 0.9% Normal Saline (50mL MB+) 50 ML IV ×2 (05:35→13:38)
--- NOTE | 2025-01-19 06:00 | US_ITS ---
PROCEDURE: ABDOMEN LIMITED 01/19/2025 REASON FOR EXAM: POSSIBLE CHOLECYSTITIS TECHNIQUE: Complete abdominal ultrasound pimentel-scale images with color doppler. PATIENT PREPARATION: Per protocol COMPARISON: Prior CT scan of the abdomen and pelvis dated January 15, 2025. FINDINGS: Liver: Diffusely echogenic suggesting fatty infiltration. Gallbladder: The gallbladder is contracted. No gallstones are seen. Gallbladder wall measures 2.8 mm. Common bile duct: Normal measuring 6 mm . Pancreas: Visualized portions are unremarkable. The distal body and tail are obscured by bowel gas. Kidneys: The right kidney measures 10.9 cm 5 cm 4.6 cm. The the renal cortex measures 1.1 cm. US/Abdomen Limited IMPRESSION: Fatty infiltration of the liver. Contracted gallbladder. Reading Location: [place] [address]
[2025-01-19 06:33] LABS: Absolute Lymphocyte Count 1.01 X10^3/uL (0.83-4.51); Absolute Neutrophil Count 1.3 X10^3/uL (2.0-7.7); Basophil# 0.03 X10^3/uL; Basophil% 1.1 % (0-1); Eosinophil# 0.07 X10^3/uL; Eosinophils% 2.5 % (0-5); Hematocrit 39.1 % (40-54); Lymphocyte # 1.01 X10^3/ul (0.83-4.51); Lymphocyte % 35.7 % (19-41); Mean Corp Hgb Conc 35.8 g/dL (32-36); Mean Corpuscular Hgb 30.6 pg (27.0-32.0); Mean Corpuscular Volume 85.4 fL (80-94); Mean Platelet Vol. 13.7 fl (6.2-12.0); Monocyte# 0.37 X10^3/uL; Monocyte% 13.1 % (0-10); NRBC Flagged by Analyzer 0 % (0-5); Neutrophil # 1.34 X10^3/uL (2.7-7.7); Neutrophil % 47.2 % (47-70); Platelet Count 101 K/mm3 (150-450); RBC Distribution Width CV 12.2 % (11.6-14.6); RBC Distribution Width SD 37.4 fl (35.1-43.9); Red Blood Count 4.58 M/mm3 (4.6-6.2); White Blood Count 2.8 K/mm3 (4.4-11.0)
[2025-01-19 07:54] VITALS: BP 129/78; PULSE 78; RESP 16; TEMP 37.2; O2SAT 97
[2025-01-19] MEDS: 0.9% Saline Lock 10 ML Syringe IV (09:57)
[2025-01-19] MEDS: Pantoprazole Sodium 40 MG Tablet PO (09:58)
[2025-01-19 13:34] VITALS: BP 125/81; PULSE 81; RESP 17; TEMP 36.8; O2SAT 97
--- NOTE | 2025-01-19 15:05 | PCM.CONS.GEN ---
Assessment & Plan Assessment/Plan (1) Bacteremia: PLAN: Klebs bacteremia s/p ERCP. On zosyn, improving. Plan on home with 5 more days po augmentin 875mg bid. Will follow as needed, thank you, d/w Dr. Oconnor HPI Consult Data Date of Consult: 01/19/25 HPI Narrative Reason for Consultation: bacteremia HPI Narrative: JOJO BARRETT, is a 29 M with h/o AUGUSTE, had ERCP 01/15/25 with stent removal, afterwards developed fever, chills, nausea. No abd pain. Came to ED, admitted 01/16, started on zosyn, now feeling better. No further fever. Full ROS performed and neg except as noted above. [facility] Medical History Obesity Drug-induced hepatitis Transaminitis Hyperbilirubinemia AUGUSTE (nonalcoholic steatohepatitis) Wears glasses History of biliary stent insertion Home Medications ?Medication ?Instructions ?Recorded ?Last Taken ?Type resmetirom 100 mg tablet 100 mg PO DAILY 01/13/25 01/14/25 History (Janak) Allergy/AdvReac Type Severity Reaction Status Date / Time ciprofloxacin (From Cipro) Allergy hepatitis Verified 01/15/25 21:56 Family History (Updated 01/16/25 @ 02:[address] Pricila Montez MD) Mother Hypertension MVP (mitral valve prolapse) Father CAD (coronary artery disease) Hypertension Heart disease Myocardial infarction Surgical History S/P ERCP Social History (Updated 01/16/25 @ 02:[address] Pricila Montez MD) household members: family housing: house Smoking Status: Never smoker alcohol intake: never substance use type: does not use Physical Exam Const alert, oriented x3 and no apparent distress General Appearance: cooperative HEENT normocephalic and head/scalp atraumatic Eyes PERRL and EOMs intact bilaterally Neck supple and No nodes Resp normal air movement and clear to auscultation bilaterally Cardio regular rate and regular rhythm GI soft to palpation, non-tender and non-distended Extremity General Extremity: Negative for edema Skin no rashes or lesions noted Neuro CN's II-XII intact bilaterally Lab / Micro Data Attestation: I reviewed the patient's lab results. 01/19/25 05:58 01/18/25 05:07 Labs: Laboratory Results - last 24 hr 01/19/25 05:58: WBC 2.8 L, RBC 4.58 L, Hgb 14.0, Hct 39.1 L, MCV 85.4, MCH 30.6, MCHC 35.8, RDW Std Deviation 37.4, RDW Coeff of Lopez 12.2, Plt Count 101 L, MPV 13.7 H, Immature Gran % (Auto) 0.400, Neut % (Auto) 47.2, Lymph % (Auto) 35.7, Mills % (Auto) 13.1 H, Eos % (Auto) 2.5, Baso % (Auto) 1.1 H, Absolute Neuts (auto) 1.3 L, Absolute Lymphs (auto) 1.01, Nucleated RBC % 0 Micro: Microbiology 01/15/25 22:13 Urine, Clean Catch Urine Culture - Final Mixed Gram Positive Organisms Imaging Radiology Impression Abdomen Ultrasound 01/19/25 06:00 IMPRESSION: Fatty infiltration of the liver. Contracted gallbladder. Reading Location: [place] [address]
--- NOTE | 2025-01-19 17:19 | DCINST_ITS ---
Discharge Instructions Diet Discharge Diet: No restrictions DC O2, CPAP, BIPAP needs Home O2 Discharge instructions: No Dressing / Incision Discharge Activity: Return to Normal Activity Weight Bearing Status: Full weight bearing Follow Up Care Test Results: Test results from this visit will be discussed in further detail at your follow- up appointment, if applicable. Discharge Plan Admission Admit Date/Time: 01/16/25 12:46 Primary Reason for Your Visit: bacteremia Attending Provider: Harlan Oconnor Primary Care Provider: Zunilda Mar Consulting Providers: Pricila Montez; Karson Borden; Go Subramanian Discharge Orders/Prescriptions Prescriptions: New amoxicillin-pot clavulanate 875-125 mg tablet 1 tab PO BID Qty: 11 0RF Rx Instructions: take with food or after eating Continued Rezdiffra 100 mg tablet 100 mg PO DAILY Referrals / Follow Up: Adelso Kaur DO [Med Staff - Active Staff] - See Referral Note (As scheduled) Zunilda Mar, [employer] HE[employer] SPECIALIST-C [Primary Care Provider] - Disposition Disposition (needs filled in before D/C Order can be placed): Home, Self Care
--- NOTE | 2025-01-19 17:23 | PCM.DC.SUM ---
Providers Date of Admission: 01/16/25 Date of Discharge: 01/19/25 Primary Care Physician: ROMEO Leonard Consultations 01/18/25 14:18 Consult: Infectious Disease Routine Consulting Provider: Go Subramanian Reason for Consult: Bacteremia following ERCP EMERGENT Consult: No MD Notified: Yes Date Notified: 01/19/25 Time Notified: 07:43 Method of Notification: Text Reason For Visit: FEVER Diagnosis Discharge Diagnosis (1) Bacteremia: Status: Acute Code(s): R78.81 - Bacteremia Plan 1. Bacteremia with fever-blood cultures grew Klebsiella oxytoca, continue antibiotics, ID will see patient #2 MASLD (metabolic associated steatotic liver disease) complicates care, management, recovery, and prognosis #3 Asperger's syndrome Total clinical time spent by myself addressing the patient's medical issues, reviewing all of his data, and collaborating with patient's care team: 35 minutes Medications at Discharge Home Medications resmetirom 100 mg tablet (Rezdiffra) 100 mg PO DAILY 01/13/25 amoxicillin 875 mg-potassium clavulanate 125 mg tablet 1 tab PO BID #11 tabs 01/19/25 Hospital Course Operations None Procedures None Summary of Care Provided Minutes Spent on Discharge: 31 Hospital Course: This 29-year-old white male was seen in the emergency room at [facility] with complaints of fever, chills, and malaise, he had undergone an ERCP with removal of a biliary stent the day before. Patient's white blood cell count was normal at 6.9, chemistry profile was unremarkable, urinalysis was unremarkable, CT of the abdomen pelvis showed no definite evidence for acute intra-abdominal abnormality. Patient was noted to be febrile in the emergency room. Blood cultures were obtained and patient was placed on IV antibiotics and he was admitted to [place] [address] where antibiotics were continued. Ultimately the patient's blood culture grew out Klebsiella oxytocin, patient improved during his hospitalization was seen in consultation by infectious diseases who recommended outpatient treatment with Augmentin. On 01/19/2025, patient was seen and examined:alert, oriented x3 and no apparent distress General Appearance: cooperative, well kempt and well developed Orientation / Consciousness: awake, oriented to person, oriented to place and oriented to time HEENT normocephalic, head/scalp atraumatic and moist oral mucous membranes Eyes PERRL, EOMs intact bilaterally and conjunctivae normal Neck supple, no JVD, thyroid normal and no carotid bruits General: trachea midline Resp normal respiratory effort, no retractions, no use of accessory muscles and clear to auscultation bilaterally Auscultation: Negative for rales, rhonchi or wheezes Cardio regular rate, regular rhythm, S1 normal heart sound, S2 normal heart sound, no murmurs, no rub and no gallops GI normal to inspection, nondistended, normoactive bowel sounds, soft to palpation, non-tender and non-distended Extremity no clubbing, cyanosis or edema Skin no rashes or lesions noted General Skin Exam: no breakdown Neuro oriented x3, CN's II-XII intact bilaterally, moves all extremities, no focal motor deficits and no sensory deficits noted Sensorium / Orientation: awake and alert Speech: speech normal Psych affect normal Patient was discharged home in stable condition on 01/19/2025 Weight / BMI Weight Weight: 121.2 kg Body Mass Index (BMI) 39.5 ABG / Lab / Microbiology Data 01/19/25 05:58 01/18/25 05:07 Laboratory: Laboratory Results - last 24 hr 01/19/25 05:58: WBC 2.8 L, RBC 4.58 L, Hgb 14.0, Hct 39.1 L, MCV 85.4, MCH 30.6, MCHC 35.8, RDW Std Deviation 37.4, RDW Coeff of Lopez 12.2, Plt Count 101 L, MPV 13.7 H, Immature Gran % (Auto) 0.400, Neut % (Auto) 47.2, Lymph % (Auto) 35.7, Hubbard % (Auto) 13.1 H, Eos % (Auto) 2.5, Baso % (Auto) 1.1 H, Absolute Neuts (auto) 1.3 L, Absolute Lymphs (auto) 1.01, Nucleated RBC % 0 Microbiology: Microbiology 01/15/25 23:04 Blood Culture (Wb) - Anticubital Left Blood Culture - Final No growth in 5 days. 01/15/25 22:13 Urine, Clean Catch Urine Culture - Final Mixed Gram Positive Organisms 01/15/25 22:48 Blood Culture (Wb) - Anticubital Right Blood Culture - Final Klebsiella oxytoca 01/15/25 22:40 Mucosa - Nose SARS-CoV-2, Influenza & RSV (PCR) - Final Radiography Diagnostic Testing: Radiology Impression Abdomen Ultrasound 01/19/25 06:00 IMPRESSION: Fatty infiltration of the liver. Contracted gallbladder. Reading Location: [facility] D/C Instructions Discharge Diet: No restrictions Weight Bearing Status: Full weight bearing DC O2, CPAP, BIPAP Needs Home O2 Discharge instructions: No Meaningful Use Info Meaningful Use Meaningful Use Diagnoses (Choose all that apply): None applicable Ischemic Stroke Statin Dosing Therapy Reference: STATIN DOSE THERAPY REFERENCE: * Patients > 75 years receive moderate or high dose statin therapy. * Patients 75 years or YOUNGER should receive HIGH intensity statin dose unless contraindicated. You will be required to document reason for non-treatment if statin daily dose does not meet guidelines. HIGH DOSE STATIN THERAPY DAILY Atorvastatin > than or = to 40 mg Rosuvastatin > than or = to 20 mg Amlodipine + Atorvastatin > than or = to 2.5/40 mg Ezetimibe + Simvastatin 10/80 mg Simvastatin 80mg Discharge Plan Admission Admit Date/Time: 01/16/25 12:46 Primary Reason for Your Visit: bacteremia Attending Provider: Harlan Oconnor Primary Care Provider: Zunilda Mar Consulting Providers: Pricila Montez; Karson Borden; Go Subramanian Discharge Orders/Prescriptions Prescriptions: New amoxicillin-pot clavulanate 875-125 mg tablet 1 tab PO BID Qty: 11 0RF Rx Instructions: take with food or after eating Continued Rezdiffra 100 mg tablet 100 mg PO DAILY Referrals / Follow Up: Adelso Kaur DO [Med Staff - Active Staff] - See Referral Note (As scheduled) Zunilda Mar, SERGE-C [Primary Care Provider] - Disposition Disposition (needs filled in before D/C Order can be placed): Home, Self Care Charges/Coding Visit Charges Inpatient E&M: 02099 Disch Hosp >30min
--- NOTE | 2025-01-19 17:27 | CASEMGMT ---
RN CROW NOTE: Per Dr Oconnor, pt will be discharging this evening. RN CM to room. Pt in bed w/HOB elevated. Family member @ bedside. Pt denies having any discharge needs or concerns. They would like Rx's sent to [facility] pharmacy. Conchita BSN AJ CM
[2025-01-19 17:36] VITALS: BP 137/81; PULSE 76; RESP 18; TEMP 37.1; O2SAT 98
== END 2025-01-19 17:56 | disposition home or self-care (01) | DRG 445 ==
LOC: ED 01-16 01:11 → MS3 01-16 01:20
PROVIDERS: Internal Medicine; Admitting Provider Family Medicine; Emergency Provider Emergency Medicine; PCP Nurse Practitioner Family; Visit Provider Internal Medicine
DX: K80.50 Calculus of bile duct without cholangitis or cholecystitis without obstruction (principal); K91.89 Other postprocedural complications and disorders of digestive system; R78.81 Bacteremia; E66.01 Morbid (severe) obesity due to excess calories; K75.9 Inflammatory liver disease, unspecified; K75.81 Nonalcoholic steatohepatitis (NASH); Z68.38 Body mass index [BMI] 38.0-38.9, adult; E66.812 Obesity, class 2; N20.0 Calculus of kidney; R16.1 Splenomegaly, not elsewhere classified
CPT/HCPCS: 36415; 71046; 74177; 76705; 80048; 80053; 80076; 81001; 83605; 83690; 83735; 84100; 84145; 85025; 87040; 87077; 87086; 87088; 87186; 87631; 97802; 99283; Q9967; A4216

== ENCOUNTER 2025-01-26 14:48 | Outpatient (RCR) | payer OTHER, SELFPAY | END 2025-02-09 23:59 | LOC: NS 14:48 | PROVIDERS: PCP Nurse Practitioner Family; Referring Provider Internal Medicine Gastroenterology; Visit Provider Internal Medicine Gastroenterology | DX: Z71.3 Dietary counseling and surveillance (principal); E88.810 Metabolic syndrome; E66.01 Morbid (severe) obesity due to excess calories; E80.6 Other disorders of bilirubin metabolism; K71.3 Toxic liver disease with chronic persistent hepatitis | CPT/HCPCS: 97803 ==

== ENCOUNTER 2025-02-24 15:07 | Outpatient (RCR) | payer OTHER, SELFPAY | END 2025-03-12 23:59 | LOC: NS 15:07 | PROVIDERS: PCP Nurse Practitioner Family; Referring Provider Internal Medicine Gastroenterology; Visit Provider Internal Medicine Gastroenterology | DX: Z71.3 Dietary counseling and surveillance (principal); E66.01 Morbid (severe) obesity due to excess calories; E88.810 Metabolic syndrome; E80.6 Other disorders of bilirubin metabolism; K71.6 Toxic liver disease with hepatitis, not elsewhere classified; Z68.39 Body mass index [BMI] 39.0-39.9, adult | CPT/HCPCS: 97803 ==

== ENCOUNTER 2025-04-06 15:05 | Outpatient (RCR) | payer OTHER, SELFPAY | END 2025-04-12 23:59 | LOC: NS 15:05 | PROVIDERS: PCP Nurse Practitioner Family; Referring Provider Internal Medicine Gastroenterology; Visit Provider Internal Medicine Gastroenterology | DX: Z71.3 Dietary counseling and surveillance (principal); E88.810 Metabolic syndrome; E66.01 Morbid (severe) obesity due to excess calories; E80.6 Other disorders of bilirubin metabolism; K71.6 Toxic liver disease with hepatitis, not elsewhere classified | CPT/HCPCS: 97803 ==

== ENCOUNTER 2025-06-08 15:01 | Outpatient (RCR) | payer OTHER, SELFPAY | END 2025-06-12 23:59 | LOC: NS 15:01 | PROVIDERS: PCP Nurse Practitioner Family; Referring Provider Internal Medicine Gastroenterology; Visit Provider Internal Medicine Gastroenterology | DX: E88.810 Metabolic syndrome (principal); E66.01 Morbid (severe) obesity due to excess calories; K71.6 Toxic liver disease with hepatitis, not elsewhere classified; E80.6 Other disorders of bilirubin metabolism | CPT/HCPCS: 97803 ==

== ENCOUNTER → 2025-07-23 | Outpatient (CLI) | payer OTHER, SELFPAY ==
--- NOTE | 2025-07-23 10:07 | US_ITS ---
PROCEDURE: ELASTOGRAPHY PARENCHYMA/ORGAN, 07/23/2025 REASON FOR EXAM: AUGUSTE COMPARISON: None TECHNIQUE: Elastography was performed for non-invasive assessment of liver tissue stiffness utilizing a [employer] S-shear wave imaging unit. FINDINGS: Number of measurements: 6. US probe: CA1-7A. EQI median: 8.2 kPa EQI median velocity: 1.63 m/s IQR/Med: 23.5% (kPa) and 11.5% (m/s). If the IQR/Med is IQR/median >30% (for kPa) or >15% in m/s, the variance in the measurements is a large and the accuracy of the measurement may be in question. US/Elastography Parenchyma/Organ IMPRESSION: 1. Liver stiffness is 8.2 kPa. Per the below 2020 SRU criteria, this rules out compensated advanced chronic liver disease in the absence of other known clinical signs. If there are known clinical signs, furth er testing may be needed for confirmation. 2. Additional description as above. Assessment is per the Update to the SRU Liver Elastography Consensus Statement (2020) Note that the above assessment of liver fibrosis is vendor-neutral and intended for use in fibrosis related to viral etiologies and non-alcoholic fatty-liver disease (NAFLD); in causes other than viral hepat itis and NAFLD, the cutoff values are currently not well established. In some patients with NAFLD, the cutoff values for cACLD may be lower (7-9 kPa). Note also that in the setting of elevated LFTs, nonfasting or vascular congestion, the stage of lifer fibrosis may be overestimated. Previous SRU reference values: <1.37 m/s (5.7kPa): No to mild fibrosis 1.37 m/s - 2.2 m/s: Moderate to severe fibrosis >2.2 m/s (15kPa): Significant fibrosis / cirrhosis Reading Location: [id number]
[2025-07-23 11:35] LABS: Hematocrit 45.8 % (40-54); Hemoglobin 16.5 g/dL (13.0-16.5); Immature Granulocytes Count 0.010 X10^3/uL (0.0-0.0); Mean Corp Hgb Conc 36.0 g/dL (32-36); Mean Corpuscular Volume 83.6 fL (80-94); Mean Platelet Vol. 13.1 fl (6.2-12.0); NRBC Flagged by Analyzer 0 % (0-5); Platelet Count 145 K/mm3 (150-450); RBC Distribution Width CV 12.0 % (11.6-14.6); RBC Distribution Width SD 36.6 fl (35.1-43.9); Red Blood Count 5.48 M/mm3 (4.6-6.2); White Blood Count 5.0 K/mm3 (4.4-11.0)
[2025-07-23 12:12] LABS: AST(SGOT) 23 U/L (<=37); Alanine Aminotransfer ALT/SGPT 21 U/L (<=46); Albumin, Serum 4.3 g/dL (3.5-5.0); Alkaline Phosphatase 86 U/L (40-129); Anion Gap 10 (5-15); BUN 12 mg/dL (4-19); BUN/Creat Ratio 12.1 RATIO (10-20); CRP < 3.00 mg/L (0.0-3.0); Calcium,Total 9.8 mg/dL (7.6-11.0); Carbon Dioxide 26.7 mmol/L (21.0-32.0); Chloride 103 mmol/L (98-108); Globulin 2.3 g/dL (2.2-4.2); Glucose 78 mg/dL (70-99); Potassium 4.4 mmol/L (3.3-5.1)
== END | disposition home or self-care (01) ==
LOC: US 10:03
PROVIDERS: PCP Nurse Practitioner Family; Referring Provider Internal Medicine Gastroenterology; Visit Provider Internal Medicine Gastroenterology
DX: K75.81 Nonalcoholic steatohepatitis (NASH) (principal)
CPT/HCPCS: 36415; 76981; 80053; 85025; 85652; 86140